=== PATIENT | male | born 1940 | race Caucasian/White ===

== ENCOUNTER 2016-11-10 08:09 | Day surgery (SDC) | payer MEDICARE ==
[2016-06-17 11:06] VITALS: BMI 25.8
[2016-11-10 09:20] LABS: INR 1.1; PROTHROMBIN TIME 12.4 SECONDS (9.7-12.2)
[2016-11-10] MEDS ORDERED: Midazolam 2 MG/2 ML VIAL ONE (11:57)
[2016-11-10] MEDS ORDERED: Propofol 10 mg/ml Inj (20 ML) ONE (11:58)
[2016-11-10] MEDS ORDERED: Absorbable Gelatin Sponge Size 12-7 ONE (12:22)
--- NOTE | 2016-11-10 12:33 | CP.SDSHP ---
Same Day Surgery H & P - History Proposed Procedure: US guided renal biopsy. Pre-Op Diagnosis: Proteinuria - Allergies Allergies: Allergies No Known Allergies Allergy (Verified 02/07/16 10:54) - Physical Exam Vital Signs: Vital Signs 11/10/16 08:17 Temperature 97.7 F Pulse Rate 69 Respiratory 18 Rate Blood Pressure 170/84 H O2 Sat by Pulse 98 Oximetry Mental Status: Alert & Oriented x3 Neuro: WNL Heart: WNL - Impression Impression: Pt with proteinuria referred for biopsy. Pt. Evaluated Today:Candidate for Anesthesia & Procedure: Yes (ASA 2 Malampati 3) - Date & Time Date: 11/10/16 Time: 12:00 Short Stay Discharge - Short Stay Discharge Admitting Diagnosis/Reason for Visit: PROTEINURIA, UNSPECIFIED Disposition: HOME/ ROUTINE
--- NOTE | 2016-11-10 12:36 | PCM.SURG1 ---
Surgeon's Initial Post Op Note - Surgeon's Notes Surgeon: Jose Marsh MD Sap Portal Developer: None Type of Anesthesia: IV Sedation Pre-Operative Diagnosis: Proteinuria Operative Findings: US showed an unremarkable left kidney. Post-Operative Diagnosis: Proteinuria Operation Performed: US guided left renal biopsy. Three 18 g core specimen obtained. Biopsy tract emboized with gelfoam. Specimen/Specimens Removed: 18 g core x 3 Estimated Blood Loss: EBL {In ML}: 2 Blood Products Given: N/A Drains Used: No Drains Post-Op Condition: Fair Date of Surgery/Procedure: 11/10/16 Time of Surgery/Procedure: 12:30
[2016-11-10 13:47] VITALS: RESP 20
[2016-11-10 14:34] VITALS: BP 169/89; PULSE 78; TEMP 98; O2SAT 100
--- NOTE | 2016-11-12 10:29 | US ---
PROCEDURE: Date of procedure: 11/10/2016 Procedure: Ultrasound-guided left renal biopsy, CPT 51400 Ultrasound guidance for biopsy, [id number] HISTORY: Proteinuria TECHNIQUE: Following informed consent and procedure time-out, the patient was placed prone on the interventional table and a limited ultrasound showed slightly echogenic left kidney consistent with medical renal disease. There is no hydronephrosis or mass. The patient left back was prepped and draped in the usual sterile fashion. After patient sedated by the anesthesiologist and the skin anesthetized with lidocaine, an 18 gauge core needle was advanced percutaneously towards the lower pole cortex. Upon confirmation of needle position, three-18 gauge core specimens were obtained and sent for routine pathology. The biopsy tract was then embolized with Gelfoam. A post biopsy ultrasound showed no hematoma. There were no immediate complications. IMPRESSION: Ultrasound-guided left renal biopsy.
== END 2016-11-10 15:40 | disposition home or self-care (01) ==
LOC: C.SPRAD 08:09
PROVIDERS: ATTEND Radiology Vascular & Interventional Radiology
DX: N28.89 Other specified disorders of kidney and ureter (principal); R80.9 Proteinuria, unspecified; N02.8 Recurrent and persistent hematuria with other morphologic changes
CPT/HCPCS: 36415; 50200; 76942; 85610; 85730; 88300; J2250; J2704; J3010

== ENCOUNTER 2016-11-14 22:34 | Observation (INO) | payer MEDICARE ==
[2016-11-14 22:34] VITALS: BMI 25.8
[2016-11-14] MEDS ORDERED: Aspirin 325 mg EC Tablets PO STA (22:55)
[2016-11-14 23:07] LABS: BASO % 0.1 % (0.0-2.0); HEMATOCRIT 41.6 % (35.0-51.0); LYMPH # 0.3 K/uL (1.0-4.3); LYMPH % 1.5 % (20.0-40.0); MEAN CORPUSCULAR HEMOGLOBIN 30.4 pg (27.0-31.0); MEAN CORPUSCULAR HGB CONC 33.8 g/dL (33.0-37.0); MEAN PLATELET VOLUME 8.4 fL (7.2-11.7); MONO # 1.2 K/uL (0.0-0.8); MONO % 6.8 % (0.0-10.0); PLATELET COUNT 192 K/uL (130-400); RED CELL DISTRIBUTION WIDTH 14.1 % (11.5-14.5); WHITE BLOOD COUNT 18.1 K/uL (4.8-10.8)
[2016-11-14 23:17] LABS: POTASSIUM 3.6 mmol/L (3.6-5.2)
[2016-11-14 23:19] LABS: BILIRUBIN,TOTAL 3.1 mg/dL (0.2-1.3); TOTAL PROTEIN 6.8 g/dL (6.3-8.3)
[2016-11-14 23:20] LABS: CALCIUM 8.4 mg/dl (8.6-10.4)
[2016-11-14 23:31] LABS: TROPONIN I 0.118 ng/mL (0.00-0.120)
[2016-11-14] MEDS ORDERED: Aspirin 325 mg EC Tablets PO ONE (23:42)
[2016-11-14 23:43] LABS: NEUTROPHIL 92 % (50-75); TOTAL CELLS COUNTED 100
[2016-11-15 00:25] LABS: INR 1.3
--- NOTE | 2016-11-15 00:31 | C.PDOC ---
History Of Present Illness 76 year old male who presents to the ER with a complaint of vague left chest discomfort for the past 3 days. Patient is SP renal biopsy 5 days ago; since then he has been off his medication, however, he is unsure why. Denies SOB, nausea, or vomiting. Time Seen by Provider: 11/14/16 22:51 Chief Complaint (Nursing): Chest Pain History Per: Patient History/Exam Limitations: no limitations Onset/Duration Of Symptoms: Days Current Symptoms Are (Timing): Still Present Associated Symptoms: denies: Nausea, Diaphoresis Modifying Factors: None Exacerbating Factors: None Alleviating Factors: None Recent travel outside of the [place]: No Past Medical History Reviewed: Historical Data, Nursing Documentation, Vital Signs Vital Signs: Last Vital Signs Temp 97.8 F 11/14/16 22:40 Pulse 96 H 11/15/16 00:34 Resp 16 11/15/16 00:34 BP 178/100 H 11/15/16 00:34 Pulse Ox 96 11/15/16 00:37 - Medical History PMH: Asthma, Cardia Arrhythmia (A-FIB), HTN, Kidney Stones, Chronic Kidney Disease Surgical History: Appendectomy, Endoscopy - [facility] Procedures MEASURE OF CARDIAC SAMPL & PRESSURE, L HEART, PERC APPROACH (06/07/15) PLAIN RADIOGRAPHY OF MULT COR ART USING OTH CONTRAST (06/07/15) Family History: States: Unknown Family Hx - Social History Hx Alcohol Use: No Hx Substance Use: No - Immunization History Hx Tetanus Toxoid Vaccination: No Hx Influenza Vaccination: No Hx Pneumococcal Vaccination: No Review Of Systems Constitutional: Negative for: Fever, Chills Cardiovascular: Positive for: Chest Pain Gastrointestinal: Negative for: Nausea, Vomiting Physical Exam - Physical Exam Appears: Non-toxic, No Acute Distress Skin: Normal Color, Warm, Dry Head: Atraumatic, Normacephalic Oral Mucosa: Moist Chest: Symmetrical, No Tenderness Cardiovascular: Rhythm Irregular, No Murmur Respiratory: Normal Breath Sounds, No Rales, No Rhonchi, No Wheezing Gastrointestinal/Abdominal: Soft, No Tenderness Neurological/Psych: Oriented x3, Normal Speech, Normal Cognition ED Course And Treatment - Laboratory Results Result Diagrams: 11/14/16 23:03 11/14/16 23:03 ECG: Interpreted By La ECG Rhythm: Atrial Fibrillation ECG Interpretation: Normal Rate From EC O2 Sat by Pulse Oximetry: 96 (Room air) Pulse Ox Interpretation: Normal - Radiology CXR: Interpreted by Me CXR Interpretation: Yes: No Acute Disease, Heart Size (+ megaly, +RVH, +LVH) Progress Note: EKG and CXR ordered. Ecotrin, cardizem, and lovenox administered. Reevaluation Time: 00:53 Reassessment Condition: Improved - Physician Consult Information Outcome Of Conversation: 0030: d/w Dr. Damaso Escobedo- prior adm doctor- ok to Tele Obs. Understands and agrees w Lovenox dose given and pending further eval for PE Medical Decision Making Medical Decision Making: poorly controlled AF off all meds, and ? if presently anticoagulated. ? underlying AF provoked PE Lovenox given, but no CTA due to elev creat 2.4 Disposition Doctor Will See Patient In The: Hospital Counseled Patient/Family Regarding: Studies Performed, Diagnosis - Disposition Disposition: HOSPITALIZED Disposition Time: 00:54 Condition: GOOD Forms: [facility] ([place]) - Clinical Impression Clinical Impression: Atrial fibrillation, Chest discomfort - Scribe Statement The provider has reviewed the documentation as recorded by the Scribgonsalo Friedman All medical record entries made by the Scribe were at my direction and personally dictated by me. I have reviewed the chart and agree that the record accurately reflects my personal performance of the history, physical exam, medical decision making, and the department course for this patient. I have also personally directed, reviewed, and agree with the discharge instructions and disposition.
[2016-11-15] MEDS ORDERED: Enoxaparin 40 mg Syringe SC STA (00:34)
[2016-11-15] MEDS ORDERED: Enoxaparin 60 mg Syringe ONE (01:00)
[2016-11-15] MEDS: Moxifloxacin IV 400mg/250ml NS 400 MG/250 ML BAG IVPB SCH (02:03)
[2016-11-15 07:47] LABS: BASO # 0.2 K/uL (0.0-0.2); BASO % 0.8 % (0.0-2.0); HEMATOCRIT 38.5 % (35.0-51.0); LYMPH # 0.3 K/uL (1.0-4.3); LYMPH % 1.7 % (20.0-40.0); MEAN CELL VOLUME 89.7 fL (80.0-94.0); MEAN CORPUSCULAR HEMOGLOBIN 30.7 pg (27.0-31.0); MEAN CORPUSCULAR HGB CONC 34.2 g/dL (33.0-37.0); MEAN PLATELET VOLUME 8.6 fL (7.2-11.7); MONO # 1.2 K/uL (0.0-0.8); MONO % 5.9 % (0.0-10.0); PLATELET COUNT 175 K/uL (130-400); RED CELL DISTRIBUTION WIDTH 14.1 % (11.5-14.5); WHITE BLOOD COUNT 20.7 K/uL (4.8-10.8)
[2016-11-15 08:19] LABS: BILIRUBIN,TOTAL 3.1 mg/dL (0.2-1.3); TOTAL PROTEIN 6.2 g/dL (6.3-8.3)
[2016-11-15 08:20] LABS: CALCIUM 8.3 mg/dl (8.6-10.4)
--- NOTE | 2016-11-15 08:56 | RAD ---
PROCEDURE: CHEST RADIOGRAPH, 1 VIEW HISTORY: Shortness of breath COMPARISON: 10/17/2016. FINDINGS: LUNGS: The right lung is clear. There is a persistent left lower lobe consolidation. PLEURA: The right costophrenic angle has been excluded from the film. There is a persistent moderate left pleural effusion. CARDIOVASCULAR: There is persistent moderate cardiomegaly. OSSEOUS STRUCTURES: No significant abnormalities. VISUALIZED UPPER ABDOMEN: Normal. OTHER FINDINGS: None. IMPRESSION: Persistent moderate cardiomegaly. Persistent left lower lobe atelectasis/pneumonia and moderate left pleural effusion.
[2016-11-15 09:06] LABS: BASOPHIL 1 % (0-2); NEUTROPHIL 89 % (50-75); TOTAL CELLS COUNTED 100
[2016-11-15] MEDS ORDERED: Home Med 1 UNIT (Valsartan [Diovan] 160 MG) PO SCH (10:00)
--- NOTE | 2016-11-15 11:27 | US ---
PROCEDURE: Ultrasound of the Kidneys HISTORY: acute renal failure COMPARISON: None available. TECHNIQUE: Sonogram of the kidneys. FINDINGS: RIGHT KIDNEY: Measures: 13.0 cm. Normal in size, contour with diffuse increased echogenicity. There is moderate hydronephrosis. No nephrolithiasis or solid mass. There is a 1.3 x 1.4 x 1.4 cm cyst in the upper pole. LEFT KIDNEY: Measures: 11.8 cm. Normal in size, contour with diffuse increased echogenicity. There is mild hydronephrosis. No nephrolithiasis or solid mass. OTHER FINDINGS: None. IMPRESSION: Medical renal disease. Moderate right and mild left hydronephrosis.
--- NOTE | 2016-11-15 11:37 | CP.PCM.CON ---
History of Present Illness - History of Present Illness History of Present Illness: 76 yo M w/ pmh of htn, diastolic CHF, afib on xarelto, gout, nephrolithiasis, COPD and proteinuria s/p renal biopsy 5 days ago, presented to ED yesterday with shortness of breath and chest pain; found to have acute renal failure, nephrology being consulted for the same; Patient underwent renal biopsy in the setting of ~3 g proteinuria with preserved renal function; anticoagulation was held for a few days before the procedure and had not yet been restarted; however, he reports having gross hematuria after the procedure which cleared up gradually; he denies any dysuria , however, urination has decreased significantly; Patient also reports some chest pain and palpitations on day of presentation; he reports some difficulty breathing that he attributes to stuffy nose; appetite has been decreased lately with some nausea and minimal vomiting; Review of Systems - Constitutional Constitutional: absent: Chills, Fever - EENT Eyes: Change in Vision Nose/Mouth/Throat: Nasal Congestion. absent: Dysphagia - Cardiovascular Cardiovascular: Chest Pain - Respiratory Respiratory: Dyspnea - Gastrointestinal Gastrointestinal: As Per HPI - Genitourinary Genitourinary: As Per HPI - Integumentary Integumentary: absent: Pruritus, Rash - Psychiatric Psychiatric: absent: Anxiety, Depression - Hematologic/Lymphatic Hematologic: absent: Easy Bleeding, Easy Bruising Past Patient History - Past Medical History & Family History Past Medical History?: Yes Pertinent Family History: Mother - heart disease, stroke () - Past Social History Smoking Status: Former Smoker - CARDIAC Hx Cardiac Disorders: Yes Hx Cardia Arrhythmia: Yes (A-FIB) Hx Hypertension: Yes - PULMONARY Hx Respiratory Disorders: Yes Hx Asthma: Yes - NEUROLOGICAL Hx Neurological Disorder: No - HEENT Hx HEENT Problems: Yes Hx Glaucoma: Yes Other/Comment: Wears eyeglasses for reading - RENAL Hx Chronic Kidney Disease: Yes Hx Dialysis: No Hx Kidney Stones: Yes - ENDOCRINE/METABOLIC Hx Endocrine Disorders: No - HEMATOLOGICAL/ONCOLOGICAL Hx Blood Disorders: No - INTEGUMENTARY Hx Dermatological Problems: Yes Other/Comment: facial discoloration. patient states " roselyn" - MUSCULOSKELETAL/RHEUMATOLOGICAL Hx Musculoskeletal Disorders: No Hx Falls: Yes - GASTROINTESTINAL Hx Gastrointestinal Disorders: No - GENITOURINARY/GYNECOLOGICAL Hx Genitourinary Disorders: Yes Hx Prostate Cancer: Yes (h/o.12 years ago seed implants) - PSYCHIATRIC Hx Substance Use: No - SURGICAL HISTORY Hx Appendectomy: Yes - ANESTHESIA Hx Anesthesia: Yes Hx Anesthesia Reactions: No Hx Malignant Hyperthermia: No Has any member of the family had a problem w/ anesthesia?: No Meds Allergies/Adverse Reactions: Allergies Allergy/AdvReac Type Severity Reaction Status Date / Time No Known Allergies Allergy Verified 02/07/16 10:54 - Medications Medications: Current Medications Aspirin (Aspirin Chewable) 81 mg PO DAILY [facility] Furosemide (Lasix) 40 mg PO DAILY [facility] Home Med (Valsartan [Diovan]) 160 mg PO DAILY [facility] Moxifloxacin HCl (Avelox Iv 400mg/250ml Ns) 400 mg in 250 mls @ 167 mls/hr IVPB Q24H [facility] Last Admin: 11/15/16 02:03 Dose: 167 mls/hr Metoprolol Succinate (Toprol Xl) 25 mg PO DAILY [facility] Pantoprazole Sodium (Protonix Ec Tab) 40 mg PO DAILY [facility] Rivaroxaban (Xarelto) 15 mg PO DAILY [facility] Physical Exam - Constitutional Appears: Well, No Acute Distress - Head Exam Head Exam: NORMAL INSPECTION - Eye Exam Eye Exam: Normal appearance - ENT Exam ENT Exam: Mucous Membranes Moist - Respiratory Exam Respiratory Exam: Clear to Auscultation Bilateral. absent: Rales, Rhonchi, Wheezes, Respiratory Distress - Cardiovascular Exam Cardiovascular Exam: REGULAR RHYTHM, +S1, +S2 - GI/Abdominal Exam GI & Abdominal Exam: Distended, Soft - Neurological Exam Neurological exam: Alert, Oriented x3 - Psychiatric Exam Psychiatric exam: Normal Affect, Normal Mood - Skin Skin Exam: Normal Color, Warm Additional comments: Except for L facial discoloration (chronic, since childhood); Results - Vital Signs Recent Vital Signs: Last Vital Signs Temp 98.1 F 11/15/16 04:05 Pulse 79 11/15/16 07:30 Resp 20 11/15/16 04:05 BP 142/54 L 11/15/16 04:05 Pulse Ox 97 11/15/16 04:05 - Labs Result Diagrams: 11/15/16 07:33 11/15/16 07:33 Labs: Laboratory Results - last 24 hr 11/15/16 11/15/16 07:33 07:33 WBC 20.7 H RBC 4.29 L Hgb 13.2 Hct 38.5 MCV 89.7 MCH 30.7 MCHC 34.2 RDW 14.1 Plt Count 175 MPV 8.6 Neut % (Auto) 91.6 H Lymph % (Auto) 1.7 L [place] % (Auto) 5.9 Eos % (Auto) 0.0 Baso % (Auto) 0.8 Neut # 19.0 H Lymph # 0.3 L [place] # 1.2 H Eos # 0.0 Baso # 0.2 Neutrophils % (Manual) 89 H Band Neutrophils % 3 H Lymphocytes % (Manual) 2 L Monocytes % (Manual) 5 Basophils % (Manual) 1 Platelet Estimate Normal Polychromasia Slight Hypochromasia (manual) Slight Poikilocytosis (manual Slight Anisocytosis (manual) Slight Ovalocytes Slight Sodium 130 L Potassium 4.0 Chloride 89 L Carbon Dioxide 26 Anion Gap 18 BUN 37 H Creatinine 2.9 H Est GFR ( Amer) 26 Est GFR (Non-Af Amer) 21 Random Glucose 95 Calcium 8.3 L Total Bilirubin 3.1 H AST 31 ALT 27 Alkaline Phosphatase 89 Total Creatine Kinase 56 CK-MB (Mass) 1.71 Troponin I, Quant 0.1170 Total Protein 6.2 L Albumin 3.1 L Globulin 3.1 Albumin/Globulin Ratio 1.0 - Imaging and Cardiology US - abdomen Status: Image reviewed by me Additional comment: Renal US with bilateral hydronephrosis, bladder distention; Assessment & Plan (1) Acute renal failure Assessment and Plan: Baseline preserved renal function, now with obstructive nephropathy and US showing bilateral hydronephrosis, bladder distention (and patient unable to empty bladder); patient already had history of urinary frequency with moderately enlarged prostate; recent renal biopsy with subsequent gross hematuria likely resulted in clots that resulted in urinary obstruction; -Insert vasquez; if still no UO, need to do bladder irrigation -Monitor I/O, watch for post-obstructive diuresis -Start flomax 0.4 mg daily -Holding valsartan and lasix for now Status: Acute (2) Proteinuria Assessment and Plan: 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; degree of proteinuria, ~3g, appears out of proportion for this diagnosis in the context preserved renal function (baseline serum creat 0.8), however, still awaiting electron microscopy results; -continue to hold valsartan, will restart once BROWN improves Status: Acute (3) Hypertension Assessment and Plan: BP controlled; on metoprolol XL 25 mg daily; holding valsartan and lasix in setting of acute renal failure; may need IVF if post-obstructive diuresis ensues ; Status: Chronic (4) Pneumonia Assessment and Plan: On avelox, no renal dose adjustment needed; Status: Acute (5) Atrial fibrillation Assessment and Plan: On xarelto, holding for now in the setting of hematuria; can restart once urine clear; Status: Chronic (6) Gout Assessment and Plan: On allopurinol 100 mg daily at home, continue; Status: Chronic
--- NOTE | 2016-11-15 12:21 | CP.PCM.HP ---
History of Present Illness - History of Present Illness History of Present Illness: 76 years old male patient with past medical history of CHF, hypertension, atrial fibrillation on Xarelto, COPD, proteinuria S/P biopsy 2 days back, gout, nephrolithiasis, presented to the emergency department with complaint of shortness of breath, chest pain and found to have acute renal failure. Recently patient underwent renal biopsy because of the proteinuria. Denies dysuria but also complains of decreased urination post renal biopsy Decreased appetite recently, complaints of nausea and vomiting Present on Admission - Present on Admission Any Indicators Present on Admission: No Past Patient History - Past Medical History & Family History Past Medical History?: Yes - Past Social History Smoking Status: Former Smoker - CARDIAC Hx Cardiac Disorders: Yes Hx Cardia Arrhythmia: Yes (A-FIB) Hx Hypertension: Yes - PULMONARY Hx Respiratory Disorders: Yes Hx Asthma: Yes - NEUROLOGICAL Hx Neurological Disorder: No - HEENT Hx HEENT Problems: Yes Hx Glaucoma: Yes Other/Comment: Wears eyeglasses for reading - RENAL Hx Chronic Kidney Disease: Yes Hx Dialysis: No Hx Kidney Stones: Yes - ENDOCRINE/METABOLIC Hx Endocrine Disorders: No - HEMATOLOGICAL/ONCOLOGICAL Hx Blood Disorders: No - INTEGUMENTARY Hx Dermatological Problems: Yes Other/Comment: facial discoloration. patient states " roselyn" - MUSCULOSKELETAL/RHEUMATOLOGICAL Hx Musculoskeletal Disorders: No Hx Falls: Yes - GASTROINTESTINAL Hx Gastrointestinal Disorders: No - GENITOURINARY/GYNECOLOGICAL Hx Genitourinary Disorders: Yes Hx Prostate Cancer: Yes (h/o.12 years ago seed implants) - PSYCHIATRIC Hx Substance Use: No - SURGICAL HISTORY Hx Appendectomy: Yes - ANESTHESIA Hx Anesthesia: Yes Hx Anesthesia Reactions: No Hx Malignant Hyperthermia: No Has any member of the family had a problem w/ anesthesia?: No Meds Home Medications: Home Medication List Medication Instructions Recorded Confirmed Type Allopurinol [Zyloprim] 100 mg PO DAILY #30 tab 11/17/16 Rx Aspirin [Aspirin Chewable] 81 mg PO DAILY #30 chew 11/17/16 Rx Furosemide [Lasix] 40 mg PO DAILY #30 tab 11/17/16 Rx Metoprolol Succinate [Toprol XL] 25 mg PO DAILY #30 tab 11/17/16 Rx Moxifloxacin [Avelox] 400 mg PO DAILY #4 tab 11/17/16 Rx Pantoprazole [Protonix EC Tab] 40 mg PO DAILY #30 ect 11/17/16 Rx Potassium Chloride [K-Dur 20 mEq 20 meq PO DAILY #30 tab 11/17/16 Rx ER Tab] Rivaroxaban [Xarelto] 15 mg PO DAILY #30 tab 11/17/16 Rx Tamsulosin [Flomax] 0.4 mg PO DAILY #30 cap 11/17/16 Rx Allergies/Adverse Reactions: Allergies Allergy/AdvReac Type Severity Reaction Status Date / Time No Known Allergies Allergy Verified 02/07/16 10:54 Physical Exam - Constitutional Appears: Well - Head Exam Head Exam: ATRAUMATIC, NORMAL INSPECTION, NORMOCEPHALIC - Eye Exam Eye Exam: EOMI, Normal appearance, PERRL Pupil Exam: NORMAL ACCOMODATION, PERRL - ENT Exam ENT Exam: Mucous Membranes Moist, Normal Exam - Neck Exam Neck exam: Positive for: Normal Inspection - Respiratory Exam Respiratory Exam: Decreased Breath Sounds - Cardiovascular Exam Cardiovascular Exam: REGULAR RHYTHM, +S1, +S2 - GI/Abdominal Exam GI & Abdominal Exam: Diminished Bowel Sounds, Soft - Rectal Exam Rectal Exam: Deferred Results - Vital Signs Recent Vital Signs: Last Vital Signs Temp 98.1 F 11/15/16 04:05 Pulse 79 11/15/16 07:30 Resp 20 11/15/16 04:05 BP 142/54 L 11/15/16 04:05 Pulse Ox 97 11/15/16 04:05 - Labs Result Diagrams: 11/17/16 06:17 11/17/16 06:17 Labs: Laboratory Results - last 24 hr 11/15/16 11/15/16 07:33 07:33 WBC 20.7 H RBC 4.29 L Hgb 13.2 Hct 38.5 MCV 89.7 MCH 30.7 MCHC 34.2 RDW 14.1 Plt Count 175 MPV 8.6 Neut % (Auto) 91.6 H Lymph % (Auto) 1.7 L [place] % (Auto) 5.9 Eos % (Auto) 0.0 Baso % (Auto) 0.8 Neut # 19.0 H Lymph # 0.3 L [place] # 1.2 H Eos # 0.0 Baso # 0.2 Neutrophils % (Manual) 89 H Band Neutrophils % 3 H Lymphocytes % (Manual) 2 L Monocytes % (Manual) 5 Basophils % (Manual) 1 Platelet Estimate Normal Polychromasia Slight Hypochromasia (manual) Slight Poikilocytosis (manual Slight Anisocytosis (manual) Slight Ovalocytes Slight Sodium 130 L Potassium 4.0 Chloride 89 L Carbon Dioxide 26 Anion Gap 18 BUN 37 H Creatinine 2.9 H Est GFR ( Amer) 26 Est GFR (Non-Af Amer) 21 Random Glucose 95 Calcium 8.3 L Total Bilirubin 3.1 H AST 31 ALT 27 Alkaline Phosphatase 89 Total Creatine Kinase 56 CK-MB (Mass) 1.71 Troponin I, Quant 0.1170 Total Protein 6.2 L Albumin 3.1 L Globulin 3.1 Albumin/Globulin Ratio 1.0 Assessment & Plan (1) Acute renal failure Status: Acute (2) Asthma exacerbation Status: Acute (3) CHF exacerbation Status: Acute (4) Chest discomfort Status: Acute (5) Chronic congestive heart failure Status: Acute (6) Dyspnea Status: Acute (7) Dyspnea Status: Acute (8) Elevated troponin Status: Acute (9) Hypertensive urgency Status: Acute (10) Hypokalemia Status: Acute (11) Pneumonia Status: Acute (12) Prophylactic measure Status: Acute (13) Proteinuria Status: Acute (14) Respiratory distress Status: Acute (15) Atrial fibrillation Status: Chronic (16) Gout Status: Chronic (17) Hypertension Status: Chronic - Assessment and Plan (Free Text) Plan: Labs and meds reviewed EKG noted Monitor vitals Telemetry Cardio consult Nephro consult Renal diet Aspirin Diltiazem DVT prophylaxis Antibiotics
[2016-11-15 12:23] LABS: RBC URINE 11 /hpf (0-3); URINE BILIRUBIN NEGATIVE (NEGATIVE); URINE BLOOD 3+ (NEGATIVE); URINE COLOR Yellow (YELLOW); URINE GLUCOSE (UA) NORMAL (Normal); URINE KETONE NEGATIVE (NEGATIVE); URINE LEUKOCYTE ESTERASE NEG Leu/uL (Negative); URINE PROTEIN 1+ mg/dL (NEGATIVE); URINE UROBILINOGEN NORMAL mg/dL (0.2-1.0); WBC URINE 6 /hpf (0-5)
[2016-11-15 12:28] LABS: CREATININE, RANDOM URINE 49.8 mg/dL
--- NOTE | 2016-11-15 12:46 | CP.PCM.CON ---
History of Present Illness - History of Present Illness History of Present Illness: 76 year old with hx of DM, had hx of cardiac w/u, last year a cardiac cath was with unremarkable coronaries and normal LV. now with CP, no EKG changes, neg Enz.. no [place]. Review of Systems - Constitutional Constitutional: Anorexia, Weakness - EENT Eyes: absent: Discharge Ears: absent: Ear Discharge Nose/Mouth/Throat: absent: Epistaxis - Cardiovascular Cardiovascular: Chest Pain, Palpitations. absent: Acrocyanosis, Diaphoresis, Syncope - Respiratory Respiratory: Cough. absent: Dyspnea, Hemoptysis - Gastrointestinal Gastrointestinal: absent: Abdominal Pain, Diarrhea, Hematochezia, Vomiting - Genitourinary Genitourinary: absent: Change in Urinary Stream Past Patient History - Past Medical History & Family History Past Medical History?: Yes - Past Social History Smoking Status: Former Smoker - CARDIAC Hx Cardiac Disorders: Yes Hx Cardia Arrhythmia: Yes (A-FIB) Hx Hypertension: Yes - PULMONARY Hx Respiratory Disorders: Yes Hx Asthma: Yes - NEUROLOGICAL Hx Neurological Disorder: No - HEENT Hx HEENT Problems: Yes Hx Glaucoma: Yes Other/Comment: Wears eyeglasses for reading - RENAL Hx Chronic Kidney Disease: Yes Hx Dialysis: No Hx Kidney Stones: Yes - ENDOCRINE/METABOLIC Hx Endocrine Disorders: No - HEMATOLOGICAL/ONCOLOGICAL Hx Blood Disorders: No - INTEGUMENTARY Hx Dermatological Problems: Yes Other/Comment: facial discoloration. patient states " roselyn" - MUSCULOSKELETAL/RHEUMATOLOGICAL Hx Musculoskeletal Disorders: No Hx Falls: Yes - GASTROINTESTINAL Hx Gastrointestinal Disorders: No - GENITOURINARY/GYNECOLOGICAL Hx Genitourinary Disorders: Yes Hx Prostate Cancer: Yes (h/o.12 years ago seed implants) - PSYCHIATRIC Hx Substance Use: No - SURGICAL HISTORY Hx Appendectomy: Yes - ANESTHESIA Hx Anesthesia: Yes Hx Anesthesia Reactions: No Hx Malignant Hyperthermia: No Has any member of the family had a problem w/ anesthesia?: No Meds Allergies/Adverse Reactions: Allergies Allergy/AdvReac Type Severity Reaction Status Date / Time No Known Allergies Allergy Verified 02/07/16 10:54 - Medications Medications: Current Medications Aspirin (Aspirin Chewable) 81 mg PO DAILY [facility] Furosemide (Lasix) 40 mg PO DAILY [facility] Home Med (Valsartan [Diovan]) 160 mg PO DAILY [facility] Moxifloxacin HCl (Avelox Iv 400mg/250ml Ns) 400 mg in 250 mls @ 167 mls/hr IVPB Q24H [facility] Last Admin: 11/15/16 02:03 Dose: 167 mls/hr Metoprolol Succinate (Toprol Xl) 25 mg PO DAILY [facility] Pantoprazole Sodium (Protonix Ec Tab) 40 mg PO DAILY [facility] Rivaroxaban (Xarelto) 15 mg PO DAILY [facility] Physical Exam - Constitutional Appears: Non-toxic - Head Exam Head Exam: ATRAUMATIC - Eye Exam Eye Exam: EOMI - ENT Exam ENT Exam: Mucous Membranes Moist - Neck Exam Neck exam: Negative for: Lymphadenopathy, Tenderness - Respiratory Exam Respiratory Exam: Clear to Auscultation Bilateral. absent: Rales - Cardiovascular Exam Cardiovascular Exam: REGULAR RHYTHM, Systolic Murmur - GI/Abdominal Exam GI & Abdominal Exam: Normal Bowel Sounds. absent: Organomegaly - Rectal Exam Rectal Exam: Deferred - Extremities Exam Extremities exam: Positive for: normal capillary refill. Negative for: calf tenderness - Neurological Exam Neurological exam: Alert, Oriented x3 - Psychiatric Exam Psychiatric exam: Anxious - Skin Skin Exam: Dry Results - Vital Signs Recent Vital Signs: Last Vital Signs Temp 98.1 F 11/15/16 04:05 Pulse 79 11/15/16 07:30 Resp 20 11/15/16 04:05 BP 142/54 L 11/15/16 04:05 Pulse Ox 97 11/15/16 04:05 - Labs Result Diagrams: 11/16/16 11:17 11/16/16 11:17 Labs: Laboratory Results - last 24 hr 11/15/16 11/15/16 11/15/16 07:33 07:33 12:09 WBC 20.7 H RBC 4.29 L Hgb 13.2 Hct 38.5 MCV 89.7 MCH 30.7 MCHC 34.2 RDW 14.1 Plt Count 175 MPV 8.6 Neut % (Auto) 91.6 H Lymph % (Auto) 1.7 L [place] % (Auto) 5.9 Eos % (Auto) 0.0 Baso % (Auto) 0.8 Neut # 19.0 H Lymph # 0.3 L [place] # 1.2 H Eos # 0.0 Baso # 0.2 Neutrophils % (Manual) 89 H Band Neutrophils % 3 H Lymphocytes % (Manual) 2 L Monocytes % (Manual) 5 Basophils % (Manual) 1 Platelet Estimate Normal Polychromasia Slight Hypochromasia (manual) Slight Poikilocytosis (manual Slight Anisocytosis (manual) Slight Ovalocytes Slight Sodium 130 L Potassium 4.0 Chloride 89 L Carbon Dioxide 26 Anion Gap 18 BUN 37 H Creatinine 2.9 H Est GFR ( Amer) 26 Est GFR (Non-Af Amer) 21 Random Glucose 95 Calcium 8.3 L Total Bilirubin 3.1 H AST 31 ALT 27 Alkaline Phosphatase 89 Total Creatine Kinase 56 CK-MB (Mass) 1.71 Troponin I, Quant 0.1170 Total Protein 6.2 L Albumin 3.1 L Globulin 3.1 Albumin/Globulin Ratio 1.0 Urine Color Yellow Urine Clarity Clear Urine pH 5.0 Ur Specific [place] 1.008 Urine Protein 1+ H Urine Glucose (UA) Normal Urine Ketones Negative Urine Blood 3+ H Urine Nitrate Negative Urine Bilirubin Negative Urine Urobilinogen Normal Ur Leukocyte Esterase Neg Urine WBC (Auto) 6 H Urine RBC (Auto) 11 H Ur Random Creatinine U Random Total Protein Ur Random Sodium Ur Random Urea Nitrogn 11/15/16 11/15/16 12:09 12:10 WBC RBC Hgb Hct MCV MCH MCHC RDW Plt Count MPV Neut % (Auto) Lymph % (Auto) [place] % (Auto) Eos % (Auto) Baso % (Auto) Neut # Lymph # [place] # Eos # Baso # Neutrophils % (Manual) Band Neutrophils % Lymphocytes % (Manual) Monocytes % (Manual) Basophils % (Manual) Platelet Estimate Polychromasia Hypochromasia (manual) Poikilocytosis (manual Anisocytosis (manual) Ovalocytes Sodium Potassium Chloride Carbon Dioxide Anion Gap BUN Creatinine Est GFR ( Amer) Est GFR (Non-Af Amer) Random Glucose Calcium Total Bilirubin AST ALT Alkaline Phosphatase Total Creatine Kinase CK-MB (Mass) Troponin I, Quant Total Protein Albumin Globulin Albumin/Globulin Ratio Urine Color Urine Clarity Urine pH Ur Specific [place] Urine Protein Urine Glucose (UA) Urine Ketones Urine Blood Urine Nitrate Urine Bilirubin Urine Urobilinogen Ur Leukocyte Esterase Urine WBC (Auto) Urine RBC (Auto) Ur Random Creatinine 49.8 U Random Total Protein 61.0 H Ur Random Sodium 10 Ur Random Urea Nitrogn 387 Assessment & Plan (1) Chest discomfort Status: Acute Comment: no [place], Nl Cor last year
--- NOTE | 2016-11-15 15:57 | NM ---
COMPARISON: Chest radiograph 11/15/2016. TECHNIQUE: 7.6 MCi technetium 99-m Xe-133 Gas. 4.1 mCI technetium 99-m MAA administered intravenously. FINDINGS: VENTILATION COMPONENT: Normal. PERFUSION COMPONENT: Normal. No perfusion defects are identified throughout the bilateral lung espinosa. IMPRESSION: Normal ventilation perfusion lung scan is identified.
[2016-11-16] MEDS: Moxifloxacin IV 400mg/250ml NS 400 MG/250 ML BAG IVPB SCH (01:19)
[2016-11-16] MEDS: Pantoprazole 40 mg EC Tab PO SCH (09:34)
[2016-11-16] MEDS: Metoprolol Succinate 25 mg XL Tab PO SCH (09:35)
[2016-11-16 11:21] LABS: BASO % 0.2 % (0.0-2.0); HEMATOCRIT 38.4 % (35.0-51.0); LYMPH # 0.3 K/uL (1.0-4.3); LYMPH % 2.3 % (20.0-40.0); MEAN CELL VOLUME 91.3 fL (80.0-94.0); MEAN PLATELET VOLUME 8.3 fL (7.2-11.7); MONO # 1.2 K/uL (0.0-0.8); MONO % 9.2 % (0.0-10.0); NRBC % 0.1 % (0.0-2.0); PLATELET COUNT 189 K/uL (130-400); RED CELL DISTRIBUTION WIDTH 14.1 % (11.5-14.5); WHITE BLOOD COUNT 13.4 K/uL (4.8-10.8)
[2016-11-16 11:31] LABS: CHLORIDE 95 mmol/L (98-107); POTASSIUM 3.5 mmol/L (3.6-5.2); SODIUM 135 mmol/L (132-148)
[2016-11-16 11:33] LABS: BILIRUBIN,TOTAL 2.7 mg/dL (0.2-1.3); GFR AFRICAN-AMERICAN > 60
[2016-11-16 11:34] LABS: ALB/GLOB RATIO 0.9 (1.0-2.1); ALKALINE PHOSPHATASE 75 U/L (38-126); ALT/SGPT 30 U/L (21-72); AST/SGOT 28 U/L (17-59); BLOOD UREA NITROGEN 33 mg/dL (9-20); CALCIUM 8.3 mg/dl (8.6-10.4); CARBON DIOXIDE 30 mmol/L (22-30); GLUCOSE,RANDOM 82 mg/dL (75-110); PHOSPHOROUS 3.2 mg/dL (2.5-4.5); TOTAL PROTEIN 5.8 g/dL (6.3-8.3)
[2016-11-16 11:35] LABS: MAGNESIUM 1.8 mg/dL (1.6-2.3)
[2016-11-16] MEDS ORDERED: Sodium Chloride 0.9% 1,000 ML IV SCH ×2 (11:45→14:14)
[2016-11-16 11:54] LABS: NEUTROPHIL 93 % (50-75); TOTAL CELLS COUNTED 100
--- NOTE | 2016-11-16 12:35 | CP.PCM.PN ---
Subjective - Date & Time of Evaluation Date of Evaluation: 11/16/16 Time of Evaluation: 13:40 - Subjective Subjective: clinically same Objective - Vital Signs/Intake and Output Vital Signs (last 24 hours): Temp Pulse Resp BP Pulse Ox 97.5 F L 90 20 116/74 97 11/16/16 07:35 11/16/16 07:35 11/16/16 07:35 11/16/16 07:35 11/16/16 07:35 Intake and Output: 11/16/16 11/16/16 06:59 18:59 Intake Total 300 Output Total 1950 Balance -1650 - Medications Medications: Current Medications Aspirin (Aspirin Chewable) 81 mg PO DAILY [facility] Last Admin: 11/16/16 09:33 Dose: 81 mg Furosemide (Lasix) 40 mg PO DAILY [facility] Heparin Sodium (Porcine) (Heparin) 5,000 units SC Q8 [facility] Last Admin: 11/16/16 09:33 Dose: 5,000 units Home Med (Valsartan [Diovan]) 160 mg PO DAILY [facility] Moxifloxacin HCl (Avelox Iv 400mg/250ml Ns) 400 mg in 250 mls @ 167 mls/hr IVPB Q24H [facility] Last Admin: 11/16/16 01:19 Dose: 167 mls/hr Sodium Chloride (Sodium Chloride 0.9%) 1,000 mls @ 50 mls/hr IV .Q20H [facility] Metoprolol Succinate (Toprol Xl) 25 mg PO DAILY [facility] Last Admin: 11/16/16 09:35 Dose: 25 mg Pantoprazole Sodium (Protonix Ec Tab) 40 mg PO DAILY [facility] Last Admin: 11/16/16 09:34 Dose: 40 mg Potassium Chloride (K-Dur 20 Meq Er Tab) 40 meq PO DAILY [facility] Rivaroxaban (Xarelto) 15 mg PO DAILY [facility] Tamsulosin HCl (Flomax) 0.4 mg PO DAILY [facility] Last Admin: 11/16/16 09:33 Dose: 0.4 mg - Labs Labs: 11/16/16 11:17 11/16/16 11:17 PT 14.5 SECONDS (9.7-12.2) H 11/14/16 23:03 INR 1.3 11/14/16 23:03 APTT 30 SECONDS (21-34) 11/14/16 23:03 - Constitutional Appears: Well - Head Exam Head Exam: ATRAUMATIC, NORMAL INSPECTION, NORMOCEPHALIC - Eye Exam Eye Exam: EOMI, Normal appearance, PERRL Pupil Exam: NORMAL ACCOMODATION, PERRL - ENT Exam ENT Exam: Mucous Membranes Moist, Normal Exam - Neck Exam Neck Exam: Full ROM, Normal Inspection. absent: Lymphadenopathy - Respiratory Exam Respiratory Exam: Decreased Breath Sounds - Cardiovascular Exam Cardiovascular Exam: REGULAR RHYTHM, +S1, +S2 - GI/Abdominal Exam GI & Abdominal Exam: Soft, Diminished Bowel Sounds - Rectal Exam Rectal Exam: Deferred Assessment and Plan (1) Acute renal failure Status: Acute (2) Asthma exacerbation Status: Acute (3) CHF exacerbation Status: Acute (4) Chest discomfort Status: Acute (5) Chronic congestive heart failure Status: Acute (6) Dyspnea Status: Acute (7) Dyspnea Status: Acute (8) Elevated troponin Status: Acute (9) Hypertensive urgency Status: Acute (10) Hypokalemia Status: Acute (11) Pneumonia Status: Acute (12) Prophylactic measure Status: Acute (13) Proteinuria Status: Acute (14) Respiratory distress Status: Acute (15) Atrial fibrillation Status: Chronic (16) Gout Status: Chronic (17) Hypertension Status: Chronic - Assessment and Plan (Free Text) Plan: Breathing better now Tolerating diet High WBC Continue Avelox Flomax Xarelto Potassium replacement Heparin Lasix Aspirin Cardio on board
[2016-11-16] MEDS: Potassium Chloride 20 mEq ER Tab PO SCH (12:44)
[2016-11-16] MEDS ORDERED: POLYETHYLENE GLYCOL 3350 17 GM/Dose PACKET PO ONE (13:17)
--- NOTE | 2016-11-16 14:11 | CP.PCM.PN ---
Subjective - Date & Time of Evaluation Date of Evaluation: 11/16/16 Time of Evaluation: 13:00 - Subjective Subjective: Patient reports breathing better but sob when lying flat; tolerating diet; no BM since 6 days; Objective - Vital Signs/Intake and Output Vital Signs (last 24 hours): Temp Pulse Resp BP Pulse Ox 97.5 F L 90 20 116/74 97 11/16/16 07:35 11/16/16 07:35 11/16/16 07:35 11/16/16 07:35 11/16/16 07:35 Intake and Output: 11/16/16 11/16/16 06:59 18:59 Intake Total 300 Output Total 1950 Balance -1650 - Medications Medications: Current Medications Aspirin (Aspirin Chewable) 81 mg PO DAILY [facility] Last Admin: 11/16/16 09:33 Dose: 81 mg Furosemide (Lasix) 40 mg PO DAILY [facility] Heparin Sodium (Porcine) (Heparin) 5,000 units SC Q8H [facility] Home Med (Valsartan [Diovan]) 160 mg PO DAILY [facility] Moxifloxacin HCl (Avelox Iv 400mg/250ml Ns) 400 mg in 250 mls @ 167 mls/hr IVPB Q24H [facility] Last Admin: 11/16/16 01:19 Dose: 167 mls/hr Sodium Chloride (Sodium Chloride 0.9%) 1,000 mls @ 50 mls/hr IV .Q20H [facility] Last Admin: 11/16/16 12:45 Dose: 50 mls/hr Metoprolol Succinate (Toprol Xl) 25 mg PO DAILY [facility] Last Admin: 11/16/16 09:35 Dose: 25 mg Pantoprazole Sodium (Protonix Ec Tab) 40 mg PO DAILY [facility] Last Admin: 11/16/16 09:34 Dose: 40 mg Potassium Chloride (K-Dur 20 Meq Er Tab) 40 meq PO DAILY [facility] Last Admin: 11/16/16 12:44 Dose: 40 meq Rivaroxaban (Xarelto) 15 mg PO DAILY [facility] Tamsulosin HCl (Flomax) 0.4 mg PO DAILY [facility] Last Admin: 11/16/16 09:33 Dose: 0.4 mg - Labs Labs: 11/16/16 11:17 11/16/16 11:17 PT 14.5 SECONDS (9.7-12.2) H 11/14/16 23:03 INR 1.3 11/14/16 23:03 APTT 30 SECONDS (21-34) 11/14/16 23:03 - Constitutional Appears: Well, No Acute Distress - Head Exam Head Exam: NORMAL INSPECTION - Eye Exam Eye Exam: Normal appearance - ENT Exam ENT Exam: Mucous Membranes Moist - Respiratory Exam Respiratory Exam: Clear to Ausculation Bilateral. absent: Rales, Rhonchi, Wheezes, Respiratory Distress Additional comments: tachypneic - Cardiovascular Exam Cardiovascular Exam: REGULAR RHYTHM, JVD, +S1, +S2 - GI/Abdominal Exam GI & Abdominal Exam: Distended, Soft, Tenderness - Extremities Exam Additional comments: mild lower leg edema; - Neurological Exam Neurological Exam: Alert, Awake - Psychiatric Exam Psychiatric exam: Normal Affect, Normal Mood - Skin Skin Exam: Normal Color, Warm. absent: Cyanosis Assessment and Plan (1) Acute renal failure Assessment & Plan: Obstructive nephropathy, resolving with vasquez insertion; likely secondary to enlarged prostate (now gives history of prostate CA) with superimposed blood clots from gross hematuria s/p renal biopsy; after relief of obstruction, doesn' t appear to be polyuric currently (UO ~600 cc over past 6 hours) -needs voiding trial -continue flomax 0.4 mg daily -NS at 30 cc/hr (to avoid volume depletion, low rate due to volume excess on exam, trying to balance with post-obstructive diuresis); -needs outpatient urology f/u for prostate CA/BPH (will relay to PCP) Status: Acute (2) Proteinuria Assessment & Plan: Albuminuria appears much improved, possibly the effect of being on ARB ( currently held due to BROWN); will f/u renal biopsy results this week; continue to hold valsartan until renal function stabilized; Status: Acute (3) Hypertension Assessment & Plan: Currently normotensive only on meotprolol; holding diuretic and ARB in setting of BROWN; monitor; Status: Chronic (4) Pneumonia Assessment & Plan: On avelox, no renal dose adjustment needed; Status: Acute (5) Atrial fibrillation Assessment & Plan: On xarelto, can restart now that hematuria resolved; Status: Chronic (6) Gout Status: Chronic (7) Hypokalemia Assessment & Plan: In the setting of BROWN recovery; mild but should keep K>4 in the setting of Afib ; correction will also help correct mild hyponatremia; Status: Acute
--- NOTE | 2016-11-16 22:45 | CP.PCM.PN ---
Subjective - Date & Time of Evaluation Date of Evaluation: 11/16/16 Time of Evaluation: 18:00 - Subjective Subjective: no further CP, had 5 beats run of a fib with abaration, no sx Objective - Vital Signs/Intake and Output Vital Signs (last 24 hours): Temp Pulse Resp BP Pulse Ox 98.7 F 75 20 120/77 99 11/16/16 17:21 11/16/16 17:21 11/16/16 17:21 11/16/16 17:21 11/16/16 17:21 Intake and Output: 11/16/16 11/17/16 18:59 06:59 Intake Total 340 Output Total 800 Balance -460 - Medications Medications: Current Medications Allopurinol (Zyloprim) 100 mg PO DAILY [facility] Aspirin (Aspirin Chewable) 81 mg PO DAILY [facility] Last Admin: 11/16/16 09:33 Dose: 81 mg Furosemide (Lasix) 40 mg PO DAILY [facility] Heparin Sodium (Porcine) (Heparin) 5,000 units SC Q8H [facility] Last Admin: 11/16/16 18:35 Dose: 5,000 units Moxifloxacin HCl (Avelox Iv 400mg/250ml Ns) 400 mg in 250 mls @ 167 mls/hr IVPB Q24H [facility] Last Admin: 11/16/16 01:19 Dose: 167 mls/hr Sodium Chloride (Sodium Chloride 0.9%) 1,000 mls @ 30 mls/hr IV .Q24H [facility] Last Admin: 11/16/16 14:20 Dose: 30 mls/hr Metoprolol Succinate (Toprol Xl) 25 mg PO DAILY [facility] Last Admin: 11/16/16 09:35 Dose: 25 mg Pantoprazole Sodium (Protonix Ec Tab) 40 mg PO DAILY [facility] Last Admin: 11/16/16 09:34 Dose: 40 mg Potassium Chloride (K-Dur 20 Meq Er Tab) 40 meq PO DAILY [facility] Last Admin: 11/16/16 12:44 Dose: 40 meq Rivaroxaban (Xarelto) 15 mg PO DAILY [facility] Tamsulosin HCl (Flomax) 0.4 mg PO DAILY [facility] Last Admin: 11/16/16 09:33 Dose: 0.4 mg - Labs Labs: 11/16/16 11:17 11/16/16 11:17 PT 14.5 SECONDS (9.7-12.2) H 11/14/16 23:03 INR 1.3 11/14/16 23:03 APTT 30 SECONDS (21-34) 11/14/16 23:03 - Constitutional Appears: Non-toxic - Head Exam Head Exam: ATRAUMATIC - Eye Exam Eye Exam: EOMI - ENT Exam ENT Exam: Mucous Membranes Moist - Neck Exam Neck Exam: absent: Lymphadenopathy, Tenderness - Respiratory Exam Respiratory Exam: Clear to Ausculation Bilateral. absent: Rales - Cardiovascular Exam Cardiovascular Exam: REGULAR RHYTHM, Murmur - GI/Abdominal Exam GI & Abdominal Exam: Normal Bowel Sounds. absent: Organomegaly - Rectal Exam Rectal Exam: Deferred - Extremities Exam Extremities Exam: Normal Capillary Refill. absent: Calf Tenderness - Neurological Exam Neurological Exam: Alert, Oriented x3 - Psychiatric Exam Psychiatric exam: Anxious - Skin Skin Exam: Dry Assessment and Plan (1) Chest discomfort Status: Acute
[2016-11-17] MEDS: Moxifloxacin IV 400mg/250ml NS 400 MG/250 ML BAG IVPB SCH (01:07)
[2016-11-17 06:30] LABS: BASO % 0.1 % (0.0-2.0); EOS % 0.1 % (0.0-4.0); HEMATOCRIT 33.4 % (35.0-51.0); LYMPH # 0.5 K/uL (1.0-4.3); LYMPH % 4.4 % (20.0-40.0); MEAN CELL VOLUME 90.4 fL (80.0-94.0); MEAN CORPUSCULAR HEMOGLOBIN 31.5 pg (27.0-31.0); MEAN CORPUSCULAR HGB CONC 34.8 g/dL (33.0-37.0); MEAN PLATELET VOLUME 8.3 fL (7.2-11.7); MONO % 9.1 % (0.0-10.0); PLATELET COUNT 186 K/uL (130-400); RED CELL DISTRIBUTION WIDTH 14.3 % (11.5-14.5); WHITE BLOOD COUNT 11.2 K/uL (4.8-10.8)
[2016-11-17 06:45] LABS: ALKALINE PHOSPHATASE 91 U/L (38-126); ALT/SGPT 35 U/L (21-72); AST/SGOT 44 U/L (17-59); BILIRUBIN,TOTAL 2.5 mg/dL (0.2-1.3); BLOOD UREA NITROGEN 35 mg/dL (9-20); CALCIUM 7.7 mg/dl (8.6-10.4); CARBON DIOXIDE 29 mmol/L (22-30); CHLORIDE 97 mmol/L (98-107); GFR AFRICAN-AMERICAN > 60; GLUCOSE,RANDOM 88 mg/dL (75-110); MAGNESIUM 1.8 mg/dL (1.6-2.3); PHOSPHOROUS 2.5 mg/dL (2.5-4.5); POTASSIUM 3.9 mmol/L (3.6-5.2); SODIUM 134 mmol/L (132-148); TOTAL PROTEIN 4.9 g/dL (6.3-8.3); URIC ACID 6.4 mg/dL (3.5-8.5)
[2016-11-17 08:30] LABS: NEUTROPHIL 94 % (50-75); TOTAL CELLS COUNTED 100
[2016-11-17] MEDS: Pantoprazole 40 mg EC Tab PO SCH (10:00)
[2016-11-17] MEDS: Potassium Chloride 20 mEq ER Tab PO SCH (10:00)
[2016-11-17] MEDS: Metoprolol Succinate 25 mg XL Tab PO SCH (10:01)
--- NOTE | 2016-11-17 12:24 | CP.PCM.PN ---
Subjective - Date & Time of Evaluation Date of Evaluation: 11/17/16 Time of Evaluation: 12:00 - Subjective Subjective: No further chest pain, no IA, unlikely PE, for EST as outpatient Objective - Vital Signs/Intake and Output Vital Signs (last 24 hours): Temp Pulse Resp BP Pulse Ox 98.2 F 82 18 152/94 H 99 11/17/16 07:15 11/17/16 07:15 11/17/16 07:15 11/17/16 07:15 11/17/16 07:15 Intake and Output: 11/17/16 11/17/16 06:59 18:59 Intake Total 840 Output Total 1000 Balance -160 - Medications Medications: Current Medications Allopurinol (Zyloprim) 100 mg PO DAILY [facility] Last Admin: 11/17/16 10:00 Dose: 100 mg Aspirin (Aspirin Chewable) 81 mg PO DAILY [facility] Last Admin: 11/17/16 10:00 Dose: 81 mg Furosemide (Lasix) 40 mg PO DAILY [facility] Heparin Sodium (Porcine) (Heparin) 5,000 units SC Q8H [facility] Last Admin: 11/17/16 10:01 Dose: 5,000 units Moxifloxacin HCl (Avelox Iv 400mg/250ml Ns) 400 mg in 250 mls @ 167 mls/hr IVPB Q24H [facility] Last Admin: 11/17/16 01:07 Dose: 167 mls/hr Sodium Chloride (Sodium Chloride 0.9%) 1,000 mls @ 30 mls/hr IV .Q24H [facility] Last Admin: 11/16/16 14:20 Dose: 30 mls/hr Metoprolol Succinate (Toprol Xl) 25 mg PO DAILY [facility] Last Admin: 11/17/16 10:01 Dose: 25 mg Pantoprazole Sodium (Protonix Ec Tab) 40 mg PO DAILY [facility] Last Admin: 11/17/16 10:00 Dose: 40 mg Potassium Chloride (K-Dur 20 Meq Er Tab) 40 meq PO DAILY [facility] Last Admin: 11/17/16 10:00 Dose: 40 meq Rivaroxaban (Xarelto) 15 mg PO DAILY [facility] Last Admin: 11/17/16 10:13 Dose: 15 mg Tamsulosin HCl (Flomax) 0.4 mg PO DAILY [facility] Last Admin: 11/17/16 10:01 Dose: 0.4 mg - Labs Labs: 11/17/16 06:17 07/31/17 06:17 PT 14.5 SECONDS (9.7-12.2) H 11/14/16 23:03 INR 1.3 11/14/16 23:03 APTT 30 SECONDS (21-34) 11/14/16 23:03 - Constitutional Appears: Non-toxic - Head Exam Head Exam: ATRAUMATIC - Eye Exam Eye Exam: EOMI - ENT Exam ENT Exam: Mucous Membranes Moist - Neck Exam Neck Exam: absent: Lymphadenopathy, Thyromegaly - Respiratory Exam Respiratory Exam: Clear to Ausculation Bilateral. absent: Rales - Cardiovascular Exam Cardiovascular Exam: REGULAR RHYTHM, Murmur - GI/Abdominal Exam GI & Abdominal Exam: Normal Bowel Sounds. absent: Organomegaly - Rectal Exam Rectal Exam: Deferred - Extremities Exam Extremities Exam: Normal Capillary Refill. absent: Calf Tenderness - Neurological Exam Neurological Exam: Alert, Oriented x3 - Psychiatric Exam Psychiatric exam: Normal Mood - Skin Skin Exam: Dry Assessment and Plan (1) Chest discomfort Status: Acute
[2016-11-17] MEDS ORDERED: Sodium Chloride 0.9% 1,000 ML IV SCH (13:13)
[2016-11-17 16:06] VITALS: BP 151/77; PULSE 86; RESP 20; TEMP 98.1; O2SAT 98
--- NOTE | 2016-11-17 17:07 | CP.PCM.PN ---
Subjective - Date & Time of Evaluation Date of Evaluation: 11/17/16 Time of Evaluation: 13:00 - Subjective Subjective: Patient reports some shortness of breath; not urinating much since removing vasquez this morning; Objective - Vital Signs/Intake and Output Vital Signs (last 24 hours): Temp Pulse Resp BP Pulse Ox 98.1 F 86 20 151/77 H 98 11/17/16 15:25 11/17/16 15:25 11/17/16 15:25 11/17/16 15:25 11/17/16 15:25 Intake and Output: 11/17/16 11/17/16 06:59 18:59 Intake Total 840 800 Output Total 1000 500 Balance -160 300 - Medications Medications: Current Medications Allopurinol (Zyloprim) 100 mg PO DAILY [facility] Last Admin: 11/17/16 10:00 Dose: 100 mg Amlodipine Besylate (Norvasc) 5 mg PO DAILY [facility] Aspirin (Aspirin Chewable) 81 mg PO DAILY [facility] Last Admin: 11/17/16 10:00 Dose: 81 mg Furosemide (Lasix) 40 mg PO DAILY [facility] Heparin Sodium (Porcine) (Heparin) 5,000 units SC Q8H [facility] Last Admin: 11/17/16 10:01 Dose: 5,000 units Moxifloxacin HCl (Avelox Iv 400mg/250ml Ns) 400 mg in 250 mls @ 167 mls/hr IVPB Q24H [facility] Last Admin: 11/17/16 01:07 Dose: 167 mls/hr Sodium Chloride (Sodium Chloride 0.9%) 1,000 mls @ 60 mls/hr IV .[id number] [facility] Last Admin: 11/17/16 14:47 Dose: 60 mls/hr Metoprolol Succinate (Toprol Xl) 25 mg PO DAILY [facility] Last Admin: 11/17/16 10:01 Dose: 25 mg Pantoprazole Sodium (Protonix Ec Tab) 40 mg PO DAILY [facility] Last Admin: 11/17/16 10:00 Dose: 40 mg Potassium Chloride (K-Dur 20 Meq Er Tab) 40 meq PO DAILY [facility] Last Admin: 11/17/16 10:00 Dose: 40 meq Rivaroxaban (Xarelto) 15 mg PO DAILY [facility] Last Admin: 11/17/16 10:13 Dose: 15 mg Tamsulosin HCl (Flomax) 0.4 mg PO DAILY [facility] Last Admin: 11/17/16 10:01 Dose: 0.4 mg - Labs Labs: 11/17/16 06:17 11/17/16 06:17 PT 14.5 SECONDS (9.7-12.2) H 11/14/16 23:03 INR 1.3 11/14/16 23:03 APTT 30 SECONDS (21-34) 11/14/16 23:03 - Constitutional Appears: Well, No Acute Distress - Head Exam Head Exam: NORMAL INSPECTION - Eye Exam Eye Exam: absent: Scleral icterus - ENT Exam ENT Exam: Mucous Membranes Moist - Respiratory Exam Respiratory Exam: Clear to Ausculation Bilateral. absent: Respiratory Distress Additional comments: mildly tachypneic - Cardiovascular Exam Cardiovascular Exam: REGULAR RHYTHM, +S1, +S2 - GI/Abdominal Exam GI & Abdominal Exam: Distended, Soft - Exam Exam: absent: Bladder Distension - Extremities Exam Extremities Exam: Normal Capillary Refill - Neurological Exam Neurological Exam: Alert, Awake - Psychiatric Exam Psychiatric exam: Normal Affect, Normal Mood - Skin Skin Exam: Normal Color, Warm. absent: Cyanosis Assessment and Plan (1) Acute renal failure Assessment & Plan: Obstructive nephropathy, resolved with vasquez insertion; kept on IVF to avoid pre -renal state; however, still with urinary retention after vasquez removed today; -replacing vasquez to go home with; will need outpatient urology referral ( especially with prostate CA history); -continue flomax for BPH -will f/u as outpatient Status: Acute (2) Proteinuria Assessment & Plan: IgA nephropathy per recent renal biopsy but still awaiting EM; ~3g proteinuria per prior labs; on diovan at home; unclear why serum albumin has been low consistently; -will hold diovan and obtain 24 hr urine as outpatient for accurate quantification; Status: Acute (3) Hypertension Assessment & Plan: BP elevated; only on metoprolol; will add amlodipine, avoiding diuretic for now; Status: Chronic (4) Pneumonia Assessment & Plan: On avelox, continue; Status: Acute (5) Atrial fibrillation Assessment & Plan: On xarelto, continue; Status: Chronic (6) Gout Assessment & Plan: On allopurinol; uric acid level controlled, continue same; Status: Chronic (7) Hypokalemia Assessment & Plan: Resolved; Status: Acute
--- NOTE | 2016-11-17 17:54 | CP.PCM.PN ---
Subjective - Date & Time of Evaluation Date of Evaluation: 11/17/16 Time of Evaluation: 17:54 - Subjective Subjective: PT SEEN BY NEPHRO AND ATTENDING TODAY AND CLEARED FOR D/C HOME. FC WAS REMOVED IN AM BUT PT HAS NOT VOIDED. PER DR. PATTERSON PT CAN BE D.C WITH FC TO LEG [facility]AG AND F/U WITH UROLOGY OUTPATIENT. DISCUSSED WITH PT AT LENGTH AND HE'S IN AGREEMENT WITH PLAN. UROLOGY MD LIST PROVIDED TO PT HE HAS NOT SEEN HIS UROLOGIST IN APPROX 20 YEARS. HE WILL ALSO F/U WITH HIS PMD WITHIN 1 WEEK. NO FURTHER ORDERS. Objective - Vital Signs/Intake and Output Vital Signs (last 24 hours): Temp Pulse Resp BP Pulse Ox 98.1 F 86 20 151/77 H 98 11/17/16 15:25 11/17/16 15:25 11/17/16 15:25 11/17/16 15:25 11/17/16 15:25 Intake and Output: 11/17/16 11/17/16 06:59 18:59 Intake Total 840 800 Output Total 1000 500 Balance -160 300 - Medications Medications: Current Medications Allopurinol (Zyloprim) 100 mg PO DAILY [facility] Last Admin: 11/17/16 10:00 Dose: 100 mg Amlodipine Besylate (Norvasc) 5 mg PO DAILY [facility] Aspirin (Aspirin Chewable) 81 mg PO DAILY [facility] Last Admin: 11/17/16 10:00 Dose: 81 mg Furosemide (Lasix) 40 mg PO DAILY [facility] Heparin Sodium (Porcine) (Heparin) 5,000 units SC Q8H [facility] Last Admin: 11/17/16 10:01 Dose: 5,000 units Moxifloxacin HCl (Avelox Iv 400mg/250ml Ns) 400 mg in 250 mls @ 167 mls/hr IVPB Q24H [facility] Last Admin: 11/17/16 01:07 Dose: 167 mls/hr Sodium Chloride (Sodium Chloride 0.9%) 1,000 mls @ 60 mls/hr IV .[id number] [facility] Last Admin: 11/17/16 14:47 Dose: 60 mls/hr Metoprolol Succinate (Toprol Xl) 25 mg PO DAILY [facility] Last Admin: 11/17/16 10:01 Dose: 25 mg Pantoprazole Sodium (Protonix Ec Tab) 40 mg PO DAILY [facility] Last Admin: 11/17/16 10:00 Dose: 40 mg Potassium Chloride (K-Dur 20 Meq Er Tab) 40 meq PO DAILY [facility] Last Admin: 11/17/16 10:00 Dose: 40 meq Rivaroxaban (Xarelto) 15 mg PO DAILY [facility] Last Admin: 11/17/16 10:13 Dose: 15 mg Tamsulosin HCl (Flomax) 0.4 mg PO DAILY [facility] Last Admin: 11/17/16 10:01 Dose: 0.4 mg - Labs Labs: 11/17/16 06:17 11/17/16 06:17 PT 14.5 SECONDS (9.7-12.2) H 11/14/16 23:03 INR 1.3 11/14/16 23:03 APTT 30 SECONDS (21-34) 11/14/16 23:03
--- NOTE | 2016-11-17 18:24 | CP.PCM.PN ---
Subjective - Date & Time of Evaluation Date of Evaluation: 11/17/16 Time of Evaluation: 11:40 - Subjective Subjective: clinically same Objective - Vital Signs/Intake and Output Vital Signs (last 24 hours): Temp Pulse Resp BP Pulse Ox 98.1 F 86 20 151/77 H 98 11/17/16 15:25 11/17/16 15:25 11/17/16 15:25 11/17/16 15:25 11/17/16 15:25 Intake and Output: 11/17/16 11/17/16 06:59 18:59 Intake Total 840 800 Output Total 1000 500 Balance -160 300 - Medications Medications: Current Medications Allopurinol (Zyloprim) 100 mg PO DAILY [facility] Last Admin: 11/17/16 10:00 Dose: 100 mg Amlodipine Besylate (Norvasc) 5 mg PO DAILY [facility] Aspirin (Aspirin Chewable) 81 mg PO DAILY [facility] Last Admin: 11/17/16 10:00 Dose: 81 mg Furosemide (Lasix) 40 mg PO DAILY [facility] Heparin Sodium (Porcine) (Heparin) 5,000 units SC Q8H [facility] Last Admin: 11/17/16 10:01 Dose: 5,000 units Moxifloxacin HCl (Avelox Iv 400mg/250ml Ns) 400 mg in 250 mls @ 167 mls/hr IVPB Q24H [facility] Last Admin: 11/17/16 01:07 Dose: 167 mls/hr Sodium Chloride (Sodium Chloride 0.9%) 1,000 mls @ 60 mls/hr IV .[id number] [facility] Last Admin: 11/17/16 14:47 Dose: 60 mls/hr Metoprolol Succinate (Toprol Xl) 25 mg PO DAILY [facility] Last Admin: 11/17/16 10:01 Dose: 25 mg Pantoprazole Sodium (Protonix Ec Tab) 40 mg PO DAILY [facility] Last Admin: 11/17/16 10:00 Dose: 40 mg Potassium Chloride (K-Dur 20 Meq Er Tab) 40 meq PO DAILY [facility] Last Admin: 11/17/16 10:00 Dose: 40 meq Rivaroxaban (Xarelto) 15 mg PO DAILY [facility] Last Admin: 11/17/16 10:13 Dose: 15 mg Tamsulosin HCl (Flomax) 0.4 mg PO DAILY [facility] Last Admin: 11/17/16 10:01 Dose: 0.4 mg - Labs Labs: 11/17/16 06:17 11/17/16 06:17 PT 14.5 SECONDS (9.7-12.2) H 11/14/16 23:03 INR 1.3 11/14/16 23:03 APTT 30 SECONDS (21-34) 11/14/16 23:03 - Constitutional Appears: Well - Head Exam Head Exam: ATRAUMATIC, NORMAL INSPECTION, NORMOCEPHALIC - Eye Exam Eye Exam: EOMI, Normal appearance, PERRL Pupil Exam: NORMAL ACCOMODATION, PERRL - ENT Exam ENT Exam: Mucous Membranes Moist, Normal Exam - Neck Exam Neck Exam: Full ROM, Normal Inspection. absent: Lymphadenopathy - Respiratory Exam Respiratory Exam: Decreased Breath Sounds - Cardiovascular Exam Cardiovascular Exam: REGULAR RHYTHM, +S1, +S2 - GI/Abdominal Exam GI & Abdominal Exam: Soft, Diminished Bowel Sounds - Rectal Exam Rectal Exam: Deferred Assessment and Plan (1) Acute renal failure Status: Acute (2) Asthma exacerbation Status: Acute (3) CHF exacerbation Status: Acute (4) Chest discomfort Status: Acute (5) Chronic congestive heart failure Status: Acute (6) Dyspnea Status: Acute (7) Dyspnea Status: Acute (8) Elevated troponin Status: Acute (9) Hypertensive urgency Status: Acute (10) Hypokalemia Status: Acute (11) Pneumonia Status: Acute (12) Prophylactic measure Status: Acute (13) Proteinuria Status: Acute (14) Respiratory distress Status: Acute (15) Atrial fibrillation Status: Chronic (16) Gout Status: Chronic (17) Hypertension Status: Chronic - Assessment and Plan (Free Text) Plan: No acute event overnight Some shortness of breath on the underlying position otherwise clinically stable More urine after removing Ching's Clear by nephro Cleared by cardio Discharge home today Continue meds as advised Follow-up as outpatient Return to ED if symptom recurs
--- NOTE | 2016-11-20 11:18 | CARD ---
APPROVED REPORT EKG Measurement Heart [id number] <Conclusion> Atrial fibrillation Abnormal ECG
--- NOTE | 2016-11-24 08:56 | CARD ---
APPROVED REPORT EKG Measurement Heart [id number] <Conclusion> Atrial fibrillation Nonspecific ST and T wave abnormality Abnormal ECG
== END 2016-11-17 19:00 | disposition home or self-care (01) ==
LOC: C.ER 22:34 → C.6T 11-15 00:41
PROVIDERS: ADMIT Internal Medicine Nephrology; ATTEND Internal Medicine Nephrology
DX: R07.9 Chest pain, unspecified (principal); I48.91 Unspecified atrial fibrillation; J44.0 Chronic obstructive pulmonary disease with (acute) lower respiratory infection; N13.30 Unspecified hydronephrosis; N17.9 Acute kidney failure, unspecified; Z87.891 Personal history of nicotine dependence
CPT/HCPCS: 36415; 71010; 76770; 78582; 80053; 81001; 82043; 82570; 83735; 83880; 84100; 84155; 84300; 84484; 84540; 84550; 85025; 85378; 85610; 85730; 96372; 99285; A9524; A9558; G0378; J1644; J1650; J2280; J7040

== ENCOUNTER 2017-03-23 14:30 | Inpatient (IN) | payer MEDICARE ==
[2017-03-23 14:31] VITALS: BMI 25.8
--- NOTE | 2017-03-23 15:16 | C.PDOC ---
Time Seen by Provider: 03/23/17 15:05 Chief Complaint (Nursing): Shortness Of Breath Past Medical History Vital Signs: Last Vital Signs Temp 97.7 F 03/23/17 14:33 Pulse 91 H 03/23/17 14:33 Resp 22 03/23/17 14:33 BP 144/100 H 03/23/17 14:33 Pulse Ox 98 03/23/17 14:33 - Medical History PMH: Asthma, Cardia Arrhythmia (A-FIB), HTN, Kidney Stones, Chronic Kidney Disease Surgical History: Appendectomy, Endoscopy - [facility] Procedures MEASURE OF CARDIAC SAMPL & PRESSURE, L HEART, PERC APPROACH (06/07/15) PLAIN RADIOGRAPHY OF MULT COR ART USING OTH CONTRAST (06/07/15) Family History: States: Unknown Family Hx - Social History Hx Alcohol Use: No (once in a while) Hx Substance Use: No - Immunization History Hx Tetanus Toxoid Vaccination: No Hx Influenza Vaccination: Yes Hx Pneumococcal Vaccination: No ED Course And Treatment O2 Sat by Pulse Oximetry: 98 Disposition - Disposition
[2017-03-23] MEDS ORDERED: Nitroglycerin 2% Ointment Foilpak UD TOP STA (15:19)
--- NOTE | 2017-03-23 15:19 | C.PDOC ---
History Of Present Illness 77 year old male with a PMHx of hHTN, diastolic CHF, A-Fib on xarelto, gout, nephrolithiasis, COPD and proteinuria s/p renal biopsy 5 days ago, presents to the ED with complaints of shortness of breath for 4 days. Patient was referred to ED by Dr. Ndiaye for evaluation of CHF exacerbation. Patient denies chest pain, fever, chills, or other complaints at this time. Time Seen by Provider: 03/23/17 15:05 Chief Complaint (Nursing): Shortness Of Breath History Per: Patient History/Exam Limitations: no limitations Onset/Duration Of Symptoms: Days (4) Current Symptoms Are (Timing): Still Present Associated Symptoms: denies: Fever, Chills, Chest Pain Reports Recently: Treated By A Physician Recent travel outside of the [place]: No Additional History Per: Prior Records (Dr. Ndiaye) Past Medical History Reviewed: Historical Data, Nursing Documentation, Vital Signs Vital Signs: Last Vital Signs Temp 97.7 F 03/23/17 14:33 Pulse 77 03/23/17 16:17 Resp 22 03/23/17 16:17 BP 159/93 H 03/23/17 16:20 Pulse Ox 98 03/23/17 17:07 - Medical History PMH: Asthma, Cardia Arrhythmia (A-FIB), HTN, Kidney Stones, Chronic Kidney Disease Surgical History: Appendectomy, Endoscopy - [facility] Procedures MEASURE OF CARDIAC SAMPL & PRESSURE, L HEART, PERC APPROACH (06/07/15) PLAIN RADIOGRAPHY OF MULT COR ART USING OTH CONTRAST (06/07/15) Family History: States: Unknown Family Hx - Social History Hx Alcohol Use: No (once in a while) Hx Substance Use: No - Immunization History Hx Tetanus Toxoid Vaccination: No Hx Influenza Vaccination: Yes Hx Pneumococcal Vaccination: No Review Of Systems Constitutional: Negative for: Fever, Chills Cardiovascular: Negative for: Chest Pain, Palpitations Respiratory: Positive for: Shortness of Breath Gastrointestinal: Negative for: Nausea, Vomiting, Abdominal Pain Neurological: Negative for: Weakness, Numbness Physical Exam - Physical Exam Appears: Non-toxic, In Acute Distress (mild distress) Skin: Warm, Dry, No Rash Head: Atraumatic, Normacephalic, No Tenderness Eye(s): bilateral: Normal Inspection, PERRL, EOMI Oral Mucosa: Moist Neck: Supple Chest: Symmetrical, No Deformity Cardiovascular: No Murmur Respiratory: Rales (bilateral bases ), No Rhonchi, No Wheezing Gastrointestinal/Abdominal: Soft, No Tenderness, No Distention, No Guarding, No Rebound Extremity: Normal ROM, No Tenderness Neurological/Psych: Oriented x3 ED Course And Treatment - Laboratory Results Result Diagrams: 03/23/17 15:52 03/23/17 15:52 ECG: Interpreted By Me, Viewed By Me ECG Rhythm: Atrial Fibrillation Rate From EC O2 Sat by Pulse Oximetry: 98 Pulse Ox Interpretation: Normal - Radiology CXR: Interpreted by Me CXR Interpretation: Yes: Other (CHF) Progress Note: EKG, CXR, blood work, and labs were ordered. Patient was given Lasix and Nitroglycerin 2%. Progress - Re-Evaluation Re-evaluation Note: 03/23/17 17:07 D/W DR VARELA C/F PMD WILL ADMIT - Data Reviewed Data Reviewed: Lab, Diagnostic imaging, EKG, Old records - Continuity of Care Discussed patient case with:: Covering for PMD Disposition Counseled Patient/Family Regarding: Studies Performed, Diagnosis - Disposition Disposition: HOSPITALIZED Disposition Time: 17:07 Condition: STABLE Forms: [employer] (Moroccan) - POA Present On Arrival: None - Clinical Impression Clinical Impression: Atrial fibrillation, CHF exacerbation - Scribe Statement The provider has reviewed the documentation as recorded by the Scribe Anjali Charles All medical record entries made by the Scribe were at my direction and personally dictated by me. I have reviewed the chart and agree that the record accurately reflects my personal performance of the history, physical exam, medical decision making, and the department course for this patient. I have also personally directed, reviewed, and agree with the discharge instructions and disposition. Decision To Admit - Pt Status Changed To: Hospital Disposition Of: Observation - . Bed Request Type: Telemetry Admitting Physician: Janet Varela Patient Diagnosis: Atrial fibrillation, CHF exacerbation
[2017-03-23 16:00] LABS: BASO % 0.3 % (0.0-2.0); EOS % 0.4 % (0.0-4.0); HEMATOCRIT 44.5 % (35.0-51.0); LYMPH # 0.5 K/uL (1.0-4.3); LYMPH % 7.3 % (20.0-40.0); MEAN CELL VOLUME 89.4 fL (80.0-94.0); MEAN CORPUSCULAR HEMOGLOBIN 30.8 pg (27.0-31.0); MEAN CORPUSCULAR HGB CONC 34.5 g/dL (33.0-37.0); MEAN PLATELET VOLUME 8.1 fL (7.2-11.7); MONO # 0.6 K/uL (0.0-0.8); MONO % 8.3 % (0.0-10.0); NRBC % 0.1 % (0.0-2.0); PLATELET COUNT 139 K/uL (130-400); RED CELL DISTRIBUTION WIDTH 15.3 % (11.5-14.5); WHITE BLOOD COUNT 6.8 K/uL (4.8-10.8)
[2017-03-23] MEDS ORDERED: Nitroglycerin 2% Ointment Foilpak UD TOP ONE (16:16)
--- NOTE | 2017-03-23 16:16 | RAD ---
PROCEDURE: CHEST RADIOGRAPH, 1 VIEW HISTORY: SOB COMPARISON: 11/15/2016 FINDINGS: LUNGS: Clear. PLEURA: Persistent small left pleural effusion. No evidence of right pleural effusion. No pneumothorax. CARDIOVASCULAR: Normal. OSSEOUS STRUCTURES: No significant abnormalities. VISUALIZED UPPER ABDOMEN: Normal. OTHER FINDINGS: None. IMPRESSION: Persistent small left pleural effusion.
[2017-03-23 16:24] LABS: ALKALINE PHOSPHATASE 81 U/L (38-126); ALT/SGPT 46 U/L (21-72); AST/SGOT 32 U/L (17-59); BILIRUBIN,TOTAL 1.2 mg/dL (0.2-1.3); BLOOD UREA NITROGEN 18 mg/dL (9-20); CARBON DIOXIDE 33 mmol/L (22-30); CHLORIDE 100 mmol/L (98-107); GFR AFRICAN-AMERICAN > 60; GLUCOSE,RANDOM 94 mg/dL (75-110); POTASSIUM 3.8 mmol/L (3.6-5.2); SODIUM 135 mmol/L (132-148); TOTAL PROTEIN 5.6 g/dL (6.3-8.3)
[2017-03-23 16:27] LABS: ALB/GLOB RATIO 1.1 (1.0-2.1)
--- NOTE | 2017-03-23 17:20 | CP.PCM.HP ---
<Geovanni Harris - Last Filed: 03/23/17 19:55> History of Present Illness - History of Present Illness History of Present Illness: CC: "My SOB is worsening" Patient is a 77 year old male, with PMHx of HTN, diastolic CHF, A-Fib, gout, prostate cancer with brachytherapy, nephrolithiasis, and proteinuria, who presents to [facility] ED at the recommendation of Dr. Alarcon for shortness of breath. He states over the past week he has noticed he has become more winded, more easily. Patient reports using one pillow to sleep at night, and states he is able to lie flat without difficulty. Before this illness, patient was able to walk 15 blocks before becoming SOB, now that number has decreased to 5 blocks. He admits cough that started one week ago but worsened yesterday, that is productive with yellow/clear phlegm. He denies recent weight gain. He denies recent strenuous activity. He states he is compliant with his medications. He denies palpitations, dizziness, abdominal pain, nausea, vomiting, diaphoresis, leg edema, fever, fatigue, or chills. He denies sick contacts or recent travels. 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 ; Lives in apartment in [place] FHx: Denies Allergies: NKA Meds: Valsartan 320mg PO Daily, Flomax 0.4mg PO BID, Metoprolol XL 25mg PO daily , ASA 81mg PO daily; pt admits taking Xarelto in past and is unaware why he stopped taking it PMD: Dorian Present on Admission - Present on Admission Any Indicators Present on Admission: No Review of Systems - Constitutional Constitutional: absent: Chills, Fever - EENT Eyes: absent: Blurred Vision, Change in Vision Ears: absent: Decreased Hearing Nose/Mouth/Throat: absent: Nasal Discharge - Cardiovascular Cardiovascular: Dyspnea, Dyspnea on Exertion, Irregular Heart Rhythm (hx of afib ). absent: Chest Pain, Edema, Leg Edema, Leg Ulcers - Respiratory Respiratory: Dyspnea, Dyspnea on Exertion, Chest Congestion, Change in Mucous Color (yellow). absent: Wheezing, Pain on Inspiration - Gastrointestinal Gastrointestinal: absent: Abdominal Pain, Nausea, Vomiting - Genitourinary Genitourinary: absent: Dysuria - Musculoskeletal Musculoskeletal: absent: Back Pain, Numbness, Tingling - Integumentary Integumentary: absent: Dry Skin, Jaundice - Neurological Neurological: absent: Numbness, Headaches, Tingling, Weakness - Psychiatric Psychiatric: absent: Anxiety, Depression - Endocrine Endocrine: absent: Palpitations, Polyuria Past Patient History - Past Medical History & Family History Past Medical History?: Yes - Past Social History Smoking Status: Former Smoker - CARDIAC Hx Cardia Arrhythmia: Yes (A-FIB) Hx Hypertension: Yes - PULMONARY Hx Asthma: Yes - NEUROLOGICAL Hx Neurological Disorder: No - HEENT Hx HEENT Problems: Yes Hx Glaucoma: Yes Other/Comment: Wears eyeglasses for reading - RENAL Hx Chronic Kidney Disease: Yes Hx Kidney Stones: Yes - ENDOCRINE/METABOLIC Hx Endocrine Disorders: No - HEMATOLOGICAL/ONCOLOGICAL Hx Blood Disorders: No - INTEGUMENTARY Hx Dermatological Problems: Yes Other/Comment: facial discoloration. patient states " roselyn" - MUSCULOSKELETAL/RHEUMATOLOGICAL Hx Musculoskeletal Disorders: Yes Hx Falls: Yes - GASTROINTESTINAL Hx Gastrointestinal Disorders: No - GENITOURINARY/GYNECOLOGICAL Hx Genitourinary Disorders: Yes Hx Prostate Cancer: Yes (h/o.12 years ago seed implants) - PSYCHIATRIC Hx Substance Use: No - SURGICAL HISTORY Hx Appendectomy: Yes - ANESTHESIA Hx Anesthesia: Yes Hx Anesthesia Reactions: No Hx Malignant Hyperthermia: No Meds Allergies/Adverse Reactions: Allergies Allergy/AdvReac Type Severity Reaction Status Date / Time No Known Allergies Allergy Verified 02/07/16 10:54 Physical Exam - Constitutional Appears: Non-toxic, No Acute Distress - Head Exam Head Exam: ATRAUMATIC, NORMOCEPHALIC Additional comments: Discoloration on face - patient states it is roselyn - Eye Exam Eye Exam: EOMI. absent: Scleral icterus - ENT Exam ENT Exam: Mucous Membranes Moist - Neck Exam Neck exam: Positive for: Full Rom, Normal Inspection Additional comments: No JVD - Respiratory Exam Respiratory Exam: Rales (bibasilar), NORMAL BREATHING PATTERN (pt not tachypneic ). absent: Clear to Auscultation Bilateral - Cardiovascular Exam Cardiovascular Exam: Irregular Rhythm. absent: Systolic Murmur - GI/Abdominal Exam GI & Abdominal Exam: Normal Bowel Sounds, Soft. absent: Tenderness - Extremities Exam Extremities exam: Positive for: normal inspection, pedal pulses present. Negative for: pedal edema, tenderness - Back Exam Back exam: absent: CVA tenderness (L), CVA tenderness (R) - Neurological Exam Neurological exam: Alert, Oriented x3 - Psychiatric Exam Psychiatric exam: Normal Affect, Normal Mood - Skin Skin Exam: Normal Color, Warm Results - Vital Signs Recent Vital Signs: Last Vital Signs Temp 97.7 F 03/23/17 14:33 Pulse 77 03/23/17 16:17 Resp 22 03/23/17 16:17 BP 159/93 H 03/23/17 16:20 Pulse Ox 98 03/23/17 17:08 - Labs Result Diagrams: 03/23/17 15:52 03/23/17 15:52 Labs: Laboratory Results - last 24 hr 03/23/17 03/23/17 15:52 15:52 WBC 6.8 RBC 4.98 Hgb 15.3 D Hct 44.5 MCV 89.4 MCH 30.8 MCHC 34.5 RDW 15.3 H Plt Count 139 MPV 8.1 Neut % (Auto) 83.7 H Lymph % (Auto) 7.3 L Haakon % (Auto) 8.3 Eos % (Auto) 0.4 Baso % (Auto) 0.3 Neut # 5.7 Lymph # 0.5 L Haakon # 0.6 Eos # 0.0 Baso # 0.0 Sodium 135 Potassium 3.8 Chloride 100 Carbon Dioxide 33 H Anion Gap 6 L BUN 18 Creatinine 1.0 Est GFR ( Amer) > 60 Est GFR (Non-Af Amer) > 60 Random Glucose 94 Calcium 8.0 L Total Bilirubin 1.2 AST 32 ALT 46 Alkaline Phosphatase 81 Troponin I 0.0730 NT-Pro-B Natriuret Pep 5210 H Total Protein 5.6 L Albumin 2.9 L Globulin 2.6 Albumin/Globulin Ratio 1.1 Assessment & Plan - Assessment and Plan (Free Text) Plan: CHF (diastolic) exacerbation Admit to [facility] Daily weights, I & Os - fluid restricted diet 1500ml BNP: 5210, prior admissions (06030, 7980, 7880) WBC WNL, slight left shift, 1 band GIDEON negative x 1; f/u 2 additional Q8H EKG: Afib, rate 89, no acute St/T wave changes CXR: (03/23/17) small left pleural effusion. ECHO (02/08/2016): EF 45-50%. LV borderline distended, severe LVH, normal LV wall motion, Grade III restrictive diastolic dysfunction, LA/RA moderately dilated, mitral calcification mild to moderate, trace pericardial effusion Lasix 40mg IV BID - Lasix 60 mg IV given in ED ASA 81mg PO Daily - ASA 325mg PO once Losartan 100mg PO Daily Toprol XL 25mg PO Daily mg PO BID Cardio Consult: Dr. Ndiaye, help appreciated - f/u reccs Afib EKG: Afib, rate 89, no acute St/T wave changes Pt previously on Xarelto but he does not know why he is no longer taking - he denies previous episodes of bleeding CHADS-vasc score: 4 pts (Age 2pts, CHF 1, HTN 1) HASBLED: 2 pts (HTN, Age) Cardio Consult: Dr. Ndiaye, help appreciated - will follow up with, and defer to judgment of, Cardio regarding restarting Xarelto - f/u reccs Pleural effusion Most likely from CHF CXR (03/23/17): small left pleural effusion - monitor with Lasix therapy HTN Elevated at admission Start Cozaar 100mg PO daily - Home med Valsartan 320 mg PO Daily Toprol XL 25mg PO Daily mg PO BID Impaired glucose tolerance A1C: 5.9% in 04/2016 - f/u repeat A1C, lipid panel BPH Tamsulosin 0.4mg PO BID Hx of prostate cancer - brachytherapy 12 years ago - pt does not remember recent follow with urology History of gout Patient denies any home meds States last attack was "years ago" Hx of IgA nephropathy Renal biopsy (11/15/16): IgA nephropathy Perisistent proteinuria Nephro consult: Dr. Avalos, help appreciated Proteinuria UA: 1+ protein - f/u repeat UA - hx of IgA nephropathy Hematuria UA 2+ blood - EMR shows pt with persistent hematuria - UA 10/2016 (3+ blood) - will consider urology consult, if persistent on follow-up UA - f/u urine culture Hx of prostate Cancer Brachytherapy 12 years ago Prophylaxis Pepcid 20mg PO bid SCDs Heparin Discussed with Dr. Esa Harris PGY-2 <Bahman See - Last Filed: 03/25/17 14:39> Results - Vital Signs Recent Vital Signs: Last Vital Signs Temp 97.5 F L 03/25/17 08:18 Pulse 65 03/25/17 12:48 Resp 20 03/25/17 08:18 BP 153/86 H 03/25/17 11:40 Pulse Ox 98 03/25/17 12:48 - Labs Result Diagrams: 03/25/17 08:28 03/25/17 08:28 Labs: Laboratory Results - last 24 hr 03/24/17 03/25/17 03/25/17 19:44 08:28 08:28 WBC 6.1 RBC 5.40 Hgb 16.4 Hct 48.6 MCV 90.0 MCH 30.4 MCHC 33.8 RDW 15.8 H Plt Count 169 MPV 8.0 Neut % (Auto) 82.7 H Lymph % (Auto) 10.1 L Haakon % (Auto) 5.8 Eos % (Auto) 0.5 Baso % (Auto) 0.9 Neut # 5.0 Lymph # 0.6 L Haakon # 0.4 Eos # 0.0 Baso # 0.1 Sodium 141 139 Potassium 3.8 3.8 Chloride 101 101 Carbon Dioxide 34 H 36 H Anion Gap 10 6 L BUN 24 H 22 H Creatinine 1.3 0.9 Est GFR ( Amer) > 60 > 60 Est GFR (Non-Af Amer) 53 > 60 Random Glucose 78 93 Calcium 8.2 L 8.4 L Phosphorus 3.1 Magnesium 1.8 Total Bilirubin 1.3 AST 34 ALT 47 Alkaline Phosphatase 90 Total Protein 7.4 Albumin 3.2 L Globulin 4.1 H Albumin/Globulin Ratio 0.8 L Attending/Attestation - Attestation I have personally seen and examined this patient.: Yes I have fully participated in the care of the patient.: Yes I have reviewed all pertinent clinical information: Yes Notes (Text): 1. Acute exacerbation of CHF(Diastolic heart failure)\\ 2.Bronchitis/Resp tract infection cough with yellow sputum and wheezing 3.afib not on atnicaogulation? 4.HTN 5.BPH 6.Proteinuria 7.Gout d/w the resident patient was seen and examined Agree with the resident's documentation
[2017-03-23 17:44] LABS: RBC URINE < 1 /hpf (0-3); URINE BILIRUBIN NEGATIVE (NEGATIVE); URINE BLOOD 2+ (NEGATIVE); URINE COLOR Straw (YELLOW); URINE GLUCOSE (UA) NORMAL (Normal); URINE KETONE NEGATIVE (NEGATIVE); URINE LEUKOCYTE ESTERASE NEG Leu/uL (Negative); URINE PROTEIN 1+ mg/dL (NEGATIVE); URINE UROBILINOGEN NORMAL mg/dL (0.2-1.0); WBC URINE 1 /hpf (0-5)
[2017-03-23 17:50] LABS: EOSINOPHIL 1 % (0-4); NEUTROPHIL 88 % (50-75); TOTAL CELLS COUNTED 100
[2017-03-23] MEDS ORDERED: Lidocaine/Epi 1% 1:100000 20 ML IJ ONE (20:36)
[2017-03-23 20:56] LABS: INR 1.1
[2017-03-23 22:30] LABS: TROPONIN I 0.076 ng/mL (0.00-0.120)
[2017-03-24 04:55] LABS: TROPONIN I 0.082 ng/mL (0.00-0.120)
[2017-03-24 06:45] LABS: VENOUS BLOOD GAS BASE EXCESS 7.4 mmol/L (0.0-2.0); VENOUS BLOOD GAS PCO2 44 mmHg (40-60); VENOUS BLOOD PH 7.47 (7.32-7.43)
[2017-03-24 06:47] LABS: RBC URINE 1 /hpf (0-3); URINE BILIRUBIN NEGATIVE (NEGATIVE); URINE BLOOD 1+ (NEGATIVE); URINE COLOR Yellow (YELLOW); URINE GLUCOSE (UA) NORMAL (Normal); URINE KETONE NEGATIVE (NEGATIVE); URINE LEUKOCYTE ESTERASE NEG Leu/uL (Negative); URINE PROTEIN 2+ mg/dL (NEGATIVE); URINE UROBILINOGEN NORMAL mg/dL (0.2-1.0); WBC URINE 2 /hpf (0-5)
--- NOTE | 2017-03-24 07:01 | CON ---
NEPHROLOGY CONSULTATION DATE: HISTORY OF PRESENT ILLNESS: A 77-year-old male with past medical history of hypertension, CHF, AFib, prostate CA, nephrolithiasis, and proteinuria, presented to ED with shortness of breath. Nephrology being consulted for proteinuria and IgA nephropathy. Patient reports feeling short of breath lately over the past one week finding it difficult to lie flat without difficulty, previously able to walk 15 blocks before becoming short of breath, now exercise tolerance limited to 5 blocks before becoming short of breath. Reports increased phlegm, but denies cough; patient otherwise reports urinating well, getting up about four to five times per night with good urinary stream. PAST MEDICAL HISTORY: As above. Hypertension, CHF with mild systolic and diastolic dysfunction, AFib, previously on anticoagulation, gout, nephrolithiasis, prostate CA status post brachytherapy, IgA nephropathy, proteinuria. SOCIAL HISTORY: Denies smoking. FAMILY HISTORY: *------*. MEDICATIONS AT HOME: Valsartan 320 mg daily, Flomax 0.4 mg b.i.d., metoprolol XL 25 mg daily, aspirin p.o. 81 mg daily. Per our *------* note from early last month, patient was also supposed to have been on chlorthalidone 25 mg daily, allopurinol 100 mg daily, Flomax 0.8 mg daily. Unclear if patient actually started these. REVIEW OF SYSTEMS: CONSTITUTIONAL: Reports appetite is good. HEENT: No visual changes. Reports some sore throat. RESPIRATORY: As per HPI. CARDIOVASCULAR: As per HPI, also reporting some chest pain that is nonradiating. GASTROINTESTINAL: Denies nausea, vomiting, diarrhea, or constipation. GASTROINTESTINAL: As per HPI. MUSCULOSKELETAL: *------*. SKIN: Denies pruritus. NEUROLOGIC: Denies headache, dizziness. PHYSICAL EXAMINATION: GENERAL: In no distress, lying comfortably in bed without supplemental oxygen, conversant coherently in full sentences. VITAL SIGNS: This evening, blood pressure 128/79, heart rate 60, respirations 20, temperature 98.0, O2 sat 97% on room air. HEENT: Moist mucous membranes. Nonicteric. No cervical lymphadenopathy. RESPIRATORY: Rhonchus sounds on left base, otherwise with expiratory wheezing also present. No respiratory distress. CARDIOVASCULAR: Muffled heart sounds. No obvious murmurs. GASTROINTESTINAL: Abdomen is soft, nontender, nondistended. GENITOURINARY: No overt bladder distention. EXTREMITIES: 2+ bilateral lower leg edema. SKIN: Warm. No cyanosis. NEUROLOGIC: 5/5 motor in bilateral upper and lower extremities. PSYCHIATRIC: Normal mood. Normal affect. LABORATORY DATA: On presentation, CBC: WBC 6.8, hemoglobin 15.3, hematocrit 44.5, platelets 139. Chemistry panel: Sodium 135, potassium 3.8, chloride 100, bicarb 33, BUN 18, creatinine 1.0, glucose 94, calcium 8.0, albumin 2.9, proBNP 5210, troponin I 0.07, CK 32. UA: Urine protein 1+, blood 2+. Chest x-ray: Lungs appear clear. ASSESSMENT AND PLAN: 1. Dyspnea, unclear whether this is truly congestive heart failure exacerbation or patient does have diastolic and systolic dysfunction. Chest x-ray appears clear; however, patient did respond apparently to IV Lasix; continue diuretics for now. Should be worked up for pulmonary causes of dyspnea. Consider obtaining noncontrast chest CT. 2. Proteinuria. The patient with approximately 3 g proteinuria, a urine protein to creatinine ratio and with renal biopsy that showed mild IgA nephropathy, but otherwise did not explain the degree of proteinuria. 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 We will follow up as outpatient. For now, we will repeat urine studies with urine protein and creatinine measurement. 3. Hypertension, blood pressure currently controlled on valsartan 320 mg daily, metoprolol XL 25 mg daily. Continue the same (losartan 100 being substituted for valsartan during hospitalization). 4. We will defer diuretics to primary team; however, would advise to avoid over-diuresis. 5. Benign prostatic hypertrophy. Patient had a recent hospitalization with acute kidney injury secondary to urinary retention, currently on Flomax 0.4 mg b.i.d. Continue the same. We will add finasteride 5 mg daily as this was our plan from before. 6. Hyperuricemia. Patient with history of gout, should restart allopurinol at 100 mg daily as long as patient has not had any recent gout symptoms. We will check uric acid level. Thank you for this consult. We will be following closely. Casey Avalos MD [facility] # [id number]
[2017-03-24 07:28] LABS: BASO % 0.5 % (0.0-2.0); HEMATOCRIT 44.5 % (35.0-51.0); LYMPH # 0.5 K/uL (1.0-4.3); MEAN CELL VOLUME 89.1 fL (80.0-94.0); MEAN CORPUSCULAR HEMOGLOBIN 30.7 pg (27.0-31.0); MEAN CORPUSCULAR HGB CONC 34.4 g/dL (33.0-37.0); MEAN PLATELET VOLUME 8.4 fL (7.2-11.7); MONO # 0.4 K/uL (0.0-0.8); MONO % 8.8 % (0.0-10.0); NRBC % 0.3 % (0.0-2.0); RED CELL DISTRIBUTION WIDTH 15.4 % (11.5-14.5); WHITE BLOOD COUNT 4.5 K/uL (4.8-10.8)
[2017-03-24 07:59] LABS: ALB/GLOB RATIO 1.1 (1.0-2.1); ALKALINE PHOSPHATASE 81 U/L (38-126); ALT/SGPT 42 U/L (21-72); AST/SGOT 31 U/L (17-59); BILIRUBIN,TOTAL 1.1 mg/dL (0.2-1.3); BLOOD UREA NITROGEN 17 mg/dL (9-20); CALCIUM 7.6 mg/dl (8.6-10.4); CARBON DIOXIDE 32 mmol/L (22-30); CHLORIDE 101 mmol/L (98-107); CHOLESTEROL 150 mg/dL (0-199); GFR AFRICAN-AMERICAN > 60; GLUCOSE,RANDOM 78 mg/dL (75-110); MAGNESIUM 1.5 mg/dL (1.6-2.3); SODIUM 138 mmol/L (132-148); TOTAL PROTEIN 5.4 g/dL (6.3-8.3); URIC ACID 6.4 mg/dL (3.5-8.5)
[2017-03-24 09:13] LABS: POTASSIUM 2.8 mmol/L (3.6-5.2)
[2017-03-24] MEDS: Metoprolol Succinate 25 mg XL Tab PO SCH (09:15)
[2017-03-24] MEDS ORDERED: Potassium Chloride 20 mEq ER Tab PO ONE ×3 (09:28→15:30)
--- NOTE | 2017-03-24 09:38 | CP.PCM.PN ---
<Eri Cummings - Last Filed: 03/24/17 18:28> Subjective - Date & Time of Evaluation Date of Evaluation: 03/24/17 Time of Evaluation: 09:35 - Subjective Subjective: Medicine Progress Note for Dr. See Patient was seen and examined at bedside in no acute distress. Patient reports feeling a little better today and a little less short of breath. Patient states he has a productive cough with yellow sputum. He reports having normal bowel movements, eating well, and denies dysuria. Patient denies having chest pain, abdominal pain, nausea, vomiting, fevers, and headaches. Objective - Vital Signs/Intake and Output Vital Signs (last 24 hours): Temp Pulse Resp BP Pulse Ox 97.9 F 86 20 177/82 H 96 03/24/17 09:06 03/24/17 09:14 03/24/17 09:06 03/24/17 09:15 03/24/17 09:06 Intake and Output: 03/24/17 03/24/17 06:59 18:59 Intake Total 240 Output Total 400 300 Balance -400 -60 - Medications Medications: Current Medications Aspirin (Aspirin Chewable) 81 mg PO DAILY [facility] Last Admin: 03/24/17 09:14 Dose: 81 mg Famotidine (Pepcid) 20 mg PO BID [facility] Last Admin: 03/24/17 09:14 Dose: 20 mg Finasteride (Proscar) 5 mg PO DAILY [facility] Last Admin: 03/24/17 09:14 Dose: 5 mg Furosemide (Lasix) 40 mg IVP BID [facility] Last Admin: 03/24/17 09:15 Dose: 40 mg Heparin Sodium (Porcine) (Heparin) 5,000 units SC Q8H [facility] Last Admin: 03/24/17 05:49 Dose: 5,000 units Losartan Potassium (Cozaar) 100 mg PO DAILY [facility] Last Admin: 03/24/17 09:14 Dose: 100 mg Metoprolol Succinate (Toprol Xl) 25 mg PO DAILY [facility] Last Admin: 03/24/17 09:15 Dose: 25 mg Potassium Chloride (K-Dur 20 Meq Er Tab) 40 meq PO ONCE ONE Stop: 03/24/17 10:31 Tamsulosin HCl (Flomax) 0.4 mg PO BID [facility] Last Admin: 03/24/17 09:14 Dose: 0.4 mg - Labs Labs: 03/24/17 07:19 03/24/17 07:19 PT 13.0 SECONDS (9.7-12.2) H 03/23/17 20:46 INR 1.1 03/23/17 20:46 - Constitutional Appears: No Acute Distress - Head Exam Head Exam: ATRAUMATIC, NORMAL INSPECTION - Eye Exam Eye Exam: EOMI, Normal appearance - ENT Exam ENT Exam: Mucous Membranes Moist - Respiratory Exam Respiratory Exam: Rales, NORMAL BREATHING PATTERN. absent: Rhonchi, Wheezes, Respiratory Distress - Cardiovascular Exam Cardiovascular Exam: REGULAR RHYTHM, +S1, +S2 - GI/Abdominal Exam GI & Abdominal Exam: Soft, Normal Bowel Sounds. absent: Distended, Firm, Tenderness - Extremities Exam Extremities Exam: Normal Inspection. absent: Pedal Edema, Tenderness - Neurological Exam Neurological Exam: Alert, Awake, Oriented x3 - Psychiatric Exam Psychiatric exam: Normal Affect, Normal Mood - Skin Skin Exam: Dry, Intact, Normal Color, Warm Additional comments: roselyn on right side of face Assessment and Plan (1) CHF exacerbation Status: Acute (2) Atrial fibrillation Status: Chronic (3) Pleural effusion Status: Acute (4) Hypertension Status: Chronic (5) Impaired glucose tolerance Status: Acute (6) BPH (benign prostatic hyperplasia) Status: Acute (7) History of prostate cancer Status: Acute (8) History of primary IgA nephropathy Status: Acute (9) Proteinuria Status: Acute (10) Hematuria Status: Acute (11) Cough Status: Acute (12) Hypokalemia Status: Acute (13) Prophylactic measure Status: Acute - Assessment and Plan (Free Text) Plan: (1) CHF exacerbation Assesment and Plan: * Admit to Telemetry * Daily weights, I & Os * fluid restricted diet 1500ml * BNP: 5210, prior admissions (20811, 7980, 7880) * WBC WNL, slight left shift, 1 band * GIDEON negative x 3 * EKG: Afib, rate 89, no acute St/T wave changes * CXR: (03/23/17) small left pleural effusion. * ECHO (02/08/2016): EF 45-50%. LV borderline distended, severe LVH, normal LV wall motion, Grade III restrictive diastolic dysfunction, LA/RA moderately dilated, mitral calcification mild to moderate, trace pericardial effusion * ECHO: f/u results Continue medications: * Lasix 40mg IV BID * Lasix 60 mg IV given in ED * ASA 81mg PO Daily * ASA 325mg PO given once * Losartan 100mg PO Daily * Toprol XL 25mg PO Daily mg PO BID Cardio Consult: Dr. Ndiaye, help appreciated * f/u reccs Status: Acute (2) Atrial fibrillation Assesment and Plan: * EKG: Afib, rate 89, no acute St/T wave changes * Patient was previously on Xarelto, but he does not know why he is no longer taking * he denies previous episodes of bleeding * possibly due to history of hematuria * CHADS-vasc score: 4 pts (Age 2pts, CHF 1, HTN 1) * HASBLED: 2 pts (HTN, Age) Cardio Consult: Dr. Ndiaye, help appreciated * will follow up with, and defer to judgment of, Cardio regarding restarting Xarelto * f/u reccs Status: Acute (3) Pleural effusion Assesment and Plan: * Most likely from CHF * CXR (03/23/17): small left pleural effusion * monitor with Lasix therapy Status: Acute (4) Hypertension Assesment and Plan: * Elevated at admission * Start Cozaar 100mg PO daily * Home med Valsartan 320 mg PO Daily * Toprol XL 25mg PO Daily mg PO BID Status: Acute (5) Impaired glucose tolerance Assesment and Plan: * A1C: 5.9% in 04/2016 * A1C (03/24): 6.0 * Lipid panel: TG 66, Cholesterol 150, LDL 107, HDL 31 Status: Acute (6) BPH (benign prostatic hyperplasia) Assesment and Plan: * Tamsulosin 0.4mg PO BID * Hx of prostate cancer - brachytherapy 12 years ago * pt does not remember recent follow with urology Status: Acute (7) History of prostate cancer Assesment and Plan: * Brachytherapy 12 years ago Status: Acute (8) History of primary IgA nephropathy Assesment and Plan: * Renal biopsy (11/15/16): IgA nephropathy * Perisistent proteinuria * Nephro consult: Dr. Avalos, help appreciated Status: Acute (9) Proteinuria Assesment and Plan: UA: 1+ protein * Repeat UA--> 2+ protein, 1+ blood * hx of IgA nephropathy Status: Acute (10) Hematuria Assesment and Plan: UA 2+ blood * EMR shows pt with persistent hematuria * UA 10/2016 (3+ blood) * Repeat UA(03/24)--> 2+ protein, 1+ blood * Consider urology consult, if persistent on follow-up UA * Urine culture: f/u Status: Acute (11) Cough Assesment and Plan: * Gave one dose of IV azithromycin 500mg for productive cough. * Start Azithromycin 500mg PO daily on 03/25 Status: Acute (12) Hypokalemia Assesment and Plan: * Likely secondary to lasix * Gave Kdur * Monitor on morning labs Status: Acute (13) Prophylactic measure Assesment and Plan: * Pepcid 20mg PO bid * SCDs * Heparin Status: Acute <Bahman See - Last Filed: 03/24/17 18:51> Objective - Vital Signs/Intake and Output Vital Signs (last 24 hours): Temp Pulse Resp BP Pulse Ox 98.2 F 65 18 146/84 97 03/24/17 15:51 03/24/17 15:51 03/24/17 15:51 03/24/17 15:51 03/24/17 15:51 Intake and Output: 03/24/17 03/24/17 06:59 18:59 Intake Total 740 Output Total 400 300 Balance -400 440 - Medications Medications: Current Medications Allopurinol (Zyloprim) 100 mg PO DAILY [facility] Aspirin (Aspirin Chewable) 81 mg PO DAILY [facility] Last Admin: 03/24/17 09:14 Dose: 81 mg Azithromycin (Zithromax) 500 mg PO DAILY [facility] Stop: 03/29/17 11:00 Famotidine (Pepcid) 20 mg PO BID [facility] Last Admin: 03/24/17 09:14 Dose: 20 mg Finasteride (Proscar) 5 mg PO DAILY [facility] Last Admin: 03/24/17 09:14 Dose: 5 mg Furosemide (Lasix) 40 mg IVP DAILY [facility] Heparin Sodium (Porcine) (Heparin) 5,000 units SC Q8H [facility] Last Admin: 03/24/17 13:19 Dose: 5,000 units Magnesium Sulfate/Dextrose (Magnesium Sulfate 1 Gm/100 Ml D5w) 1 gm in 100 mls @ 200 mls/hr IVPB ONCE ONE Stop: 03/24/17 18:57 Losartan Potassium (Cozaar) 100 mg PO DAILY [facility] Last Admin: 03/24/17 09:14 Dose: 100 mg Metoprolol Succinate (Toprol Xl) 25 mg PO DAILY [facility] Last Admin: 03/24/17 09:15 Dose: 25 mg Tamsulosin HCl (Flomax) 0.4 mg PO BID [facility] Last Admin: 03/24/17 09:14 Dose: 0.4 mg - Labs Labs: 03/24/17 07:19 03/24/17 07:19 PT 13.0 SECONDS (9.7-12.2) H 03/23/17 20:46 INR 1.1 03/23/17 20:46 Attending/Attestation - Attestation I have personally seen and examined this patient.: Yes I have fully participated in the care of the patient.: Yes I have reviewed all pertinent clinical information, including history, physical exam and plan: Yes Notes (Text): Patient was seen and examined,Feeling better d/w the resident Nephrology consult appreciated Ct chest without contrast ordered follow funeral home manager recommendation 03/24/17 18:49
--- NOTE | 2017-03-24 09:48 | CP.PCM.CON ---
History of Present Illness - History of Present Illness History of Present Illness: Patient seen/examined. full consult to follow. Patient presents with dyspnea, elevated pro BNP. will need echo to evaluate LV function. diuresis. Past Patient History - Past Medical History & Family History Past Medical History?: Yes - Past Social History Smoking Status: Former Smoker - CARDIAC Hx Cardia Arrhythmia: Yes (A-FIB) Hx Hypertension: Yes - PULMONARY Hx Asthma: Yes - NEUROLOGICAL Hx Neurological Disorder: No - HEENT Hx HEENT Problems: Yes Hx Glaucoma: Yes Other/Comment: Wears eyeglasses for reading - RENAL Hx Chronic Kidney Disease: Yes Hx Kidney Stones: Yes - ENDOCRINE/METABOLIC Hx Endocrine Disorders: No - HEMATOLOGICAL/ONCOLOGICAL Hx Blood Disorders: No - INTEGUMENTARY Hx Dermatological Problems: Yes Other/Comment: facial discoloration. patient states " roselyn" - MUSCULOSKELETAL/RHEUMATOLOGICAL Hx Musculoskeletal Disorders: Yes Hx Falls: Yes - GASTROINTESTINAL Hx Gastrointestinal Disorders: No - GENITOURINARY/GYNECOLOGICAL Hx Genitourinary Disorders: Yes Hx Prostate Cancer: Yes (h/o.12 years ago seed implants) - PSYCHIATRIC Hx Substance Use: No - SURGICAL HISTORY Hx Appendectomy: Yes - ANESTHESIA Hx Anesthesia: Yes Hx Anesthesia Reactions: No Hx Malignant Hyperthermia: No Meds Allergies/Adverse Reactions: Allergies Allergy/AdvReac Type Severity Reaction Status Date / Time No Known Allergies Allergy Verified 02/07/16 10:54 - Medications Medications: Current Medications Aspirin (Aspirin Chewable) 81 mg PO DAILY [facility] Last Admin: 03/24/17 09:14 Dose: 81 mg Famotidine (Pepcid) 20 mg PO BID [facility] Last Admin: 03/24/17 09:14 Dose: 20 mg Finasteride (Proscar) 5 mg PO DAILY [facility] Last Admin: 03/24/17 09:14 Dose: 5 mg Furosemide (Lasix) 40 mg IVP BID [facility] Last Admin: 03/24/17 09:15 Dose: 40 mg Heparin Sodium (Porcine) (Heparin) 5,000 units SC Q8H [facility] Last Admin: 03/24/17 05:49 Dose: 5,000 units Losartan Potassium (Cozaar) 100 mg PO DAILY [facility] Last Admin: 03/24/17 09:14 Dose: 100 mg Metoprolol Succinate (Toprol Xl) 25 mg PO DAILY [facility] Last Admin: 03/24/17 09:15 Dose: 25 mg Potassium Chloride (K-Dur 20 Meq Er Tab) 40 meq PO ONCE ONE Stop: 03/24/17 10:31 Tamsulosin HCl (Flomax) 0.4 mg PO BID [facility] Last Admin: 03/24/17 09:14 Dose: 0.4 mg Results - Vital Signs Recent Vital Signs: Last Vital Signs Temp 97.9 F 03/24/17 09:06 Pulse 86 03/24/17 09:14 Resp 20 03/24/17 09:06 BP 177/82 H 03/24/17 09:15 Pulse Ox 96 03/24/17 09:06 - Labs Result Diagrams: 03/24/17 07:19 03/24/17 07:19 Labs: Laboratory Results - last 24 hr 03/23/17 03/23/17 03/23/17 15:52 15:52 17:14 WBC 6.8 RBC 4.98 Hgb 15.3 D Hct 44.5 MCV 89.4 MCH 30.8 MCHC 34.5 RDW 15.3 H Plt Count 139 MPV 8.1 Neut % (Auto) 83.7 H Lymph % (Auto) 7.3 L [place] % (Auto) 8.3 Eos % (Auto) 0.4 Baso % (Auto) 0.3 Neut # 5.7 Lymph # 0.5 L [place] # 0.6 Eos # 0.0 Baso # 0.0 Neutrophils % (Manual) 88 H Band Neutrophils % 1 Lymphocytes % (Manual) 6 L Monocytes % (Manual) 4 Eosinophils % (Manual) 1 Platelet Estimate Normal Microcytosis (manual) Slight Tear Drop Cells Slight Ovalocytes Slight PT INR Puncture Site pO2 Nick Test VBG pH VBG pCO2 VBG HCO3 VBG O2 Sat (Calc) VBG Base Excess Sodium 135 Potassium 3.8 Chloride 100 Carbon Dioxide 33 H Anion Gap 6 L BUN 18 Creatinine 1.0 Est GFR ( Amer) > 60 Est GFR (Non-Af Amer) > 60 Random Glucose 94 Hemoglobin A1c Uric Acid Calcium 8.0 L Phosphorus Magnesium Total Bilirubin 1.2 AST 32 ALT 46 Alkaline Phosphatase 81 Total Creatine Kinase CK-MB (Mass) Troponin I 0.0730 NT-Pro-B Natriuret Pep 5210 H Total Protein 5.6 L Albumin 2.9 L Globulin 2.6 Albumin/Globulin Ratio 1.1 Triglycerides Cholesterol LDL Cholesterol Direct HDL Cholesterol Urine Color Straw Urine Clarity Clear Urine pH 6.0 Ur Specific [place] 1.005 Urine Protein 1+ H Urine Glucose (UA) Normal Urine Ketones Negative Urine Blood 2+ H Urine Nitrate Negative Urine Bilirubin Negative Urine Urobilinogen Normal Ur Leukocyte Esterase Neg Urine WBC (Auto) 1 Urine RBC (Auto) < 1 Ur Squamous Epith Cells Ur Random Creatinine U Random Total Protein 03/23/17 03/23/17 03/24/17 20:46 21:59 04:30 WBC RBC Hgb Hct MCV MCH MCHC RDW Plt Count MPV Neut % (Auto) Lymph % (Auto) [place] % (Auto) Eos % (Auto) Baso % (Auto) Neut # Lymph # [place] # Eos # Baso # Neutrophils % (Manual) Band Neutrophils % Lymphocytes % (Manual) Monocytes % (Manual) Eosinophils % (Manual) Platelet Estimate Microcytosis (manual) Tear Drop Cells Ovalocytes PT 13.0 H INR 1.1 Puncture Site pO2 Nick Test VBG pH VBG pCO2 VBG HCO3 VBG O2 Sat (Calc) VBG Base Excess Sodium Potassium Chloride Carbon Dioxide Anion Gap BUN Creatinine Est GFR ( Amer) Est GFR (Non-Af Amer) Random Glucose Hemoglobin A1c Uric Acid Calcium Phosphorus Magnesium Total Bilirubin AST ALT Alkaline Phosphatase Total Creatine Kinase 32 L 28 L CK-MB (Mass) 1.82 1.91 Troponin I 0.0760 0.0820 NT-Pro-B Natriuret Pep Total Protein Albumin Globulin Albumin/Globulin Ratio Triglycerides Cholesterol LDL Cholesterol Direct HDL Cholesterol Urine Color Urine Clarity Urine pH Ur Specific [place] Urine Protein Urine Glucose (UA) Urine Ketones Urine Blood Urine Nitrate Urine Bilirubin Urine Urobilinogen Ur Leukocyte Esterase Urine WBC (Auto) Urine RBC (Auto) Ur Squamous Epith Cells Ur Random Creatinine U Random Total Protein 03/24/17 03/24/17 03/24/17 06:40 06:42 07:05 WBC RBC Hgb Hct MCV MCH MCHC RDW Plt Count MPV Neut % (Auto) Lymph % (Auto) [place] % (Auto) Eos % (Auto) Baso % (Auto) Neut # Lymph # [place] # Eos # Baso # Neutrophils % (Manual) Band Neutrophils % Lymphocytes % (Manual) Monocytes % (Manual) Eosinophils % (Manual) Platelet Estimate Microcytosis (manual) Tear Drop Cells Ovalocytes PT INR Puncture Site Na pO2 71 H Nick Test Na VBG pH 7.47 H VBG pCO2 44 VBG HCO3 30.6 VBG O2 Sat (Calc) 97.6 H VBG Base Excess 7.4 H Sodium Potassium Chloride Carbon Dioxide Anion Gap BUN Creatinine Est GFR ( Amer) Est GFR (Non-Af Amer) Random Glucose Hemoglobin A1c Uric Acid Calcium Phosphorus Magnesium Total Bilirubin AST ALT Alkaline Phosphatase Total Creatine Kinase CK-MB (Mass) Troponin I NT-Pro-B Natriuret Pep Total Protein Albumin Globulin Albumin/Globulin Ratio Triglycerides Cholesterol LDL Cholesterol Direct HDL Cholesterol Urine Color Yellow Urine Clarity Clear Urine pH 5.0 Ur Specific [place] 1.010 Urine Protein 2+ H Urine Glucose (UA) Normal Urine Ketones Negative Urine Blood 1+ H Urine Nitrate Negative Urine Bilirubin Negative Urine Urobilinogen Normal Ur Leukocyte Esterase Neg Urine WBC (Auto) 2 Urine RBC (Auto) 1 Ur Squamous Epith Cells < 1 Ur Random Creatinine 54.9 U Random Total Protein 03/24/17 03/24/17 03/24/17 07:19 07:19 07:19 WBC 4.5 L RBC 4.99 Hgb 15.3 Hct 44.5 MCV 89.1 MCH 30.7 MCHC 34.4 RDW 15.4 H Plt Count 142 MPV 8.4 Neut % (Auto) 77.7 H Lymph % (Auto) 12.0 L [place] % (Auto) 8.8 Eos % (Auto) 1.0 Baso % (Auto) 0.5 Neut # 3.5 Lymph # 0.5 L [place] # 0.4 Eos # 0.0 Baso # 0.0 Neutrophils % (Manual) Band Neutrophils % Lymphocytes % (Manual) Monocytes % (Manual) Eosinophils % (Manual) Platelet Estimate Microcytosis (manual) Tear Drop Cells Ovalocytes PT INR Puncture Site pO2 Nick Test VBG pH VBG pCO2 VBG HCO3 VBG O2 Sat (Calc) VBG Base Excess Sodium 138 Potassium 2.8 L Chloride 101 Carbon Dioxide 32 H Anion Gap 8 L BUN 17 Creatinine 0.9 Est GFR ( Amer) > 60 Est GFR (Non-Af Amer) > 60 Random Glucose 78 Hemoglobin A1c 6.0 Uric Acid 6.4 Calcium 7.6 L Phosphorus 3.0 Magnesium 1.5 L Total Bilirubin 1.1 AST 31 ALT 42 Alkaline Phosphatase 81 Total Creatine Kinase CK-MB (Mass) Troponin I NT-Pro-B Natriuret Pep Total Protein 5.4 L Albumin 2.9 L Globulin 2.5 Albumin/Globulin Ratio 1.1 Triglycerides 66 Cholesterol 150 LDL Cholesterol Direct 107 HDL Cholesterol 31 Urine Color Urine Clarity Urine pH Ur Specific [place] Urine Protein Urine Glucose (UA) Urine Ketones Urine Blood Urine Nitrate Urine Bilirubin Urine Urobilinogen Ur Leukocyte Esterase Urine WBC (Auto) Urine RBC (Auto) Ur Squamous Epith Cells Ur Random Creatinine U Random Total Protein 03/24/17 09:08 WBC RBC Hgb Hct MCV MCH MCHC RDW Plt Count MPV Neut % (Auto) Lymph % (Auto) [place] % (Auto) Eos % (Auto) Baso % (Auto) Neut # Lymph # [place] # Eos # Baso # Neutrophils % (Manual) Band Neutrophils % Lymphocytes % (Manual) Monocytes % (Manual) Eosinophils % (Manual) Platelet Estimate Microcytosis (manual) Tear Drop Cells Ovalocytes PT INR Puncture Site pO2 Nick Test VBG pH VBG pCO2 VBG HCO3 VBG O2 Sat (Calc) VBG Base Excess Sodium Potassium Chloride Carbon Dioxide Anion Gap BUN Creatinine Est GFR ( Amer) Est GFR (Non-Af Amer) Random Glucose Hemoglobin A1c Uric Acid Calcium Phosphorus Magnesium Total Bilirubin AST ALT Alkaline Phosphatase Total Creatine Kinase CK-MB (Mass) Troponin I NT-Pro-B Natriuret Pep Total Protein Albumin Globulin Albumin/Globulin Ratio Triglycerides Cholesterol LDL Cholesterol Direct HDL Cholesterol Urine Color Urine Clarity Urine pH Ur Specific [place] Urine Protein Urine Glucose (UA) Urine Ketones Urine Blood Urine Nitrate Urine Bilirubin Urine Urobilinogen Ur Leukocyte Esterase Urine WBC (Auto) Urine RBC (Auto) Ur Squamous Epith Cells Ur Random Creatinine U Random Total Protein 101.0 H
--- NOTE | 2017-03-24 09:48 | CP.PCM.CON ---
Past Patient History - Past Medical History & Family History Past Medical History?: Yes - Past Social History Smoking Status: Former Smoker - CARDIAC Hx Cardia Arrhythmia: Yes (A-FIB) Hx Hypertension: Yes - PULMONARY Hx Asthma: Yes - NEUROLOGICAL Hx Neurological Disorder: No - HEENT Hx HEENT Problems: Yes Hx Glaucoma: Yes Other/Comment: Wears eyeglasses for reading - RENAL Hx Chronic Kidney Disease: Yes Hx Kidney Stones: Yes - ENDOCRINE/METABOLIC Hx Endocrine Disorders: No - HEMATOLOGICAL/ONCOLOGICAL Hx Blood Disorders: No - INTEGUMENTARY Hx Dermatological Problems: Yes Other/Comment: facial discoloration. patient states " roselyn" - MUSCULOSKELETAL/RHEUMATOLOGICAL Hx Musculoskeletal Disorders: Yes Hx Falls: Yes - GASTROINTESTINAL Hx Gastrointestinal Disorders: No - GENITOURINARY/GYNECOLOGICAL Hx Genitourinary Disorders: Yes Hx Prostate Cancer: Yes (h/o.12 years ago seed implants) - PSYCHIATRIC Hx Substance Use: No - SURGICAL HISTORY Hx Appendectomy: Yes - ANESTHESIA Hx Anesthesia: Yes Hx Anesthesia Reactions: No Hx Malignant Hyperthermia: No Meds Allergies/Adverse Reactions: Allergies Allergy/AdvReac Type Severity Reaction Status Date / Time No Known Allergies Allergy Verified 02/07/16 10:54 - Medications Medications: Current Medications Aspirin (Aspirin Chewable) 81 mg PO DAILY [facility] Last Admin: 03/24/17 09:14 Dose: 81 mg Famotidine (Pepcid) 20 mg PO BID [facility] Last Admin: 03/24/17 09:14 Dose: 20 mg Finasteride (Proscar) 5 mg PO DAILY [facility] Last Admin: 03/24/17 09:14 Dose: 5 mg Furosemide (Lasix) 40 mg IVP BID [facility] Last Admin: 03/24/17 09:15 Dose: 40 mg Heparin Sodium (Porcine) (Heparin) 5,000 units SC Q8H [facility] Last Admin: 03/24/17 05:49 Dose: 5,000 units Losartan Potassium (Cozaar) 100 mg PO DAILY [facility] Last Admin: 03/24/17 09:14 Dose: 100 mg Metoprolol Succinate (Toprol Xl) 25 mg PO DAILY [facility] Last Admin: 03/24/17 09:15 Dose: 25 mg Potassium Chloride (K-Dur 20 Meq Er Tab) 40 meq PO ONCE ONE Stop: 03/24/17 10:31 Tamsulosin HCl (Flomax) 0.4 mg PO BID [facility] Last Admin: 03/24/17 09:14 Dose: 0.4 mg Results - Vital Signs Recent Vital Signs: Last Vital Signs Temp 97.9 F 03/24/17 09:06 Pulse 86 03/24/17 09:14 Resp 20 03/24/17 09:06 BP 177/82 H 03/24/17 09:15 Pulse Ox 96 03/24/17 09:06 - Labs Result Diagrams: 03/24/17 07:19 03/24/17 07:19 Labs: Laboratory Results - last 24 hr 03/23/17 03/23/17 03/23/17 15:52 15:52 17:14 WBC 6.8 RBC 4.98 Hgb 15.3 D Hct 44.5 MCV 89.4 MCH 30.8 MCHC 34.5 RDW 15.3 H Plt Count 139 MPV 8.1 Neut % (Auto) 83.7 H Lymph % (Auto) 7.3 L [place] % (Auto) 8.3 Eos % (Auto) 0.4 Baso % (Auto) 0.3 Neut # 5.7 Lymph # 0.5 L [place] # 0.6 Eos # 0.0 Baso # 0.0 Neutrophils % (Manual) 88 H Band Neutrophils % 1 Lymphocytes % (Manual) 6 L Monocytes % (Manual) 4 Eosinophils % (Manual) 1 Platelet Estimate Normal Microcytosis (manual) Slight Tear Drop Cells Slight Ovalocytes Slight PT INR Puncture Site pO2 Nick Test VBG pH VBG pCO2 VBG HCO3 VBG O2 Sat (Calc) VBG Base Excess Sodium 135 Potassium 3.8 Chloride 100 Carbon Dioxide 33 H Anion Gap 6 L BUN 18 Creatinine 1.0 Est GFR ( Amer) > 60 Est GFR (Non-Af Amer) > 60 Random Glucose 94 Hemoglobin A1c Uric Acid Calcium 8.0 L Phosphorus Magnesium Total Bilirubin 1.2 AST 32 ALT 46 Alkaline Phosphatase 81 Total Creatine Kinase CK-MB (Mass) Troponin I 0.0730 NT-Pro-B Natriuret Pep 5210 H Total Protein 5.6 L Albumin 2.9 L Globulin 2.6 Albumin/Globulin Ratio 1.1 Triglycerides Cholesterol LDL Cholesterol Direct HDL Cholesterol Urine Color Straw Urine Clarity Clear Urine pH 6.0 Ur Specific [place] 1.005 Urine Protein 1+ H Urine Glucose (UA) Normal Urine Ketones Negative Urine Blood 2+ H Urine Nitrate Negative Urine Bilirubin Negative Urine Urobilinogen Normal Ur Leukocyte Esterase Neg Urine WBC (Auto) 1 Urine RBC (Auto) < 1 Ur Squamous Epith Cells Ur Random Creatinine U Random Total Protein 03/23/17 03/23/17 03/24/17 20:46 21:59 04:30 WBC RBC Hgb Hct MCV MCH MCHC RDW Plt Count MPV Neut % (Auto) Lymph % (Auto) [place] % (Auto) Eos % (Auto) Baso % (Auto) Neut # Lymph # [place] # Eos # Baso # Neutrophils % (Manual) Band Neutrophils % Lymphocytes % (Manual) Monocytes % (Manual) Eosinophils % (Manual) Platelet Estimate Microcytosis (manual) Tear Drop Cells Ovalocytes PT 13.0 H INR 1.1 Puncture Site pO2 Nick Test VBG pH VBG pCO2 VBG HCO3 VBG O2 Sat (Calc) VBG Base Excess Sodium Potassium Chloride Carbon Dioxide Anion Gap BUN Creatinine Est GFR ( Amer) Est GFR (Non-Af Amer) Random Glucose Hemoglobin A1c Uric Acid Calcium Phosphorus Magnesium Total Bilirubin AST ALT Alkaline Phosphatase Total Creatine Kinase 32 L 28 L CK-MB (Mass) 1.82 1.91 Troponin I 0.0760 0.0820 NT-Pro-B Natriuret Pep Total Protein Albumin Globulin Albumin/Globulin Ratio Triglycerides Cholesterol LDL Cholesterol Direct HDL Cholesterol Urine Color Urine Clarity Urine pH Ur Specific [place] Urine Protein Urine Glucose (UA) Urine Ketones Urine Blood Urine Nitrate Urine Bilirubin Urine Urobilinogen Ur Leukocyte Esterase Urine WBC (Auto) Urine RBC (Auto) Ur Squamous Epith Cells Ur Random Creatinine U Random Total Protein 03/24/17 03/24/17 03/24/17 06:40 06:42 07:05 WBC RBC Hgb Hct MCV MCH MCHC RDW Plt Count MPV Neut % (Auto) Lymph % (Auto) [place] % (Auto) Eos % (Auto) Baso % (Auto) Neut # Lymph # [place] # Eos # Baso # Neutrophils % (Manual) Band Neutrophils % Lymphocytes % (Manual) Monocytes % (Manual) Eosinophils % (Manual) Platelet Estimate Microcytosis (manual) Tear Drop Cells Ovalocytes PT INR Puncture Site Na pO2 71 H Nick Test Na VBG pH 7.47 H VBG pCO2 44 VBG HCO3 30.6 VBG O2 Sat (Calc) 97.6 H VBG Base Excess 7.4 H Sodium Potassium Chloride Carbon Dioxide Anion Gap BUN Creatinine Est GFR ( Amer) Est GFR (Non-Af Amer) Random Glucose Hemoglobin A1c Uric Acid Calcium Phosphorus Magnesium Total Bilirubin AST ALT Alkaline Phosphatase Total Creatine Kinase CK-MB (Mass) Troponin I NT-Pro-B Natriuret Pep Total Protein Albumin Globulin Albumin/Globulin Ratio Triglycerides Cholesterol LDL Cholesterol Direct HDL Cholesterol Urine Color Yellow Urine Clarity Clear Urine pH 5.0 Ur Specific [place] 1.010 Urine Protein 2+ H Urine Glucose (UA) Normal Urine Ketones Negative Urine Blood 1+ H Urine Nitrate Negative Urine Bilirubin Negative Urine Urobilinogen Normal Ur Leukocyte Esterase Neg Urine WBC (Auto) 2 Urine RBC (Auto) 1 Ur Squamous Epith Cells < 1 Ur Random Creatinine 54.9 U Random Total Protein 03/24/17 03/24/17 03/24/17 07:19 07:19 07:19 WBC 4.5 L RBC 4.99 Hgb 15.3 Hct 44.5 MCV 89.1 MCH 30.7 MCHC 34.4 RDW 15.4 H Plt Count 142 MPV 8.4 Neut % (Auto) 77.7 H Lymph % (Auto) 12.0 L [place] % (Auto) 8.8 Eos % (Auto) 1.0 Baso % (Auto) 0.5 Neut # 3.5 Lymph # 0.5 L [place] # 0.4 Eos # 0.0 Baso # 0.0 Neutrophils % (Manual) Band Neutrophils % Lymphocytes % (Manual) Monocytes % (Manual) Eosinophils % (Manual) Platelet Estimate Microcytosis (manual) Tear Drop Cells Ovalocytes PT INR Puncture Site pO2 Nick Test VBG pH VBG pCO2 VBG HCO3 VBG O2 Sat (Calc) VBG Base Excess Sodium 138 Potassium 2.8 L Chloride 101 Carbon Dioxide 32 H Anion Gap 8 L BUN 17 Creatinine 0.9 Est GFR ( Amer) > 60 Est GFR (Non-Af Amer) > 60 Random Glucose 78 Hemoglobin A1c 6.0 Uric Acid 6.4 Calcium 7.6 L Phosphorus 3.0 Magnesium 1.5 L Total Bilirubin 1.1 AST 31 ALT 42 Alkaline Phosphatase 81 Total Creatine Kinase CK-MB (Mass) Troponin I NT-Pro-B Natriuret Pep Total Protein 5.4 L Albumin 2.9 L Globulin 2.5 Albumin/Globulin Ratio 1.1 Triglycerides 66 Cholesterol 150 LDL Cholesterol Direct 107 HDL Cholesterol 31 Urine Color Urine Clarity Urine pH Ur Specific [place] Urine Protein Urine Glucose (UA) Urine Ketones Urine Blood Urine Nitrate Urine Bilirubin Urine Urobilinogen Ur Leukocyte Esterase Urine WBC (Auto) Urine RBC (Auto) Ur Squamous Epith Cells Ur Random Creatinine U Random Total Protein 03/24/17 09:08 WBC RBC Hgb Hct MCV MCH MCHC RDW Plt Count MPV Neut % (Auto) Lymph % (Auto) [place] % (Auto) Eos % (Auto) Baso % (Auto) Neut # Lymph # [place] # Eos # Baso # Neutrophils % (Manual) Band Neutrophils % Lymphocytes % (Manual) Monocytes % (Manual) Eosinophils % (Manual) Platelet Estimate Microcytosis (manual) Tear Drop Cells Ovalocytes PT INR Puncture Site pO2 Nick Test VBG pH VBG pCO2 VBG HCO3 VBG O2 Sat (Calc) VBG Base Excess Sodium Potassium Chloride Carbon Dioxide Anion Gap BUN Creatinine Est GFR ( Amer) Est GFR (Non-Af Amer) Random Glucose Hemoglobin A1c Uric Acid Calcium Phosphorus Magnesium Total Bilirubin AST ALT Alkaline Phosphatase Total Creatine Kinase CK-MB (Mass) Troponin I NT-Pro-B Natriuret Pep Total Protein Albumin Globulin Albumin/Globulin Ratio Triglycerides Cholesterol LDL Cholesterol Direct HDL Cholesterol Urine Color Urine Clarity Urine pH Ur Specific [place] Urine Protein Urine Glucose (UA) Urine Ketones Urine Blood Urine Nitrate Urine Bilirubin Urine Urobilinogen Ur Leukocyte Esterase Urine WBC (Auto) Urine RBC (Auto) Ur Squamous Epith Cells Ur Random Creatinine U Random Total Protein 101.0 H
[2017-03-24] MEDS ORDERED: Azithromycin 500 MG in Sodium Chloride 0.9% 250 ML IVPB ONE ×2 (11:30→12:30)
[2017-03-24] MEDS ORDERED: Magnesium Sulfate 1 gm in D5W 1 GM/100 ML BAG IVPB ONE (18:28)
--- NOTE | 2017-03-24 18:31 | CP.PCM.PN ---
Subjective - Date & Time of Evaluation Date of Evaluation: 03/24/17 Time of Evaluation: 19:00 - Subjective Subjective: Patient apparently went down for chest CT but became anxious and was sent back; otherwise denies shortness of breath today; Objective - Vital Signs/Intake and Output Vital Signs (last 24 hours): Temp Pulse Resp BP Pulse Ox 98.2 F 65 18 146/84 97 03/24/17 15:51 03/24/17 15:51 03/24/17 15:51 03/24/17 15:51 03/24/17 15:51 Intake and Output: 03/24/17 03/24/17 06:59 18:59 Intake Total 740 Output Total 400 300 Balance -400 440 - Medications Medications: Current Medications Allopurinol (Zyloprim) 100 mg PO DAILY [facility] Aspirin (Aspirin Chewable) 81 mg PO DAILY [facility] Last Admin: 03/24/17 09:14 Dose: 81 mg Azithromycin (Zithromax) 500 mg PO DAILY [facility] Stop: 03/29/17 11:00 Famotidine (Pepcid) 20 mg PO BID [facility] Last Admin: 03/24/17 09:14 Dose: 20 mg Finasteride (Proscar) 5 mg PO DAILY [facility] Last Admin: 03/24/17 09:14 Dose: 5 mg Furosemide (Lasix) 40 mg IVP DAILY [facility] Heparin Sodium (Porcine) (Heparin) 5,000 units SC Q8H [facility] Last Admin: 03/24/17 13:19 Dose: 5,000 units Magnesium Sulfate/Dextrose (Magnesium Sulfate 1 Gm/100 Ml D5w) 1 gm in 100 mls @ 200 mls/hr IVPB ONCE ONE Stop: 03/24/17 18:57 Losartan Potassium (Cozaar) 100 mg PO DAILY [facility] Last Admin: 03/24/17 09:14 Dose: 100 mg Metoprolol Succinate (Toprol Xl) 25 mg PO DAILY [facility] Last Admin: 03/24/17 09:15 Dose: 25 mg Tamsulosin HCl (Flomax) 0.4 mg PO BID [facility] Last Admin: 03/24/17 09:14 Dose: 0.4 mg - Labs Labs: 03/24/17 07:19 03/24/17 07:19 PT 13.0 SECONDS (9.7-12.2) H 03/23/17 20:46 INR 1.1 03/23/17 20:46 Assessment and Plan (1) Dyspnea Assessment & Plan: Etiology is still unclear as chest imaging didn't show significant volume overload; awaiting chest CT; agree with decreasing diuretic dosing; Status: Acute (2) Proteinuria Assessment & Plan: Patient needs outpatient hematology f/u for possible paraproteinemia; otherwise , renal function relatively preserved and at baseline; Status: Acute (3) BPH (benign prostatic hyperplasia) Assessment & Plan: continue flomax 0.4 mg bid and finasteride 5 mg daily; Status: Chronic (4) History of primary IgA nephropathy Assessment & Plan: Appears to be an incidental finding and doesn't explain his large degree proteinuria; will continue ERNST blockade with max dose ARB; Status: Acute (5) Chronic congestive heart failure Assessment & Plan: With mild systolic and diastolic dysfunction seen on previous echo; may have had mild volume excess that caused CHF exacerbation due to decreased LV compliance; unclear if patient was taking the diuretic that we had recently prescribed as outpatient (chlorthalidone 25 mg daily); diuretics per primary team; further recs by cardio; Status: Acute (6) Hypertension Assessment & Plan: BP overall elevated on current meds; consider changing metoprolol XL 25 mg daily to coreg 12.5 mg bid; Status: Chronic
[2017-03-24 20:19] LABS: BLOOD UREA NITROGEN 24 mg/dL (9-20); CALCIUM 8.2 mg/dl (8.6-10.4); CARBON DIOXIDE 34 mmol/L (22-30); CHLORIDE 101 mmol/L (98-107); GFR AFRICAN-AMERICAN > 60; GLUCOSE,RANDOM 78 mg/dL (75-110); POTASSIUM 3.8 mmol/L (3.6-5.2); SODIUM 141 mmol/L (132-148)
--- NOTE | 2017-03-24 21:19 | CARD ---
APPROVED REPORT EXAM: Two-dimensional and M-mode echocardiogram with Doppler and color Doppler. Other Information Quality : GoodRhythm : INDICATION Dyspnea Atrial Fibrillation Congestive Heart Failure ELEVATED TROPONIN RISK FACTORS Hypertension 2D DIMENSIONS IVSd1.4 (0.7-1.1cm)LVDd5.2 (3.9-5.9cm) PWd1.4 (0.7-1.1cm)LVDs4.1 (2.5-4.0cm) FS (%) 21.1 %LVEF (%)42.6 (>50%) M-Mode DIMENSIONS Left Atrium (MM)4.33 (2.5-4.0cm)Aortic Root3.31 (2.2-3.7cm) Aortic Cusp Exc.2.02 (1.5-2.0cm) Mitral Valve MV E Fgtcyyws92.1cm/sE/A ratio0.0 TDI E/Lateral E'0.0E/Medial E'0.0 Tricuspid Valve TR Peak [id number]/sTR Peak Gr.[id number] LEFT VENTRICLE The left ventricle is normal size. There is moderate concentric left ventricular hypertrophy. The systolic function is moderately to severely impaired. Severly hypokinetic septum No left ventricle thrombus noted on this study. RIGHT VENTRICLE The right ventricle is normal size. There is normal right ventricular wall thickness. The right ventricular systolic function is normal. ATRIA The left atrium is moderately dilated. The right atrium is moderately dilated. AORTIC VALVE The aortic valve is mildly thickened. MITRAL VALVE The mitral valve is moderately thickened. Mitral regurgitation is moderate. TRICUSPID VALVE There is mild pulmonary hypertension. GREAT VESSELS The IVC is normal in size and collapses >50% with inspiration. PERICARDIAL EFFUSION There is small left pleural effusion. <Conclusion> The left ventricle is normal size. There is moderate concentric left ventricular hypertrophy. The systolic function is moderately to severely impaired. Severly hypokinetic septum Mitral regurgitation is moderate. There is mild pulmonary hypertension.
--- NOTE | 2017-03-24 21:43 | CARD ---
APPROVED REPORT EKG Measurement Heart [id number] <Conclusion> Atrial fibrillation with premature ventricular or aberrantly conducted complexes Nonspecific ST abnormality Prolonged QT Abnormal ECG
--- NOTE | 2017-03-24 21:51 | CARD ---
APPROVED REPORT EKG Measurement Heart [id number] <Conclusion> Atrial fibrillation Nonspecific ST and T wave abnormality Abnormal ECG
--- NOTE | 2017-03-24 22:30 | CT ---
EXAM: CT Chest Without Intravenous Contrast CLINICAL HISTORY: 77 years old, male; Signs and symptoms; Dyspnea; Additional info: Dyspnea. Pt was sedated before exam but was uncooperative , kept moving. Best images TECHNIQUE: Axial computed tomography images of the chest without intravenous contrast. All CT scans at this facility use one or more dose reduction techniques, viz.: automated exposure control; ma/kV adjustment per patient size (including targeted exams where dose is matched to indication; i.e. head); or iterative reconstruction technique. Coronal and sagittal reformatted images were created and reviewed. COMPARISON: CT - CHEST W/O CONTRAST 2015-06-07 12:41 FINDINGS: Artifacts: Motion artifact somewhat limits evaluation during this exam. Lungs: Mild air space opacities in the left lower lobe and lingula may represent atelectasis or early infiltrates. Please correlate clinically. Pleural space: There is a small left pleural effusion. No visible pneumothorax. Heart: The heart is moderately enlarged. There is coronary artery calcification. There is calcification of the aortic root. No significant pericardial effusion. Mediastinum: Hilar regions are limited without IV contrast. Small hiatal hernia. Thyroid: The thyroid is normal in size and position. Bones/joints: There are marked degenerative changes present. No displaced fractures identified in the thorax. There is moderate diffuse osteopenia. No dislocation. Soft tissues: Unremarkable. Vasculature: Thoracic aorta is tortuous and atherosclerotic without aneurysm. Lymph nodes: There is no axillary adenopathy. No mediastinal adenopathy. Liver: Scans through the upper abdomen demonstrate cirrhotic liver configuration with upper abdominal varices, multiple gallstones. Right kidney is noted to be atrophic. Small right upper pole renal cyst. IMPRESSION: 1. The heart is moderately enlarged. 2. There is a small left pleural effusion. 3. Mild air space opacities in the left lower lobe and lingula may represent atelectasis or early infiltrates. Please correlate clinically. 4. Motion artifact somewhat limits evaluation during this exam. 5. Additional incidental and/or chronic findings as described.
--- NOTE | 2017-03-25 06:52 | CP.PCM.PN ---
<Eri Cummings - Last Filed: 03/25/17 11:34> Subjective - Date & Time of Evaluation Date of Evaluation: 03/25/17 Time of Evaluation: 06:52 - Subjective Subjective: Medicine Progress Note for Dr. See Patient was seen and examined at bedside in no acute distress. Patient reports he feels a little short of breath, feels about the same as yesterday. Patient says he no longer has a cough or phlegm. Patient denies having chest pain, abdominal pain, nausea, vomiting, fevers, and headaches. Objective - Vital Signs/Intake and Output Vital Signs (last 24 hours): Temp Pulse Resp BP Pulse Ox 97.2 F L 86 20 162/112 H 97 03/24/17 23:50 03/25/17 05:28 03/25/17 05:28 03/25/17 05:28 03/25/17 04:42 Intake and Output: 03/24/17 03/25/17 18:59 06:59 Intake Total 740 100 Output Total 300 Balance 440 100 - Medications Medications: Current Medications Allopurinol (Zyloprim) 100 mg PO DAILY [facility] Aspirin (Aspirin Chewable) 81 mg PO DAILY [facility] Last Admin: 03/24/17 09:14 Dose: 81 mg Azithromycin (Zithromax) 500 mg PO DAILY [facility] Stop: 03/29/17 11:00 Famotidine (Pepcid) 20 mg PO BID [facility] Last Admin: 03/24/17 19:43 Dose: 20 mg Finasteride (Proscar) 5 mg PO DAILY [facility] Last Admin: 03/24/17 09:14 Dose: 5 mg Furosemide (Lasix) 40 mg IVP DAILY [facility] Heparin Sodium (Porcine) (Heparin) 5,000 units SC Q8H [facility] Last Admin: 03/25/17 05:36 Dose: 5,000 units Losartan Potassium (Cozaar) 100 mg PO DAILY [facility] Last Admin: 03/25/17 05:35 Dose: 100 mg Metoprolol Succinate (Toprol Xl) 25 mg PO DAILY [facility] Last Admin: 03/24/17 09:15 Dose: 25 mg Tamsulosin HCl (Flomax) 0.4 mg PO BID [facility] Last Admin: 03/24/17 19:42 Dose: 0.4 mg - Labs Labs: 03/24/17 07:19 03/24/17 19:44 PT 13.0 SECONDS (9.7-12.2) H 03/23/17 20:46 INR 1.1 03/23/17 20:46 - Additional Findings Additional findings: - Constitutional Appears: No Acute Distress - Head Exam Head Exam: ATRAUMATIC, NORMAL INSPECTION - Eye Exam Eye Exam: EOMI, Normal appearance - ENT Exam ENT Exam: Mucous Membranes Moist - Respiratory Exam Respiratory Exam: Rales, Wheezes, NORMAL BREATHING PATTERN. absent: Rhonchi, Respiratory Distress - Cardiovascular Exam Cardiovascular Exam: REGULAR RHYTHM, +S1, +S2 - GI/Abdominal Exam GI & Abdominal Exam: Soft, Normal Bowel Sounds. absent: Distended, Firm, Tenderness - Extremities Exam Extremities Exam: Normal Inspection. absent: Pedal Edema, Tenderness - Neurological Exam Neurological Exam: Alert, Awake, Oriented x3 - Psychiatric Exam Psychiatric exam: Normal Affect, Normal Mood - Skin Skin Exam: Dry, Intact, Normal Color, Warm Additional comments: roselyn on right side of face Assessment and Plan (1) CHF exacerbation Status: Acute (2) Atrial fibrillation Status: Chronic (3) Pleural effusion Status: Acute (4) Hypertension Status: Chronic (5) Impaired glucose tolerance Status: Acute (6) BPH (benign prostatic hyperplasia) Status: Chronic (7) History of prostate cancer Status: Acute (8) History of primary IgA nephropathy Status: Acute (9) Proteinuria Status: Acute (10) Hematuria Status: Acute (11) Cough Status: Acute (12) Hypokalemia Status: Acute (13) Prophylactic measure Status: Acute - Assessment and Plan (Free Text) Plan: (1) CHF exacerbation Assesment and Plan: * Admit to Telemetry * Daily weights, I & Os * fluid restricted diet 1500ml * BNP: 5210, prior admissions (43877, 7980, 7880) * WBC WNL, slight left shift, 1 band * GIDEON negative x 3 * EKG: Afib, rate 89, no acute St/T wave changes * CXR: (03/23/17) small left pleural effusion. * ECHO (02/08/2016): EF 45-50%. LV borderline distended, severe LVH, normal LV wall motion, Grade III restrictive diastolic dysfunction, LA/RA moderately dilated, mitral calcification mild to moderate, trace pericardial effusion * ECHO (03/24): LVEF 42%; mild pulmonary htn; mod MR; mod-severe systolic impairment; moderate concentric LV hypertrophy; severley hypokinetic septum Continue medications: * Lasix 40mg IV BID * Lasix 60 mg IV given in ED * ASA 81mg PO Daily * ASA 325mg PO given once * Losartan 100mg PO Daily * Toprol XL 25mg PO Daily mg PO BID Cardio Consult: Dr. Ndiaye, help appreciated * f/u reccs Status: Acute (2) Atrial fibrillation Assesment and Plan: * EKG: Afib, rate 89, no acute St/T wave changes * Patient was previously on Xarelto, but he does not know why he is no longer taking * he denies previous episodes of bleeding * possibly due to history of hematuria * As per cardio, patient should restart Xarelto-- restarted on 03/25 * CHADS-vasc score: 4 pts (Age 2pts, CHF 1, HTN 1) * HASBLED: 2 pts (HTN, Age) Cardio Consult: Dr. Ndiaye, help appreciated * will follow up with, and defer to judgment of, Cardio regarding restarting Xarelto * f/u reccs * Restart Xarelto Status: Acute (3) Pleural effusion Assesment and Plan: * Most likely from CHF * CXR (03/23/17): small left pleural effusion * monitor with Lasix therapy * Repeat CXR (03/25): left pleural effusion again evident with underlying atelectasis or infiltrate. Status: Acute (4) Hypertension Assesment and Plan: * Elevated at admission * Continue Cozaar 100mg PO daily * Home med Valsartan 320 mg PO Daily * Toprol XL 25mg PO Daily mg PO BID * Started Hydralazine 25mg PO BID as needed with parameters on 03/25 Status: Acute (5) Impaired glucose tolerance Assesment and Plan: * A1C: 5.9% in 04/2016 * A1C (03/24): 6.0 * Lipid panel: TG 66, Cholesterol 150, LDL 107, HDL 31 Status: Acute (6) BPH (benign prostatic hyperplasia) Assesment and Plan: * Tamsulosin 0.4mg PO BID * Hx of prostate cancer - brachytherapy 12 years ago * pt does not remember recent follow with urology Status: Acute (7) History of prostate cancer Assesment and Plan: * Brachytherapy 12 years ago Status: Acute (8) History of primary IgA nephropathy Assesment and Plan: * Renal biopsy (11/15/16): IgA nephropathy * Persistent proteinuria * Nephro consult: Dr. Avalos, jalil appreciated Status: Acute (9) Proteinuria Assesment and Plan: UA: 1+ protein * Repeat UA--> 2+ protein, 1+ blood * hx of IgA nephropathy Status: Acute (10) Hematuria Assesment and Plan: UA 2+ blood * EMR shows pt with persistent hematuria * UA 10/2016 (3+ blood) * Repeat UA(03/24)--> 2+ protein, 1+ blood * Consider urology consult, if persistent on follow-up UA * Urine culture: f/u Status: Acute (11) Cough Assesment and Plan: * Gave one dose of IV azithromycin 500mg for productive cough. * Continue Azithromycin 500mg PO daily on 03/25 * Blood cx: no growth x24 hrs * Started Rocephin 1gm IV Q24h * Started solumedrol 40mg IV BID * Duoneb * Repeat CXR (03/25): left pleural effusion again evident with underlying atelectasis or infiltrate. Status: Acute (12) Hypokalemia Assesment and Plan: * Likely secondary to lasix * Gave Kdur * Monitor on morning labs Status: Acute (13) Prophylactic measure Assesment and Plan: * Pepcid 20mg PO bid * SCDs * Heparin Status: Acute <Bahman See - Last Filed: 03/25/17 14:30> Objective - Vital Signs/Intake and Output Vital Signs (last 24 hours): Temp Pulse Resp BP Pulse Ox 97.5 F L 65 20 153/86 H 98 03/25/17 08:18 03/25/17 12:48 03/25/17 08:18 03/25/17 11:40 03/25/17 12:48 Intake and Output: 03/25/17 03/25/17 06:59 18:59 Intake Total 100 Balance 100 - Medications Medications: Current Medications Allopurinol (Zyloprim) 100 mg PO DAILY [facility] Last Admin: 03/25/17 09:53 Dose: 100 mg Aspirin (Aspirin Chewable) 81 mg PO DAILY [facility] Last Admin: 03/25/17 09:54 Dose: 81 mg Azithromycin (Zithromax) 500 mg PO DAILY [facility] Stop: 03/29/17 11:00 Last Admin: 03/25/17 09:53 Dose: 500 mg Famotidine (Pepcid) 20 mg PO BID [facility] Last Admin: 03/25/17 09:54 Dose: 20 mg Finasteride (Proscar) 5 mg PO DAILY [facility] Last Admin: 03/25/17 09:54 Dose: 5 mg Furosemide (Lasix) 40 mg IVP DAILY [facility] Last Admin: 03/25/17 09:54 Dose: 40 mg Hydralazine HCl (Apresoline) 25 mg PO BID PRN PRN Reason: Diastolic blood pressure Last Admin: 03/25/17 09:54 Dose: 25 mg Ceftriaxone Sodium 1 gm/ (Sodium Chloride) 100 mls @ 100 mls/hr IVPB DAILY [facility] Last Admin: 03/25/17 10:03 Dose: 100 mls/hr Losartan Potassium (Cozaar) 100 mg PO DAILY [facility] Last Admin: 03/25/17 09:47 Dose: Not Given Methylprednisolone (Solu-Medrol) 40 mg IVP BID [facility] Metoprolol Succinate (Toprol Xl) 25 mg PO DAILY [facility] Last Admin: 03/25/17 09:54 Dose: 25 mg Rivaroxaban (Xarelto) 20 mg PO DAILY [facility] Last Admin: 03/25/17 10:52 Dose: 20 mg Tamsulosin HCl (Flomax) 0.4 mg PO BID [facility] Last Admin: 03/25/17 09:54 Dose: 0.4 mg - Labs Labs: 03/25/17 08:28 03/25/17 08:28 PT 13.0 SECONDS (9.7-12.2) H 03/23/17 20:46 INR 1.1 03/23/17 20:46 Attending/Attestation - Attestation I have personally seen and examined this patient.: Yes I have fully participated in the care of the patient.: Yes I have reviewed all pertinent clinical information, including history, physical exam and plan: Yes Notes (Text): Seen and examined,lying on bed with mild dyspnea On examination he has wheezing and rales No leg edema chest CT noted,repeat chest x ray noted We will add ceftriaxone,solumedrol and xarelta 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
[2017-03-25] MEDS ORDERED: Albuterol-Ipratrop 3 mg / 0.5 (3 ml) UD INH STA (07:47)
[2017-03-25] MEDS ORDERED: MethylPREDNISolone 40 mg Vial IVP STA (07:54)
--- NOTE | 2017-03-25 08:08 | CP.PCM.PN ---
Subjective - Date & Time of Evaluation Date of Evaluation: 03/25/17 Time of Evaluation: 07:50 - Subjective Subjective: patient has mild dyspnea at rest. Objective - Vital Signs/Intake and Output Vital Signs (last 24 hours): Temp Pulse Resp BP Pulse Ox 97.2 F L 86 20 162/112 H 97 03/24/17 23:50 03/25/17 05:28 03/25/17 05:28 03/25/17 05:28 03/25/17 04:42 Intake and Output: 03/25/17 03/25/17 06:59 18:59 Intake Total 100 Balance 100 - Medications Medications: Current Medications Allopurinol (Zyloprim) 100 mg PO DAILY [facility] Aspirin (Aspirin Chewable) 81 mg PO DAILY [facility] Last Admin: 03/24/17 09:14 Dose: 81 mg Azithromycin (Zithromax) 500 mg PO DAILY [facility] Stop: 03/29/17 11:00 Famotidine (Pepcid) 20 mg PO BID [facility] Last Admin: 03/24/17 19:43 Dose: 20 mg Finasteride (Proscar) 5 mg PO DAILY [facility] Last Admin: 03/24/17 09:14 Dose: 5 mg Furosemide (Lasix) 40 mg IVP DAILY [facility] Hydralazine HCl (Apresoline) 25 mg PO BID PRN PRN Reason: Diastolic blood pressure Ceftriaxone Sodium 1 gm/ (Sodium Chloride) 100 mls @ 100 mls/hr IVPB DAILY [facility] Losartan Potassium (Cozaar) 100 mg PO DAILY [facility] Last Admin: 03/25/17 05:35 Dose: 100 mg Metoprolol Succinate (Toprol Xl) 25 mg PO DAILY [facility] Last Admin: 03/24/17 09:15 Dose: 25 mg Rivaroxaban (Xarelto) 20 mg PO DAILY [facility] Tamsulosin HCl (Flomax) 0.4 mg PO BID [facility] Last Admin: 03/24/17 19:42 Dose: 0.4 mg - Labs Labs: 03/24/17 07:19 03/24/17 19:44 PT 13.0 SECONDS (9.7-12.2) H 03/23/17 20:46 INR 1.1 03/23/17 20:46 - Constitutional Appears: Non-toxic - Head Exam Head Exam: NORMAL INSPECTION - Eye Exam Eye Exam: Normal appearance - ENT Exam ENT Exam: Mucous Membranes Moist - Neck Exam Neck Exam: Full ROM - Respiratory Exam Respiratory Exam: Wheezes - Cardiovascular Exam Cardiovascular Exam: Irregular Rhythm - GI/Abdominal Exam GI & Abdominal Exam: Normal Bowel Sounds - Rectal Exam Rectal Exam: Deferred - Extremities Exam Extremities Exam: absent: Pedal Edema - Back Exam Back Exam: NORMAL INSPECTION - Neurological Exam Neurological Exam: Alert - Psychiatric Exam Psychiatric exam: Normal Affect - Skin Skin Exam: Normal Color Assessment and Plan (1) Atrial fibrillation Assessment & Plan: rate control. recommend anticoagulation Status: Chronic (2) Chronic congestive heart failure Assessment & Plan: diuresis Status: Acute (3) Dyspnea Assessment & Plan: check CT scan chest Status: Acute
--- NOTE | 2017-03-25 08:23 | RAD ---
HISTORY: sob, wheezing COMPARISON: Portable chest 03/23/2017. FINDINGS: LUNGS: No right pleural effusion or pneumothorax appreciated bilaterally. Left pleural effusion is unchanged is with underlying atelectasis or infiltrate not excluded the left base once again. CARDIOVASCULAR: Cardiac silhouette remains partially obscured with cardiac silhouette nevertheless appearing enlarged. No pulmonary vascular derangement. OSSEOUS STRUCTURES: No significant abnormalities. VISUALIZED UPPER ABDOMEN: Normal. OTHER FINDINGS: None. IMPRESSION: Left pleural effusion again evident with underlying atelectasis or infiltrate not excluded once again. Overall exam stable in the interval.
[2017-03-25 08:39] LABS: BASO # 0.1 K/uL (0.0-0.2); BASO % 0.9 % (0.0-2.0); EOS % 0.5 % (0.0-4.0); HEMATOCRIT 48.6 % (35.0-51.0); LYMPH # 0.6 K/uL (1.0-4.3); LYMPH % 10.1 % (20.0-40.0); MEAN CORPUSCULAR HEMOGLOBIN 30.4 pg (27.0-31.0); MEAN CORPUSCULAR HGB CONC 33.8 g/dL (33.0-37.0); MONO # 0.4 K/uL (0.0-0.8); MONO % 5.8 % (0.0-10.0); NRBC % 0.1 % (0.0-2.0); RED CELL DISTRIBUTION WIDTH 15.8 % (11.5-14.5); WHITE BLOOD COUNT 6.1 K/uL (4.8-10.8)
[2017-03-25 09:00] LABS: ALB/GLOB RATIO 0.8 (1.0-2.1); ALKALINE PHOSPHATASE 90 U/L (38-126); ALT/SGPT 47 U/L (21-72); AST/SGOT 34 U/L (17-59); BILIRUBIN,TOTAL 1.3 mg/dL (0.2-1.3); BLOOD UREA NITROGEN 22 mg/dL (9-20); CALCIUM 8.4 mg/dl (8.6-10.4); CARBON DIOXIDE 36 mmol/L (22-30); CHLORIDE 101 mmol/L (98-107); GFR AFRICAN-AMERICAN > 60; GLUCOSE,RANDOM 93 mg/dL (75-110); MAGNESIUM 1.8 mg/dL (1.6-2.3); PHOSPHOROUS 3.1 mg/dL (2.5-4.5); POTASSIUM 3.8 mmol/L (3.6-5.2); SODIUM 139 mmol/L (132-148); TOTAL PROTEIN 7.4 g/dL (6.3-8.3)
[2017-03-25] MEDS: Metoprolol Succinate 25 mg XL Tab PO SCH (09:54)
[2017-03-25] MEDS ORDERED: Potassium Chloride 20 mEq ER Tab PO ONE (12:00)
[2017-03-25] MEDS: MethylPREDNISolone 40 mg Vial IVP SCH (17:30)
--- NOTE | 2017-03-25 21:52 | CP.PCM.PN ---
Objective - Vital Signs/Intake and Output Vital Signs (last 24 hours): Temp Pulse Resp BP Pulse Ox 98 F 92 H 20 162/89 H 98 03/25/17 15:27 03/25/17 17:30 03/25/17 15:27 03/25/17 15:27 03/25/17 15:27 Intake and Output: 03/25/17 03/26/17 18:59 06:59 Intake Total 460 Balance 460 - Medications Medications: Current Medications Allopurinol (Zyloprim) 100 mg PO DAILY [facility] Last Admin: 03/25/17 09:53 Dose: 100 mg Aspirin (Aspirin Chewable) 81 mg PO DAILY [facility] Last Admin: 03/25/17 09:54 Dose: 81 mg Azithromycin (Zithromax) 500 mg PO DAILY [facility] Stop: 03/29/17 11:00 Last Admin: 03/25/17 09:53 Dose: 500 mg Famotidine (Pepcid) 20 mg PO BID [facility] Last Admin: 03/25/17 17:23 Dose: 20 mg Finasteride (Proscar) 5 mg PO DAILY [facility] Last Admin: 03/25/17 09:54 Dose: 5 mg Furosemide (Lasix) 40 mg IVP DAILY [facility] Last Admin: 03/25/17 09:54 Dose: 40 mg Hydralazine HCl (Apresoline) 25 mg PO BID PRN PRN Reason: Diastolic blood pressure Last Admin: 03/25/17 09:54 Dose: 25 mg Ceftriaxone Sodium 1 gm/ (Sodium Chloride) 100 mls @ 100 mls/hr IVPB DAILY [facility] Last Admin: 03/25/17 10:03 Dose: 100 mls/hr Losartan Potassium (Cozaar) 100 mg PO DAILY [facility] Last Admin: 03/25/17 09:47 Dose: Not Given Methylprednisolone (Solu-Medrol) 40 mg IVP BID [facility] Last Admin: 03/25/17 17:30 Dose: 40 mg Metoprolol Succinate (Toprol Xl) 25 mg PO DAILY [facility] Last Admin: 03/25/17 09:54 Dose: 25 mg Rivaroxaban (Xarelto) 20 mg PO DAILY [facility] Last Admin: 03/25/17 10:52 Dose: 20 mg Tamsulosin HCl (Flomax) 0.4 mg PO BID [facility] Last Admin: 03/25/17 17:23 Dose: 0.4 mg - Labs Labs: 03/25/17 08:28 03/25/17 08:28 PT 13.0 SECONDS (9.7-12.2) H 03/23/17 20:46 INR 1.1 03/23/17 20:46 Assessment and Plan (1) Dyspnea Status: Acute (2) Proteinuria Status: Acute (3) BPH (benign prostatic hyperplasia) Status: Chronic (4) History of primary IgA nephropathy Status: Acute (5) Chronic congestive heart failure Status: Acute (6) Hypertension Status: Chronic
--- NOTE | 2017-03-26 07:42 | CP.PCM.PN ---
<Eri Cummings - Last Filed: 03/26/17 16:51> Subjective - Date & Time of Evaluation Date of Evaluation: 03/26/17 Time of Evaluation: 07:39 - Subjective Subjective: Medicine Progress Note for Dr. See Patient was seen and examined at bedside in no acute distress. Patient reports he feels a little better, but has a cough productive of yellow sputum. Patient is disoriented to place and time. Patient denies having chest pain, abdominal pain, nausea, vomiting, fevers, headaches. Objective - Vital Signs/Intake and Output Vital Signs (last 24 hours): Temp Pulse Resp BP Pulse Ox 97.7 F 80 20 164/94 H 95 03/26/17 05:30 03/26/17 05:30 03/26/17 05:30 03/26/17 05:30 03/26/17 05:30 Intake and Output: 03/26/17 03/26/17 06:59 18:59 Output Total 200 Balance -200 - Medications Medications: Current Medications Allopurinol (Zyloprim) 100 mg PO DAILY [facility] Last Admin: 03/25/17 09:53 Dose: 100 mg Aspirin (Aspirin Chewable) 81 mg PO DAILY [facility] Last Admin: 03/25/17 09:54 Dose: 81 mg Azithromycin (Zithromax) 500 mg PO DAILY [facility] Stop: 03/29/17 11:00 Last Admin: 03/25/17 09:53 Dose: 500 mg Famotidine (Pepcid) 20 mg PO BID [facility] Last Admin: 03/25/17 17:23 Dose: 20 mg Finasteride (Proscar) 5 mg PO DAILY [facility] Last Admin: 03/25/17 09:54 Dose: 5 mg Furosemide (Lasix) 40 mg IVP DAILY [facility] Last Admin: 03/25/17 09:54 Dose: 40 mg Hydralazine HCl (Apresoline) 25 mg PO BID PRN PRN Reason: Diastolic blood pressure Last Admin: 03/25/17 09:54 Dose: 25 mg Ceftriaxone Sodium 1 gm/ (Sodium Chloride) 100 mls @ 100 mls/hr IVPB DAILY [facility] Last Admin: 03/25/17 10:03 Dose: 100 mls/hr Losartan Potassium (Cozaar) 100 mg PO DAILY [facility] Last Admin: 03/25/17 09:47 Dose: Not Given Methylprednisolone (Solu-Medrol) 40 mg IVP BID [facility] Last Admin: 03/25/17 17:30 Dose: 40 mg Metoprolol Succinate (Toprol Xl) 25 mg PO DAILY [facility] Last Admin: 03/25/17 09:54 Dose: 25 mg Rivaroxaban (Xarelto) 20 mg PO DAILY [facility] Last Admin: 03/25/17 10:52 Dose: 20 mg Tamsulosin HCl (Flomax) 0.4 mg PO BID [facility] Last Admin: 03/25/17 17:23 Dose: 0.4 mg - Labs Labs: 03/25/17 08:28 03/25/17 08:28 PT 13.0 SECONDS (9.7-12.2) H 03/23/17 20:46 INR 1.1 03/23/17 20:46 - Additional Findings Additional findings: - Constitutional Appears: No Acute Distress - Head Exam Head Exam: ATRAUMATIC, NORMAL INSPECTION - Eye Exam Eye Exam: EOMI, Normal appearance - ENT Exam ENT Exam: Mucous Membranes Moist - Respiratory Exam Respiratory Exam: Rales, Wheezes, NORMAL BREATHING PATTERN. absent: Rhonchi, Respiratory Distress - Cardiovascular Exam Cardiovascular Exam: REGULAR RHYTHM, +S1, +S2 - GI/Abdominal Exam GI & Abdominal Exam: Soft, Normal Bowel Sounds. absent: Distended, Firm, Tenderness - Extremities Exam Extremities Exam: Normal Inspection. absent: Pedal Edema, Tenderness - Neurological Exam Neurological Exam: Alert, Awake, Oriented x3 - Psychiatric Exam Psychiatric exam: Normal Affect, Normal Mood - Skin Skin Exam: Dry, Intact, Normal Color, Warm Additional comments: roselyn on right side of face Assessment and Plan (1) CHF exacerbation Status: Acute (2) Atrial fibrillation Status: Chronic (3) Pleural effusion Status: Acute (4) Hypertension Status: Chronic (5) Impaired glucose tolerance Status: Acute (6) BPH (benign prostatic hyperplasia) Status: Chronic (7) History of prostate cancer Status: Acute (8) History of primary IgA nephropathy Status: Acute (9) Proteinuria Status: Acute (10) Hematuria Status: Acute (11) Cough Status: Acute (12) Hypokalemia Status: Acute (13) Wheezing Status: Acute (14) Prophylactic measure Status: Acute - Assessment and Plan (Free Text) Plan: (1) CHF exacerbation Assesment and Plan: * Admit to Telemetry * Daily weights, I & Os * fluid restricted diet 1500ml * BNP: 5210, prior admissions (97010, 7980, 7880) * WBC WNL, slight left shift, 1 band * GIDEON negative x 3 * EKG: Afib, rate 89, no acute St/T wave changes * CXR: (03/23/17) small left pleural effusion. * ECHO (02/08/2016): EF 45-50%. LV borderline distended, severe LVH, normal LV wall motion, Grade III restrictive diastolic dysfunction, LA/RA moderately dilated, mitral calcification mild to moderate, trace pericardial effusion * ECHO (03/24): LVEF 42%; mild pulmonary htn; mod MR; mod-severe systolic impairment; moderate concentric LV hypertrophy; severley hypokinetic septum Continue medications: * Lasix 40mg IV BID * Lasix 60 mg IV given in ED * ASA 81mg PO Daily * ASA 325mg PO given once * Losartan 100mg PO Daily * Toprol XL 25mg PO Daily mg PO BID Cardio Consult: Dr. Ndiaye, help appreciated * f/u reccs Status: Acute (2) Atrial fibrillation Assesment and Plan: * EKG: Afib, rate 89, no acute St/T wave changes * Patient was previously on Xarelto, but he does not know why he is no longer taking * he denies previous episodes of bleeding * possibly due to history of hematuria * As per cardio, patient should restart Xarelto-- restarted on 03/25 * CHADS-vasc score: 4 pts (Age 2pts, CHF 1, HTN 1) * HASBLED: 2 pts (HTN, Age) Cardio Consult: Dr. Ndiaye, help appreciated * will follow up with, and defer to judgment of, Cardio regarding restarting Xarelto * f/u reccs * Restart Xarelto on 03/25 Status: Acute (3) Pleural effusion Assesment and Plan: * Most likely from CHF * CXR (03/23/17): small left pleural effusion * monitor with Lasix therapy * Repeat CXR (03/25): left pleural effusion again evident with underlying atelectasis or infiltrate. * Chest CT Status: Acute (4) Hypertension Assesment and Plan: * Elevated at admission * Continue Cozaar 100mg PO daily * Home med Valsartan 320 mg PO Daily * Toprol XL 25mg PO Daily mg PO BID * Started Hydralazine 25mg PO BID as needed with parameters on 03/25 Status: Acute (5) Impaired glucose tolerance Assesment and Plan: * A1C: 5.9% in 04/2016 * A1C (03/24): 6.0 * Lipid panel: TG 66, Cholesterol 150, LDL 107, HDL 31 Status: Acute (6) BPH (benign prostatic hyperplasia) Assesment and Plan: * Tamsulosin 0.4mg PO BID * Hx of prostate cancer - brachytherapy 12 years ago * pt does not remember recent follow with urology Status: Acute (7) History of prostate cancer Assesment and Plan: * Brachytherapy 12 years ago Status: Acute (8) History of primary IgA nephropathy Assesment and Plan: * Renal biopsy (11/15/16): IgA nephropathy * Persistent proteinuria * Nephro consult: Dr. Avlaos, help appreciated Status: Acute (9) Proteinuria Assesment and Plan: UA: 1+ protein * Repeat UA--> 2+ protein, 1+ blood * hx of IgA nephropathy Status: Acute (10) Hematuria Assesment and Plan: UA 2+ blood * EMR shows pt with persistent hematuria * UA 10/2016 (3+ blood) * Repeat UA(03/24)--> 2+ protein, 1+ blood * Consider urology consult, if persistent on follow-up UA * Urine culture: f/u Status: Acute (11) Cough Assesment and Plan: * Gave one dose of IV azithromycin 500mg for productive cough. * Continue Azithromycin 500mg PO daily on 03/25 * Blood cx: no growth x48 hrs * Started Rocephin 1gm IV Q24h * Started solumedrol 40mg IV BID * Duoneb * Repeat CXR (03/25): left pleural effusion again evident with underlying atelectasis or infiltrate. Status: Acute (12) Hypokalemia Assesment and Plan: * Likely secondary to lasix * Gave Kdur * Monitor on morning labs Status: Acute (13) Wheezing Assesment and Plan: * Continue Duonebs Q6 scheduled * CXR (03/23/17): small left pleural effusion * monitor with Lasix therapy * Repeat CXR (03/25): left pleural effusion again evident with underlying atelectasis or infiltrate. * Chest CT: heart moderately enlarged; small left pleural effusion. mild airspace opacities in left lower lobe and lingula, may be atelectasis or early infiltrates. (14) Prophylactic measure Assesment and Plan: * Pepcid 20mg PO bid * SCDs * Heparin Status: Acute * Patient's PMD, Dr. Waqas Mariano, was contacted to discuss patient's baseline mental status. PMD states he and the patient's , Aliya, have noticed mild confusion over the last several months; however, patient still performs ADLs and drives. As per nursing, patient is least confused in the morning and progressively becomes more confused as the day progresses. When examined at 7am this morning, patient was not oriented to place or time. When reexamined at noon, patient was oriented to person and place, but not time ( thought it was 2007). <Bahman See - Last Filed: 03/27/17 14:09> Objective - Vital Signs/Intake and Output Vital Signs (last 24 hours): Temp Pulse Resp BP Pulse Ox 97.5 F L 81 20 141/72 96 03/27/17 08:29 03/27/17 12:52 03/27/17 08:29 03/27/17 12:52 03/27/17 08:29 - Medications Medications: Current Medications Albuterol/Ipratropium (Duoneb 3 Mg/0.5 Mg (3 Ml) Ud) 3 ml INH RQ6 [facility] Last Admin: 03/27/17 07:52 Dose: 3 ml Allopurinol (Zyloprim) 100 mg PO DAILY [facility] Last Admin: 03/27/17 09:19 Dose: 100 mg Aspirin (Aspirin Chewable) 81 mg PO DAILY [facility] Last Admin: 03/27/17 09:19 Dose: 81 mg Azithromycin (Zithromax) 500 mg PO DAILY [facility] Stop: 03/29/17 11:00 Last Admin: 03/27/17 09:19 Dose: 500 mg Famotidine (Pepcid) 20 mg PO BID [facility] Last Admin: 03/27/17 09:19 Dose: 20 mg Finasteride (Proscar) 5 mg PO DAILY [facility] Last Admin: 03/27/17 09:19 Dose: 5 mg Furosemide (Lasix) 40 mg IVP DAILY [facility] Last Admin: 03/27/17 12:50 Dose: 40 mg Hydralazine HCl (Apresoline) 25 mg PO BID PRN PRN Reason: Diastolic blood pressure Last Admin: 03/25/17 09:54 Dose: 25 mg Ceftriaxone Sodium 1 gm/ (Sodium Chloride) 100 mls @ 100 mls/hr IVPB DAILY [facility] Last Admin: 03/27/17 09:48 Dose: 100 mls/hr Losartan Potassium (Cozaar) 100 mg PO DAILY [facility] Last Admin: 03/27/17 09:19 Dose: 100 mg Methylprednisolone (Solu-Medrol) 40 mg IVP BID [facility] Last Admin: 03/27/17 09:19 Dose: 40 mg Metoprolol Succinate (Toprol Xl) 25 mg PO DAILY [facility] Last Admin: 03/27/17 09:19 Dose: 25 mg Rivaroxaban (Xarelto) 20 mg PO DAILY [facility] Last Admin: 03/27/17 09:19 Dose: 20 mg Tamsulosin HCl (Flomax) 0.4 mg PO BID [facility] Last Admin: 03/27/17 09:19 Dose: 0.4 mg - Labs Labs: 03/27/17 07:51 03/27/17 07:51 PT 13.0 SECONDS (9.7-12.2) H 03/23/17 20:46 INR 1.1 03/23/17 20:46 Attending/Attestation - Attestation I have personally seen and examined this patient.: Yes I have fully participated in the care of the patient.: Yes I have reviewed all pertinent clinical information, including history, physical exam and plan: Yes Notes (Text): Patient is feeling better and he wants to go home.The resident spoke to his primary care physician I agree with the documentation of the assessment and the plan He has cough with wheezing. possible discharge tomorrow
[2017-03-26 07:45] LABS: BASO % 0.4 % (0.0-2.0); LYMPH # 0.4 K/uL (1.0-4.3); LYMPH % 4.6 % (20.0-40.0); MEAN CELL VOLUME 89.6 fL (80.0-94.0); MEAN CORPUSCULAR HGB CONC 34.6 g/dL (33.0-37.0); MEAN PLATELET VOLUME 8.6 fL (7.2-11.7); MONO # 0.3 K/uL (0.0-0.8); MONO % 3.2 % (0.0-10.0); NRBC % 0.2 % (0.0-2.0); PLATELET COUNT 170 K/uL (130-400); RED CELL DISTRIBUTION WIDTH 15.7 % (11.5-14.5)
[2017-03-26 07:50] LABS: WHITE BLOOD COUNT 9.4 K/uL (4.8-10.8)
[2017-03-26] MEDS ORDERED: Albuterol-Ipratrop 3 mg / 0.5 (3 ml) UD INH PRN (08:00)
[2017-03-26 08:16] LABS: ALB/GLOB RATIO 1.1 (1.0-2.1); ALKALINE PHOSPHATASE 81 U/L (38-126); ALT/SGPT 36 U/L (21-72); AST/SGOT 31 U/L (17-59); BILIRUBIN,TOTAL 0.9 mg/dL (0.2-1.3); BLOOD UREA NITROGEN 27 mg/dL (9-20); CALCIUM 8.5 mg/dl (8.6-10.4); CARBON DIOXIDE 33 mmol/L (22-30); CHLORIDE 101 mmol/L (98-107); GFR AFRICAN-AMERICAN > 60; GLUCOSE,RANDOM 130 mg/dL (75-110); MAGNESIUM 1.8 mg/dL (1.6-2.3); POTASSIUM 3.6 mmol/L (3.6-5.2); SODIUM 139 mmol/L (132-148); TOTAL PROTEIN 5.9 g/dL (6.3-8.3)
[2017-03-26] MEDS ORDERED: Albuterol 0.083% Inhal Sol (2.5 mg/3 mL) UD INH PRN (08:30)
[2017-03-26 08:56] LABS: NEUTROPHIL 94 % (50-75); TOTAL CELLS COUNTED 100
[2017-03-26] MEDS ORDERED: Pneumococcal 23-Valent Vaccine IM ONE (10:00)
[2017-03-26] MEDS: Metoprolol Succinate 25 mg XL Tab PO SCH (10:31)
[2017-03-26] MEDS: MethylPREDNISolone 40 mg Vial IVP SCH ×2 (10:31→17:44)
[2017-03-26] MEDS: Albuterol-Ipratrop 3 mg / 0.5 (3 ml) UD INH SCH ×2 (13:49→19:58)
--- NOTE | 2017-03-26 14:05 | CP.PCM.PN ---
Subjective - Date & Time of Evaluation Date of Evaluation: 03/26/17 Time of Evaluation: 13:51 - Subjective Subjective: Progress note for nephrology, Dr. Avalos Pt is seen and examined at bedside. Patient's family is at bedside and helps translate. No acute events overnight. Pt denies having any SOB, CP, abd pain, N /V/D/C. Patient is walking to bathroom without difficulty. Currently patient is concerned about items that he may have misplaced. Objective - Vital Signs/Intake and Output Vital Signs (last 24 hours): Temp Pulse Resp BP Pulse Ox 98.8 F 89 16 149/86 98 03/26/17 08:00 03/26/17 09:44 03/26/17 09:44 03/26/17 10:37 03/26/17 09:44 Intake and Output: 03/26/17 03/26/17 06:59 18:59 Output Total 200 Balance -200 - Medications Medications: Current Medications Albuterol/Ipratropium (Duoneb 3 Mg/0.5 Mg (3 Ml) Ud) 3 ml INH RQ6 [facility] Allopurinol (Zyloprim) 100 mg PO DAILY [facility] Last Admin: 03/26/17 10:30 Dose: 100 mg Aspirin (Aspirin Chewable) 81 mg PO DAILY [facility] Last Admin: 03/26/17 10:30 Dose: 81 mg Azithromycin (Zithromax) 500 mg PO DAILY [facility] Stop: 03/29/17 11:00 Last Admin: 03/26/17 10:31 Dose: 500 mg Famotidine (Pepcid) 20 mg PO BID [facility] Last Admin: 03/26/17 10:31 Dose: 20 mg Finasteride (Proscar) 5 mg PO DAILY [facility] Last Admin: 03/26/17 10:31 Dose: 5 mg Furosemide (Lasix) 40 mg IVP DAILY [facility] Last Admin: 03/26/17 10:37 Dose: 40 mg Hydralazine HCl (Apresoline) 25 mg PO BID PRN PRN Reason: Diastolic blood pressure Last Admin: 03/25/17 09:54 Dose: 25 mg Ceftriaxone Sodium 1 gm/ (Sodium Chloride) 100 mls @ 100 mls/hr IVPB DAILY [facility] Last Admin: 03/26/17 10:17 Dose: 100 mls/hr Losartan Potassium (Cozaar) 100 mg PO DAILY [facility] Last Admin: 03/26/17 10:30 Dose: 100 mg Methylprednisolone (Solu-Medrol) 40 mg IVP BID [facility] Last Admin: 03/26/17 10:31 Dose: 40 mg Metoprolol Succinate (Toprol Xl) 25 mg PO DAILY [facility] Last Admin: 03/26/17 10:31 Dose: 25 mg Rivaroxaban (Xarelto) 20 mg PO DAILY [facility] Last Admin: 03/26/17 10:30 Dose: 20 mg Tamsulosin HCl (Flomax) 0.4 mg PO BID [facility] Last Admin: 03/26/17 10:31 Dose: 0.4 mg - Labs Labs: 03/26/17 07:14 03/26/17 07:14 PT 13.0 SECONDS (9.7-12.2) H 03/23/17 20:46 INR 1.1 03/23/17 20:46 - Constitutional Appears: Non-toxic, No Acute Distress - Head Exam Head Exam: ATRAUMATIC - ENT Exam ENT Exam: Mucous Membranes Moist - Respiratory Exam Respiratory Exam: Rales. absent: Accessory Muscle Use, Clear to Ausculation Bilateral, Wheezes, Respiratory Distress - Cardiovascular Exam Cardiovascular Exam: REGULAR RHYTHM, +S1, +S2. absent: Gallop, Rubs, Murmur - GI/Abdominal Exam GI & Abdominal Exam: Soft, Normal Bowel Sounds. absent: Distended, Firm, Guarding, Rigid, Tenderness, Organomegaly - Extremities Exam Extremities Exam: absent: Pedal Edema, Tenderness - Neurological Exam Neurological Exam: Alert, Awake, Oriented x3 - Psychiatric Exam Psychiatric exam: Normal Affect, Normal Mood - Skin Skin Exam: Dry, Intact, Normal Color, Warm Assessment and Plan - Assessment and Plan (Free Text) Assessment: (1) Dyspnea Etiology secondary to CHF exacerbation vs. pulmonary effusion. Currently on Lasix 40 mg IVP (2) Proteinuria Patient needs outpatient hematology f/u for possible paraproteinemia; otherwise , renal function relatively preserved and at baseline; (3) BPH (benign prostatic hyperplasia) continue flomax 0.4 mg bid and finasteride 5 mg daily; (4) History of primary IgA nephropathy Appears to be an incidental finding and doesn't explain his large degree proteinuria; will continue ERNST blockade with max dose ARB; (5) Chronic congestive heart failure Echo on 03/24 showed EF on 42.6% with septum being hypokinetic and MR. Unclear if patient was taking the diuretic that we had recently prescribed as outpatient (chlorthalidone 25 mg daily); diuretics per primary team; further recs by cardio (6) Hypertension BP overall elevated on current meds; consider changing metoprolol XL 25 mg daily to coreg 12.5 mg bid; (7) Pleural effusion Continue Abx and steroid therapy per primary care team recs (8) A fib Rate controlled with toprol XL Continue Xeralto Nephrology will sign off. Please feel free to reconsult if necessary. All recs and orders per Dr. Avalos
--- NOTE | 2017-03-26 14:27 | CP.PCM.PN ---
Subjective - Date & Time of Evaluation Date of Evaluation: 03/26/17 Time of Evaluation: 14:15 - Subjective Subjective: patient has less dyspnea. Objective - Vital Signs/Intake and Output Vital Signs (last 24 hours): Temp Pulse Resp BP Pulse Ox 98.8 F 66 16 149/86 98 03/26/17 08:00 03/26/17 12:00 03/26/17 09:44 03/26/17 10:37 03/26/17 09:44 Intake and Output: 03/26/17 03/26/17 06:59 18:59 Output Total 200 Balance -200 - Medications Medications: Current Medications Albuterol/Ipratropium (Duoneb 3 Mg/0.5 Mg (3 Ml) Ud) 3 ml INH RQ6 [facility] Last Admin: 03/26/17 13:49 Dose: 3 ml Allopurinol (Zyloprim) 100 mg PO DAILY [facility] Last Admin: 03/26/17 10:30 Dose: 100 mg Aspirin (Aspirin Chewable) 81 mg PO DAILY [facility] Last Admin: 03/26/17 10:30 Dose: 81 mg Azithromycin (Zithromax) 500 mg PO DAILY [facility] Stop: 03/29/17 11:00 Last Admin: 03/26/17 10:31 Dose: 500 mg Famotidine (Pepcid) 20 mg PO BID [facility] Last Admin: 03/26/17 10:31 Dose: 20 mg Finasteride (Proscar) 5 mg PO DAILY [facility] Last Admin: 03/26/17 10:31 Dose: 5 mg Furosemide (Lasix) 40 mg IVP DAILY [facility] Last Admin: 03/26/17 10:37 Dose: 40 mg Hydralazine HCl (Apresoline) 25 mg PO BID PRN PRN Reason: Diastolic blood pressure Last Admin: 03/25/17 09:54 Dose: 25 mg Ceftriaxone Sodium 1 gm/ (Sodium Chloride) 100 mls @ 100 mls/hr IVPB DAILY [facility] Last Admin: 03/26/17 10:17 Dose: 100 mls/hr Losartan Potassium (Cozaar) 100 mg PO DAILY [facility] Last Admin: 03/26/17 10:30 Dose: 100 mg Methylprednisolone (Solu-Medrol) 40 mg IVP BID [facility] Last Admin: 03/26/17 10:31 Dose: 40 mg Metoprolol Succinate (Toprol Xl) 25 mg PO DAILY [facility] Last Admin: 03/26/17 10:31 Dose: 25 mg Rivaroxaban (Xarelto) 20 mg PO DAILY [facility] Last Admin: 03/26/17 10:30 Dose: 20 mg Tamsulosin HCl (Flomax) 0.4 mg PO BID [facility] Last Admin: 03/26/17 10:31 Dose: 0.4 mg - Labs Labs: 03/26/17 07:14 03/26/17 07:14 PT 13.0 SECONDS (9.7-12.2) H 03/23/17 20:46 INR 1.1 03/23/17 20:46 - Constitutional Appears: Non-toxic - Head Exam Head Exam: NORMAL INSPECTION - Eye Exam Eye Exam: Normal appearance - ENT Exam ENT Exam: Mucous Membranes Moist - Neck Exam Neck Exam: Normal Inspection - Respiratory Exam Respiratory Exam: Decreased Breath Sounds, Wheezes - Cardiovascular Exam Cardiovascular Exam: Irregular Rhythm - GI/Abdominal Exam GI & Abdominal Exam: Normal Bowel Sounds - Rectal Exam Rectal Exam: Deferred - Extremities Exam Extremities Exam: absent: Pedal Edema - Back Exam Back Exam: NORMAL INSPECTION - Neurological Exam Neurological Exam: Alert - Psychiatric Exam Psychiatric exam: Normal Affect - Skin Skin Exam: Normal Color Assessment and Plan (1) Atrial fibrillation Assessment & Plan: rate control. On Xarelto Status: Chronic (2) Chronic congestive heart failure Assessment & Plan: medical therapy. continue diuresis Status: Acute (3) Dyspnea Assessment & Plan: conitnue solumedrol Status: Acute
[2017-03-26 15:23] VITALS: RESP 20
[2017-03-27] MEDS: Albuterol-Ipratrop 3 mg / 0.5 (3 ml) UD INH SCH ×3 (01:25→14:52)
--- NOTE | 2017-03-27 07:24 | CP.PCM.PN ---
Subjective - Date & Time of Evaluation Date of Evaluation: 03/27/17 Time of Evaluation: 07:15 - Subjective Subjective: patient denies chest pain or dyspnea. Objective - Vital Signs/Intake and Output Vital Signs (last 24 hours): Temp Pulse Resp BP Pulse Ox 97.8 F 67 20 160/99 H 97 03/27/17 04:00 03/27/17 04:01 03/27/17 04:00 03/27/17 04:00 03/27/17 04:00 - Medications Medications: Current Medications Albuterol/Ipratropium (Duoneb 3 Mg/0.5 Mg (3 Ml) Ud) 3 ml INH RQ6 [facility] Last Admin: 03/27/17 01:25 Dose: 3 ml Allopurinol (Zyloprim) 100 mg PO DAILY [facility] Last Admin: 03/26/17 10:30 Dose: 100 mg Aspirin (Aspirin Chewable) 81 mg PO DAILY [facility] Last Admin: 03/26/17 10:30 Dose: 81 mg Azithromycin (Zithromax) 500 mg PO DAILY [facility] Stop: 03/29/17 11:00 Last Admin: 03/26/17 10:31 Dose: 500 mg Famotidine (Pepcid) 20 mg PO BID [facility] Last Admin: 03/26/17 17:43 Dose: 20 mg Finasteride (Proscar) 5 mg PO DAILY [facility] Last Admin: 03/26/17 10:31 Dose: 5 mg Furosemide (Lasix) 40 mg IVP DAILY [facility] Last Admin: 03/26/17 10:37 Dose: 40 mg Hydralazine HCl (Apresoline) 25 mg PO BID PRN PRN Reason: Diastolic blood pressure Last Admin: 03/25/17 09:54 Dose: 25 mg Ceftriaxone Sodium 1 gm/ (Sodium Chloride) 100 mls @ 100 mls/hr IVPB DAILY [facility] Last Admin: 03/26/17 10:17 Dose: 100 mls/hr Losartan Potassium (Cozaar) 100 mg PO DAILY [facility] Last Admin: 03/26/17 10:30 Dose: 100 mg Methylprednisolone (Solu-Medrol) 40 mg IVP BID [facility] Last Admin: 03/26/17 17:44 Dose: 40 mg Metoprolol Succinate (Toprol Xl) 25 mg PO DAILY [facility] Last Admin: 03/26/17 10:31 Dose: 25 mg Rivaroxaban (Xarelto) 20 mg PO DAILY [facility] Last Admin: 03/26/17 10:30 Dose: 20 mg Tamsulosin HCl (Flomax) 0.4 mg PO BID [facility] Last Admin: 03/26/17 17:44 Dose: 0.4 mg - Labs Labs: 03/26/17 07:14 03/26/17 07:14 PT 13.0 SECONDS (9.7-12.2) H 03/23/17 20:46 INR 1.1 03/23/17 20:46 - Constitutional Appears: Non-toxic - Head Exam Head Exam: NORMAL INSPECTION - Eye Exam Eye Exam: Normal appearance - ENT Exam ENT Exam: Mucous Membranes Moist - Neck Exam Neck Exam: Full ROM - Respiratory Exam Respiratory Exam: Decreased Breath Sounds - Cardiovascular Exam Cardiovascular Exam: Irregular Rhythm - GI/Abdominal Exam GI & Abdominal Exam: Normal Bowel Sounds - Rectal Exam Rectal Exam: Deferred - Extremities Exam Extremities Exam: Pedal Edema - Back Exam Back Exam: NORMAL INSPECTION - Neurological Exam Neurological Exam: Alert - Psychiatric Exam Psychiatric exam: Normal Affect - Skin Skin Exam: Normal Color Assessment and Plan (1) Atrial fibrillation Assessment & Plan: rate controlled. continue anticoagulation. Status: Chronic (2) Chronic congestive heart failure Assessment & Plan: improved. diuresis. stable for discharge Status: Acute (3) Dyspnea Assessment & Plan: as above. Status: Acute
[2017-03-27 08:06] LABS: BASO % 0.1 % (0.0-2.0); LYMPH # 0.4 K/uL (1.0-4.3); LYMPH % 3.8 % (20.0-40.0); MEAN CELL VOLUME 89.9 fL (80.0-94.0); MEAN CORPUSCULAR HEMOGLOBIN 30.7 pg (27.0-31.0); MEAN CORPUSCULAR HGB CONC 34.2 g/dL (33.0-37.0); MEAN PLATELET VOLUME 8.6 fL (7.2-11.7); MONO # 0.3 K/uL (0.0-0.8); MONO % 2.8 % (0.0-10.0); NRBC % 0.2 % (0.0-2.0); PLATELET COUNT 199 K/uL (130-400); RED CELL DISTRIBUTION WIDTH 15.5 % (11.5-14.5); WHITE BLOOD COUNT 11.3 K/uL (4.8-10.8)
[2017-03-27 08:30] VITALS: TEMP 97.5; O2SAT 96
[2017-03-27 09:04] LABS: ALB/GLOB RATIO 0.8 (1.0-2.1); ALKALINE PHOSPHATASE 89 U/L (38-126); ALT/SGPT 55 U/L (21-72); AST/SGOT 44 U/L (17-59); BILIRUBIN,TOTAL 0.8 mg/dL (0.2-1.3); BLOOD UREA NITROGEN 29 mg/dL (9-20); CALCIUM 8.8 mg/dl (8.6-10.4); CARBON DIOXIDE 34 mmol/L (22-30); CHLORIDE 100 mmol/L (98-107); GFR AFRICAN-AMERICAN > 60; GLUCOSE,RANDOM 106 mg/dL (75-110); MAGNESIUM 1.9 mg/dL (1.6-2.3); PHOSPHOROUS 4.1 mg/dL (2.5-4.5); POTASSIUM 3.5 mmol/L (3.6-5.2); SODIUM 139 mmol/L (132-148); TOTAL PROTEIN 7.3 g/dL (6.3-8.3)
[2017-03-27] MEDS: Metoprolol Succinate 25 mg XL Tab PO SCH (09:19)
[2017-03-27] MEDS: MethylPREDNISolone 40 mg Vial IVP SCH (09:19)
[2017-03-27 10:38] LABS: NEUTROPHIL 90 % (50-75); TOTAL CELLS COUNTED 100
[2017-03-27] MEDS ORDERED: Potassium Chloride 20 mEq ER Tab PO ONE ×2 (11:00→12:15)
--- NOTE | 2017-03-27 11:49 | RAD ---
HISTORY: cough COMPARISON: No prior. FINDINGS: LUNGS: No active pulmonary disease. PLEURA: Small moderate left pleural effusion. No right pleural effusion. No pneumothorax. CARDIOVASCULAR: Cardiomegaly. No evidence of mediastinal or hilar lymphadenopathy. OSSEOUS STRUCTURES: No significant abnormalities. VISUALIZED UPPER ABDOMEN: Normal. OTHER FINDINGS: None. IMPRESSION: Cardiomegaly. Small to moderate left pleural effusion. No infiltrate.
--- NOTE | 2017-03-27 12:28 | CARD ---
APPROVED REPORT EKG Measurement Heart [id number] <Conclusion> Atrial fibrillation with occasional aberrantly conducted complexes Nonspecific ST and T wave abnormality Abnormal ECG
--- NOTE | 2017-03-27 12:38 | CP.PCM.DIS ---
Provider - Provider Date of Admission: 03/26/17 13:00 Attending physician: Bahman See MD Time Spent in preparation of Discharge (in minutes): 55 Hospital Course - Lab Results Lab Results: Micro Results 03/23/17 15:45 Blood Blood Culture - Preliminary NO GROWTH AFTER 3 DAYS 03/23/17 16:15 Blood Blood Culture - Preliminary NO GROWTH AFTER 3 DAYS Most Recent Lab Values WBC 11.3 K/uL (4.8-10.8) H 03/27/17 07:51 RBC 5.46 Mil/uL (4.40-5.90) 03/27/17 07:51 Hgb 16.8 g/dL (12.0-18.0) 03/27/17 07:51 Hct 49.0 % (35.0-51.0) 03/27/17 07:51 MCV 89.9 fL (80.0-94.0) 03/27/17 07:51 MCH 30.7 pg (27.0-31.0) 03/27/17 07:51 MCHC 34.2 g/dL (33.0-37.0) 03/27/17 07:51 RDW 15.5 % (11.5-14.5) H 03/27/17 07:51 Plt Count 199 K/uL (130-400) 03/27/17 07:51 MPV 8.6 fL (7.2-11.7) 03/27/17 07:51 Neut % (Auto) 93.3 % (50.0-75.0) H 03/27/17 07:51 Lymph % (Auto) 3.8 % (20.0-40.0) L 03/27/17 07:51 [place] % (Auto) 2.8 % (0.0-10.0) 03/27/17 07:51 Eos % (Auto) 0.0 % (0.0-4.0) 03/27/17 07:51 Baso % (Auto) 0.1 % (0.0-2.0) 03/27/17 07:51 Neut # 10.6 K/uL (1.8-7.0) H 03/27/17 07:51 Lymph # 0.4 K/uL (1.0-4.3) L 03/27/17 07:51 [place] # 0.3 K/uL (0.0-0.8) 03/27/17 07:51 Eos # 0.0 K/uL (0.0-0.7) 03/27/17 07:51 Baso # 0.0 K/uL (0.0-0.2) 03/27/17 07:51 Neutrophils % (Manual) 90 % (50-75) H 03/27/17 07:51 Band Neutrophils % 1 % (0-2) 03/23/17 15:52 Lymphocytes % (Manual) 8 % (20-40) L 03/27/17 07:51 Monocytes % (Manual) 2 % (0-10) 03/27/17 07:51 Eosinophils % (Manual) 1 % (0-4) 03/23/17 15:52 Platelet Estimate Normal (NORMAL) 03/27/17 07:51 Anisocytosis (manual) Slight 03/27/17 07:51 Microcytosis (manual) Slight 03/23/17 15:52 Tear Drop Cells Slight 03/27/17 07:51 Ovalocytes Slight 03/27/17 07:51 PT 13.0 SECONDS (9.7-12.2) H 03/23/17 20:46 INR 1.1 03/23/17 20:46 Puncture Site Na 03/24/17 06:40 pO2 71 mm/Hg (30-55) H 03/24/17 06:40 Nick Test Na 03/24/17 06:40 VBG pH 7.47 (7.32-7.43) H 03/24/17 06:40 VBG pCO2 44 mmHg (40-60) 03/24/17 06:40 VBG HCO3 30.6 mmol/L 03/24/17 06:40 VBG O2 Sat (Calc) 97.6 % (40-65) H 03/24/17 06:40 VBG Base Excess 7.4 mmol/L (0.0-2.0) H 03/24/17 06:40 Sodium 139 mmol/L (132-148) 03/27/17 07:51 Potassium 3.5 mmol/L (3.6-5.2) L 03/27/17 07:51 Chloride 100 mmol/L (98-107) 03/27/17 07:51 Carbon Dioxide 34 mmol/L (22-30) H 03/27/17 07:51 Anion Gap 9 (10-20) L 03/27/17 07:51 BUN 29 mg/dL (9-20) H 03/27/17 07:51 Creatinine 1.0 mg/dL (0.8-1.5) 03/27/17 07:51 Est GFR ( Amer) > 60 12 07:51 Est GFR (Non-Af Amer) > 60 03/27/17 07:51 POC Glucose (mg/dL) 145 mg/dL (65-110) H 03/27/17 00:03 Random Glucose 106 mg/dL (75-110) 03/27/17 07:51 Hemoglobin A1c 6.0 % (4.2-6.5) 03/24/17 07:19 Uric Acid 6.4 mg/dL (3.5-8.5) 03/24/17 07:19 Calcium 8.8 mg/dl (8.6-10.4) 03/27/17 07:51 Phosphorus 4.1 mg/dL (2.5-4.5) 03/27/17 07:51 Magnesium 1.9 mg/dL (1.6-2.3) 03/27/17 07:51 Total Bilirubin 0.8 mg/dL (0.2-1.3) 03/27/17 07:51 AST 44 U/L (17-59) 03/27/17 07:51 ALT 55 U/L (21-72) 03/27/17 07:51 Alkaline Phosphatase 89 U/L (38-126) 03/27/17 07:51 Total Creatine Kinase 28 U/L (55-170) L 03/24/17 04:30 CK-MB (Mass) 1.91 ng/mL (0.0-3.38) 03/24/17 04:30 Troponin I 0.0820 ng/mL (0.00-0.120) 03/24/17 04:30 NT-Pro-B Natriuret Pep 5210 pg/mL (0-900) H 03/23/17 15:52 Total Protein 7.3 g/dL (6.3-8.3) 03/27/17 07:51 Albumin 3.3 g/dL (3.5-5.0) L 03/27/17 07:51 Globulin 4.0 gm/dL (2.2-3.9) H 03/27/17 07:51 Albumin/Globulin Ratio 0.8 (1.0-2.1) L 03/27/17 07:51 Triglycerides 66 mg/dL (0-149) 03/24/17 07:19 Cholesterol 150 mg/dL (0-199) 03/24/17 07:19 LDL Cholesterol Direct 107 mg/dL (0-129) 03/24/17 07:19 HDL Cholesterol 31 mg/dL (30-70) 03/24/17 07:19 Urine Color Yellow (YELLOW) 03/24/17 06:42 Urine Clarity Clear (Clear) 03/24/17 06:42 Urine pH 5.0 (5.0-8.0) 03/24/17 06:42 Ur Specific [place] 1.010 (1.003-1.030) 03/24/17 06:42 Urine Protein 2+ mg/dL (NEGATIVE) H 03/24/17 06:42 Urine Glucose (UA) Normal mg/dL (Normal) 03/24/17 06:42 Urine Ketones Negative mg/dL (NEGATIVE) 03/24/17 06:42 Urine Blood 1+ (NEGATIVE) H 03/24/17 06:42 Urine Nitrate Negative (NEGATIVE) 03/24/17 06:42 Urine Bilirubin Negative (NEGATIVE) 03/24/17 06:42 Urine Urobilinogen Normal mg/dL (0.2-1.0) 03/24/17 06:42 Ur Leukocyte Esterase Neg Edvin/uL (Negative) 03/24/17 06:42 Urine WBC (Auto) 2 /hpf (0-5) 03/24/17 06:42 Urine RBC (Auto) 1 /hpf (0-3) 03/24/17 06:42 Ur Squamous Epith Cells < 1 /hpf (0-5) 03/24/17 06:42 Ur Random Creatinine 54.9 mg/dL 03/24/17 07:05 U Random Total Protein 101.0 mg/dL (0.0-12.0) H 03/24/17 09:08 - Hospital Course Hospital Course: Upon Admission: CC: "My SOB is worsening" Patient is a 77 year old male, with PMHx of HTN, diastolic CHF, A-Fib, gout, prostate cancer with brachytherapy, nephrolithiasis, and proteinuria, who presents to [facility] ED at the recommendation of Dr. Alarcon for shortness of breath. He states over the past week he has noticed he has become more winded, more easily. Patient reports using one pillow to sleep at night, and states he is able to lie flat without difficulty. Before this illness, patient was able to walk 15 blocks before becoming SOB, now that number has decreased to 5 blocks. He admits cough that started one week ago but worsened yesterday, that is productive with yellow/clear phlegm. He denies recent weight gain. He denies recent strenuous activity. He states he is compliant with his medications. He denies palpitations, dizziness, abdominal pain, nausea, vomiting, diaphoresis, leg edema, fever, fatigue, or chills. He denies sick contacts or recent travels. 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 * ECHO (02/08/2016): EF 45-50%. LV borderline distended, severe LVH, normal LV wall motion, Grade III restrictive diastolic dysfunction, LA/RA moderately dilated, mitral calcification mild to moderate, trace pericardial effusion * ECHO (03/24): LVEF 42%; mild pulmonary htn; mod MR; mod-severe systolic impairment; moderate concentric LV hypertrophy; severley hypokinetic septum Continue medications: * Lasix 40mg IV BID * Lasix 60 mg IV given in ED * ASA 81mg PO Daily * ASA 325mg PO given once * Losartan 100mg PO Daily * Toprol XL 25mg PO Daily mg PO BID Cardio Consult: Dr. Ndiaye, help appreciated Status: Acute (2) Atrial fibrillation Assesment and Plan: * EKG: Afib, rate 89, no acute St/T wave changes * Patient was previously on Xarelto, but he does not know why he is no longer taking * he denies previous episodes of bleeding * possibly due to history of hematuria * As per cardio, patient should restart Xarelto-- restarted on 03/25 * CHADS-vasc score: 4 pts (Age 2pts, CHF 1, HTN 1) * HASBLED: 2 pts (HTN, Age) Cardio Consult: Dr. Ndiaye, help appreciated * will follow up with, and defer to judgment of, Cardio regarding restarting Xarelto * Restart Xarelto on 03/25 Status: Acute (3) Pleural effusion Assesment and Plan: * Most likely from CHF * CXR (03/23/17): small left pleural effusion * monitor with Lasix therapy * Repeat CXR (03/25): left pleural effusion again evident with underlying atelectasis or infiltrate. * Chest CT Status: Acute (4) Hypertension Assesment and Plan: * Elevated at admission * Continue Cozaar 100mg PO daily * Home med Valsartan 320 mg PO Daily * Toprol XL 25mg PO Daily mg PO BID * Started Hydralazine 25mg PO BID as needed with parameters on 03/25 Status: Acute (5) Impaired glucose tolerance Assesment and Plan: * A1C: 5.9% in 04/2016 * A1C (03/24): 6.0 * Lipid panel: TG 66, Cholesterol 150, LDL 107, HDL 31 Status: Acute (6) BPH (benign prostatic hyperplasia) Assesment and Plan: * Tamsulosin 0.4mg PO BID * Hx of prostate cancer - brachytherapy 12 years ago * pt does not remember recent follow with urology Status: Acute (7) History of prostate cancer Assesment and Plan: * Brachytherapy 12 years ago Status: Acute (8) History of primary IgA nephropathy Assesment and Plan: * Renal biopsy (11/15/16): IgA nephropathy * Persistent proteinuria * Nephro consult: Dr. Avalos, jalil appreciated Status: Acute (9) Proteinuria Assesment and Plan: UA: 1+ protein * Repeat UA--> 2+ protein, 1+ blood * hx of IgA nephropathy Status: Acute (10) Hematuria Assesment and Plan: UA 2+ blood * EMR shows pt with persistent hematuria * UA 10/2016 (3+ blood) * Repeat UA(03/24)--> 2+ protein, 1+ blood * Consider urology consult, if persistent on follow-up UA * Urine culture: f/u Status: Acute (11) Cough Assesment and Plan: * Gave one dose of IV azithromycin 500mg for productive cough. * Continue Azithromycin 500mg PO daily on 03/25 * Blood cx: no growth x48 hrs * Started Rocephin 1gm IV Q24h * Started solumedrol 40mg IV BID * Duoneb * Repeat CXR (03/25): left pleural effusion again evident with underlying atelectasis or infiltrate. Status: Acute (12) Wheezing Assesment and Plan: * Continue Duonebs Q6 scheduled * CXR (03/23/17): small left pleural effusion * monitor with Lasix therapy * Repeat CXR (03/25): left pleural effusion again evident with underlying atelectasis or infiltrate. * Chest CT: heart moderately enlarged; small left pleural effusion. mild airspace opacities in left lower lobe and lingula, may be atelectasis or early infiltrates. This is a brief summary of the patient's hospital course. Please review EMR for full record. Discharge Exam - Head Exam Head Exam: NORMAL INSPECTION - Additional Findings Additional findings: - Constitutional Appears: No Acute Distress - Head Exam Head Exam: ATRAUMATIC, NORMAL INSPECTION - Eye Exam Eye Exam: EOMI, Normal appearance - ENT Exam ENT Exam: Mucous Membranes Moist - Respiratory Exam Respiratory Exam: Rales, Wheezes, NORMAL BREATHING PATTERN. absent: Rhonchi, Respiratory Distress - Cardiovascular Exam Cardiovascular Exam: REGULAR RHYTHM, +S1, +S2 - GI/Abdominal Exam GI & Abdominal Exam: Soft, Normal Bowel Sounds. absent: Distended, Firm, Tenderness - Extremities Exam Extremities Exam: Normal Inspection. absent: Pedal Edema, Tenderness - Neurological Exam Neurological Exam: Alert, Awake, Oriented x3 - Psychiatric Exam Psychiatric exam: Normal Affect, Normal Mood - Skin Skin Exam: Dry, Intact, Normal Color, Warm Additional comments: roselyn on right side of face Discharge Plan - Discharge Medications Prescriptions: Allopurinol [Zyloprim] 100 mg PO DAILY #30 tab Aspirin [Aspirin Chewable] 81 mg PO DAILY #30 chew Azithromycin [Z-Solomon] 250 mg PO DAILY #6 tab Finasteride [Proscar] 5 mg PO DAILY #30 tab Furosemide [Lasix] 20 mg PO DAILY #10 tablet Losartan [Cozaar] 100 mg PO DAILY #30 tab Methylprednisolone [Medrol Dose Pack (21 tabs)] See Taper PO DAILY #21 mg Metoprolol Succinate [Toprol XL] 50 mg PO DAILY #30 tab Rivaroxaban [Xarelto] 20 mg PO DAILY #30 tab Tamsulosin [Flomax] 2 cap PO DAILY #60 cap - Follow Up Plan Condition: STABLE Disposition: HOME/ ROUTINE Instructions: Heart Failure (DC), Heart Failure (GEN), Pacemaker (DC), Pacemaker (GEN), Pulmonary Edema (DC), Pulmonary Edema (GEN), Ascites (DC), Ascites (GEN) Additional Instructions: Please continue medications as listed as per discharge papers. We have increased your metoprolol 50mg PO daily, you will be taking a Z - Pack antibiotic, take as instructed, and a steroid pack please take as instructed. Please continue with Xarelo this is the blood thinner for your irregular heart beat. Please be cautious if you notice any blood in your stool or urine. You will be taking lasix 20mg by mouth daily - this is to remove fluid - please monitor the amount of fluid you take a day < 1200 mL and reduce SALT intake. 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 --- Contine con los medicamentos que figuran en la lista segn los documentos de moises. Hemos aumentado wilkes metoprolol 50mg PO diariamente, usted joellen un antibi jaleesa Z-Pack, joellen segn las instrucciones y un paquete de esteroides por favor tome segn las instrucciones. Contine con Xarelo, kristian es el anticoagulante para wilkes ritmo cardaco irregular. Tenga cuidado si nota patricio en las heces u orina. Joellen lasix 20 mg por va oral todos los macdonald - esto es para eliminar el l quido - controle la cantidad de lquido que juan manuel por da <1200 ml y reduzca la ingesta de SALT. Por favor maureen un seguimiento con wilkes mdico de atencin primaria en 1 semana y wilkes cardilogo dentro de 1 semana. Referrals: Brenda Ndiaye MD [Staff Provider] -
[2017-03-27 12:52] VITALS: BP 141/72; PULSE 81
--- NOTE | 2017-03-27 13:05 | CP.PCM.CON ---
History of Present Illness - History of Present Illness History of Present Illness: Mr. Frank is a 77-year-old man with a past medical history of HTN, diastolic CHF, A-Fib, gout, prostate cancer with brachytherapy, nephrolithiasis, and proteinuria, who presented to [facility] ED on 03/23 with dyspnea. Past Patient History - Past Medical History & Family History Past Medical History?: Yes - Past Social History Smoking Status: Former Smoker - CARDIAC Hx Hypertension: Yes - PULMONARY Hx Chronic Obstructive Pulmonary Disease (COPD): Yes - NEUROLOGICAL Hx Neurological Disorder: No - HEENT Hx HEENT Problems: Yes Hx Glaucoma: Yes Other/Comment: Wears eyeglasses for reading - RENAL Hx Chronic Kidney Disease: Yes Hx Kidney Stones: Yes - ENDOCRINE/METABOLIC Hx Endocrine Disorders: No - HEMATOLOGICAL/ONCOLOGICAL Hx Blood Disorders: No - INTEGUMENTARY Hx Dermatological Problems: Yes Other/Comment: facial discoloration. patient states " roselyn" - MUSCULOSKELETAL/RHEUMATOLOGICAL Hx Musculoskeletal Disorders: Yes Hx Falls: Yes - GASTROINTESTINAL Hx Gastrointestinal Disorders: No - GENITOURINARY/GYNECOLOGICAL Hx Genitourinary Disorders: Yes Hx Prostate Cancer: Yes (h/o.12 years ago seed implants) - PSYCHIATRIC Hx Substance Use: No - SURGICAL HISTORY Hx Appendectomy: Yes - ANESTHESIA Hx Anesthesia: Yes Hx Anesthesia Reactions: No Hx Malignant Hyperthermia: No Meds Home Medications: Home Medication List Medication Instructions Recorded Confirmed Type Allopurinol [Zyloprim] 100 mg PO DAILY #30 tab 03/27/17 Rx Aspirin [Aspirin Chewable] 81 mg PO DAILY #30 chew 03/27/17 Rx Azithromycin [Z-Solomon] 250 mg PO DAILY #6 tab 03/27/17 Rx Finasteride [Proscar] 5 mg PO DAILY #30 tab 03/27/17 Rx Losartan [Cozaar] 100 mg PO DAILY #30 tab 03/27/17 Rx Methylprednisolone [Medrol Dose See Taper PO DAILY #21 mg 03/27/17 Rx Pack (21 tabs)] Metoprolol Succinate [Toprol XL] 50 mg PO DAILY #30 tab 03/27/17 Rx Rivaroxaban [Xarelto] 20 mg PO DAILY #30 tab 03/27/17 Rx Tamsulosin [Flomax] 2 cap PO DAILY #60 cap 03/27/17 Rx Allergies/Adverse Reactions: Allergies Allergy/AdvReac Type Severity Reaction Status Date / Time No Known Allergies Allergy Verified 02/07/16 10:54 - Medications Medications: Current Medications Albuterol/Ipratropium (Duoneb 3 Mg/0.5 Mg (3 Ml) Ud) 3 ml INH RQ6 [facility] Last Admin: 03/26/17 13:49 Dose: 3 ml Allopurinol (Zyloprim) 100 mg PO DAILY [facility] Last Admin: 03/26/17 10:30 Dose: 100 mg Aspirin (Aspirin Chewable) 81 mg PO DAILY [facility] Last Admin: 03/26/17 10:30 Dose: 81 mg Azithromycin (Zithromax) 500 mg PO DAILY [facility] Stop: 03/29/17 11:00 Last Admin: 03/26/17 10:31 Dose: 500 mg Famotidine (Pepcid) 20 mg PO BID [facility] Last Admin: 03/26/17 17:43 Dose: 20 mg Finasteride (Proscar) 5 mg PO DAILY [facility] Last Admin: 03/26/17 10:31 Dose: 5 mg Furosemide (Lasix) 40 mg IVP DAILY [facility] Last Admin: 03/26/17 10:37 Dose: 40 mg Hydralazine HCl (Apresoline) 25 mg PO BID PRN PRN Reason: Diastolic blood pressure Last Admin: 03/25/17 09:54 Dose: 25 mg Ceftriaxone Sodium 1 gm/ (Sodium Chloride) 100 mls @ 100 mls/hr IVPB DAILY [facility] Last Admin: 03/26/17 10:17 Dose: 100 mls/hr Losartan Potassium (Cozaar) 100 mg PO DAILY [facility] Last Admin: 03/26/17 10:30 Dose: 100 mg Methylprednisolone (Solu-Medrol) 40 mg IVP BID [facility] Last Admin: 03/26/17 17:44 Dose: 40 mg Metoprolol Succinate (Toprol Xl) 25 mg PO DAILY [facility] Last Admin: 03/26/17 10:31 Dose: 25 mg Rivaroxaban (Xarelto) 20 mg PO DAILY [facility] Last Admin: 03/26/17 10:30 Dose: 20 mg Tamsulosin HCl (Flomax) 0.4 mg PO BID [facility] Last Admin: 03/26/17 17:44 Dose: 0.4 mg Physical Exam - Constitutional Appears: Well - Head Exam Head Exam: ATRAUMATIC, NORMAL INSPECTION, NORMOCEPHALIC - Eye Exam Eye Exam: EOMI, Normal appearance, PERRL - ENT Exam ENT Exam: Mucous Membranes Moist, Normal Exam - Neck Exam Neck exam: Positive for: Normal Inspection - Cardiovascular Exam Cardiovascular Exam: +S1, +S2 - GI/Abdominal Exam GI & Abdominal Exam: Normal Bowel Sounds, Soft - Rectal Exam Rectal Exam: Deferred - Neurological Exam Additional comments: Fund of knowledge, attention and memory appear to be impaired. CN 2-12 are intact, strength is symmetrical, sensation is intact, reflexes are normal, plantar responses are downgoing, gait is wide based. Results - Vital Signs Recent Vital Signs: Last Vital Signs Temp 98 F 03/26/17 15:22 Pulse 64 03/26/17 16:00 Resp 20 03/26/17 15:22 BP 132/67 03/26/17 15:22 Pulse Ox 95 03/26/17 15:22 - Labs Result Diagrams: 03/27/17 07:51 03/27/17 07:51 Labs: Laboratory Results - last 24 hr 03/26/17 03/26/17 07:14 07:14 WBC 9.4 D RBC 5.24 Hgb 16.2 Hct 47.0 MCV 89.6 MCH 31.0 MCHC 34.6 RDW 15.7 H Plt Count 170 MPV 8.6 Neut % (Auto) 91.8 H Lymph % (Auto) 4.6 L [place] % (Auto) 3.2 Eos % (Auto) 0.0 Baso % (Auto) 0.4 Neut # 8.7 H Lymph # 0.4 L [place] # 0.3 Eos # 0.0 Baso # 0.0 Neutrophils % (Manual) 94 H Lymphocytes % (Manual) 3 L Monocytes % (Manual) 3 Platelet Estimate Normal Anisocytosis (manual) Slight Sodium 139 Potassium 3.6 Chloride 101 Carbon Dioxide 33 H Anion Gap 9 L BUN 27 H Creatinine 1.0 Est GFR ( Amer) > 60 Est GFR (Non-Af Amer) > 60 Random Glucose 130 H Calcium 8.5 L Phosphorus 4.0 Magnesium 1.8 Total Bilirubin 0.9 AST 31 ALT 36 Alkaline Phosphatase 81 Total Protein 5.9 L Albumin 3.1 L Globulin 2.9 Albumin/Globulin Ratio 1.1 Assessment & Plan - Assessment and Plan (Free Text) Assessment: Dementia 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 Plan: I recommend continuing antiplatelet agents and medium dose statin for cerebrovascular protection. The patient can have the full dementia work-up as an outpatient in the neurology clinic.
--- NOTE | 2017-03-27 13:12 | CP.PCM.PN ---
Subjective - Date & Time of Evaluation Date of Evaluation: 03/27/17 Time of Evaluation: 13:12 - Subjective Subjective: Mr. Frank was seen and examined at the bedside. He is alert, with episode of confusion. He is able to verbalize the place and person, but not the time. He can follow simple commands. He denies any headache, dizziness, nausea, or vomiting. He is able to tolerate PO intake. He remains on 1:1 sitter for patient safety. There was no untoward events overnight. Objective - Vital Signs/Intake and Output Vital Signs (last 24 hours): Temp Pulse Resp BP Pulse Ox 97.5 F L 81 20 141/72 96 03/27/17 08:29 03/27/17 12:52 03/27/17 08:29 03/27/17 12:52 03/27/17 08:29 - Medications Medications: Current Medications Albuterol/Ipratropium (Duoneb 3 Mg/0.5 Mg (3 Ml) Ud) 3 ml INH RQ6 [facility] Last Admin: 03/27/17 07:52 Dose: 3 ml Allopurinol (Zyloprim) 100 mg PO DAILY [facility] Last Admin: 03/27/17 09:19 Dose: 100 mg Aspirin (Aspirin Chewable) 81 mg PO DAILY [facility] Last Admin: 03/27/17 09:19 Dose: 81 mg Azithromycin (Zithromax) 500 mg PO DAILY [facility] Stop: 03/29/17 11:00 Last Admin: 03/27/17 09:19 Dose: 500 mg Famotidine (Pepcid) 20 mg PO BID [facility] Last Admin: 03/27/17 09:19 Dose: 20 mg Finasteride (Proscar) 5 mg PO DAILY [facility] Last Admin: 03/27/17 09:19 Dose: 5 mg Furosemide (Lasix) 40 mg IVP DAILY [facility] Last Admin: 03/27/17 12:50 Dose: 40 mg Hydralazine HCl (Apresoline) 25 mg PO BID PRN PRN Reason: Diastolic blood pressure Last Admin: 03/25/17 09:54 Dose: 25 mg Ceftriaxone Sodium 1 gm/ (Sodium Chloride) 100 mls @ 100 mls/hr IVPB DAILY [facility] Last Admin: 03/27/17 09:48 Dose: 100 mls/hr Losartan Potassium (Cozaar) 100 mg PO DAILY [facility] Last Admin: 03/27/17 09:19 Dose: 100 mg Methylprednisolone (Solu-Medrol) 40 mg IVP BID [facility] Last Admin: 03/27/17 09:19 Dose: 40 mg Metoprolol Succinate (Toprol Xl) 25 mg PO DAILY [facility] Last Admin: 03/27/17 09:19 Dose: 25 mg Rivaroxaban (Xarelto) 20 mg PO DAILY [facility] Last Admin: 03/27/17 09:19 Dose: 20 mg Tamsulosin HCl (Flomax) 0.4 mg PO BID [facility] Last Admin: 03/27/17 09:19 Dose: 0.4 mg - Labs Labs: 03/27/17 07:51 03/27/17 07:51 PT 13.0 SECONDS (9.7-12.2) H 03/23/17 20:46 INR 1.1 03/23/17 20:46 - Constitutional Appears: No Acute Distress - Head Exam Head Exam: ATRAUMATIC - Neurological Exam Neurological Exam: Alert, Awake Additional comments: Knowledge, attention and memory appear to be impaired. CN 2-12 are intact, strength is symmetrical, sensation is intact, reflexes are normal, plantar responses are down going, gait is wide based. Assessment and Plan (1) Dementia Assessment & Plan: Case discussed with Dr. Grover, continue current medical regimen. Dementia work up can be done as an outpatient. Status: Acute
--- NOTE | 2017-03-27 13:23 | PCM.HF ---
Heart Failure Core Measure - Heart Failure Ejection Fraction: 40 % or Greater Left Ventricular Function to be assessed after discharge: No MELINA Inhibitor Prescribed: No Contraindication/Reason for not providing: ARB Beta-Lou Prescribed: Metoprolol Succinate Angiotensin II Receptor Lou Prescribed: Yes Aldosterone Antagonist Prescribed: Yes Implantable Cardioverter Defibrillator Therapy: No Contraindication/Reason for not providing: C Cardiac Resynchronization Therapy Prescribed: No Contraindication/Reason for not providing: V - Follow up Will be discharged to: Home Follow Up Date (must be within 7 days from discharge): 04/03/17 Follow Up Time: 09:00
[2017-03-28] MEDS ORDERED: Potassium Chloride 20 mEq ER Tab PO ONE (11:00)
== END 2017-03-27 15:59 | disposition home or self-care (01) | DRG 291 ==
LOC: C.ER 14:30 → C.9E 17:08 → C.6T 20:53 → OBSVTOIN 03-26 13:00
PROVIDERS: ADMIT Hospitalist; ATTEND Internal Medicine
DX: I13.0 Hypertensive heart and chronic kidney disease with heart failure and stage 1 through stage 4 chronic kidney disease, or unspecified chronic kidney disease (principal); I50.33 Acute on chronic diastolic (congestive) heart failure; N17.9 Acute kidney failure, unspecified; N02.8 Recurrent and persistent hematuria with other morphologic changes; I48.91 Unspecified atrial fibrillation; J44.0 Chronic obstructive pulmonary disease with (acute) lower respiratory infection; J20.9 Acute bronchitis, unspecified; F01.50 Vascular dementia, unspecified severity, without behavioral disturbance, psychotic disturbance, mood disturbance, and anxiety; Z79.01 Long term (current) use of anticoagulants; N18.9 Chronic kidney disease, unspecified; M10.9 Gout, unspecified; Z87.891 Personal history of nicotine dependence; Z85.46 Personal history of malignant neoplasm of prostate; R73.02 Impaired glucose tolerance (oral); N40.1 Benign prostatic hyperplasia with lower urinary tract symptoms; R80.9 Proteinuria, unspecified

== ENCOUNTER 2018-03-02 15:42 | Emergency (ER) | payer MEDICARE ==
[2018-03-02 15:43] VITALS: BMI 25.9
--- NOTE | 2018-03-02 17:10 | C.PDOC ---
History Of Present Illness 77-year-old male, PMHx includes Prostate CA, presents to the emergency department with complaints of inability to urinate. Patient has a hx of prostate CA, and notes he had surgery in past. Patient states over the past several hours, he is unable to urinate. Patient had a hx of retention a year ago and needed to use a catheter. Patient has been well over the past year. Patient otherwise denies abdominal pain, fever, dysuria. Time Seen by Provider: 03/02/18 16:28 Chief Complaint (Nursing): Male Genitourinary History Per: Patient History/Exam Limitations: no limitations Past Medical History Reviewed: Historical Data, Nursing Documentation, Vital Signs Vital Signs: Last Vital Signs Temp 98.1 F 03/02/18 16:12 Pulse 86 03/02/18 16:12 Resp 20 03/02/18 16:12 BP 144/87 03/02/18 16:12 Pulse Ox 100 03/02/18 16:12 - Medical History PMH: Anemia, Asthma, Cardia Arrhythmia (A-FIB), CHF, COPD, HTN, Kidney Stones, Chronic Kidney Disease Surgical History: Appendectomy, Endoscopy - [facility] Procedures MEASURE OF CARDIAC SAMPL & PRESSURE, L HEART, PERC APPROACH (06/07/15) PLAIN RADIOGRAPHY OF MULT COR ART USING OTH CONTRAST (06/07/15) Family History: States: No Known Family Hx - Social History Hx Alcohol Use: No Hx Substance Use: No - Immunization History Hx Tetanus Toxoid Vaccination: No Hx Influenza Vaccination: Yes Hx Pneumococcal Vaccination: Yes Review Of Systems Constitutional: Negative for: Fever Gastrointestinal: Negative for: Nausea, Vomiting, Diarrhea Genitourinary: Positive for: Other (inability to urinate) Physical Exam - Physical Exam Appears: Non-toxic, No Acute Distress Skin: Warm, Dry, No Rash Head: Atraumatic Eye(s): bilateral: Normal Inspection, PERRL, EOMI Nose: Normal Oral Mucosa: Moist Lips: Normal Appearing Neck: Normal ROM Chest: Symmetrical Cardiovascular: Rhythm Regular, No Murmur Respiratory: Normal Breath Sounds, No Accessory Muscle Use Gastrointestinal/Abdominal: Soft, Tenderness (suprapubic), No Guarding, No Rebound Back: Normal Inspection Extremity: Normal ROM, No Deformity Neurological/Psych: Oriented x3, Normal Speech ED Course And Treatment O2 Sat by Pulse Oximetry: 100 (on RA) Pulse Ox Interpretation: Normal (RA) Medical Decision Making Medical Decision Making: The patient was instructed that if he takes the catheter out there is a risk the retention will return and may not be able to urinate. On re-exam, the patient reports improvement of symptoms. Lungs are CTA, heart is RRR, abdomen is soft, non-tender and the patient is tolerating PO well. Ambulatory in the ED with steady gait. Follow up with the medical doctor within 1-2 days without fail. Return if worsened. Disposition - Disposition Referrals: Charlie Ching MD [Staff Provider] - Disposition: HOME/ ROUTINE Disposition Time: 17:51 Condition: STABLE Additional Instructions: Follow up with the medical doctor within 1-2 days without fail. Return if worsened. Instructions: Urinary Retention (DC) Forms: [employer] (Polish) - Clinical Impression Clinical Impression: Urinary retention - Scribe Statement The provider has reviewed the documentation as recorded by the Scribe (Manpreet Hartman) All medical record entries made by the Scribe were at my direction and personally dictated by me. I have reviewed the chart and agree that the record accurately reflects my personal performance of the history, physical exam, medical decision making, and the department course for this patient. I have also personally directed, reviewed, and agree with the discharge instructions and disposition.
[2018-03-02 18:17] VITALS: BP 151/89; PULSE 66; RESP 18; TEMP 99; O2SAT 99
== END 2018-03-02 18:33 | disposition home or self-care (01) ==
LOC: C.ER 15:42
DX: R33.9 Retention of urine, unspecified (principal); I48.91 Unspecified atrial fibrillation; I50.9 Heart failure, unspecified; J44.9 Chronic obstructive pulmonary disease, unspecified; I12.9 Hypertensive chronic kidney disease with stage 1 through stage 4 chronic kidney disease, or unspecified chronic kidney disease; N18.9 Chronic kidney disease, unspecified

== ENCOUNTER 2018-03-16 10:17 | Emergency (ER) | payer MEDICARE ==
[2018-03-16 10:18] VITALS: BMI 25.9
--- NOTE | 2018-03-16 11:24 | C.PDOC ---
History Of Present Illness Patient is a 77 y/o male with a PMHx of HTN, diastolic CHF, A-Fib, gout, prostate cancer with brachytherapy, nephrolithiasis, and proteinuria, who presents today complaining of hematuria onset today. He was previously seen on 03/02 for urinary retention and had a Ching catheter placed. Patient states it has been draining fine, but today he noticed some blood with tiny occasional clots. Denies any difficulty urinating, fever, pain, or other complaints. Tried to see his urologist, Dr. Roberto Cihng, today in the office but was unable to find parking so he came to the ED. Time Seen by Provider: 03/16/18 11:20 Chief Complaint (Nursing): Male Genitourinary History Per: Patient History/Exam Limitations: no limitations Onset/Duration Of Symptoms: Hrs Current Symptoms Are (Timing): Still Present Associated Symptoms: Urinary Symptoms Past Medical History Reviewed: Historical Data, Nursing Documentation, Vital Signs Vital Signs: Last Vital Signs Temp 97.4 F L 03/16/18 10:27 Pulse 81 03/16/18 10:27 Resp 18 03/16/18 10:27 BP 119/79 03/16/18 10:27 Pulse Ox 100 03/16/18 10:27 - Medical History PMH: Anemia, Asthma, Cardia Arrhythmia (A-FIB), CHF, COPD, HTN, Kidney Stones, Chronic Kidney Disease Surgical History: Appendectomy, Endoscopy - [facility] Procedures MEASURE OF CARDIAC SAMPL & PRESSURE, L HEART, PERC APPROACH (06/07/15) PLAIN RADIOGRAPHY OF MULT COR ART USING OTH CONTRAST (06/07/15) Family History: States: Unknown Family Hx - Social History Hx Alcohol Use: No Hx Substance Use: No - Immunization History Hx Tetanus Toxoid Vaccination: No Hx Influenza Vaccination: Yes Hx Pneumococcal Vaccination: Yes Review Of Systems Except As Marked, All Systems Reviewed And Found Negative. Constitutional: Negative for: Fever, Chills Cardiovascular: Negative for: Chest Pain Respiratory: Negative for: Shortness of Breath Gastrointestinal: Negative for: Nausea, Vomiting, Diarrhea Genitourinary: Positive for: Hematuria. Negative for: Rash, Other (urinary retention) Neurological: Negative for: Weakness, Numbness Physical Exam - Physical Exam Appears: Non-toxic, No Acute Distress Skin: Warm, Dry Head: Atraumatic, Normacephalic Eye(s): bilateral: Normal Inspection, PERRL, EOMI Oral Mucosa: Moist Neck: Normal ROM Chest: Symmetrical Cardiovascular: Rhythm Regular, No Murmur Respiratory: Normal Breath Sounds, No Accessory Muscle Use, Other (NARD) Gastrointestinal/Abdominal: Soft, No Tenderness, No Distention, Other (Ching in place) Extremity: Bilateral: Atraumatic, Normal Color And Temperature, Normal ROM Pulses: Left Dorsalis Pedis: Normal, Right Dorsalis Pedis: Normal Neurological/Psych: Oriented x3, Normal Speech ED Course And Treatment O2 Sat by Pulse Oximetry: 100 (RA) Pulse Ox Interpretation: Normal Progress - Re-Evaluation Re-evaluation Note: 03/16/18 11:[address] Roberto CHING 03/16/18 12:21 D/W DR Roberto CHING WILL EVAL IN ER - Data Reviewed Data Reviewed: Lab, Old records Medical Decision Making Medical Decision Making: Initial Plan: --Urinalysis --Urine culture Disposition Counseled Patient/Family Regarding: Studies Performed, Diagnosis - Disposition Referrals: Charlie Ching MD [Staff Provider] - Disposition: HOME/ ROUTINE Disposition Time: 13:30 Condition: GOOD Instructions: Blood in the Urine (Hematuria), Adult (DC) Forms: [employer] (Zambian) - Clinical Impression Clinical Impression: Hematuria - Scribe Statement The provider has reviewed the documentation as recorded by the Scribe (Nicolette Simons) Provider Attestation: All medical record entries made by the Scribe were at my direction and personally dictated by me. I have reviewed the chart and agree that the record accurately reflects my personal performance of the history, physical exam, medical decision making, and the department course for this patient. I have also personally directed, reviewed, and agree with the discharge instructions and disposition.
[2018-03-16 12:01] LABS: URINE BILIRUBIN NEGATIVE (NEGATIVE); URINE BLOOD 2+ (NEGATIVE); URINE CLARITY Hazy (Clear); URINE COLOR Red (YELLOW); URINE GLUCOSE (UA) 1+ mg/dL (Normal); URINE LEUKOCYTE ESTERASE NEG Leu/uL (Negative); URINE PROTEIN 2+ mg/dL (NEGATIVE); URINE UROBILINOGEN NORMAL mg/dL (0.2-1.0)
[2018-03-16 14:47] VITALS: RESP 19
[2018-03-16 16:27] VITALS: BP 131/82; PULSE 80; TEMP 97.9; O2SAT 99
== END 2018-03-16 16:28 | disposition home or self-care (01) ==
LOC: C.ER 10:17
DX: R31.9 Hematuria, unspecified (principal)

== ENCOUNTER 2018-05-17 13:52 | Inpatient (IN) | payer MEDICAID, MEDICARE ==
[2018-05-17 13:52] VITALS: BMI 25.9
[2018-05-17 15:28] LABS: BASO # 0.1 K/uL (0.0-0.2); BASO % 1.1 % (0.0-2.0); EOS # 0.1 K/uL (0.0-0.7); EOS % 1.5 % (0.0-4.0); LYMPH # 0.8 K/uL (1.0-4.3); LYMPH % 12.2 % (20.0-40.0); MEAN CORPUSCULAR HEMOGLOBIN 30.6 pg (27.0-31.0); MEAN CORPUSCULAR HGB CONC 33.2 g/dL (33.0-37.0); MEAN PLATELET VOLUME 7.8 fL (7.2-11.7); MONO # 0.5 K/uL (0.0-0.8); MONO % 7.1 % (0.0-10.0); NEUT # 5.3 K/uL (1.8-7.0); NEUT % 78.1 % (50.0-75.0); RBC 4.12 Mil/uL (4.40-5.90); RED CELL DISTRIBUTION WIDTH 14.6 % (11.5-14.5); WHITE BLOOD COUNT 6.8 K/uL (4.8-10.8)
[2018-05-17] MEDS ORDERED: Sodium Chloride 0.9% 500 ML IV ONE ×2 (15:29→15:39)
[2018-05-17 15:32] LABS: HEMOGLOBIN 12.6 g/dL (12.0-18.0)
[2018-05-17 15:36] LABS: URINE BILIRUBIN NEGATIVE (NEGATIVE); URINE CLARITY Hazy (Clear); URINE COLOR Red (YELLOW); URINE GLUCOSE (UA) 1+ mg/dL (Normal); URINE LEUKOCYTE ESTERASE NEG Leu/uL (Negative); URINE PROTEIN 2+ mg/dL (NEGATIVE); URINE UROBILINOGEN NORMAL mg/dL (0.2-1.0)
[2018-05-17 15:37] LABS: INR 1.2; PROTHROMBIN TIME 13.3 SECONDS (9.7-12.2)
[2018-05-17 15:41] LABS: URINE BLOOD 3+ (NEGATIVE)
[2018-05-17 15:51] LABS: ALB/GLOB RATIO 0.9 (1.0-2.1); ALBUMIN 3.2 g/dL (3.5-5.0); ALT/SGPT 18 U/L (21-72); AST/SGOT 30 U/L (17-59); BLOOD UREA NITROGEN 17 mg/dL (9-20); CALCIUM 8.4 mg/dl (8.6-10.4); GFR NON-AFRICAN AMERICAN > 60
--- NOTE | 2018-05-17 16:58 | C.PDOC ---
History Of Present Illness 78 y/o male presents to ER with family for evaluation of intermittent hematuria which has been present for the past 3 days. Patient states that he has an indwelling vasquez catheter for the past 2 months. He reports that he was evalua bella by his urologist Dr. Roberto Ching 3 days ago, everything was ok at the time. He denies having fever, chills, nausea, vomiting, diarrhea, abdominal pain. Time Seen by Provider: 05/17/18 15:18 Chief Complaint (Nursing): Male Genitourinary History Per: Patient History/Exam Limitations: no limitations Onset/Duration Of Symptoms: Days Current Symptoms Are (Timing): Still Present Severity: Moderate Past Medical History Reviewed: Historical Data, Nursing Documentation, Vital Signs Vital Signs: Last Vital Signs Temp 97.4 F L 05/17/18 14:23 Pulse 77 05/17/18 14:23 Resp 20 05/17/18 14:23 BP 94/65 L 05/17/18 14:23 Pulse Ox 100 05/17/18 14:23 - Medical History PMH: Alzheimer's Disease, Anemia, Asthma, Atrial Fibrillation, Cardia Arrhythmia (A-FIB), CHF, COPD, Dementia, HTN, Kidney Stones, Chronic Kidney Disease Surgical History: Appendectomy, Endoscopy - [facility] Procedures MEASURE OF CARDIAC SAMPL & PRESSURE, L HEART, PERC APPROACH (06/07/15) PLAIN RADIOGRAPHY OF MULT COR ART USING OTH CONTRAST (06/07/15) Family History: States: No Known Family Hx - Social History Hx Alcohol Use: No Hx Substance Use: No - Immunization History Hx Tetanus Toxoid Vaccination: No Hx Influenza Vaccination: Yes Hx Pneumococcal Vaccination: Yes Review Of Systems Constitutional: Negative for: Fever, Chills Cardiovascular: Negative for: Chest Pain Respiratory: Negative for: Cough, Shortness of Breath Gastrointestinal: Negative for: Nausea, Vomiting, Abdominal Pain, Diarrhea Genitourinary: Positive for: Hematuria. Negative for: Dysuria Physical Exam - Physical Exam Appears: Well, Non-toxic, No Acute Distress Skin: Normal Color, Warm, Dry, No Rash Head: Normacephalic Eye(s): bilateral: Normal Inspection Oral Mucosa: Moist Neck: Supple Cardiovascular: Rhythm Regular Respiratory: Normal Breath Sounds, No Rales, No Rhonchi, No Wheezing Gastrointestinal/Abdominal: Normal Exam, Bowel Sounds, Soft, No Tenderness Male Genital: Other (indwelling vasquez catheter, gross dark blood inside bag) Extremity: Normal ROM Neurological/Psych: Oriented x3 ED Course And Treatment - Laboratory Results Result Diagrams: 05/29/18 07:03 05/29/18 07:03 Lab Results: PT 13.3 SECONDS (9.7-12.2) H 05/17/18 15:20 INR 1.2 05/17/18 15:20 APTT 33 SECONDS (21-34) 05/17/18 15:20 Total Bilirubin 0.8 mg/dL (0.2-1.3) 05/17/18 15:20 AST 30 U/L (17-59) 05/17/18 15:20 ALT 18 U/L (21-72) L D 05/17/18 15:20 Alkaline Phosphatase 113 U/L (38-126) 05/17/18 15:20 Total Protein 6.7 g/dL (6.3-8.3) 05/17/18 15:20 Albumin 3.2 g/dL (3.5-5.0) L 05/17/18 15:20 Globulin 3.5 gm/dL (2.2-3.9) 05/17/18 15:20 Albumin/Globulin Ratio 0.9 (1.0-2.1) L 05/17/18 15:20 Urine Color Red (YELLOW) 05/17/18 15:20 Urine Clarity Hazy (Clear) 05/17/18 15:20 Urine pH 6.0 (5.0-8.0) 05/17/18 15:20 Ur Specific [place] 1.018 (1.003-1.030) 05/17/18 15:20 Urine Protein 2+ mg/dL (NEGATIVE) H 05/17/18 15:20 Urine Glucose (UA) 1+ mg/dL (Normal) H 05/17/18 15:20 Urine Ketones Negative mg/dL (NEGATIVE) 05/17/18 15:20 Urine Blood 3+ (NEGATIVE) H 05/17/18 15:20 Urine Nitrate Negative (NEGATIVE) 05/17/18 15:20 Urine Bilirubin Negative (NEGATIVE) 05/17/18 15:20 Urine Urobilinogen Normal mg/dL (0.2-1.0) 05/17/18 15:20 Ur Leukocyte Esterase Neg [place]vin/uL (Negative) 05/17/18 15:20 Urine WBC (Auto) 16 /hpf (0-5) H 05/17/18 15:20 Urine RBC (Auto) 68723 /hpf (0-3) H 05/17/18 15:20 ECG: Interpreted By Me, Viewed By Me (atrial fibrillation 81 bpm, normal axis, PVCs, RBBB, T wave inversions II, IIII, aVL, aVF, V4-V6) ECG Interpretation: Abnormal O2 Sat by Pulse Oximetry: 100 (RA) Pulse Ox Interpretation: Normal Progress Note: Blood work, UA, Ucx ordered and reviewed. Patient given IV NS bolus. - Physician Consult Information Physician Contacted: Charlie Ching Outcome Of Conversation: Discussed patient with his urologist, recommends no intervention with vasquez at this time. Patient to have suprapubic vasquez catheter inserted tomorrow, requests admission to medicine. Disposition - Disposition Disposition: HOSPITALIZED Disposition Time: 16:59 Condition: STABLE - Clinical Impression Clinical Impression: Gross hematuria - Scribe Statement The provider has reviewed the documentation as recorded by the Scribe Jessi Muñiz Provider Attestation: All medical record entries made by the Scribe were at my direction and personally dictated by me. I have reviewed the chart and agree that the record accurately reflects my personal performance of the history, physical exam, medical decision making, and the department course for this patient. I have also personally directed, reviewed, and agree with the discharge instructions and disposition. Decision To Admit - Pt Status Changed To: Hospital Disposition Of: Observation - . Bed Request Type: Regular Admitting Physician: Bahman See Patient Diagnosis: Gross hematuria
--- NOTE | 2018-05-17 18:00 | CP.PCM.HP ---
<Ladarius Choi - Last Filed: 05/17/18 23:32> History of Present Illness - History of Present Illness History of Present Illness: cc:"Blood in my urine, hurts a lot, help me" HPI:78M w/ PMHx of Prostate CA, IgA nephropathy COPD AFib and Alzheimers presents to [facility] with hematuria and dysuria for 3 days. Pt has had an indwelling vasquez cath in since 2 months ago and has followed up with Dr Ching in office. Of note Pt was recently admitted to [facility] for staph UTI and was d/c home on 05/02 with a 5 day course of Dicloxacillin. Pt saw Dr Ching in office 3 days ago and began to have baldev hematuria and pain in the urethra. Pt has limited memory and is unable to recall distant events. ROS: pos+ hematuria, dysuria, recent UTI neg- fevers, chills, nausea, vomiting, falls, back pain, cva tenderness, sick contacts, change in medications PMD [facility] Urology: Roberto Ching PMH: Anemia; Alzheimer Dementia; COPD; HTN; A Fib; CDH with diastolic dysfunction; Nephrolithiasis; Gout; Prostate Cancer with brachytherapy; IgA nephropathy PSH: Appendectomy; Endoscopy SH: No illegal drug use; No smoking of cigarettes; Alcohol socially; Live with family FH: state: No known family hx Allergies: NKDA Home Rx: Flomax .4 qd Aldactone 25 qd Toprol XL 25 qd Cozaar 100 qd Lasix 20 qd Finasteride 5 qd Aricept 10 qd ASA 81 qd Allopurinol 100 qd Present on Admission - Present on Admission Any Indicators Present on Admission: Yes Urinary Catheter: Yes (2 months) Review of Systems - Review of Systems Systems not reviewed;Unavailable: Dementia - Constitutional Constitutional: As Per HPI - EENT Eyes: absent: Change in Vision, Dry Eye - Cardiovascular Cardiovascular: absent: Chest Pain, Dyspnea - Respiratory Respiratory: absent: Cough, Hemoptysis, Wheezing - Gastrointestinal Gastrointestinal: absent: Nausea, Vomiting - Genitourinary Genitourinary: Dysuria, Hematuria, Pyuria. absent: Flank Pain - Musculoskeletal Musculoskeletal: absent: Arthralgias, Back Pain, Myalgias - Neurological Neurological: Dizziness. absent: Frequent Falls, Headaches - Psychiatric Psychiatric: Confusion, Memory Loss Past Patient History - Infectious Disease Hx of Infectious Diseases: None - Past Medical History & Family History Past Medical History?: Yes - Past Social History Smoking Status: Never Smoked - CARDIAC Hx Atrial Fibrillation: Yes Hx Cardia Arrhythmia: Yes (A-FIB) Hx Congestive Heart Failure: Yes Hx Hypertension: Yes - PULMONARY Hx Asthma: Yes Hx Chronic Obstructive Pulmonary Disease (COPD): Yes - NEUROLOGICAL Hx Alzheimer's Disease: Yes Hx Dementia: Yes - HEENT Hx HEENT Problems: Yes Other/Comment: Wears eyeglasses - RENAL Hx Chronic Kidney Disease: Yes Hx Kidney Stones: Yes - ENDOCRINE/METABOLIC Hx Endocrine Disorders: No - HEMATOLOGICAL/ONCOLOGICAL Hx Anemia: Yes - INTEGUMENTARY Hx Dermatological Problems: No - MUSCULOSKELETAL/RHEUMATOLOGICAL Hx Musculoskeletal Disorders: No Hx Falls: No - GASTROINTESTINAL Hx Gastrointestinal Disorders: No - GENITOURINARY/GYNECOLOGICAL Hx Genitourinary Disorders: Yes Hx Prostate Cancer: Yes Hx Prostate Problems: Yes - PSYCHIATRIC Hx Substance Use: No - SURGICAL HISTORY Hx Appendectomy: Yes - ANESTHESIA Hx Anesthesia: Yes Hx Anesthesia Reactions: No Hx Malignant Hyperthermia: No Meds Allergies/Adverse Reactions: Allergies Allergy/AdvReac Type Severity Reaction Status Date / Time No Known Allergies Allergy Verified 05/17/18 14:25 Physical Exam - Constitutional Appears: Confused - Head Exam Head Exam: ATRAUMATIC Additional comments: L sided erythematous rash possibly port wine stain - Eye Exam Eye Exam: EOMI, Normal appearance - ENT Exam ENT Exam: Mucous Membranes Moist - Respiratory Exam Respiratory Exam: Clear to Auscultation Bilateral - Cardiovascular Exam Cardiovascular Exam: Irregular Rhythm, +S1, +S2 - GI/Abdominal Exam GI & Abdominal Exam: Soft. absent: Tenderness - Exam Exam: absent: Uretheral Discharge, Bladder Distension Additional comments: vasquez bag about 50 cc baldev blood, no blood at urethral meatus - Extremities Exam Extremities exam: Positive for: pedal pulses present. Negative for: pedal edema - Back Exam Back exam: absent: CVA tenderness (L), CVA tenderness (R) - Neurological Exam Neurological exam: CN II-XII Intact - Psychiatric Exam Additional comments: memory deficits - Skin Skin Exam: Dry, Intact Results - Vital Signs Recent Vital Signs: Last Vital Signs Temp 97.4 F L 05/17/18 14:23 Pulse 60 05/17/18 17:31 Resp 20 05/17/18 17:31 BP 125/72 05/17/18 17:31 Pulse Ox 100 01/28/19 17:31 - Labs Result Diagrams: 05/17/18 15:20 05/17/18 15:20 Labs: Laboratory Results - last 24 hr 05/17/18 05/17/18 05/17/18 15:20 15:20 15:20 WBC 6.8 RBC 4.12 L Hgb 12.6 D Hct 37.9 MCV 92.0 D MCH 30.6 MCHC 33.2 RDW 14.6 H Plt Count 309 D MPV 7.8 Neut % (Auto) 78.1 H Lymph % (Auto) 12.2 L [place] % (Auto) 7.1 Eos % (Auto) 1.5 Baso % (Auto) 1.1 Neut # (Auto) 5.3 Lymph # (Auto) 0.8 L [place] # (Auto) 0.5 Eos # (Auto) 0.1 Baso # (Auto) 0.1 PT 13.3 H INR 1.2 APTT 33 Sodium 132 Potassium 3.8 Chloride 96 L Carbon Dioxide 27 Anion Gap 12 BUN 17 Creatinine 0.9 Est GFR ( Amer) > 60 Est GFR (Non-Af Amer) > 60 Random Glucose 113 H Calcium 8.4 L Total Bilirubin 0.8 AST 30 ALT 18 L D Alkaline Phosphatase 113 Total Protein 6.7 Albumin 3.2 L Globulin 3.5 Albumin/Globulin Ratio 0.9 L Urine Color Urine Clarity Urine pH Ur Specific [place] Urine Protein Urine Glucose (UA) Urine Ketones Urine Blood Urine Nitrate Urine Bilirubin Urine Urobilinogen Ur Leukocyte Esterase Urine WBC (Auto) Urine RBC (Auto) Blood Type Antibody Screen 05/17/18 05/17/18 15:20 15:20 WBC RBC Hgb Hct MCV MCH MCHC RDW Plt Count MPV Neut % (Auto) Lymph % (Auto) [place] % (Auto) Eos % (Auto) Baso % (Auto) Neut # (Auto) Lymph # (Auto) [place] # (Auto) Eos # (Auto) Baso # (Auto) PT INR APTT Sodium Potassium Chloride Carbon Dioxide Anion Gap BUN Creatinine Est GFR ( Amer) Est GFR (Non-Af Amer) Random Glucose Calcium Total Bilirubin AST ALT Alkaline Phosphatase Total Protein Albumin Globulin Albumin/Globulin Ratio Urine Color Red Urine Clarity Hazy Urine pH 6.0 Ur Specific [place] 1.018 Urine Protein 2+ H Urine Glucose (UA) 1+ H Urine Ketones Negative Urine Blood 3+ H Urine Nitrate Negative Urine Bilirubin Negative Urine Urobilinogen Normal Ur Leukocyte Esterase Neg Urine WBC (Auto) 16 H Urine RBC (Auto) 02491 H Blood Type O POSITIVE Antibody Screen Negative Assessment & Plan - Assessment and Plan (Free Text) Assessment: 78M admitted for baldev hematuria, recent UTI, pos UA, to get suprapubic cath with Dr Roberto Ching PLAN Hematuria -UA pos for >30k RBCs -Dr Roberto Ching consulted rec not to modify vasquez currently suprapubic cath likely tmrw -Previous Bladder U/S on 05/06 showed prostate enlargement -Home Flomax .4 QD -NS @ 100/hr -Tylenol 650mg PO q6 for pain PRN Hx of Afib -EKG in ED shows Afib: unchanged from last EKG on previous admission -Home Toprol XL 25mg qd -Cozaar 100mg QD Alzheimer's -fall precautions -hold home Aricept until after procedure Hx of Nephrolithiasis -Home Allopurinol 100mg QD PPX -SCDs -Pepcid 20mg qd -NPO <Bahman See - Last Filed: 05/18/18 07:52> Results - Vital Signs Recent Vital Signs: Last Vital Signs Temp 97.4 F L 05/17/18 14:23 Pulse 86 05/18/18 06:37 Resp 12 05/18/18 06:37 BP 155/87 H 05/18/18 06:37 Pulse Ox 100 05/18/18 06:37 - Labs Result Diagrams: 05/18/18 04:35 05/18/18 04:35 Labs: Laboratory Results - last 24 hr 05/17/18 05/17/18 05/17/18 15:20 15:20 15:20 WBC 6.8 RBC 4.12 L Hgb 12.6 D Hct 37.9 MCV 92.0 D MCH 30.6 MCHC 33.2 RDW 14.6 H Plt Count 309 D MPV 7.8 Neut % (Auto) 78.1 H Lymph % (Auto) 12.2 L [place] % (Auto) 7.1 Eos % (Auto) 1.5 Baso % (Auto) 1.1 Neut # (Auto) 5.3 Lymph # (Auto) 0.8 L [place] # (Auto) 0.5 Eos # (Auto) 0.1 Baso # (Auto) 0.1 Neutrophils % (Manual) Lymphocytes % (Manual) Monocytes % (Manual) Platelet Estimate PT 13.3 H INR 1.2 APTT 33 Sodium 132 Potassium 3.8 Chloride 96 L Carbon Dioxide 27 Anion Gap 12 BUN 17 Creatinine 0.9 Est GFR ( Amer) > 60 Est GFR (Non-Af Amer) > 60 Random Glucose 113 H Calcium 8.4 L Phosphorus Magnesium Total Bilirubin 0.8 AST 30 ALT 18 L D Alkaline Phosphatase 113 Total Protein 6.7 Albumin 3.2 L Globulin 3.5 Albumin/Globulin Ratio 0.9 L Urine Color Urine Clarity Urine pH Ur Specific [place] Urine Protein Urine Glucose (UA) Urine Ketones Urine Blood Urine Nitrate Urine Bilirubin Urine Urobilinogen Ur Leukocyte Esterase Urine WBC (Auto) Urine RBC (Auto) Blood Type Antibody Screen 05/17/18 05/17/18 05/18/18 15:20 15:20 04:35 WBC 7.3 RBC 3.99 L Hgb 12.2 Hct 36.9 MCV 92.3 MCH 30.6 MCHC 33.1 RDW 14.8 H Plt Count 243 MPV 8.1 Neut % (Auto) 87.9 H Lymph % (Auto) 7.7 L [place] % (Auto) 3.4 Eos % (Auto) 0.5 Baso % (Auto) 0.5 Neut # (Auto) 6.4 Lymph # (Auto) 0.6 L [place] # (Auto) 0.2 Eos # (Auto) 0.0 Baso # (Auto) 0.0 Neutrophils % (Manual) 86 H Lymphocytes % (Manual) 8 L Monocytes % (Manual) 6 Platelet Estimate Normal PT INR APTT Sodium Potassium Chloride Carbon Dioxide Anion Gap BUN Creatinine Est GFR ( Amer) Est GFR (Non-Af Amer) Random Glucose Calcium Phosphorus Magnesium Total Bilirubin AST ALT Alkaline Phosphatase Total Protein Albumin Globulin Albumin/Globulin Ratio Urine Color Red Urine Clarity Hazy Urine pH 6.0 Ur Specific [place] 1.018 Urine Protein 2+ H Urine Glucose (UA) 1+ H Urine Ketones Negative Urine Blood 3+ H Urine Nitrate Negative Urine Bilirubin Negative Urine Urobilinogen Normal Ur Leukocyte Esterase Neg Urine WBC (Auto) 16 H Urine RBC (Auto) 08322 H Blood Type O POSITIVE Antibody Screen Negative 05/18/18 04:35 WBC RBC Hgb Hct MCV MCH MCHC RDW Plt Count MPV Neut % (Auto) Lymph % (Auto) [place] % (Auto) Eos % (Auto) Baso % (Auto) Neut # (Auto) Lymph # (Auto) [place] # (Auto) Eos # (Auto) Baso # (Auto) Neutrophils % (Manual) Lymphocytes % (Manual) Monocytes % (Manual) Platelet Estimate PT INR APTT Sodium 135 Potassium 3.2 L Chloride 105 Carbon Dioxide 26 Anion Gap 7 L BUN 15 Creatinine 0.7 L Est GFR ( Amer) > 60 Est GFR (Non-Af Amer) > 60 Random Glucose 132 H Calcium 7.8 L Phosphorus 2.3 L Magnesium 1.9 Total Bilirubin 0.8 AST 26 ALT 20 L Alkaline Phosphatase 96 Total Protein 5.6 L Albumin 2.6 L Globulin 2.9 Albumin/Globulin Ratio 0.9 L Urine Color Urine Clarity Urine pH Ur Specific [place] Urine Protein Urine Glucose (UA) Urine Ketones Urine Blood Urine Nitrate Urine Bilirubin Urine Urobilinogen Ur Leukocyte Esterase Urine WBC (Auto) Urine RBC (Auto) Blood Type Antibody Screen Attending/Attestation - Attestation I have personally seen and examined this patient.: Yes I have fully participated in the care of the patient.: Yes I have reviewed all pertinent clinical information: Yes Notes (Text): Seen and examined with the resident in the ER.Patient is here for gross hematuria. Dr Roberto Ching requesting to admit for suprapubic cath placement and remove faley cath. 1.Gross hematuria 2.BPH,h/o prostate ca treated,has faley cath for retention for 2 months 3.Afib -Has Chads score 4.He was recommended to continue xarelta last admission. He has gross hemturia,resume after once hematuria improves or after Suprapubic cath 4.CHF,Has chronic systolic and diastolic heart failure-stable 5.HTN 6.IgA nephropathy 7.Dementia Continue his home meds except We will follow with Dr Roberto Ching
[2018-05-17] MEDS: Sodium Chloride 0.9% 1,000 ML IV SCH (20:00)
[2018-05-17] MEDS ORDERED: Sodium Chloride 0.9% 1,000 ML ONE (20:01)
[2018-05-18 04:42] LABS: BASO % 0.5 % (0.0-2.0); EOS % 0.5 % (0.0-4.0); HEMOGLOBIN 12.2 g/dL (12.0-18.0); LYMPH # 0.6 K/uL (1.0-4.3); LYMPH % 7.7 % (20.0-40.0); MEAN CELL VOLUME 92.3 fL (80.0-94.0); MEAN CORPUSCULAR HEMOGLOBIN 30.6 pg (27.0-31.0); MEAN CORPUSCULAR HGB CONC 33.1 g/dL (33.0-37.0); MEAN PLATELET VOLUME 8.1 fL (7.2-11.7); MONO # 0.2 K/uL (0.0-0.8); MONO % 3.4 % (0.0-10.0); NEUT # 6.4 K/uL (1.8-7.0); NEUT % 87.9 % (50.0-75.0); PLATELET COUNT 243 K/uL (130-400); RBC 3.99 Mil/uL (4.40-5.90); RED CELL DISTRIBUTION WIDTH 14.8 % (11.5-14.5); WHITE BLOOD COUNT 7.3 K/uL (4.8-10.8)
[2018-05-18 04:56] LABS: ALB/GLOB RATIO 0.9 (1.0-2.1); ALBUMIN 2.6 g/dL (3.5-5.0); ALT/SGPT 20 U/L (21-72); AST/SGOT 26 U/L (17-59); BLOOD UREA NITROGEN 15 mg/dL (9-20); CALCIUM 7.8 mg/dl (8.6-10.4); GFR NON-AFRICAN AMERICAN > 60
[2018-05-18 05:38] LABS: LYMPHOCYTE 8 % (20-40); MONOCYTE 6 % (0-10); NEUTROPHIL 86 % (50-75); PLATELET ESTIMATE NORMAL (NORMAL); TOTAL CELLS COUNTED 100
[2018-05-18] MEDS: Sodium Chloride 0.9% 1,000 ML IV SCH (07:08)
[2018-05-18] MEDS ORDERED: Potassium Chloride 20 mEq/15 ml LIQ UD PO STA (07:42)
[2018-05-18] MEDS ORDERED: Sodium Chloride 0.9% 1,000 ML ONE (07:48)
[2018-05-18] MEDS ORDERED: Potassium Chloride 20 mEq/15 ml LIQ UD ONE (07:48)
[2018-05-18] MEDS ORDERED: Sodium Chloride 0.9% 1,000 ML IV SCH (07:50)
--- NOTE | 2018-05-18 08:54 | CP.PCM.PN ---
Subjective - Date & Time of Evaluation Date of Evaluation: 05/18/18 Time of Evaluation: 08:51 - Subjective Subjective: HOSPITALIST SERVICE Pt seen and examined at bedside. Pt reports persistent pain with vasquez. Pt also reports dakening of his urine. Pt denies any blood coming from meatus, denies abdominal pain, dizziness, fevers, chills, nausea vomiting or backpain. Pt understands need for procedure and agrees with plan. Objective - Vital Signs/Intake and Output Vital Signs (last 24 hours): Temp Pulse Resp BP Pulse Ox 97.6 F 60 17 128/73 100 05/18/18 08:03 05/18/18 08:03 05/18/18 08:03 05/18/18 08:03 05/18/18 08:03 Intake and Output: 05/18/18 05/18/18 06:59 18:59 Output Total 975 Balance -975 - Medications Medications: Current Medications Acetaminophen (Tylenol 325mg Tab) 650 mg PO Q6 PRN PRN Reason: Pain, moderate (4-7) Allopurinol (Zyloprim) 100 mg PO DAILY [facility] Donepezil HCl (Aricept) 10 mg PO HS [facility] Last Admin: 05/17/18 21:50 Dose: 10 mg Famotidine (Pepcid) 20 mg PO DAILY [facility] Potassium Chloride (Potassium Chloride 20 Meq/100 Ml) 20 meq in 100 mls @ 50 mls/hr IVPB ONCE ONE Stop: 05/18/18 09:45 Last Admin: 05/18/18 07:50 Dose: 50 mls/hr Sodium Chloride (Sodium Chloride 0.9%) 1,000 mls @ 50 mls/hr IV .Q20H [facility] Losartan Potassium (Cozaar) 100 mg PO DAILY [facility] Metoprolol Succinate (Toprol Xl) 25 mg PO DAILY [facility] Tamsulosin HCl (Flomax) 0.4 mg PO HS [facility] Last Admin: 05/17/18 21:50 Dose: 0.4 mg - Labs Labs: 05/18/18 04:35 05/18/18 04:35 PT 13.3 SECONDS (9.7-12.2) H 05/17/18 15:20 INR 1.2 05/17/18 15:20 APTT 33 SECONDS (21-34) 05/17/18 15:20 Assessment and Plan - Assessment and Plan (Free Text) Assessment: 78M admitted for baldev hematuria, recent UTI, pos UA, s/p 05/[address] Roberto Ching PLAN Hematuria -UA pos for >30k RBCs -Dr Roberto Ching consulted s/p suprapubic cath vasquez still in place Leave both in for now -Previous Bladder U/S on 05/06 showed prostate enlargement -Home Flomax .4 QD -NS @ 50/hr -Tylenol 650mg PO q6 for pain PRN -Monitor I&Os Hx of IgA Nephropathy -Monitor I&Os -NS @ 50/hr -No steroids at this time due to recent UTI -Cozaar 100mg qd -consider Nephro consult Hx of Afib -EKG in ED shows Afib: unchanged from last EKG on previous admission -Home Toprol XL 25mg qd -Cozaar 100mg QD -Holding anticoagulation for procedure today -restart heparin tmrw am 5000u Hx of Diastolic and Systolic HF, Chronic -Toprol XL 25mg QD -Cozaar 100mg QD -Aldactone home dose HOLD -Monitor I&Os Alzheimer's -fall precautions -Aricept -monitor for acute mental status change Hx of Nephrolithiasis -Home Allopurinol 100mg QD Hx of Gout -Allopurinol 100mg qd PPX -SCDs -Pepcid 20mg qd -NPO
[2018-05-18] MEDS: Metoprolol Succinate 25 mg XL Tab PO SCH (10:48)
[2018-05-18] MEDS ORDERED: cefTRIAXone 1 gm 1 GM/100 ML BAG IVPB ONE (12:55)
[2018-05-18] MEDS ORDERED: Lidocaine/Epinephrine 1% 1:100000 10 ML IJ ONE (13:20)
[2018-05-18] MEDS ORDERED: Propofol 10 mg/ml Inj (20 ML) ONE (14:46)
[2018-05-18] MEDS ORDERED: Iohexol 240 (50 ml) ONE (15:43)
--- NOTE | 2018-05-18 15:51 | PCM.URO ---
Urology Progress Note - Objective Lab Studies: Reviewed (new spt inserted // and vasquez via urethera leave both for now thanks) Lab Results Last 24 Hours: Laboratory Results - last 24 hr 05/17/18 05/17/18 05/18/18 15:20 15:20 04:35 WBC 7.3 RBC 3.99 L Hgb 12.2 Hct 36.9 MCV 92.3 MCH 30.6 MCHC 33.1 RDW 14.8 H Plt Count 243 MPV 8.1 Neut % (Auto) 87.9 H Lymph % (Auto) 7.7 L Dundy % (Auto) 3.4 Eos % (Auto) 0.5 Baso % (Auto) 0.5 Neut # (Auto) 6.4 Lymph # (Auto) 0.6 L Dundy # (Auto) 0.2 Eos # (Auto) 0.0 Baso # (Auto) 0.0 Neutrophils % (Manual) 86 H Lymphocytes % (Manual) 8 L Monocytes % (Manual) 6 Platelet Estimate Normal Sodium 132 Potassium 3.8 Chloride 96 L Carbon Dioxide 27 Anion Gap 12 BUN 17 Creatinine 0.9 Est GFR ( Amer) > 60 Est GFR (Non-Af Amer) > 60 Random Glucose 113 H Calcium 8.4 L Phosphorus Magnesium Total Bilirubin 0.8 AST 30 ALT 18 L D Alkaline Phosphatase 113 Total Protein 6.7 Albumin 3.2 L Globulin 3.5 Albumin/Globulin Ratio 0.9 L Blood Type O POSITIVE Antibody Screen Negative 05/18/18 04:35 WBC RBC Hgb Hct MCV MCH MCHC RDW Plt Count MPV Neut % (Auto) Lymph % (Auto) Dundy % (Auto) Eos % (Auto) Baso % (Auto) Neut # (Auto) Lymph # (Auto) Dundy # (Auto) Eos # (Auto) Baso # (Auto) Neutrophils % (Manual) Lymphocytes % (Manual) Monocytes % (Manual) Platelet Estimate Sodium 135 Potassium 3.2 L Chloride 105 Carbon Dioxide 26 Anion Gap 7 L BUN 15 Creatinine 0.7 L Est GFR ( Amer) > 60 Est GFR (Non-Af Amer) > 60 Random Glucose 132 H Calcium 7.8 L Phosphorus 2.3 L Magnesium 1.9 Total Bilirubin 0.8 AST 26 ALT 20 L Alkaline Phosphatase 96 Total Protein 5.6 L Albumin 2.6 L Globulin 2.9 Albumin/Globulin Ratio 0.9 L Blood Type Antibody Screen Intake & Output: Intake & Output 05/17/18 05/18/18 05/18/18 18:59 06:59 18:59 Intake Total 100 Output Total 975 Balance -975 100 Weight 140 lb Intake: IV 100 Output: Urine 975 Other: Voiding Method Indwelling Catheter Vital Signs: Vital Signs - 24 hr 05/17/18 05/17/18 05/17/18 17:31 18:50 19:33 Temperature Pulse Rate 60 65 Respiratory 20 20 Rate Blood Pressure 125/72 106/63 O2 Sat by Pulse 100 100 100 Oximetry 05/17/18 05/17/18 05/18/18 21:38 23:50 01:23 Temperature Pulse Rate 58 L 75 59 L Respiratory 12 16 21 Rate Blood Pressure 117/65 120/67 130/73 O2 Sat by Pulse 100 98 99 Oximetry 05/18/18 05/18/18 05/18/18 02:55 05:03 06:37 Temperature Pulse Rate 65 70 86 Respiratory 19 20 12 Rate Blood Pressure 146/79 116/56 L 155/87 H O2 Sat by Pulse 95 100 100 Oximetry 05/18/18 08:03 Temperature 97.6 F Pulse Rate 60 Respiratory 17 Rate Blood Pressure 128/73 O2 Sat by Pulse 100 Oximetry
[2018-05-18] MEDS ORDERED: HYDROmorphone 0.5 mg/0.5 ml ISec IVP PRN (16:11)
--- NOTE | 2018-05-18 20:32 | CARD ---
APPROVED REPORT Date of service: 05/17/2018 EKG Measurement Heart [id number] <Conclusion> Atrial fibrillation with premature ventricular or aberrantly conducted complexes Incomplete right bundle branch block Left posterior fascicular block Possible Inferior infarct, age undetermined ST & T wave abnormality, consider lateral ischemia Abnormal ECG
--- NOTE | 2018-05-19 07:46 | CP.PCM.PN ---
<Ladarius Choi - Last Filed: 05/19/18 16:05> Subjective - Date & Time of Evaluation Date of Evaluation: 05/19/18 Time of Evaluation: 07:45 - Subjective Subjective: HOSPITALIST SERVICE Pt s/e at bedside, reports persitent pain in area of both vasquez and suprapubic cath, mental status unchanged. denies cp sob fc nv. Objective - Vital Signs/Intake and Output Vital Signs (last 24 hours): Temp Pulse Resp BP Pulse Ox 97.4 F L 72 20 150/87 99 05/18/18 17:16 05/18/18 17:16 05/18/18 17:16 05/18/18 17:16 05/18/18 17:16 Intake and Output: 05/19/18 05/19/18 06:59 18:59 Intake Total 1140 Output Total 630 Balance 510 - Medications Medications: Current Medications Acetaminophen (Tylenol 325mg Tab) 650 mg PO Q6 PRN PRN Reason: Pain, moderate (4-7) Allopurinol (Zyloprim) 100 mg PO DAILY [facility] Last Admin: 05/18/18 10:48 Dose: Not Given Donepezil HCl (Aricept) 10 mg PO HS [facility] Last Admin: 05/18/18 22:00 Dose: 10 mg Famotidine (Pepcid) 20 mg PO DAILY [facility] Last Admin: 05/18/18 10:47 Dose: Not Given Sodium Chloride (Sodium Chloride 0.9%) 1,000 mls @ 50 mls/hr IV .Q20H [facility] Last Admin: 05/19/18 03:00 Dose: 50 mls/hr Losartan Potassium (Cozaar) 100 mg PO DAILY [facility] Last Admin: 05/18/18 10:47 Dose: Not Given Metoprolol Succinate (Toprol Xl) 25 mg PO DAILY [facility] Last Admin: 05/18/18 10:48 Dose: Not Given Tamsulosin HCl (Flomax) 0.4 mg PO HS [facility] Last Admin: 05/18/18 22:00 Dose: 0.4 mg - Labs Labs: 05/18/18 04:35 05/18/18 04:35 PT 13.3 SECONDS (9.7-12.2) H 05/17/18 15:20 INR 1.2 05/17/18 15:20 APTT 33 SECONDS (21-34) 05/17/18 15:20 - Constitutional Appears: No Acute Distress - Eye Exam Eye Exam: EOMI, Normal appearance - ENT Exam ENT Exam: Mucous Membranes Moist - Respiratory Exam Respiratory Exam: Clear to Ausculation Bilateral. absent: Wheezes - Cardiovascular Exam Cardiovascular Exam: Irregular Rhythm, +S1, +S2 - GI/Abdominal Exam GI & Abdominal Exam: absent: Rigid, Tenderness, Organomegaly - Exam Additional comments: SPC; 200cc gross hematuria Vasquez; 100cc gross hematuria - Neurological Exam Neurological Exam: Alert, Awake, CN II-XII Intact - Psychiatric Exam Additional comments: cognitive and memory impairments noted - Skin Skin Exam: Normal Color, Warm Assessment and Plan - Assessment and Plan (Free Text) Assessment: 78M admitted for baldev hematuria, recent UTI, pos UA, s/p 05/[address] Roberto Ching PLAN Hematuria -UA pos for >30k RBCs -Dr Roberto Ching consulted s/p suprapubic cath vasquez still in place Leave both in for now -Previous Bladder U/S on 05/06 showed prostate enlargement -Home Flomax .4 QD -NS @ 50/hr -Tylenol 650mg PO q6 for pain PRN -Monitor I&Os -SPC: 200cc, Vasquez: 100cc baldev hematuria Hx of IgA Nephropathy -Monitor I&Os -NS @ 50/hr -No steroids at this time due to recent UTI -Cozaar 100mg qd -consider Nephro consult Hx of Afib -EKG in ED shows Afib: unchanged from last EKG on previous admission -Home Toprol XL 25mg qd -Cozaar 100mg QD -Holding anticoagulation for procedure yesterday, pending Dr Ching recs will start Eliquis Hx of Diastolic and Systolic HF, Chronic -Toprol XL 25mg QD -Cozaar 100mg QD -Aldactone 25mg PO qd -Monitor I&Os Alzheimer's -fall precautions -Aricept -monitor for acute mental status change Hx of Nephrolithiasis -Home Allopurinol 100mg QD Hx of Gout -Allopurinol 100mg qd PPX -SCDs -Pepcid 20mg qd -NPO <Bahman See - Last Filed: 05/19/18 16:36> Objective - Vital Signs/Intake and Output Vital Signs (last 24 hours): Temp Pulse Resp BP Pulse Ox 98.7 F 101 H 20 115/64 96 05/19/18 07:55 05/19/18 07:55 05/19/18 07:55 05/19/18 07:55 05/19/18 07:55 Intake and Output: 05/19/18 05/19/18 06:59 18:59 Intake Total 1140 750 Output Total 630 1000 Balance 510 -250 - Medications Medications: Current Medications Acetaminophen (Tylenol 325mg Tab) 650 mg PO Q6 PRN PRN Reason: Pain, moderate (4-7) Allopurinol (Zyloprim) 100 mg PO DAILY [facility] Last Admin: 05/19/18 09:27 Dose: 100 mg Donepezil HCl (Aricept) 10 mg PO HS [facility] Last Admin: 05/18/18 22:00 Dose: 10 mg Famotidine (Pepcid) 20 mg PO DAILY [facility] Last Admin: 05/19/18 09:27 Dose: 20 mg Losartan Potassium (Cozaar) 100 mg PO DAILY [facility] Last Admin: 05/19/18 09:27 Dose: 100 mg Metoprolol Succinate (Toprol Xl) 25 mg PO DAILY [facility] Last Admin: 05/19/18 09:28 Dose: Not Given Morphine Sulfate (Morphine) 2 mg IVP Q8 [facility] Last Admin: 05/19/18 16:06 Dose: 2 mg Spironolactone (Aldactone) 25 mg PO BID [facility] Tamsulosin HCl (Flomax) 0.4 mg PO HS [facility] Last Admin: 05/18/18 22:00 Dose: 0.4 mg - Labs Labs: 05/19/18 08:23 05/19/18 08:23 PT 13.3 SECONDS (9.7-12.2) H 05/17/18 15:20 INR 1.2 05/17/18 15:20 APTT 33 SECONDS (21-34) 05/17/18 15:20 Attending/Attestation - Attestation I have personally seen and examined this patient.: Yes I have fully participated in the care of the patient.: Yes I have reviewed all pertinent clinical information, including history, physical exam and plan: Yes Notes (Text): Seen and examined by me. Patient is confused. Has suprapubic cath and Vasquez cath with bloody urine. we will continue vasquez flush as recommended by Dr Roberto Ching urine is draining well
[2018-05-19 08:37] LABS: BASO % 0.4 % (0.0-2.0); EOS % 0.2 % (0.0-4.0); LYMPH # 0.6 K/uL (1.0-4.3); LYMPH % 5.6 % (20.0-40.0); MEAN CELL VOLUME 92.4 fL (80.0-94.0); MEAN CORPUSCULAR HEMOGLOBIN 30.7 pg (27.0-31.0); MEAN CORPUSCULAR HGB CONC 33.3 g/dL (33.0-37.0); MEAN PLATELET VOLUME 8.3 fL (7.2-11.7); MONO # 0.4 K/uL (0.0-0.8); MONO % 4.3 % (0.0-10.0); NEUT # 9.1 K/uL (1.8-7.0); NEUT % 89.5 % (50.0-75.0); PLATELET COUNT 254 K/uL (130-400); RBC 3.92 Mil/uL (4.40-5.90); RED CELL DISTRIBUTION WIDTH 14.8 % (11.5-14.5); WHITE BLOOD COUNT 10.2 K/uL (4.8-10.8)
[2018-05-19 09:04] LABS: ALBUMIN 2.7 g/dL (3.5-5.0); BLOOD UREA NITROGEN 16 mg/dL (9-20); CALCIUM 8.5 mg/dl (8.6-10.4); GFR NON-AFRICAN AMERICAN > 60
[2018-05-19 09:05] LABS: ALB/GLOB RATIO 0.9 (1.0-2.1); ALT/SGPT 25 U/L (21-72); AST/SGOT 29 U/L (17-59)
[2018-05-19 09:19] LABS: LYMPHOCYTE 5 % (20-40); MONOCYTE 2 % (0-10); NEUTROPHIL 93 % (50-75); PLATELET ESTIMATE NORMAL (NORMAL); TOTAL CELLS COUNTED 100
[2018-05-19] MEDS: Metoprolol Succinate 25 mg XL Tab PO SCH (09:28)
--- NOTE | 2018-05-19 11:59 | RAD ---
Date of service: 05/18/2018 PROCEDURE: Intraoperative Fluoroscopy. HISTORY: URINARY RETENTION,HEMATURIA FINDINGS: Fluoroscopic assistance was provided for cystography. Please refer to the operative report from CHRISTIAN Hebert , MD [facility]. Total fluoroscopic time (continuous mode) utilized during the procedure 4.5 seconds. Dose report: DLP [id number] (mGy/m2)
[2018-05-19] MEDS: Morphine 4 MG/ML VIAL IVP SCH ×2 (16:06→21:29)
--- NOTE | 2018-05-19 22:57 | PCM.URO ---
Urology Progress Note - General General: No Complaints, Tolerating Diet - Subjective Abdominal Pain: No Flank Pain: No Nausea: No Vomiting: No Voiding Well: No Hematuria: Yes Dsypnea: No Chest Pain: No Fever & Chills: No - Objective Lab Studies: Reviewed (hct=36 creat=0.8) Lab Results Last 24 Hours: Laboratory Results - last 24 hr 05/19/18 05/19/18 08:23 08:23 WBC 10.2 RBC 3.92 L Hgb 12.0 Hct 36.2 MCV 92.4 MCH 30.7 MCHC 33.3 RDW 14.8 H Plt Count 254 MPV 8.3 Neut % (Auto) 89.5 H Lymph % (Auto) 5.6 L Wake % (Auto) 4.3 Eos % (Auto) 0.2 Baso % (Auto) 0.4 Neut # (Auto) 9.1 H Lymph # (Auto) 0.6 L Wake # (Auto) 0.4 Eos # (Auto) 0.0 Baso # (Auto) 0.0 Neutrophils % (Manual) 93 H Lymphocytes % (Manual) 5 L Monocytes % (Manual) 2 Platelet Estimate Normal RBC Morphology Normal Sodium 135 Potassium 4.3 Chloride 105 Carbon Dioxide 24 Anion Gap 10 BUN 16 Creatinine 0.8 Est GFR ( Amer) > 60 Est GFR (Non-Af Amer) > 60 Random Glucose 97 D Calcium 8.5 L Phosphorus 2.8 Magnesium 1.7 Total Bilirubin 1.1 AST 29 ALT 25 Alkaline Phosphatase 91 Total Protein 5.7 L Albumin 2.7 L Globulin 3.1 Albumin/Globulin Ratio 0.9 L Intake & Output: Intake & Output 05/19/18 05/19/18 05/20/18 06:59 18:59 06:59 Intake Total 5773 240 7185 Output Total 630 1000 550 Balance 510 -250 450 Intake: Intake, IV Amount 800 250 Right Hand 800 250 Oral [phone] Output: Urine 630 1000 550 Suprapubic 10 500 250 Urethral (Vasquez) 620 500 300 Other: # Bowel Movements 0 Vital Signs: Vital Signs - 24 hr 05/19/18 05/19/18 07:55 17:20 Temperature 98.7 F 97.9 F Pulse Rate 101 H 94 H Respiratory 20 18 Rate Blood Pressure 115/64 103/53 L O2 Sat by Pulse 96 100 Oximetry - Physical Exam Abdominal Exam: Soft, Non-Tender, Non-Distended Wound: Clean Dressing: Intact Back: No CVA Tenderness Genitalia: Without Inflammation Urinary Catheter Draining Well: Yes Urine Color: Tapia (Hematuria via vasquez and cystostomy tube) - Male Phallus: Normal Scrotum: Normal Testes: Normal: Bilateral - Plan Additional Information: IMP: stable p cystostomy tube insertion. Hematuria. Rec/P: both SP tube and uretrhal catheters in place. Irrigation. monitor output - Date & Time of Note Date: 05/19/18 Time: 20:50
[2018-05-20] MEDS: Morphine 4 MG/ML VIAL IVP SCH ×2 (05:14→13:59)
--- NOTE | 2018-05-20 06:48 | CP.PCM.PN ---
Subjective - Date & Time of Evaluation Date of Evaluation: 05/20/18 Time of Evaluation: 06:47 - Subjective Subjective: HOSPITALIST SERVICE Pt seen and examined at bedside. Pt reports improvement since yesterday, reports decreased pain in vasquez. Pt complains of decreased appetite and thirst. Pt is unaware of current status or location however answers questions appropriately, concentration deficits noted, 12 point ROs reviewed and otherwise negative. Objective - Vital Signs/Intake and Output Vital Signs (last 24 hours): Temp Pulse Resp BP Pulse Ox 97.8 F 91 H 20 145/81 99 05/19/18 23:45 05/19/18 23:45 05/19/18 23:45 05/19/18 23:45 05/19/18 23:45 Intake and Output: 05/19/18 05/20/18 18:59 06:59 Intake Total 750 1000 Output Total 1000 1650 Balance -250 -650 - Medications Medications: Current Medications Acetaminophen (Tylenol 325mg Tab) 650 mg PO Q6 PRN PRN Reason: Pain, moderate (4-7) Allopurinol (Zyloprim) 100 mg PO DAILY [facility] Last Admin: 05/19/18 09:27 Dose: 100 mg Donepezil HCl (Aricept) 10 mg PO HS [facility] Last Admin: 05/19/18 21:29 Dose: 10 mg Famotidine (Pepcid) 20 mg PO DAILY [facility] Last Admin: 05/19/18 09:27 Dose: 20 mg Losartan Potassium (Cozaar) 100 mg PO DAILY [facility] Last Admin: 05/19/18 09:27 Dose: 100 mg Metoprolol Succinate (Toprol Xl) 25 mg PO DAILY [facility] Last Admin: 05/19/18 09:28 Dose: Not Given Morphine Sulfate (Morphine) 2 mg IVP Q8 [facility] Last Admin: 05/20/18 05:14 Dose: 2 mg Spironolactone (Aldactone) 25 mg PO BID [facility] Last Admin: 05/19/18 17:27 Dose: 25 mg Tamsulosin HCl (Flomax) 0.4 mg PO HS [facility] Last Admin: 05/19/18 22:06 Dose: 0.4 mg - Labs Labs: 05/19/18 08:23 05/19/18 08:23 PT 13.3 SECONDS (9.7-12.2) H 05/17/18 15:20 INR 1.2 05/17/18 15:20 APTT 33 SECONDS (21-34) 05/17/18 15:20 - Additional Findings Additional findings: - Constitutional Appears: No Acute Distress - Eye Exam Eye Exam: EOMI, Normal appearance - ENT Exam ENT Exam: Mucous Membranes Moist - Respiratory Exam Respiratory Exam: Clear to Ausculation Bilateral. absent: Wheezes - Cardiovascular Exam Cardiovascular Exam: Irregular Rhythm, +S1, +S2 - GI/Abdominal Exam GI & Abdominal Exam: absent: Rigid, Tenderness, Organomegaly - Exam Additional comments: 24hr SPC; 1000cc gross hematuria Vasquez; 450cc gross hematuria - Neurological Exam Neurological Exam: Alert, Awake, CN II-XII Intact - Psychiatric Exam Additional comments: cognitive and memory impairments noted - Skin Skin Exam: Normal Color, Warm Assessment and Plan - Assessment and Plan (Free Text) Assessment: 78M admitted for baldev hematuria, recent UTI, pos UA, s/p 05/[address] Roberto Ching PLAN Hematuria -UA pos for >30k RBCs -Dr Roberto Ching consulted s/p suprapubic cath vasquez still in place Leave both in for now Flush irrigation daily until clear drainage -Previous Bladder U/S on 05/06 showed prostate enlargement -Home Flomax .4 QD -Tylenol 650mg PO q6 for pain PRN -Monitor I&Os -SPC: 200cc, Vasquez: 100cc clearer mixed urine w/ hematuria-improving Hx of IgA Nephropathy -Monitor I&Os -No steroids at this time due to recent UTI -Cozaar 100mg qd -consider Nephro consult Hx of Afib -EKG in ED shows Afib: unchanged from last EKG on previous admission -Home Toprol XL 25mg qd -Cozaar 100mg QD -May start anticoagulation as per Dr Ching -Eliquis 2.5mg PO qd Hx of Diastolic and Systolic HF, Chronic -Toprol XL 25mg QD -Cozaar 100mg QD -Aldactone 25mg PO qd -Monitor I&Os Alzheimer's -fall precautions -Aricept -monitor for acute mental status change Hx of Nephrolithiasis -Home Allopurinol 100mg QD Hx of Gout -Allopurinol 100mg qd PPX -SCDs -Pepcid 20mg qd -HHD -PT eval and treat DISPO: improving- clearer hematuria, per Jeane- continue irrigation and m onitor.
[2018-05-20 07:55] LABS: BASO # 0.1 K/uL (0.0-0.2); BASO % 0.6 % (0.0-2.0); EOS # 0.1 K/uL (0.0-0.7); EOS % 1.2 % (0.0-4.0); HEMOGLOBIN 11.3 g/dL (12.0-18.0); LYMPH # 0.6 K/uL (1.0-4.3); LYMPH % 6.3 % (20.0-40.0); MEAN CELL VOLUME 91.6 fL (80.0-94.0); MEAN CORPUSCULAR HEMOGLOBIN 31.3 pg (27.0-31.0); MEAN CORPUSCULAR HGB CONC 34.2 g/dL (33.0-37.0); MEAN PLATELET VOLUME 7.8 fL (7.2-11.7); MONO # 0.5 K/uL (0.0-0.8); MONO % 5.1 % (0.0-10.0); NEUT # 8.9 K/uL (1.8-7.0); NEUT % 86.8 % (50.0-75.0); NRBC % 0.1 % (0.0-2.0); PLATELET COUNT 227 K/uL (130-400); RBC 3.62 Mil/uL (4.40-5.90); RED CELL DISTRIBUTION WIDTH 14.6 % (11.5-14.5); WHITE BLOOD COUNT 10.3 K/uL (4.8-10.8)
[2018-05-20 09:00] LABS: ALB/GLOB RATIO 0.8 (1.0-2.1); ALBUMIN 2.4 g/dL (3.5-5.0); ALT/SGPT 25 U/L (21-72); AST/SGOT 27 U/L (17-59); BLOOD UREA NITROGEN 12 mg/dL (9-20); CALCIUM 8.2 mg/dl (8.6-10.4); GFR NON-AFRICAN AMERICAN > 60
[2018-05-20 09:09] LABS: LYMPHOCYTE 1 % (20-40); MONOCYTE 4 % (0-10); NEUTROPHIL 95 % (50-75); PLATELET ESTIMATE NORMAL (NORMAL); TOTAL CELLS COUNTED 100
[2018-05-20 09:10] LABS: HYPOCHROMIC SLIGHT; OVALOCYTES SLIGHT; POLYCHROMIC SLIGHT
[2018-05-20] MEDS: Metoprolol Succinate 25 mg XL Tab PO SCH (09:15)
--- NOTE | 2018-05-21 07:14 | CP.PCM.PN ---
<Kirt Mayen - Last Filed: 05/21/18 14:39> Subjective - Date & Time of Evaluation Date of Evaluation: 05/21/18 Time of Evaluation: 07:14 - Subjective Subjective: PGY1 Medicine Progress Note for Dr. See Patient was seen and evaluated at bedside this morning. Overnight, Per Nurse, Hematuria noted with moderate amount of clots presented upon irrigation. Vasquez patent and draining, smith red urine. Suprapubic catheter also noted with hematuria, patent and draining. Patient tolerating diet without issue. Patient has no complaints today. A&Ox1. Patient otherwise denies chest pain, abdominal pain, back pain, shortness of breath, numbness/tingling in lower extremities, headache, dizziness, nausea, vomiting, fever, and/or chills. Objective - Vital Signs/Intake and Output Vital Signs (last 24 hours): Temp Pulse Resp BP Pulse Ox 98.4 F 64 20 114/67 97 05/20/18 23:54 05/20/18 23:54 05/20/18 23:54 05/20/18 23:54 05/20/18 23:54 Intake and Output: 05/21/18 05/21/18 06:59 18:59 Intake Total 1480 Output Total 1750 Balance -270 - Medications Medications: Current Medications Acetaminophen (Tylenol 325mg Tab) 650 mg PO Q6 PRN PRN Reason: Pain, moderate (4-7) Last Admin: 05/21/18 04:25 Dose: 650 mg Allopurinol (Zyloprim) 100 mg PO DAILY [facility] Last Admin: 05/20/18 09:15 Dose: 100 mg Apixaban (Eliquis) 2.5 mg PO DAILY [facility] Donepezil HCl (Aricept) 10 mg PO HS [facility] Last Admin: 05/20/18 21:55 Dose: 10 mg Famotidine (Pepcid) 20 mg PO DAILY [facility] Last Admin: 05/20/18 09:15 Dose: 20 mg Losartan Potassium (Cozaar) 100 mg PO DAILY [facility] Last Admin: 05/20/18 09:15 Dose: 100 mg Metoprolol Succinate (Toprol Xl) 25 mg PO DAILY [facility] Last Admin: 05/20/18 09:15 Dose: 25 mg Spironolactone (Aldactone) 25 mg PO BID [facility] Last Admin: 05/20/18 18:46 Dose: 25 mg Tamsulosin HCl (Flomax) 0.4 mg PO HS [facility] Last Admin: 05/20/18 21:56 Dose: 0.4 mg - Labs Labs: 05/20/18 07:30 05/20/18 07:30 PT 13.3 SECONDS (9.7-12.2) H 05/17/18 15:20 INR 1.2 05/17/18 15:20 APTT 33 SECONDS (21-34) 05/17/18 15:20 - Additional Findings Additional findings: - Constitutional Appears: No Acute Distress - Eye Exam Eye Exam: EOMI, Normal appearance - ENT Exam ENT Exam: Mucous Membranes Moist - Respiratory Exam Respiratory Exam: Clear to Ausculation Bilateral. absent: Wheezes - Cardiovascular Exam Cardiovascular Exam: Irregular Rhythm, +S1, +S2 - GI/Abdominal Exam GI & Abdominal Exam: absent: Rigid, Tenderness, Organomegaly - Exam Additional comments: as of this morning SPC; gross hematuria 850mL Vasquez; gross hematuria 1500mL - Neurological Exam Neurological Exam: Alert, Awake, CN II-XII Intact - Psychiatric Exam Additional comments: cognitive and memory impairments noted - Skin Skin Exam: Normal Color, Warm Assessment and Plan - Assessment and Plan (Free Text) Assessment: 78M admitted for baldev hematuria, recent UTI, positive UA, s/p 05/[address] Roberto Ching Per Discussion with Dr. Roberto Ching, continue with flushing and irrigation of vasquez as recommended. Patient may need cystocscopy in the near future if hematuria does not resolve. Patient with baldev blood from vasquez and suprapubic catheter. Thus, xeralto is currently held. Once Patient is discharged, he will be discharged with a vasquez and suprapubic catheter in place, per Dr. Roberto Ching. PLAN Hematuria - UA pos for > 30k RBCs - Dr Roberto Ching consulted s/p suprapubic cath vasquez still in place Leave both in for now Flush irrigation daily until clear drainage - Previous Bladder U/S on 05/06 showed prostate enlargement - Home Flomax 0.4 HS - Tylenol 650mg PO q6 for pain PRN - Monitor I&Os - SPC: Suprapubic catheter with worsening hematuria Vasquez: with worsening hematuria Hyponatremia - Na+=129 - Patient was seen by Dr. Avalos in the past; thus was consulted - rec. appreciated - Pending Nephrology recommendations, will start on IVF - Aldactone HELD Hx of IgA Nephropathy - Monitor I&Os - No steroids at this time due to recent UTI - Cozaar 100mg qd - Nephrology (Dr. Avalos) recommendations appreciated Hx of Afib - EKG in ED shows Afib: unchanged from last EKG on previous admission - Home Toprol XL 25mg qd - Cozaar 100mg QD - Patient was on Xeralto at home; HOLD Xeralto for now due to bleeding Hx of Diastolic and Systolic HF, Chronic - Toprol XL 25mg QD - Cozaar 100mg QD - Aldactone 25mg PO qd - HELD at this time - Monitor I&Os Alzheimer's - Fall precautions - Aricept - Monitor for acute mental status change Hx of Nephrolithiasis - Home Allopurinol 100mg QD Hx of Gout - Allopurinol 100mg qd PPX - SCDs - Pepcid 20mg qd - HHD - PT eval and treat Patient seen and case discussed in detail with Dr. Esa Mayen PGY1 <Bahman See - Last Filed: 05/21/18 17:57> Objective - Vital Signs/Intake and Output Vital Signs (last 24 hours): Temp Pulse Resp BP Pulse Ox 97.5 F L 80 20 100/60 95 05/21/18 17:00 05/21/18 17:00 05/21/18 17:00 05/21/18 17:00 05/21/18 17:00 Intake and Output: 05/21/18 05/21/18 06:59 18:59 Intake Total 1480 800 Output Total 1750 Balance -270 800 - Medications Medications: Current Medications Acetaminophen (Tylenol 325mg Tab) 650 mg PO Q6 PRN PRN Reason: Pain, moderate (4-7) Last Admin: 05/21/18 04:25 Dose: 650 mg Allopurinol (Zyloprim) 100 mg PO DAILY [facility] Last Admin: 05/21/18 09:12 Dose: 100 mg Donepezil HCl (Aricept) 10 mg PO HS [facility] Last Admin: 05/20/18 21:55 Dose: 10 mg Enoxaparin Sodium (Lovenox) 60 mg SC Q12 [facility] Famotidine (Pepcid) 20 mg PO DAILY [facility] Last Admin: 05/21/18 09:12 Dose: 20 mg Losartan Potassium (Cozaar) 100 mg PO DAILY [facility] Last Admin: 05/21/18 09:13 Dose: 100 mg Metoprolol Succinate (Toprol Xl) 25 mg PO DAILY [facility] Last Admin: 05/21/18 09:12 Dose: 25 mg Spironolactone (Aldactone) 25 mg PO BID [facility] Last Admin: 05/21/18 09:12 Dose: 25 mg Tamsulosin HCl (Flomax) 0.4 mg PO HS [facility] Last Admin: 05/20/18 21:56 Dose: 0.4 mg - Labs Labs: 05/21/18 08:28 05/21/18 08:28 PT 13.3 SECONDS (9.7-12.2) H 05/17/18 15:20 INR 1.2 05/17/18 15:20 APTT 33 SECONDS (21-34) 05/17/18 15:20 Attending/Attestation - Attestation I have personally seen and examined this patient.: Yes I have fully participated in the care of the patient.: Yes I have reviewed all pertinent clinical information, including history, physical exam and plan: Yes Notes (Text): seen and examined .His faley cath and suprapubic cath urine draining dark/hematuria urine with clots. no fresh bleeding noted comfortable 1. Hematuria spoke to Dr Roberto Ching ,continue flush irrigation as instructed by Dr Ching keep suprapubic cath and faley cath may need cystoscopy as per DR Roebrto ching monitor cbc 2.Hyponatremia Na+=129 ,urine osmolarity,serum osmolarity,urine sodium ordered Aldactone HELD ,we will follow with Dr Avalos 3.Hx of IgA Nephropathy 4.Hx of Afib and Diastolic and Systolic HF, Chronic continue his Toprol XL 25mg qd and Cozaar 100mg QD HOLD Xeralto for now due to bleeding start on lovenox and monitor for bleeding we will continue his allopurinol for gout dementia with confusion-fall precaution
[2018-05-21 08:34] LABS: BASO % 0.3 % (0.0-2.0); EOS # 0.1 K/uL (0.0-0.7); EOS % 0.7 % (0.0-4.0); LYMPH # 0.5 K/uL (1.0-4.3); LYMPH % 5.5 % (20.0-40.0); MEAN CELL VOLUME 91.2 fL (80.0-94.0); MEAN CORPUSCULAR HEMOGLOBIN 31.6 pg (27.0-31.0); MEAN CORPUSCULAR HGB CONC 34.7 g/dL (33.0-37.0); MEAN PLATELET VOLUME 8.4 fL (7.2-11.7); MONO # 0.5 K/uL (0.0-0.8); MONO % 5.3 % (0.0-10.0); NEUT # 8.4 K/uL (1.8-7.0); NEUT % 88.2 % (50.0-75.0); PLATELET COUNT 222 K/uL (130-400); RBC 3.49 Mil/uL (4.40-5.90); RED CELL DISTRIBUTION WIDTH 14.7 % (11.5-14.5); WHITE BLOOD COUNT 9.5 K/uL (4.8-10.8)
[2018-05-21 08:58] LABS: ALB/GLOB RATIO 0.8 (1.0-2.1); ALBUMIN 2.3 g/dL (3.5-5.0); ALT/SGPT 21 U/L (21-72); AST/SGOT 23 U/L (17-59); BLOOD UREA NITROGEN 12 mg/dL (9-20); CALCIUM 8.1 mg/dl (8.6-10.4); GFR NON-AFRICAN AMERICAN > 60
[2018-05-21 09:02] LABS: LYMPHOCYTE 4 % (20-40); MONOCYTE 5 % (0-10); NEUTROPHIL 91 % (50-75); TOTAL CELLS COUNTED 100
[2018-05-21 09:03] LABS: PLATELET ESTIMATE NORMAL (NORMAL)
[2018-05-21] MEDS: Metoprolol Succinate 25 mg XL Tab PO SCH (09:12)
--- NOTE | 2018-05-21 16:07 | PCM.URO ---
Urology Progress Note - General General: No Complaints - Subjective Voiding Well: No Hematuria: Yes Fever & Chills: No Other: tubes in place. Pt in bed - Objective Lab Results Last 24 Hours: Laboratory Results - last 24 hr 05/21/18 05/21/18 08:28 08:28 WBC 9.5 RBC 3.49 L Hgb 11.0 L Hct 31.8 L MCV 91.2 MCH 31.6 H MCHC 34.7 RDW 14.7 H Plt Count 222 MPV 8.4 Neut % (Auto) 88.2 H Lymph % (Auto) 5.5 L [place] % (Auto) 5.3 Eos % (Auto) 0.7 Baso % (Auto) 0.3 Neut # (Auto) 8.4 H Lymph # (Auto) 0.5 L [place] # (Auto) 0.5 Eos # (Auto) 0.1 Baso # (Auto) 0.0 Neutrophils % (Manual) 91 H Lymphocytes % (Manual) 4 L Monocytes % (Manual) 5 Platelet Estimate Normal RBC Morphology Normal Sodium 129 L Potassium 3.9 Chloride 100 Carbon Dioxide 25 Anion Gap 8 L BUN 12 Creatinine 0.7 L Est GFR ( Amer) > 60 Est GFR (Non-Af Amer) > 60 Random Glucose 107 Calcium 8.1 L Phosphorus 3.6 Magnesium 1.8 Total Bilirubin 0.9 AST 23 ALT 21 Alkaline Phosphatase 90 Total Protein 5.1 L Albumin 2.3 L Globulin 2.8 Albumin/Globulin Ratio 0.8 L Intake & Output: Intake & Output 05/20/18 05/21/18 05/21/18 18:59 06:59 18:59 Intake Total 800 1480 800 Output Total 600 1750 Balance 200 -270 800 Intake: Oral 800 1480 800 Output: Urine 600 1750 Suprapubic 300 550 Urethral (Vasquez) 300 1200 Vital Signs: Vital Signs - 24 hr 05/20/18 05/21/18 23:54 08:06 Temperature 98.4 F 97.6 F Pulse Rate 64 65 Respiratory 20 20 Rate Blood Pressure 114/67 114/74 O2 Sat by Pulse 97 97 Oximetry - Physical Exam Abdominal Exam: Soft, Non-Tender, Non-Distended Wound: Clean Back: No CVA Tenderness Genitalia: Without Inflammation Urinary Catheter Draining Well: Yes (vasquez and cystostomy) Urine Color: Dark Red (catheters irrigated. Clots removed via urethral vasquez catheter) - Male Phallus: Normal Scrotum: Normal Testes: Normal: Bilateral - Plan Wound Care: Yes Catheter Care: Yes (Maintain both SP tube and urethral catheter.) Intake & Output: Yes - Date & Time of Note Date: 05/21/18 Time: 11:45
[2018-05-21 19:46] LABS: BASO % 0.3 % (0.0-2.0); EOS # 0.2 K/uL (0.0-0.7); EOS % 2.7 % (0.0-4.0); HEMOGLOBIN 11.2 g/dL (12.0-18.0); LYMPH # 0.7 K/uL (1.0-4.3); LYMPH % 8.4 % (20.0-40.0); MEAN CELL VOLUME 91.9 fL (80.0-94.0); MEAN CORPUSCULAR HEMOGLOBIN 30.7 pg (27.0-31.0); MEAN CORPUSCULAR HGB CONC 33.4 g/dL (33.0-37.0); MEAN PLATELET VOLUME 7.9 fL (7.2-11.7); MONO # 0.8 K/uL (0.0-0.8); MONO % 8.7 % (0.0-10.0); NEUT % 79.9 % (50.0-75.0); NRBC % 0.1 % (0.0-2.0); PLATELET COUNT 248 K/uL (130-400); RBC 3.65 Mil/uL (4.40-5.90); RED CELL DISTRIBUTION WIDTH 14.7 % (11.5-14.5); WHITE BLOOD COUNT 8.8 K/uL (4.8-10.8)
[2018-05-21 19:51] LABS: INR 1.3; PROTHROMBIN TIME 14.1 SECONDS (9.7-12.2)
[2018-05-21 19:59] LABS: OSMOLALITY,URINE 178 mosm/kg (300-1000)
[2018-05-21 20:10] LABS: BANDS 4 % (0-2); EOSINOPHIL 1 % (0-4); LYMPHOCYTE 4 % (20-40); MICROCYTOSIS SLIGHT; MONOCYTE 9 % (0-10); NEUTROPHIL 82 % (50-75); PLATELET ESTIMATE NORMAL (NORMAL); TOTAL CELLS COUNTED 100
[2018-05-21 20:11] LABS: SCHISTOCYTES SLIGHT
[2018-05-21] MEDS: Enoxaparin 60 mg Syringe SC SCH (22:33)
[2018-05-21] MEDS ORDERED: Albumin Human 5% (12.5 gm/250 ml) IV ONE (23:53)
--- NOTE | 2018-05-22 05:43 | CON ---
DATE: 05/21/2018 NEPHROLOGY CONSULTATION HISTORY OF PRESENT ILLNESS: The patient is an 78-year-old male with past medical history of hypertension; atrial fibrillation, on Xarelto, CHF with systolic dysfunction, COPD, IgA nephropathy (mild) with proteinuria, nephrolithiasis, gout, prostate cancer, multiple myeloma (not being treated) and prostate enlargement, presented to ED with hematuria and dysuria. Nephrology now being consulted for hyponatremia. The patient has been having urinary retention since several months and has subsequently been having indwelling Ching catheter. The patient was also recently admitted for Staph UTI and discharged on antibiotics. He began to have baldev hematuria and urethral pain a few days before presentation. The patient subsequently had suprapubic catheter inserted on this admission, continues to have gross hematuria, and passed clots in both suprapubic and Ching catheter drainage. The patient, otherwise, is eating about 50% of his meal, reports some dyspnea but was able to walk with physical therapy today. Denies any vomiting or diarrhea. Does admit to drinking significant amount of water for Staph. Drank about a little over half a liter just this evening. The patient otherwise denies being in any pain. PAST MEDICAL HISTORY: As above. Multiple myeloma diagnosed last year on a bone marrow biopsy, being followed by Dr. Francois. The patient/family opting out of treatment with chemo for now. Also history of progressive dementia with the patient wandering out of his home and getting lost. SOCIAL HISTORY: No smoking history. FAMILY HISTORY: . REVIEW OF SYSTEMS: CONSTITUTIONAL: No fevers on this admission. HEENT: Denies any dysphagia. RESPIRATORY: Reports some dyspnea. CARDIOVASCULAR: Denies any chest pain or palpitations. Has history of atrial fibrillation. GASTROINTESTINAL: As per HPI. GENITOURINARY: As per HPI. MUSCULOSKELETAL: Denies any arthralgias or back pain. PSYCHIATRIC: With progressive dementia. Confused at times per nursing staff. PHYSICAL EXAMINATION: VITAL SIGNS: This evening blood pressure 100/60, heart rate 80, respirations 20, temperature 97.5, O2 sat 95% on room air. GENERAL: No distress. Conversing coherently in full sentences. HEENT: Moist mucous membranes. Nonicteric. No cervical lymphadenopathy. RESPIRATORY: Left basal rales appreciated. No wheezes. No rhonchi. CARDIOVASCULAR: Heart sounds S1, S2 normal. No rubs. No gallops. GASTROINTESTINAL: Abdomen moderately distended with some tenderness. GENITOURINARY: Suprapubic and Ching catheters in place. EXTREMITIES: Mild leg edema. SKIN: Warm. No cyanosis. PSYCHIATRIC: Not agitated. Normal mood. LABORATORY DATA: CBC: WBC 8.8, hemoglobin 11.2, hematocrit 33.5, platelets 248. Chemistry panel: Sodium 129, potassium 3.9, chloride 100, bicarb 25, BUN 12, creatinine 0.7, glucose 107, calcium 8.1, phosphorus 3.6, magnesium 1.8, AST 23, ALT 21, albumin 2.3. Urine studies: Urine osmolality 178, urine sodium 20. ASSESSMENT AND PLAN: 1. Hyponatremia, progressive over the past two days after intravenous fluids stopped. Blood pressure currently at lower end of normal. Unclear if the patient is having adequate p.o. intake. Serum albumin also dropping indicative of protein calorie malnutrition. Urine osmolality is relatively low (although not maximally low) and may be indicative of inadequate solid intake. Excessive oral fluid intake may be exacerbating hyponatremia. Cannot rule out some component of volume depletion especially with hypoalbuminemia and blood pressure at lower end of normal. Nevertheless, need to be careful in giving intravenous fluids especially with the patient's congestive heart failure history. We will give one dose of 5% albumin over a period of four hours. Should hold Aldactone for now as it can worsen hyponatremia. Oral fluid restriction to 1500 mL per day. Avoid nonsteroidal anti-inflammatory drugs for pain as it can potentiate the effect of antidiuretic hormone. 2. Congestive heart failure with systolic dysfunction. The patient currently does not appear to be in heart failure. Nevertheless, we will obtain chest x-ray, and he does have some rales on exam. He will benefit from being kept on oral Lasix 20 mg daily. Holding Aldactone for now. 3. 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 Otherwise, relatively mild with no significant renal insufficiency. We will keep on losartan for proteinuric control. 4. Chronic kidney disease with proteinuria as well as history of unilateral atrophic kidney. Renal function currently preserved. We will monitor. 5. Multiple myeloma. Unclear when was the last time the patient followed with sustainability manager. Does have some bony lesions on imaging done last year consistent with this diagnosis. The patient/family had opted out to not pursue chemotherapy. Should have close followup with sustainability manager. 6. Gross hematuria, continues to persist. Nursing staff instructed to flush both Ching and suprapubic catheters twice per shift to prevent clots from forming. 7. Hypertension. Blood pressure currently at lower end of normal. We will hold all diuretics for now. Thank you for this referral. We will be following up closely. Casey Avalos MD
[2018-05-22 07:28] LABS: BASO % 0.3 % (0.0-2.0); EOS # 0.2 K/uL (0.0-0.7); EOS % 2.2 % (0.0-4.0); LYMPH # 0.6 K/uL (1.0-4.3); LYMPH % 6.9 % (20.0-40.0); MEAN CELL VOLUME 91.2 fL (80.0-94.0); MEAN CORPUSCULAR HEMOGLOBIN 31.6 pg (27.0-31.0); MEAN CORPUSCULAR HGB CONC 34.7 g/dL (33.0-37.0); MEAN PLATELET VOLUME 7.5 fL (7.2-11.7); MONO # 0.5 K/uL (0.0-0.8); NEUT # 6.9 K/uL (1.8-7.0); NEUT % 84.6 % (50.0-75.0); PLATELET COUNT 232 K/uL (130-400); RBC 3.47 Mil/uL (4.40-5.90); RED CELL DISTRIBUTION WIDTH 14.9 % (11.5-14.5); WHITE BLOOD COUNT 8.2 K/uL (4.8-10.8)
[2018-05-22 07:43] LABS: ALB/GLOB RATIO 0.9 (1.0-2.1); ALBUMIN 2.6 g/dL (3.5-5.0); ALT/SGPT 17 U/L (21-72); AST/SGOT 25 U/L (17-59); BLOOD UREA NITROGEN 13 mg/dL (9-20); CALCIUM 8.4 mg/dl (8.6-10.4); GFR NON-AFRICAN AMERICAN > 60; HDL CHOLESTEROL 23 mg/dL (30-70)
[2018-05-22 07:54] LABS: LDL CHOLESTEROL 75 mg/dL (0-129)
--- NOTE | 2018-05-22 08:22 | CP.PCM.PN ---
<Kirt Mayen - Last Filed: 05/22/18 13:27> Subjective - Date & Time of Evaluation Date of Evaluation: 05/22/18 Time of Evaluation: 08:19 - Subjective Subjective: PGY1 Medicine Progress Note for Dr. Escobedo Patient was seen and evaluated at bedside this morning. Overnight, Per Nurse, Hematuria noted with no clots presented upon irrigation. Vasquez patent and draining, smith red urine. Suprapubic catheter also noted with hematuria, patent and draining. Patient tolerating diet without issue. Patient has no complaints today. A&Ox1. Patient otherwise denies chest pain, abdominal pain, back pain, shortness of breath, numbness/tingling in lower extremities, headache, dizziness, nausea, vomiting, fever, and/or chills. Objective - Vital Signs/Intake and Output Vital Signs (last 24 hours): Temp Pulse Resp BP Pulse Ox 98.4 F 68 20 109/75 100 05/21/18 23:10 05/21/18 23:10 05/21/18 23:10 05/21/18 23:10 05/21/18 23:10 Intake and Output: 05/22/18 05/22/18 06:59 18:59 Intake Total 1390 Output Total 1650 Balance -260 - Medications Medications: Current Medications Acetaminophen (Tylenol 325mg Tab) 650 mg PO Q6 PRN PRN Reason: Pain, moderate (4-7) Last Admin: 05/21/18 04:25 Dose: 650 mg Allopurinol (Zyloprim) 100 mg PO DAILY [facility] Last Admin: 05/21/18 09:12 Dose: 100 mg Donepezil HCl (Aricept) 10 mg PO HS [facility] Last Admin: 05/21/18 22:36 Dose: 10 mg Enoxaparin Sodium (Lovenox) 60 mg SC Q12 [facility] Last Admin: 05/21/18 22:33 Dose: 60 mg Famotidine (Pepcid) 20 mg PO DAILY [facility] Last Admin: 05/21/18 09:12 Dose: 20 mg Losartan Potassium (Cozaar) 100 mg PO DAILY [facility] Last Admin: 05/21/18 09:13 Dose: 100 mg Metoprolol Succinate (Toprol Xl) 25 mg PO DAILY [facility] Last Admin: 05/21/18 09:12 Dose: 25 mg Spironolactone (Aldactone) 25 mg PO BID [facility] Last Admin: 05/21/18 09:12 Dose: 25 mg Tamsulosin HCl (Flomax) 0.4 mg PO HS [facility] Last Admin: 05/21/18 22:37 Dose: 0.4 mg - Labs Labs: 05/22/18 07:09 05/22/18 07:09 PT 14.1 SECONDS (9.7-12.2) H 05/21/18 19:43 INR 1.3 05/21/18 19:43 APTT 33 SECONDS (21-34) 05/17/18 15:20 - Additional Findings Additional findings: - Constitutional Appears: No Acute Distress - Eye Exam Eye Exam: EOMI, Normal appearance - ENT Exam ENT Exam: Mucous Membranes Moist - Respiratory Exam Respiratory Exam: Clear to Ausculation Bilateral. absent: Wheezes - Cardiovascular Exam Cardiovascular Exam: Irregular Rhythm, +S1, +S2 - GI/Abdominal Exam GI & Abdominal Exam: absent: Rigid, Tenderness, Organomegaly - Exam Additional comments: as of this morning SPC; hematuria 1000mL Vasquez; hematuria 650mL - Neurological Exam Neurological Exam: Alert, Awake, CN II-XII Intact - Psychiatric Exam Additional comments: cognitive and memory impairments noted - Skin Skin Exam: Normal Color, Warm Assessment and Plan - Assessment and Plan (Free Text) Assessment: 78M admitted for baldev hematuria, recent UTI, positive UA, s/p 05/[address] Roberto Ching Per Discussion with Dr. Roberto Ching, continue with flushing and irrigation of vasquez as recommended. Patient may need cystocscopy in the near future if hematuria does not resolve. Patient with baldev blood from vasquez and suprapubic catheter 05/21. Thus, xeralto is currently held. Once Patient is discharged, he will be discharged with a vasquez and suprapubic catheter in place, per Dr. Roberto Ching. PLAN Hematuria - UA pos for > 30k RBCs - Dr Roberto Ching consulted s/p suprapubic cath vasquez still in place Leave both in for now Flush irrigation daily until clear drainage - Previous Bladder U/S on 05/06 showed prostate enlargement - Home Flomax 0.4 HS - Tylenol 650mg PO q6 for pain PRN - Monitor I&Os - SPC: 1000mL hematuria; Avsquez: 650mL hematuria - Continue to hold anticoagulation Hyponatremia, resolved - Na+= 132 - Dr. Avalos consulted - rec. appreciated - Pending Nephrology recommendations, will start on IVF - Aldactone HELD Hx of IgA Nephropathy - Monitor I&Os - No steroids at this time due to recent UTI - Cozaar 100mg qd - Nephrology (Dr. Avalos) recommendations appreciated Hx of Afib - EKG in ED shows Afib: unchanged from last EKG on previous admission - Home Toprol XL 25mg qd - Cozaar 100mg QD - Patient was on Xeralto at home; HOLD Xeralto for now due to bleeding Hx of Diastolic and Systolic HF, Chronic - Toprol XL 25mg QD - Cozaar 100mg QD - Aldactone 25mg PO qd - HELD at this time - Monitor I&Os Alzheimer's - Fall precautions - Aricept - Monitor for acute mental status change Hx of Nephrolithiasis - Home Allopurinol 100mg QD Hx of Gout - Allopurinol 100mg qd PPX - SCDs - Pepcid 20mg qd - HHD - PT eval and treat Patient seen and case discussed in detail with Dr. Gregg Mayen PGY1 <Willy Escobedo - Last Filed: 05/22/18 19:28> Objective - Vital Signs/Intake and Output Vital Signs (last 24 hours): Temp Pulse Resp BP Pulse Ox 98 F 106 H 20 120/57 L 99 05/22/18 13:00 05/22/18 13:00 05/22/18 13:00 05/22/18 13:00 05/22/18 13:00 Intake and Output: 05/22/18 05/23/18 18:59 06:59 Intake Total 480 Output Total 700 Balance -220 - Medications Medications: Current Medications Acetaminophen (Tylenol 325mg Tab) 650 mg PO Q6 PRN PRN Reason: Pain, moderate (4-7) Last Admin: 05/21/18 04:25 Dose: 650 mg Allopurinol (Zyloprim) 100 mg PO DAILY [facility] Last Admin: 05/22/18 11:04 Dose: 100 mg Donepezil HCl (Aricept) 10 mg PO HS [facility] Last Admin: 05/21/18 22:36 Dose: 10 mg Famotidine (Pepcid) 20 mg PO DAILY [facility] Last Admin: 05/22/18 11:04 Dose: 20 mg Losartan Potassium (Cozaar) 100 mg PO DAILY [facility] Last Admin: 05/22/18 11:04 Dose: 100 mg Metoprolol Succinate (Toprol Xl) 25 mg PO DAILY [facility] Last Admin: 05/22/18 11:05 Dose: 25 mg Polyethylene Glycol (Miralax) 17 gm PO ONCE ONE Stop: 05/22/18 19:16 Spironolactone (Aldactone) 25 mg PO BID [facility] Last Admin: 05/21/18 09:12 Dose: 25 mg Tamsulosin HCl (Flomax) 0.4 mg PO HS [facility] Last Admin: 05/21/18 22:37 Dose: 0.4 mg - Labs Labs: 05/22/18 16:28 05/22/18 07:09 PT 14.1 SECONDS (9.7-12.2) H 05/21/18 19:43 INR 1.3 05/21/18 19:43 APTT 33 SECONDS (21-34) 05/17/18 15:20 Attending/Attestation - Attestation I have personally seen and examined this patient.: Yes I have fully participated in the care of the patient.: Yes I have reviewed all pertinent clinical information, including history, physical exam and plan: Yes Notes (Text): 05/22/18 19:15 Hospitalist Care of this patient was gone over in detail with resident Dr. Mayen. Patient was seen and examined at 10:30 AM 05/22/18 FULL ROS was not possible as patient would not answer ROS questions Spoke with BASEBALL INSPECTOR in the room and patient had NO issues with eating his breakfast in the morning and there was NO bowel movement at time of my exam Also on Exam Follows instructions Left side of face and forehead there is a pink/purple discoloration (chronic?) Assessments: 1). Hematuria/Hx Chronic Vasquez Catheter/Hx Prostate CA and S/P Suprapubic Catheter Placement (this admission) 2). Hyponatremia 3). Hx IgA Nephropathy 4). Hx Atrial Fibrillation 5). Hx HFpEF 6). Hx Alzheimer's Dementia 7). Hx Nephrolithiasis 8). Hx Gout Spoke with Nurse Torres and patient had 400 ml bloody urine output and 100 ml blood urine output from 7 AM to 10:30 AM this morning. Spoke with Nurse Torres and Irrigation with 40 ml of NS via Vasquez and 10 ml via Suprapubic Catheter is being performed Q shift as per Urologist Dr. Danni Ching instructions. Considering patient's bloody urine, Xeralto (which was being used for anticoagulation for Hx Atrial Fibrillation) was placed on hold. Trial of therapeutic Lovenox at 60 mg SC was given on evening of 05/21/18 as patient's urine was pinking in color. However when I saw patient for the first time on morning 05/22/18 bloody urine noted in vasquez catheter bag and suprapubic catheter bag. HgB/Hct stable but in light of the bloody urine the Lovenox was not continued. For now, both Vasquez and Suprapubic Catheter are to remain in place and Medicine Team should follow up with Urology as to when Vasquez will be removed. Medicine Team please follow up with Urologist Dr. Danni Ching as to further plan concerning the hematuria: cystoscopy? Willy Escobedo D.O.
--- NOTE | 2018-05-22 08:41 | RAD ---
Date of service: 05/22/2018 HISTORY: dyspnea COMPARISON: Portable chest 03/27/2017. TECHNIQUE: Chest PA and lateral FINDINGS: LUNGS: Left basilar atelectasis or infiltrate persists. None is seen at the right. PLEURA: No right pleural effusion. No pneumothorax bilaterally. Left pleural effusion not excluded though mild. CARDIOVASCULAR: Calcific atherosclerotic changes are seen related to the thoracic aorta. Cardiomegaly noted once again. No pulmonary vascular congestion. OSSEOUS STRUCTURES: No significant abnormalities. VISUALIZED UPPER ABDOMEN: Normal. OTHER FINDINGS: None. IMPRESSION: Left basilar opacity is unchanged reflecting atelectasis or infiltrate with small pleural effusion not excluded. No pulmonary vascular congestion. Cardiomegaly stable.
[2018-05-22 10:42] LABS: BANDS 1 % (0-2); EOSINOPHIL 3 % (0-4); NEUTROPHIL 84 % (50-75); PLATELET ESTIMATE NORMAL (NORMAL); TOTAL CELLS COUNTED 100
[2018-05-22 10:43] LABS: ANISOCYTOSIS SLIGHT; LYMPHOCYTE 7 % (20-40); MONOCYTE 5 % (0-10); OVALOCYTES SLIGHT; POIKILOCYTOSIS SLIGHT; TEARDROP CELLS SLIGHT
[2018-05-22] MEDS: Metoprolol Succinate 25 mg XL Tab PO SCH (11:05)
[2018-05-22] MEDS: Enoxaparin 60 mg Syringe SC SCH (11:05)
[2018-05-22 16:32] LABS: HEMOGLOBIN 10.2 g/dL (12.0-18.0); MEAN CELL VOLUME 91.7 fL (80.0-94.0); MEAN CORPUSCULAR HEMOGLOBIN 30.7 pg (27.0-31.0); MEAN CORPUSCULAR HGB CONC 33.5 g/dL (33.0-37.0); MEAN PLATELET VOLUME 7.3 fL (7.2-11.7); RBC 3.32 Mil/uL (4.40-5.90); RED CELL DISTRIBUTION WIDTH 14.9 % (11.5-14.5); WHITE BLOOD COUNT 10.5 K/uL (4.8-10.8)
[2018-05-22] MEDS ORDERED: POLYETHYLENE GLYCOL 3350 17 GM/Dose PACKET PO ONE (19:15)
--- NOTE | 2018-05-22 19:28 | CP.PCM.PCO ---
Physician Communication Note - Physician Communication Note Physician Communication Note: Please see above
--- NOTE | 2018-05-23 08:15 | CP.PCM.PN ---
Subjective - Date & Time of Evaluation Date of Evaluation: 05/22/18 Time of Evaluation: 19:00 - Subjective Subjective: Patient tolerating diet; complaining of constipation; still dark blood in vasquez/suprapubic drainage, clots being passed per nursing staff; no sob; Objective - Vital Signs/Intake and Output Vital Signs (last 24 hours): Temp Pulse Resp BP Pulse Ox 97.6 F 79 20 132/83 100 05/23/18 08:11 05/23/18 08:11 05/23/18 08:11 05/23/18 08:11 05/23/18 08:11 - Medications Medications: Current Medications Acetaminophen (Tylenol 325mg Tab) 650 mg PO Q6 PRN PRN Reason: Pain, moderate (4-7) Last Admin: 05/21/18 04:25 Dose: 650 mg Allopurinol (Zyloprim) 100 mg PO DAILY [facility] Last Admin: 05/22/18 11:04 Dose: 100 mg Donepezil HCl (Aricept) 10 mg PO [facility] Last Admin: 05/22/18 23:19 Dose: 10 mg Famotidine (Pepcid) 20 mg PO DAILY [facility] Last Admin: 05/22/18 11:04 Dose: 20 mg Losartan Potassium (Cozaar) 100 mg PO DAILY [facility] Last Admin: 05/22/18 11:04 Dose: 100 mg Metoprolol Succinate (Toprol Xl) 25 mg PO DAILY [facility] Last Admin: 05/22/18 11:05 Dose: 25 mg Spironolactone (Aldactone) 25 mg PO BID [facility] Last Admin: 05/21/18 09:12 Dose: 25 mg Tamsulosin HCl (Flomax) 0.4 mg PO [facility] Last Admin: 05/22/18 23:36 Dose: 0.4 mg - Labs Labs: 05/22/18 16:28 05/22/18 07:09 PT 14.1 SECONDS (9.7-12.2) H 05/21/18 19:43 INR 1.3 05/21/18 19:43 APTT 33 SECONDS (21-34) 05/17/18 15:20 - Constitutional Appears: Non-toxic, No Acute Distress - Eye Exam Eye Exam: Normal appearance - Respiratory Exam Respiratory Exam: Clear to Ausculation Bilateral. absent: Respiratory Distress - Cardiovascular Exam Cardiovascular Exam: Irregular Rhythm. absent: Gallop, Rubs - GI/Abdominal Exam GI & Abdominal Exam: Distended, Soft, Tenderness - Extremities Exam Additional comments: no lower leg edema; - Neurological Exam Neurological Exam: Alert, Awake - Psychiatric Exam Psychiatric exam: absent: Agitated Additional comments: confused - Skin Skin Exam: Warm. absent: Cyanosis Assessment and Plan (1) Hyponatremia Assessment & Plan: Improved after giving volume repletion with 5% albumin overnight; likely with inadequate PO intake; not giving further IVF due to underlying CHF; -continue to hold aldactone; -starting PO dietary supplements; -continue PO fluid restriction < 1.5L daily; Status: Acute (2) CHF (congestive heart failure) Assessment & Plan: With systolic dysfunction; currently appears euvolemic; holding diuretics for now; Status: Chronic (3) Hematuria Assessment & Plan: Still gross hematuria despite being off AC; slight drop in hgb noted; gross hematuria needs to resolve before d/c, otherwise concern for impending obstruction due to clots; -nursing staff instructed to continue flushing both suprapubic and vasquez catheters twice per shift; -f/u with urology for possible cysto if no improvement; Status: Acute (4) Gout Assessment & Plan: continue allopurinol; Status: Chronic (5) Hypertension Assessment & Plan: BP stable; continue losartan and toprol XL; Status: Chronic (6) Proteinuria Assessment & Plan: In the setting of multiple myeloma and mild IgA nephropathy; renal function o therwise preserved; patient's family advised to f/u with hematology as outpatient regarding MM; Status: Chronic
[2018-05-23 08:20] LABS: BASO % 0.8 % (0.0-2.0); EOS # 0.1 K/uL (0.0-0.7); EOS % 2.3 % (0.0-4.0); HEMOGLOBIN 9.2 g/dL (12.0-18.0); LYMPH # 0.7 K/uL (1.0-4.3); LYMPH % 11.6 % (20.0-40.0); MEAN CELL VOLUME 91.3 fL (80.0-94.0); MEAN CORPUSCULAR HEMOGLOBIN 31.5 pg (27.0-31.0); MEAN CORPUSCULAR HGB CONC 34.5 g/dL (33.0-37.0); MEAN PLATELET VOLUME 7.6 fL (7.2-11.7); MONO # 0.5 K/uL (0.0-0.8); MONO % 7.8 % (0.0-10.0); NEUT # 4.7 K/uL (1.8-7.0); NEUT % 77.5 % (50.0-75.0); RBC 2.91 Mil/uL (4.40-5.90); RED CELL DISTRIBUTION WIDTH 14.8 % (11.5-14.5); WHITE BLOOD COUNT 6.1 K/uL (4.8-10.8)
[2018-05-23 08:41] LABS: ALB/GLOB RATIO 0.9 (1.0-2.1); ALBUMIN 2.4 g/dL (3.5-5.0); ALT/SGPT 21 U/L (21-72); AST/SGOT 27 U/L (17-59); BLOOD UREA NITROGEN 12 mg/dL (9-20); CALCIUM 8.4 mg/dl (8.6-10.4); GFR NON-AFRICAN AMERICAN > 60
--- NOTE | 2018-05-23 08:57 | CP.PCM.PN ---
<Kirt Mayen - Last Filed: 05/23/18 08:54> Subjective - Date & Time of Evaluation Date of Evaluation: 05/23/18 Time of Evaluation: 08:54 - Subjective Subjective: PGY1 Medicine Progress Note for Patient was seen and evaluated at bedside this morning. No acute events overnight. No current complaints. Patient tolerating diet. Patient confused. Patient denies chest pain, abdominal pain, shortness of breath, nausea, vo miting, and/or fever. Objective - Vital Signs/Intake and Output Vital Signs (last 24 hours): Temp Pulse Resp BP Pulse Ox 97.6 F 79 20 132/83 100 05/23/18 08:11 05/23/18 08:11 05/23/18 08:11 05/23/18 08:11 05/23/18 08:11 - Medications Medications: Current Medications Acetaminophen (Tylenol 325mg Tab) 650 mg PO Q6 PRN PRN Reason: Pain, moderate (4-7) Last Admin: 05/21/18 04:25 Dose: 650 mg Allopurinol (Zyloprim) 100 mg PO DAILY [facility] Last Admin: 05/22/18 11:04 Dose: 100 mg Donepezil HCl (Aricept) 10 mg PO HS [facility] Last Admin: 05/22/18 23:19 Dose: 10 mg Famotidine (Pepcid) 20 mg PO DAILY [facility] Last Admin: 05/22/18 11:04 Dose: 20 mg Losartan Potassium (Cozaar) 100 mg PO DAILY [facility] Last Admin: 05/22/18 11:04 Dose: 100 mg Metoprolol Succinate (Toprol Xl) 25 mg PO DAILY [facility] Last Admin: 05/22/18 11:05 Dose: 25 mg Spironolactone (Aldactone) 25 mg PO BID [facility] Last Admin: 05/21/18 09:12 Dose: 25 mg Tamsulosin HCl (Flomax) 0.4 mg PO HS [facility] Last Admin: 05/22/18 23:36 Dose: 0.4 mg - Labs Labs: 05/23/18 08:02 05/23/18 08:02 PT 14.1 SECONDS (9.7-12.2) H 05/21/18 19:43 INR 1.3 05/21/18 19:43 APTT 33 SECONDS (21-34) 05/17/18 15:20 - Additional Findings Additional findings: - Constitutional Appears: No Acute Distress - Eye Exam Eye Exam: EOMI, Normal appearance - ENT Exam ENT Exam: Mucous Membranes Moist - Respiratory Exam Respiratory Exam: Clear to Ausculation Bilateral. absent: Wheezes - Cardiovascular Exam Cardiovascular Exam: Irregular Rhythm, +S1, +S2 - GI/Abdominal Exam GI & Abdominal Exam: absent: Rigid, Tenderness, Organomegaly - Exam Additional comments: as of this morning SPC; hematuria 250mL Vasquez; hematuria 450mL - Neurological Exam Neurological Exam: Alert, Awake, CN II-XII Intact - Psychiatric Exam Additional comments: cognitive and memory impairments noted - Skin Skin Exam: Normal Color, Warm Assessment and Plan - Assessment and Plan (Free Text) Assessment: 78M admitted for baldev hematuria, recent UTI, positive UA, s/p 05/[address] Roberto Ching Per Discussion with Dr. Roberto Ching, continue with flushing and irrigation of vasquez as recommended. Patient may need cystocscopy in the near future if hematuria does not resolve. Patient with baldev blood from vasquez and suprapubic catheter 05/21. Thus, xeralto is currently held. Once Patient is discharged, he will be discharged with a vasquez and suprapubic catheter in place, per Dr. Roberto Ching. PLAN Hematuria - UA pos for > 30k RBCs - Dr Roberto Ching consulted s/p suprapubic cath vasquez still in place Leave both in for now Flush irrigation daily until clear drainage - Previous Bladder U/S on 05/06 showed prostate enlargement - Home Flomax 0.4 HS - Tylenol 650mg PO q6 for pain PRN - Monitor I&Os - SPC: 250mL hematuria; Vasquez: 450mL hematuria - Continue to hold anticoagulation Hyponatremia, resolved - Na+= 132 - Dr. Avalos consulted - rec. appreciated - Pending Nephrology recommendations, will start on IVF - Aldactone HELD Hx of IgA Nephropathy - Monitor I&Os - No steroids at this time due to recent UTI - Cozaar 100mg qd - Nephrology (Dr. Avalos) recommendations appreciated Hx of Afib - EKG in ED shows Afib: unchanged from last EKG on previous admission - Home Toprol XL 25mg qd - Cozaar 100mg QD - Patient was on Xeralto at home; HOLD Xeralto for now due to bleeding Hx of Diastolic and Systolic HF, Chronic - Toprol XL 25mg QD - Cozaar 100mg QD - Aldactone 25mg PO qd - HELD at this time - Monitor I&Os Alzheimer's - Fall precautions - Aricept - Monitor for acute mental status change Hx of Nephrolithiasis - Allopurinol 100mg QD Hx of Gout - Allopurinol 100mg qd PPX - SCDs - Pepcid 20mg qd - HHD - PT eval and treat Patient seen and case discussed in detail with Dr. Janeth Mayen PGY1 <Uziel Fowler - Last Filed: 05/23/18 14:08> Objective - Vital Signs/Intake and Output Vital Signs (last 24 hours): Temp Pulse Resp BP Pulse Ox 97.6 F 79 20 132/83 100 05/23/18 08:11 05/23/18 08:11 05/23/18 08:11 05/23/18 08:11 05/23/18 08:11 - Medications Medications: Current Medications Acetaminophen (Tylenol 325mg Tab) 650 mg PO Q6 PRN PRN Reason: Pain, moderate (4-7) Last Admin: 05/21/18 04:25 Dose: 650 mg Allopurinol (Zyloprim) 100 mg PO DAILY [facility] Last Admin: 05/23/18 09:53 Dose: 100 mg Donepezil HCl (Aricept) 10 mg PO HS [facility] Last Admin: 05/22/18 23:19 Dose: 10 mg Famotidine (Pepcid) 20 mg PO DAILY [facility] Last Admin: 05/23/18 09:53 Dose: 20 mg Ceftriaxone Sodium 1 gm/ (Sodium Chloride) 100 mls @ 100 mls/hr IVPB DAILY [facility]; Protocol Last Admin: 05/23/18 13:00 Dose: 100 mls/hr Losartan Potassium (Cozaar) 100 mg PO DAILY [facility] Last Admin: 05/23/18 09:53 Dose: 100 mg Metoprolol Succinate (Toprol Xl) 25 mg PO DAILY [facility] Last Admin: 05/23/18 09:54 Dose: 25 mg Spironolactone (Aldactone) 25 mg PO BID [facility] Last Admin: 05/21/18 09:12 Dose: 25 mg Tamsulosin HCl (Flomax) 0.4 mg PO HS [facility] Last Admin: 05/22/18 23:36 Dose: 0.4 mg - Labs Labs: 05/23/18 08:02 05/23/18 08:02 PT 14.1 SECONDS (9.7-12.2) H 05/21/18 19:43 INR 1.3 05/21/18 19:43 APTT 33 SECONDS (21-34) 05/17/18 15:20 Attending/Attestation - Attestation I have personally seen and examined this patient.: Yes I have fully participated in the care of the patient.: Yes I have reviewed all pertinent clinical information, including history, physical exam and plan: Yes Notes (Text): 05/23/18 14:06 Medical attending: Patient was seen and examined by me. Agree with the above note by the resident The patient was not in any acute distress when we came and saw. It appears he does have some dementia at baseline. He was cooperative with us and participated with out exam and discussion. The patient vasquez urine color was a dark clear pinkish hue, The patient is currently off of anticoagulation at this time He recently had UTI, will check urine and blood cultures. Also CT of the abdomen and pelvis ordered as well with no contrast Uziel Fowler
[2018-05-23] MEDS: Metoprolol Succinate 25 mg XL Tab PO SCH (09:54)
--- NOTE | 2018-05-23 13:27 | CT ---
Date of service: 05/23/2018 PROCEDURE: CT Abdomen and Pelvis without intravenous contrast HISTORY: consistent hematuria COMPARISON: None. TECHNIQUE: Helical CT of the abdomen and pelvis was performed without oral or intravenous contrast as per referring physician request. Coronal and sagittal reformats were generated.. Contrast dose: None Radiation dose: Total exam DLP = 649.3 mGy-cm. This CT exam was performed using one or more of the following dose reduction techniques: Automated exposure control, adjustment of the mA and/or kV according to patient size, and/or use of iterative reconstruction technique. FINDINGS: LOWER THORAX: Cardiomegaly. Mild left pleural effusion with associated compression atelectasis at the left lower lobe. LIVER: Nodular surface cirrhotic liver appreciated homogeneous in overall density. GALLBLADDER AND BILE DUCTS: Cholelithiasis identified within a mildly distended gallbladder. No pericholecystic fluid collection or reaction associated. PANCREAS: Unremarkable. No gross lesion or ductal dilatation. SPLEEN: Unremarkable. ADRENALS: Unremarkable. No mass. KIDNEYS AND URETERS: There is gross right hydronephrosis with parenchymal thinning. Gross right hydroureter is also identified without associated radiodense urolithiasis. Bilateral streaky perinephric changes are symmetric suggesting a chronic time frame for this hydronephrosis with no left hydronephrosis appreciable. No gross renal mass appreciated in this unenhanced exam however sonography and contrast CT are more sensitive. The urinary bladder is grossly thickened with partial decompression by suprapubic and Ching catheters. Local pericystic reactive changes are appreciated in a pattern compatible with relatively prominent cystitis. Underlying neoplasm not excluded. Further, a small peritoneal or extraperitoneal abscess is appreciated through which the superior catheter passes before entering the urinary bladder measuring 5.3 x 2.1 cm. VASCULATURE: Nonaneurysmal abdominal aortic calcific atherosclerotic changes are identified. BOWEL: Scattered colonic diverticula without diverticulitis. No obstruction. No gross mural thickening. APPENDIX: Not identified. PERITONEUM: No ascites identified. Please see abscess description above in kidneys and ureter section. LYMPH NODES: Unremarkable. No enlarged lymph nodes. BLADDER: See kidneys and ureter section above. REPRODUCTIVE: Enlarged prostate gland with numerous radiation seed implants in situ. BONES: No acute fracture. OTHER FINDINGS: None. IMPRESSION: 1. Gross right hydronephrosis hydroureter caused by neoplasm or infectious/inflammatory thickening of the urinary bladder. No definite radiodense urolithiasis in the bladder or either kidney. Further clinical correlation recommended. 2. Urinary bladder is decompressed by suprapubic and Ching catheters with the catheter passing through a peritoneal or extraperitoneal abscess abutting the anterior abdominal/pelvic wall measuring 5.3 cm greatest dimension. Extensive cystitis is appreciated affecting the urinary bladder. 3. Additional lesser findings as discussed above.
--- NOTE | 2018-05-24 08:12 | CP.PCM.PN ---
<Kirt Mayen - Last Filed: 05/24/18 14:49> Subjective - Date & Time of Evaluation Date of Evaluation: 05/24/18 Time of Evaluation: 08:08 - Subjective Subjective: PGY1 Medicine Progress Note for Dr. Fowler Patient was seen and evaluated at bedside this morning. No acute events overnight. No current complaints. Patient tolerating diet. Patient confused. Patient denies chest pain, abdominal pain, shortness of breath, nausea, v omiting, and/or fever. Per Nurse, Attempted to flush the suprapubic catheter, however she says she was unsuccessful due to blockage. Objective - Vital Signs/Intake and Output Vital Signs (last 24 hours): Temp Pulse Resp BP Pulse Ox 97.8 F 77 20 118/71 98 05/23/18 23:40 05/23/18 23:40 05/23/18 23:40 05/23/18 23:40 05/23/18 23:40 Intake and Output: 05/24/18 05/24/18 06:59 18:59 Output Total 800 Balance -800 - Medications Medications: Current Medications Acetaminophen (Tylenol 325mg Tab) 650 mg PO Q6 PRN PRN Reason: Pain, moderate (4-7) Last Admin: 05/21/18 04:25 Dose: 650 mg Allopurinol (Zyloprim) 100 mg PO DAILY [facility] Last Admin: 05/23/18 09:53 Dose: 100 mg Donepezil HCl (Aricept) 10 mg PO [facility] Last Admin: 05/23/18 22:40 Dose: 10 mg Famotidine (Pepcid) 20 mg PO DAILY [facility] Last Admin: 05/23/18 09:53 Dose: 20 mg Ceftriaxone Sodium 1 gm/ (Sodium Chloride) 100 mls @ 100 mls/hr IVPB DAILY [facility]; Protocol Last Admin: 05/23/18 13:00 Dose: 100 mls/hr Losartan Potassium (Cozaar) 100 mg PO DAILY [facility] Last Admin: 05/23/18 09:53 Dose: 100 mg Metoprolol Succinate (Toprol Xl) 25 mg PO DAILY [facility] Last Admin: 05/23/18 09:54 Dose: 25 mg Spironolactone (Aldactone) 25 mg PO BID [facility] Last Admin: 05/21/18 09:12 Dose: 25 mg Tamsulosin HCl (Flomax) 0.4 mg PO [facility] Last Admin: 05/23/18 22:40 Dose: 0.4 mg - Labs Labs: 05/23/18 08:02 05/23/18 08:02 PT 14.1 SECONDS (9.7-12.2) H 05/21/18 19:43 INR 1.3 05/21/18 19:43 APTT 33 SECONDS (21-34) 05/17/18 15:20 - Additional Findings Additional findings: - Constitutional Appears: No Acute Distress - Eye Exam Eye Exam: EOMI, Normal appearance - ENT Exam ENT Exam: Mucous Membranes Moist - Respiratory Exam Respiratory Exam: Clear to Ausculation Bilateral. absent: Wheezes - Cardiovascular Exam Cardiovascular Exam: Irregular Rhythm, +S1, +S2 - GI/Abdominal Exam GI & Abdominal Exam: absent: Rigid, Tenderness, Organomegaly - Exam Additional comments: SPC; 100 mL hematuria Vasquez; 1600mL hematuria - Neurological Exam Neurological Exam: Alert, Awake, CN II-XII Intact - Psychiatric Exam Additional comments: cognitive and memory impairments noted - Skin Skin Exam: Normal Color, Warm Assessment and Plan - Assessment and Plan (Free Text) Assessment: 78M admitted for baldev hematuria, recent UTI, positive UA, s/p 05/[address] Roberto Ching Per Discussion with Dr. Roberto Ching, continue with flushing and irrigation of vasquez as recommended. Patient may need cystocscopy in the near future if hematur ia does not resolve. Patient with baldev blood from vasquez and suprapubic catheter 05/21. Thus, xeralto is currently held. Once Patient is discharged, he will be discharged with a vasquez and suprapubic catheter in place, per Dr. Roberto Ching. PLAN Hematuria - UA pos for > 30k RBCs - Dr Roberto Ching consulted s/p suprapubic cath vasquez still in place Leave both in for now Flush irrigation daily until clear drainage SPC cannot be flushed (per Nurse) Likely due to blockage. Urology consulted; F/U Rec - CT abd without contrast: - F/U Blood culture - F/U Urine culture - Will follow up on results - Previous Bladder U/S on 05/06 showed prostate enlargement - Home Flomax 0.4 HS - Tylenol 650mg PO q6 for pain PRN - Monitor I&Os - SPC: 1000mL hematuria; Vasquez: 1600mL hematuria - Continue to hold anticoagulation Abdominal Pain - s/p suprapubic cath - vasquez still in place - Dr. Ching consulted - Flush irrigation daily until clear drainage - Per Nurse: SPC cannot be flushed (per Nurse) Likely due to blockage. Ur ology consulted; F/U Rec - CT abd without contrast: 1. Gross R hydronephrosis hydroureter caused by neoplasm or infectious/inflammatory thickening of the urinary bladder 2. Urinary bladder is decompressed by suprapubic and vasquez catheters with the catheter passing through a peritoneal /extraperitoneal abscess abutting the anterior abdominal/pelvic wall measuring 5.3cm. Extensive cystitis is a ppreciated affecting the urinary bladder 3. see complete report for more detail - F/U Blood culture - F/U Urine culture - Will follow up on results and on Urology Recommendations Hyponatremia, resolved - Na+= 136 - Dr. Avalos consulted - rec. appreciated - IVF - Aldactone HELD Hx of IgA Nephropathy - Monitor I&Os - No steroids at this time due to recent UTI - Cozaar 100mg qd - Nephrology (Dr. Avalos) recommendations appreciated Hx of Afib - EKG in ED shows Afib: unchanged from last EKG on previous admission - Home Toprol XL 25mg qd - Cozaar 100mg QD - Patient was on Xeralto at home; HOLD Xeralto for now due to bleeding Hx of Diastolic and Systolic HF, Chronic - Toprol XL 25mg QD - Cozaar 100mg QD - Aldactone 25mg PO qd - HELD at this time - Monitor I&Os Alzheimer's - Fall precautions - Aricept - Monitor for acute mental status change Hx of Nephrolithiasis - Allopurinol 100mg QD Hx of Gout - Allopurinol 100mg qd PPX - SCDs - Pepcid 20mg qd - HHD - PT eval and treat Patient seen and case discussed in detail with Dr. Janeth Mayen PGY1 <Uziel Fowler - Last Filed: 05/24/18 16:32> Objective - Vital Signs/Intake and Output Vital Signs (last 24 hours): Temp Pulse Resp BP Pulse Ox 97.8 F 70 20 109/73 97 05/24/18 15:10 05/24/18 15:10 05/24/18 15:10 05/24/18 15:10 05/24/18 15:10 Intake and Output: 05/24/18 05/24/18 06:59 18:59 Intake Total 700 Output Total 800 950 Balance -800 -250 - Medications Medications: Current Medications Acetaminophen (Tylenol 325mg Tab) 650 mg PO Q6 PRN PRN Reason: Pain, moderate (4-7) Last Admin: 05/21/18 04:25 Dose: 650 mg Allopurinol (Zyloprim) 100 mg PO DAILY [facility] Last Admin: 05/24/18 09:47 Dose: 100 mg Donepezil HCl (Aricept) 10 mg PO HS [facility] Last Admin: 05/23/18 22:40 Dose: 10 mg Famotidine (Pepcid) 20 mg PO DAILY [facility] Last Admin: 05/24/18 09:47 Dose: 20 mg Finasteride (Proscar) 5 mg PO DAILY [facility] Last Admin: 05/24/18 09:47 Dose: 5 mg Furosemide (Lasix) 20 mg PO DAILY [facility] Last Admin: 05/24/18 13:48 Dose: 20 mg Ceftriaxone Sodium 1 gm/ (Sodium Chloride) 100 mls @ 100 mls/hr IVPB DAILY [facility]; Protocol Last Admin: 05/24/18 09:47 Dose: 100 mls/hr Sodium Chloride (Sodium Chloride 0.9%) 1,000 mls @ 50 mls/hr IV .Q20H [facility] Last Admin: 05/24/18 13:50 Dose: 50 mls/hr Losartan Potassium (Cozaar) 100 mg PO DAILY [facility] Last Admin: 05/24/18 09:47 Dose: 100 mg Metoprolol Succinate (Toprol Xl) 25 mg PO DAILY [facility] Last Admin: 05/24/18 09:47 Dose: 25 mg Spironolactone (Aldactone) 25 mg PO BID [facility] Last Admin: 05/21/18 09:12 Dose: 25 mg Tamsulosin HCl (Flomax) 0.4 mg PO HS [facility] Last Admin: 05/23/18 22:40 Dose: 0.4 mg - Labs Labs: 05/24/18 08:04 05/24/18 08:04 PT 14.1 SECONDS (9.7-12.2) H 05/21/18 19:43 INR 1.3 05/21/18 19:43 APTT 33 SECONDS (21-34) 05/17/18 15:20 Attending/Attestation - Attestation I have personally seen and examined this patient.: Yes I have fully participated in the care of the patient.: Yes I have reviewed all pertinent clinical information, including history, physical exam and plan: Yes Notes (Text): 05/24/18 16:26 Medical attending: Patient was seen and examined by me with the medical residents The patient was not in any acute distress at this time and did not report pain. He has at baseline dementia however he is pleasant and cooperative with our exam. Later I spoke with urology Dr Roberto Ching and urology does not feel that the CT finding is not an abscess and that at this time it looks like the cathters and vasquez is in place correctly on the imaging. He felt that from a urology standpoint the patient could be now discharged and have outpatient follow up with them. The questions was if the patient would need to continue with the ASA + Xarelto or not due to the hematuria. Hgb was 9.9 which is a slight decrease from before. If Hgb does not drop preciptously tommorow then probably could be discharged to home Uziel Fowler
[2018-05-24 08:17] LABS: BASO % 0.6 % (0.0-2.0); EOS # 0.2 K/uL (0.0-0.7); HEMOGLOBIN 9.9 g/dL (12.0-18.0); LYMPH # 0.7 K/uL (1.0-4.3); LYMPH % 13.1 % (20.0-40.0); MEAN CELL VOLUME 91.4 fL (80.0-94.0); MEAN CORPUSCULAR HEMOGLOBIN 31.4 pg (27.0-31.0); MEAN CORPUSCULAR HGB CONC 34.3 g/dL (33.0-37.0); MEAN PLATELET VOLUME 7.2 fL (7.2-11.7); MONO # 0.5 K/uL (0.0-0.8); MONO % 8.7 % (0.0-10.0); NEUT # 4.2 K/uL (1.8-7.0); NEUT % 74.6 % (50.0-75.0); RBC 3.16 Mil/uL (4.40-5.90); RED CELL DISTRIBUTION WIDTH 15.1 % (11.5-14.5); WHITE BLOOD COUNT 5.6 K/uL (4.8-10.8)
[2018-05-24 08:28] LABS: ALB/GLOB RATIO 0.9 (1.0-2.1); ALBUMIN 2.5 g/dL (3.5-5.0); ALT/SGPT 19 U/L (21-72); AST/SGOT 24 U/L (17-59); BLOOD UREA NITROGEN 14 mg/dL (9-20); CALCIUM 8.4 mg/dl (8.6-10.4); GFR NON-AFRICAN AMERICAN > 60
--- NOTE | 2018-05-24 09:39 | CP.PCM.PN ---
<Timo Rodriguez - Last Filed: 05/24/18 17:41> Subjective - Date & Time of Evaluation Date of Evaluation: 05/24/18 Time of Evaluation: 08:38 - Subjective Subjective: Timo Rodriguez PGY2 Nephrology Progress Note for Dr. Avalos Patient was seen and examined at bedside. He continues to have both suprapubic a nd vasquez catheters in place, but draining urine that is less bloody than before with no clots or baldev blood. Patient states that the pain has improved. Objective - Vital Signs/Intake and Output Vital Signs (last 24 hours): Temp Pulse Resp BP Pulse Ox 97.8 F 77 20 118/71 98 05/23/18 23:40 05/23/18 23:40 05/23/18 23:40 05/23/18 23:40 05/23/18 23:40 Intake and Output: 05/24/18 05/24/18 06:59 18:59 Output Total 800 Balance -800 - Medications Medications: Current Medications Acetaminophen (Tylenol 325mg Tab) 650 mg PO Q6 PRN PRN Reason: Pain, moderate (4-7) Last Admin: 05/21/18 04:25 Dose: 650 mg Allopurinol (Zyloprim) 100 mg PO DAILY [facility] Last Admin: 05/23/18 09:53 Dose: 100 mg Donepezil HCl (Aricept) 10 mg PO [facility] Last Admin: 05/23/18 22:40 Dose: 10 mg Famotidine (Pepcid) 20 mg PO DAILY [facility] Last Admin: 05/23/18 09:53 Dose: 20 mg Finasteride (Proscar) 5 mg PO DAILY [facility] Ceftriaxone Sodium 1 gm/ (Sodium Chloride) 100 mls @ 100 mls/hr IVPB DAILY [facility]; Protocol Last Admin: 05/23/18 13:00 Dose: 100 mls/hr Losartan Potassium (Cozaar) 100 mg PO DAILY [facility] Last Admin: 05/23/18 09:53 Dose: 100 mg Metoprolol Succinate (Toprol Xl) 25 mg PO DAILY [facility] Last Admin: 05/23/18 09:54 Dose: 25 mg Spironolactone (Aldactone) 25 mg PO BID [facility] Last Admin: 05/21/18 09:12 Dose: 25 mg Tamsulosin HCl (Flomax) 0.4 mg PO HS [facility] Last Admin: 05/23/18 22:40 Dose: 0.4 mg - Labs Labs: 05/24/18 08:04 05/24/18 08:04 PT 14.1 SECONDS (9.7-12.2) H 05/21/18 19:43 INR 1.3 05/21/18 19:43 APTT 33 SECONDS (21-34) 05/17/18 15:20 - Constitutional Appears: Well, Chronically Ill - Head Exam Head Exam: ATRAUMATIC, NORMOCEPHALIC Additional comments: discoloration on right side of face - Eye Exam Eye Exam: EOMI, Normal appearance, PERRL Pupil Exam: NORMAL ACCOMODATION, PERRL - ENT Exam ENT Exam: Mucous Membranes Moist, Normal Exam - Neck Exam Neck Exam: Full ROM, Normal Inspection. absent: Lymphadenopathy - Respiratory Exam Respiratory Exam: Clear to Ausculation Bilateral, NORMAL BREATHING PATTERN - Cardiovascular Exam Cardiovascular Exam: Irregular Rhythm, +S1, +S2. absent: Murmur - GI/Abdominal Exam GI & Abdominal Exam: Soft, Normal Bowel Sounds. absent: Distended, Tenderness - Rectal Exam Rectal Exam: NORMAL INSPECTION - Exam Additional comments: suprapubic catheter and vasquez catheter in place - Extremities Exam Extremities Exam: Full ROM, Normal Capillary Refill, Normal Inspection. absent: Joint Swelling, Pedal Edema - Back Exam Back Exam: NORMAL INSPECTION - Neurological Exam Neurological Exam: Alert, Awake - Psychiatric Exam Psychiatric exam: Normal Affect, Normal Mood - Skin Skin Exam: Dry, Intact, Normal Color, Warm Assessment and Plan - Assessment and Plan (Free Text) Assessment: 78 year old male with a PMH of AFib (on Xarelto), CHF, HTN, IgA nephropathy w/ proteinuria, and multiple myeloma (not on tx) who is admitted for gross hematuria. Nephrology is consulted for hyponatremia. Hyponatremia - improved w/ volume repletion w/ albumin - cont PO fluid restriction < 1.5L daily - IVF NS @ 50 started w/ Lasix 20 to avoid fluid overload - still holding Aldactone CHFrEF - appears euvolemic at this time - hold Aldactone - will give NS @ 50 w/ Lasix 20 Hematuria - improved, off AC - RN to cont flushing both suprapubic and vasquez catheters twice during shift - f/u urology for recs HTN - cont meds Proteinuria - may be a result of multiple myeloma - should f/u hematology as outpatient Case was reviewed and discussed with Dr. Avalos <Casey Avalos - Last Filed: 05/25/18 09:27> Objective - Vital Signs/Intake and Output Vital Signs (last 24 hours): Temp Pulse Resp BP Pulse Ox 98.0 F 93 H 20 108/67 100 05/25/18 09:00 05/25/18 09:00 05/25/18 09:00 05/25/18 09:00 05/25/18 09:00 Intake and Output: 05/25/18 05/25/18 06:59 18:59 Output Total 500 Balance -500 - Medications Medications: Current Medications Acetaminophen (Tylenol 325mg Tab) 650 mg PO Q6 PRN PRN Reason: Pain, moderate (4-7) Last Admin: 05/21/18 04:25 Dose: 650 mg Allopurinol (Zyloprim) 100 mg PO DAILY [facility] Last Admin: 05/24/18 09:47 Dose: 100 mg Donepezil HCl (Aricept) 10 mg PO HS [facility] Last Admin: 05/24/18 21:40 Dose: 10 mg Famotidine (Pepcid) 20 mg PO DAILY [facility] Last Admin: 05/24/18 09:47 Dose: 20 mg Finasteride (Proscar) 5 mg PO DAILY [facility] Last Admin: 05/24/18 09:47 Dose: 5 mg Furosemide (Lasix) 20 mg PO DAILY [facility] Last Admin: 05/24/18 13:48 Dose: 20 mg Ceftriaxone Sodium 1 gm/ (Sodium Chloride) 100 mls @ 100 mls/hr IVPB DAILY [facility]; Protocol Last Admin: 05/24/18 09:47 Dose: 100 mls/hr Sodium Chloride (Sodium Chloride 0.9%) 1,000 mls @ 50 mls/hr IV .Q20H [facility] Last Admin: 05/24/18 13:50 Dose: 50 mls/hr Losartan Potassium (Cozaar) 100 mg PO DAILY [facility] Last Admin: 05/24/18 09:47 Dose: 100 mg Metoprolol Succinate (Toprol Xl) 25 mg PO DAILY [facility] Last Admin: 05/24/18 09:47 Dose: 25 mg Spironolactone (Aldactone) 25 mg PO BID [facility] Last Admin: 05/21/18 09:12 Dose: 25 mg Tamsulosin HCl (Flomax) 0.4 mg PO HS [facility] Last Admin: 05/24/18 21:40 Dose: 0.4 mg - Labs Labs: 05/25/18 08:03 05/25/18 08:03 PT 14.1 SECONDS (9.7-12.2) H 05/21/18 19:43 INR 1.3 05/21/18 19:43 APTT 33 SECONDS (21-34) 05/17/18 15:20 Assessment and Plan (1) Hyponatremia Status: Acute (2) CHF (congestive heart failure) Status: Chronic (3) Hematuria Status: Acute (4) Gout Status: Chronic (5) Hypertension Status: Chronic (6) Proteinuria Status: Chronic Attending/Attestation - Attestation I have personally seen and examined this patient.: Yes I have fully participated in the care of the patient.: Yes I have reviewed all pertinent clinical information, including history, physical exam and plan: Yes Notes (Text): Patient seen and examined; I agree with the resident's note as above with the following additions/edits: Patient now s/p suprapubic and vasquez catheter placement; gross hematuria has lightened considerably with patient off AC; nursing staff instructed that they should continue to flush both catethers twice per shift; starting on gentle IVF to keep urine flowing, giving gentle diuretic to avoid volume overload in the setting of systolic CHF; Hyponatremia improved; should continue free water restriction (IVF should be sufficient); Holding aldactone for now due to hyponatremia; continue losartan 100 mg daily and toprol XL for anti-htn control;
[2018-05-24] MEDS: Metoprolol Succinate 25 mg XL Tab PO SCH (09:47)
[2018-05-24] MEDS: Sodium Chloride 0.9% 1,000 ML IV SCH (13:50)
--- NOTE | 2018-05-24 22:18 | PCM.URO ---
Urology Progress Note - General General: No Complaints, Tolerating Diet - Subjective Abdominal Pain: No Flank Pain: No Nausea: No Vomiting: No Hematuria: Yes (much less) Dsypnea: No Chest Pain: No Fever & Chills: No - Objective Lab Studies: Reviewed Lab Results Last 24 Hours: Laboratory Results - last 24 hr 05/24/18 05/24/18 05/24/18 06:17 08:04 08:04 WBC 5.6 RBC 3.16 L Hgb 9.9 L Hct 28.9 L MCV 91.4 MCH 31.4 H MCHC 34.3 RDW 15.1 H Plt Count 221 MPV 7.2 Neut % (Auto) 74.6 Lymph % (Auto) 13.1 L [place] % (Auto) 8.7 Eos % (Auto) 3.0 Baso % (Auto) 0.6 Neut # (Auto) 4.2 Lymph # (Auto) 0.7 L [place] # (Auto) 0.5 Eos # (Auto) 0.2 Baso # (Auto) 0.0 Sodium 136 Potassium 4.3 Chloride 106 Carbon Dioxide 26 Anion Gap 8 L BUN 14 Creatinine 0.7 L Est GFR ( Amer) > 60 Est GFR (Non-Af Amer) > 60 POC Glucose (mg/dL) 97 Random Glucose 86 Calcium 8.4 L Phosphorus 3.3 Magnesium 2.0 Total Bilirubin 0.7 AST 24 ALT 19 L Alkaline Phosphatase 84 Total Protein 5.4 L Albumin 2.5 L Globulin 2.9 Albumin/Globulin Ratio 0.9 L Intake & Output: Intake & Output 05/24/18 05/24/18 05/25/18 06:59 18:59 06:59 Intake Total 700 Output Total 800 950 Balance -800 -250 Intake: Intake, IV Amount 100 Right Hand 100 Oral 600 Output: Urine 800 950 Suprapubic 250 Urethral (Ching) 800 700 Vital Signs: Vital Signs - 24 hr 05/23/18 05/23/18 05/24/18 23:00 23:40 08:00 Temperature 97.8 F 98 F Pulse Rate 85 77 84 Respiratory 20 20 Rate Blood Pressure 118/71 132/85 O2 Sat by Pulse 98 98 Oximetry 05/24/18 05/24/18 05/24/18 08:30 12:25 13:48 Temperature Pulse Rate 80 88 Respiratory Rate Blood Pressure 136/80 O2 Sat by Pulse Oximetry 05/24/18 05/24/18 15:10 16:48 Temperature 97.8 F Pulse Rate 70 67 Respiratory 20 Rate Blood Pressure 109/73 O2 Sat by Pulse 97 Oximetry Imaging Studies: Reviewed - Physical Exam Abdominal Exam: Soft, Non-Tender, Non-Distended Bowel Sounds: Normal Wound: Clean, Healing Well Back: No CVA Tenderness Genitalia: Without Inflammation Urinary Catheter Draining Well: Yes Urine Color: [place] (pink via SP tube and urethral catheter) - Male Phallus: Normal Scrotum: Normal - Plan Wound Care: Yes Catheter Care: Yes Intake & Output: Yes Additional Information: IMP: improved re hematuria. clinically stable. Monitor output. Catheters in place. Will need f/u CT scan - Date & Time of Note Date: 05/24/18 Time: 11:15
--- NOTE | 2018-05-25 07:11 | CP.PCM.PN ---
Subjective - Date & Time of Evaluation Date of Evaluation: 05/25/18 Time of Evaluation: 07:10 - Subjective Subjective: PGY1 Medicine Progress Note for Dr. Hernández Patient was seen and evaluated at bedside this morning. No acute events overnight. No current complaints. Patient tolerating diet. Patient confused. Patient denies chest pain, abdominal pain, shortness of breath, nausea, vomiting, and/or fever. Per Nurse, successfully flushed the suprapubic catheter. Objective - Vital Signs/Intake and Output Vital Signs (last 24 hours): Temp Pulse Resp BP Pulse Ox 97.8 F 67 20 109/73 97 05/24/18 15:10 05/24/18 16:48 05/24/18 15:10 05/24/18 15:10 05/24/18 15:10 Intake and Output: 05/25/18 05/25/18 06:59 18:59 Output Total 500 Balance -500 - Medications Medications: Current Medications Acetaminophen (Tylenol 325mg Tab) 650 mg PO Q6 PRN PRN Reason: Pain, moderate (4-7) Last Admin: 05/21/18 04:25 Dose: 650 mg Allopurinol (Zyloprim) 100 mg PO DAILY [facility] Last Admin: 05/24/18 09:47 Dose: 100 mg Donepezil HCl (Aricept) 10 mg PO HS [facility] Last Admin: 05/24/18 21:40 Dose: 10 mg Famotidine (Pepcid) 20 mg PO DAILY [facility] Last Admin: 05/24/18 09:47 Dose: 20 mg Finasteride (Proscar) 5 mg PO DAILY [facility] Last Admin: 05/24/18 09:47 Dose: 5 mg Furosemide (Lasix) 20 mg PO DAILY [facility] Last Admin: 05/24/18 13:48 Dose: 20 mg Ceftriaxone Sodium 1 gm/ (Sodium Chloride) 100 mls @ 100 mls/hr IVPB DAILY [facility]; Protocol Last Admin: 05/24/18 09:47 Dose: 100 mls/hr Sodium Chloride (Sodium Chloride 0.9%) 1,000 mls @ 50 mls/hr IV .Q20H [facility] Last Admin: 05/24/18 13:50 Dose: 50 mls/hr Losartan Potassium (Cozaar) 100 mg PO DAILY [facility] Last Admin: 05/24/18 09:47 Dose: 100 mg Metoprolol Succinate (Toprol Xl) 25 mg PO DAILY [facility] Last Admin: 05/24/18 09:47 Dose: 25 mg Spironolactone (Aldactone) 25 mg PO BID [facility] Last Admin: 05/21/18 09:12 Dose: 25 mg Tamsulosin HCl (Flomax) 0.4 mg PO HS [facility] Last Admin: 05/24/18 21:40 Dose: 0.4 mg - Labs Labs: 05/24/18 08:04 05/24/18 08:04 PT 14.1 SECONDS (9.7-12.2) H 05/21/18 19:43 INR 1.3 05/21/18 19:43 APTT 33 SECONDS (21-34) 05/17/18 15:20 - Additional Findings Additional findings: - Constitutional Appears: No Acute Distress - Eye Exam Eye Exam: EOMI, Normal appearance - ENT Exam ENT Exam: Mucous Membranes Moist - Respiratory Exam Respiratory Exam: Clear to Ausculation Bilateral. absent: Wheezes - Cardiovascular Exam Cardiovascular Exam: Irregular Rhythm, +S1, +S2 - GI/Abdominal Exam GI & Abdominal Exam: absent: Rigid, Tenderness, Organomegaly - Exam Additional comments: SPC; 550 mL hematuria (improved) Vasquez; 900 hematuria (improved) - Neurological Exam Neurological Exam: Alert, Awake, CN II-XII Intact - Psychiatric Exam Additional comments: cognitive and memory impairments noted - Skin Skin Exam: Normal Color, Warm Assessment and Plan - Assessment and Plan (Free Text) Assessment: 78M admitted for baldev hematuria, recent UTI, positive UA, s/p 05/[address] Roberto Ching Per Discussion with Dr. Roberto Ching, continue with flushing and irrigation of vasquez as recommended. Patient may need cystocscopy in the near future if hematuria does not resolve. Patient with baldev blood from vasquez and suprapubic catheter 05/21. Thus, xeralto is currently held. Once Patient is discharged, he will be discharged with a vasquez and suprapubic catheter in place, per Dr. Roberto Ching. PLAN Hematuria - UA pos for > 30k RBCs - Dr Roberto Ching consulted s/p suprapubic cath vasquez still in place Leave both in for now Flush irrigation daily until clear drainage - Blood culture: negative x24hr - Urine culture: yeast species - Will follow up on results - Previous Bladder U/S on 05/06 showed prostate enlargement - Home Flomax 0.4 HS - Tylenol 650mg PO q6 for pain PRN - Monitor I&Os - SPC: 550mL hematuria; Vasquez: 900mL hematuria - Continue to hold anticoagulation Abdominal Pain - S/P suprapubic cath 05/18 - Vasquez still in place - Dr. Ching consulted - Continue Flush irrigation daily until clear drainage - CT abd without contrast: 1. Gross R hydronephrosis hydroureter caused by neoplasm or infectious/inflammatory thickening of the urinary bladder 2. Urinary bladder is decompressed by suprapubic and vasquez catheters with the catheter passing through a peritoneal /extraperitoneal abscess abutting the anterior abdominal/pelvic wall measuring 5.3cm. Extensive cystitis is appr eciated affecting the urinary bladder 3. see complete report for more detail - Blood culture: negative x24hr - Urine culture: yeast species - Will follow up on results and on Urology Recommendations Hyponatremia, resolved - Na+= 136 - Dr. Avalos consulted - rec. appreciated - IVF - Aldactone HELD Hx of IgA Nephropathy - Monitor I&Os - No steroids at this time due to recent UTI - Cozaar 100mg qd - Nephrology (Dr. Avalos) recommendations appreciated Hx of Afib - EKG in ED shows Afib: unchanged from last EKG on previous admission - Home Toprol XL 25mg qd - Cozaar 100mg QD - Patient was on Xeralto at home; HOLD Xeralto for now due to bleeding Hx of Diastolic and Systolic HF, Chronic - Toprol XL 25mg QD - Cozaar 100mg QD - Aldactone 25mg PO qd - HELD at this time - Monitor I&Os Alzheimer's - Fall precautions - Aricept - Monitor for acute mental status change Hx of Nephrolithiasis - Allopurinol 100mg QD Hx of Gout - Allopurinol 100mg qd PPX - SCDs - Pepcid 20mg QD - HHD - PT eval and treat Patient seen and case discussed in detail with Dr. Betty Mayen PGY1
[2018-05-25 08:16] LABS: BASO % 0.5 % (0.0-2.0); EOS # 0.1 K/uL (0.0-0.7); EOS % 1.7 % (0.0-4.0); HEMOGLOBIN 9.6 g/dL (12.0-18.0); LYMPH # 0.7 K/uL (1.0-4.3); LYMPH % 11.2 % (20.0-40.0); MEAN CELL VOLUME 92.6 fL (80.0-94.0); MEAN CORPUSCULAR HEMOGLOBIN 31.5 pg (27.0-31.0); MEAN CORPUSCULAR HGB CONC 34.1 g/dL (33.0-37.0); MEAN PLATELET VOLUME 7.3 fL (7.2-11.7); MONO # 0.5 K/uL (0.0-0.8); MONO % 7.5 % (0.0-10.0); NEUT # 4.9 K/uL (1.8-7.0); NEUT % 79.1 % (50.0-75.0); NRBC % 0.1 % (0.0-2.0); RBC 3.04 Mil/uL (4.40-5.90); RED CELL DISTRIBUTION WIDTH 15.2 % (11.5-14.5); WHITE BLOOD COUNT 6.2 K/uL (4.8-10.8)
[2018-05-25 08:42] LABS: ALB/GLOB RATIO 0.9 (1.0-2.1); ALBUMIN 2.5 g/dL (3.5-5.0); ALT/SGPT 23 U/L (21-72); AST/SGOT 27 U/L (17-59); BLOOD UREA NITROGEN 17 mg/dL (9-20); CALCIUM 8.5 mg/dl (8.6-10.4); GFR NON-AFRICAN AMERICAN > 60
[2018-05-25] MEDS: Metoprolol Succinate 25 mg XL Tab PO SCH (09:50)
[2018-05-25] MEDS: Sodium Chloride 0.9% 1,000 ML IV SCH ×2 (10:13→14:25)
--- NOTE | 2018-05-25 13:41 | CP.PCM.PN ---
<Timo Rodriguez - Last Filed: 05/26/18 06:33> Subjective - Date & Time of Evaluation Date of Evaluation: 05/25/18 Time of Evaluation: 12:37 - Subjective Subjective: Timo Rodriguez PGY2 Nephrology Progress Note for Dr. Avalos Patient was seen and examined at bedside. Patient denies any complaints of abdom inal pain, n/v/d, fevers/chills. He is tolerating his diet, and is walking with PT. His hematuria is improving as seen in vasquez cath bag and suprapubic bag. VS/labs and nursing notes were reviewed. Objective - Vital Signs/Intake and Output Vital Signs (last 24 hours): Temp Pulse Resp BP Pulse Ox 98.0 F 93 H 20 118/79 100 05/25/18 09:00 05/25/18 09:00 05/25/18 09:00 05/25/18 09:51 05/25/18 09:00 Intake and Output: 05/25/18 05/25/18 06:59 18:59 Output Total 500 Balance -500 - Medications Medications: Current Medications Acetaminophen (Tylenol 325mg Tab) 650 mg PO Q6 PRN PRN Reason: Pain, moderate (4-7) Last Admin: 05/21/18 04:25 Dose: 650 mg Allopurinol (Zyloprim) 100 mg PO DAILY [facility] Last Admin: 05/25/18 09:50 Dose: 100 mg Donepezil HCl (Aricept) 10 mg PO HS [facility] Last Admin: 05/24/18 21:40 Dose: 10 mg Famotidine (Pepcid) 20 mg PO DAILY [facility] Last Admin: 05/25/18 09:50 Dose: 20 mg Finasteride (Proscar) 5 mg PO DAILY [facility] Last Admin: 05/25/18 09:50 Dose: 5 mg Furosemide (Lasix) 20 mg PO DAILY [facility] Last Admin: 05/25/18 09:51 Dose: 20 mg Ceftriaxone Sodium 1 gm/ (Sodium Chloride) 100 mls @ 100 mls/hr IVPB DAILY [facility]; Protocol Last Admin: 05/25/18 09:50 Dose: 100 mls/hr Sodium Chloride (Sodium Chloride 0.9%) 1,000 mls @ 50 mls/hr IV .Q20H [facility] Last Admin: 05/25/18 10:13 Dose: Not Given Losartan Potassium (Cozaar) 100 mg PO DAILY [facility] Last Admin: 05/25/18 09:50 Dose: 100 mg Metoprolol Succinate (Toprol Xl) 25 mg PO DAILY [facility] Last Admin: 05/25/18 09:50 Dose: 25 mg Spironolactone (Aldactone) 25 mg PO DAILY [facility] Tamsulosin HCl (Flomax) 0.4 mg PO HS [facility] Last Admin: 05/24/18 21:40 Dose: 0.4 mg - Labs Labs: 05/25/18 08:03 05/25/18 08:03 PT 14.1 SECONDS (9.7-12.2) H 05/21/18 19:43 INR 1.3 05/21/18 19:43 APTT 33 SECONDS (21-34) 05/17/18 15:20 - Constitutional Appears: Well, Chronically Ill - Head Exam Head Exam: ATRAUMATIC, NORMOCEPHALIC Additional comments: discoloration on right side of face - Eye Exam Eye Exam: EOMI, Normal appearance, PERRL Pupil Exam: NORMAL ACCOMODATION, PERRL - ENT Exam ENT Exam: Mucous Membranes Moist, Normal Exam - Neck Exam Neck Exam: Full ROM, Normal Inspection. absent: Lymphadenopathy - Respiratory Exam Respiratory Exam: Clear to Ausculation Bilateral, NORMAL BREATHING PATTERN - Cardiovascular Exam Cardiovascular Exam: Irregular Rhythm, +S1, +S2. absent: Murmur - GI/Abdominal Exam GI & Abdominal Exam: Soft, Normal Bowel Sounds. absent: Distended, Tenderness - Rectal Exam Rectal Exam: NORMAL INSPECTION - Exam Additional comments: suprapubic catheter and vasquez catheter in place - Extremities Exam Extremities Exam: Full ROM, Normal Capillary Refill, Normal Inspection. absent: Joint Swelling, Pedal Edema - Back Exam Back Exam: NORMAL INSPECTION - Neurological Exam Neurological Exam: Alert, Awake - Psychiatric Exam Psychiatric exam: Normal Affect, Normal Mood - Skin Skin Exam: Dry, Intact, Normal Color, Warm Assessment and Plan - Assessment and Plan (Free Text) Assessment: 78 year old male with a PMH of AFib (on Xarelto), CHF, HTN, IgA nephropathy w/ proteinuria, and multiple myeloma (not on tx) who is admitted for gross hematuria. Nephrology is consulted for hyponatremia. Hyponatremia - improved w/ volume repletion w/ albumin - cont PO fluid restriction < 1.5L daily - IVF NS @ 50 started w/ Lasix 20 to avoid fluid overload CHFrEF - appears euvolemic at this time - can restart aldactone at decreased dose of daily - will give NS @ 50 w/ Lasix 20 Hematuria - improved, off AC - RN to cont flushing both suprapubic and vasquez catheters twice during shift - f/u urology for recs HTN - cont meds Proteinuria - may be a result of multiple myeloma - should f/u hematology as outpatient Case was reviewed and discussed with Dr. Avalos <Casey Avalos - Last Filed: 05/26/18 08:37> Objective - Vital Signs/Intake and Output Vital Signs (last 24 hours): Temp Pulse Resp BP Pulse Ox 97.9 F 68 18 127/74 100 05/26/18 07:25 05/26/18 08:15 05/26/18 07:25 05/26/18 07:25 05/26/18 07:25 Intake and Output: 05/26/18 05/26/18 06:59 18:59 Intake Total 760 Output Total 1500 Balance -740 - Medications Medications: Current Medications Acetaminophen (Tylenol 325mg Tab) 650 mg PO Q6 PRN PRN Reason: Pain, moderate (4-7) Last Admin: 05/21/18 04:25 Dose: 650 mg Allopurinol (Zyloprim) 100 mg PO DAILY [facility] Last Admin: 05/25/18 09:50 Dose: 100 mg Donepezil HCl (Aricept) 10 mg PO HS [facility] Last Admin: 05/25/18 21:51 Dose: 10 mg Famotidine (Pepcid) 20 mg PO DAILY [facility] Last Admin: 05/25/18 09:50 Dose: 20 mg Finasteride (Proscar) 5 mg PO DAILY [facility] Last Admin: 05/25/18 09:50 Dose: 5 mg Furosemide (Lasix) 20 mg PO DAILY [facility] Last Admin: 05/25/18 09:51 Dose: 20 mg Ceftriaxone Sodium 1 gm/ (Sodium Chloride) 100 mls @ 100 mls/hr IVPB DAILY [facility]; Protocol Last Admin: 05/25/18 09:50 Dose: 100 mls/hr Sodium Chloride (Sodium Chloride 0.9%) 1,000 mls @ 50 mls/hr IV .Q20H [facility] Last Admin: 05/26/18 05:36 Dose: Not Given Losartan Potassium (Cozaar) 100 mg PO DAILY [facility] Last Admin: 05/25/18 09:50 Dose: 100 mg Metoprolol Succinate (Toprol Xl) 25 mg PO DAILY [facility] Last Admin: 05/25/18 09:50 Dose: 25 mg Spironolactone (Aldactone) 25 mg PO DAILY [facility] Tamsulosin HCl (Flomax) 0.4 mg PO HS [facility] Last Admin: 05/25/18 21:51 Dose: 0.4 mg - Labs Labs: 05/25/18 08:03 05/25/18 08:03 PT 14.1 SECONDS (9.7-12.2) H 05/21/18 19:43 INR 1.3 05/21/18 19:43 APTT 33 SECONDS (21-34) 05/17/18 15:20 Assessment and Plan (1) Hyponatremia Status: Acute (2) CHF (congestive heart failure) Status: Chronic (3) Hematuria Status: Acute (4) Gout Status: Chronic (5) Hypertension Status: Chronic (6) Proteinuria Status: Chronic Attending/Attestation - Attestation I have personally seen and examined this patient.: Yes I have fully participated in the care of the patient.: Yes I have reviewed all pertinent clinical information, including history, physical exam and plan: Yes Notes (Text): Patient seen and examined; I agree with the resident's note as above with the following additions/edits: Hyponatremia improved; should continue PO fluid restriction to <1.5L per day; Gross hematuria resolving, urine in actual catheter appears clear; giving gentle IVF and lasix to maintain flow of urine; should continue to flush both catheters twice per shift; CHF w/ systolic dysfunction, appears stable; patient euvolemic on exam, with decreased PO intake overall; will continue to hold aldactone for now; Will continue with current anti-htn meds, BP controlled;
[2018-05-26] MEDS: Sodium Chloride 0.9% 1,000 ML IV SCH (05:36)
[2018-05-26 08:53] LABS: BASO % 0.5 % (0.0-2.0); EOS # 0.1 K/uL (0.0-0.7); EOS % 1.8 % (0.0-4.0); LYMPH # 0.8 K/uL (1.0-4.3); LYMPH % 10.5 % (20.0-40.0); MEAN CELL VOLUME 92.5 fL (80.0-94.0); MEAN CORPUSCULAR HEMOGLOBIN 31.3 pg (27.0-31.0); MEAN CORPUSCULAR HGB CONC 33.8 g/dL (33.0-37.0); MEAN PLATELET VOLUME 7.6 fL (7.2-11.7); MONO # 0.5 K/uL (0.0-0.8); NEUT # 5.7 K/uL (1.8-7.0); NEUT % 80.2 % (50.0-75.0); RBC 3.21 Mil/uL (4.40-5.90); RED CELL DISTRIBUTION WIDTH 15.2 % (11.5-14.5); WHITE BLOOD COUNT 7.2 K/uL (4.8-10.8)
[2018-05-26 08:58] LABS: ALB/GLOB RATIO 0.9 (1.0-2.1); ALBUMIN 2.6 g/dL (3.5-5.0); ALT/SGPT 19 U/L (21-72); AST/SGOT 29 U/L (17-59); BLOOD UREA NITROGEN 20 mg/dL (9-20); CALCIUM 8.4 mg/dl (8.6-10.4); GFR NON-AFRICAN AMERICAN > 60
--- NOTE | 2018-05-26 09:12 | CP.PCM.PN ---
<Keyanna Ryan - Last Filed: 05/26/18 13:28> Subjective - Date & Time of Evaluation Date of Evaluation: 05/26/18 Time of Evaluation: 08:45 - Subjective Subjective: Nephrology progress note for Dr Avalos's service Patient with no acute events overnight. Baseline dementia. The suprapubic catheter draining mild dark colored urine, clear urine from the urethra. Objective - Vital Signs/Intake and Output Vital Signs (last 24 hours): Temp Pulse Resp BP Pulse Ox 97.9 F 68 18 127/74 100 05/26/18 07:25 05/26/18 08:15 05/26/18 07:25 05/26/18 07:25 05/26/18 07:25 Intake and Output: 05/26/18 05/26/18 06:59 18:59 Intake Total 760 Output Total 1500 Balance -740 - Medications Medications: Current Medications Acetaminophen (Tylenol 325mg Tab) 650 mg PO Q6 PRN PRN Reason: Pain, moderate (4-7) Last Admin: 05/21/18 04:25 Dose: 650 mg Allopurinol (Zyloprim) 100 mg PO DAILY [facility] Last Admin: 05/25/18 09:50 Dose: 100 mg Donepezil HCl (Aricept) 10 mg PO HS [facility] Last Admin: 05/25/18 21:51 Dose: 10 mg Famotidine (Pepcid) 20 mg PO DAILY [facility] Last Admin: 05/25/18 09:50 Dose: 20 mg Finasteride (Proscar) 5 mg PO DAILY [facility] Last Admin: 05/25/18 09:50 Dose: 5 mg Furosemide (Lasix) 20 mg PO DAILY [facility] Last Admin: 05/25/18 09:51 Dose: 20 mg Ceftriaxone Sodium 1 gm/ (Sodium Chloride) 100 mls @ 100 mls/hr IVPB DAILY [facility]; Protocol Last Admin: 05/25/18 09:50 Dose: 100 mls/hr Sodium Chloride (Sodium Chloride 0.9%) 1,000 mls @ 50 mls/hr IV .Q20H [facility] Last Admin: 05/26/18 05:36 Dose: Not Given Losartan Potassium (Cozaar) 100 mg PO DAILY [facility] Last Admin: 05/25/18 09:50 Dose: 100 mg Metoprolol Succinate (Toprol Xl) 25 mg PO DAILY [facility] Last Admin: 05/25/18 09:50 Dose: 25 mg Spironolactone (Aldactone) 25 mg PO DAILY [facility] Tamsulosin HCl (Flomax) 0.4 mg PO HS [facility] Last Admin: 05/25/18 21:51 Dose: 0.4 mg - Labs Labs: 05/26/18 08:36 05/26/18 08:36 PT 14.1 SECONDS (9.7-12.2) H 05/21/18 19:43 INR 1.3 05/21/18 19:43 APTT 33 SECONDS (21-34) 05/17/18 15:20 - Constitutional Appears: No Acute Distress, Cachectic, Chronically Ill - Head Exam Head Exam: ATRAUMATIC, NORMAL INSPECTION, NORMOCEPHALIC - Eye Exam Eye Exam: Normal appearance - ENT Exam ENT Exam: Mucous Membranes Moist - Neck Exam Neck Exam: Normal Inspection - Respiratory Exam Respiratory Exam: Clear to Ausculation Bilateral, NORMAL BREATHING PATTERN. absent: Rales, Rhonchi, Wheezes, Respiratory Distress, Stridor - Cardiovascular Exam Cardiovascular Exam: REGULAR RHYTHM, +S1, +S2. absent: Murmur - GI/Abdominal Exam GI & Abdominal Exam: Soft, Normal Bowel Sounds. absent: Distended, Firm, Guarding, Rigid, Tenderness, Rebound - Exam Additional comments: + urethral and suprapubic catheter - Extremities Exam Extremities Exam: Normal Inspection. absent: Pedal Edema - Back Exam Back Exam: NORMAL INSPECTION - Neurological Exam Neurological Exam: Alert, Awake, Oriented x3 - Psychiatric Exam Psychiatric exam: Normal Affect, Normal Mood - Skin Skin Exam: Erythema (on left side of the face ) Assessment and Plan (1) Hyponatremia Assessment & Plan: Hyponatremia resolved continue 1500 ml po fluid restrictions On NS@50CC/HR and Lasix 20 mg po to maintain balance and keep urine output Status: Resolved (2) Multiple myeloma Assessment & Plan: Follow up with oncologist as outpatient Status: Chronic (3) CHF (congestive heart failure) Assessment & Plan: Patient is euvolemic Continue with po Lasix, toprol xl, and aldactone 25 mg daily. Status: Chronic (4) Hematuria Assessment & Plan: Was improving this morning, however this afternoon the urine is more hematuric again Continue water flushes Management as per urologist recommendations On proscar and flomax for BPH Status: Acute (5) Atrial fibrillation Assessment & Plan: NOAC on hold due to hematuria Follow up with spinning and winding supervisor for recommendations Status: Chronic (6) Proteinuria Status: Chronic (7) Gout Assessment & Plan: Continue with allopurinol for prophylaxis measure Status: Acute <Casey Avalos - Last Filed: 05/27/18 08:24> Objective - Vital Signs/Intake and Output Vital Signs (last 24 hours): Temp Pulse Resp BP Pulse Ox 98.7 F 85 20 121/73 99 05/27/18 00:00 05/27/18 00:52 05/27/18 00:00 05/27/18 00:00 05/27/18 00:00 Intake and Output: 05/27/18 05/27/18 06:59 18:59 Intake Total 400 Output Total 900 Balance -500 - Medications Medications: Current Medications Acetaminophen (Tylenol 325mg Tab) 650 mg PO Q6 PRN PRN Reason: Pain, moderate (4-7) Last Admin: 05/21/18 04:25 Dose: 650 mg Allopurinol (Zyloprim) 100 mg PO DAILY [facility] Last Admin: 05/26/18 09:53 Dose: 100 mg Donepezil HCl (Aricept) 10 mg PO HS [facility] Last Admin: 05/26/18 22:20 Dose: 10 mg Famotidine (Pepcid) 20 mg PO DAILY [facility] Last Admin: 05/26/18 09:54 Dose: 20 mg Finasteride (Proscar) 5 mg PO DAILY [facility] Last Admin: 05/26/18 09:53 Dose: 5 mg Furosemide (Lasix) 20 mg PO DAILY [facility] Last Admin: 05/26/18 09:53 Dose: 20 mg Ceftriaxone Sodium 1 gm/ (Sodium Chloride) 100 mls @ 100 mls/hr IVPB DAILY [facility]; Protocol Last Admin: 05/26/18 09:54 Dose: 100 mls/hr Sodium Chloride (Sodium Chloride 0.9%) 1,000 mls @ 50 mls/hr IV .Q20H [facility] Last Admin: 05/26/18 05:36 Dose: Not Given Losartan Potassium (Cozaar) 100 mg PO DAILY [facility] Last Admin: 05/26/18 09:54 Dose: 100 mg Metoprolol Succinate (Toprol Xl) 25 mg PO DAILY [facility] Last Admin: 05/26/18 09:53 Dose: 25 mg Spironolactone (Aldactone) 25 mg PO DAILY [facility] Last Admin: 05/26/18 09:54 Dose: 25 mg Tamsulosin HCl (Flomax) 0.4 mg PO HS [facility] Last Admin: 05/26/18 22:19 Dose: 0.4 mg - Labs Labs: 05/26/18 08:36 05/26/18 08:36 PT 14.1 SECONDS (9.7-12.2) H 05/21/18 19:43 INR 1.3 05/21/18 19:43 APTT 33 SECONDS (21-34) 05/17/18 15:20 Assessment and Plan (1) Hyponatremia Status: Resolved (2) CHF (congestive heart failure) Status: Chronic (3) Hematuria Status: Acute (4) Gout Status: Chronic (5) Hypertension Status: Chronic (6) Proteinuria Status: Chronic Attending/Attestation - Attestation I have personally seen and examined this patient.: Yes I have fully participated in the care of the patient.: Yes I have reviewed all pertinent clinical information, including history, physical exam and plan: Yes Notes (Text): Patient seen and examined; I agree with the resident's note as above with the following additions/edits: Patient again with blood tinged urine in suprapubic/vasquez bags after urine had been clear yesterday; not nearly the gross hematuria he had previously but still concerning and precludes restarting anti-coagulation; Discussed with primary attending; at this point, patient can be discharged with instructions to family on regular flushing of urinary catheters to prevent clots from forming; Otherwise, CHF status stable; keeping on low dose lasix and aldactone, especially since we are giving IVF; patient's PO intake has been questionable but did eat well today per staff; Should continue PO fluid restriction to < 1.5-2L per day to prevent recurrence of hyponatremia;
--- NOTE | 2018-05-26 09:24 | CP.PCM.PN ---
<Kirt Mayen - Last Filed: 05/26/18 13:49> Subjective - Date & Time of Evaluation Date of Evaluation: 05/26/18 Time of Evaluation: 09:24 - Subjective Subjective: PGY1 Medicine Progress Note for Dr. Fowler Patient was seen and evaluated at bedside this morning. No acute events overnight. No current complaints. Patient tolerating diet. Patient confused. Patient denies chest pain, abdominal pain, shortness of breath, nausea, v omiting, and/or fever. Per Nurse, successfully flushed the suprapubic catheter. Objective - Vital Signs/Intake and Output Vital Signs (last 24 hours): Temp Pulse Resp BP Pulse Ox 97.9 F 68 18 127/74 100 05/26/18 07:25 05/26/18 08:15 05/26/18 07:25 05/26/18 07:25 05/26/18 07:25 Intake and Output: 05/26/18 05/26/18 06:59 18:59 Intake Total 760 Output Total 1500 Balance -740 - Medications Medications: Current Medications Acetaminophen (Tylenol 325mg Tab) 650 mg PO Q6 PRN PRN Reason: Pain, moderate (4-7) Last Admin: 05/21/18 04:25 Dose: 650 mg Allopurinol (Zyloprim) 100 mg PO DAILY [facility] Last Admin: 05/25/18 09:50 Dose: 100 mg Donepezil HCl (Aricept) 10 mg PO HS [facility] Last Admin: 05/25/18 21:51 Dose: 10 mg Famotidine (Pepcid) 20 mg PO DAILY [facility] Last Admin: 05/25/18 09:50 Dose: 20 mg Finasteride (Proscar) 5 mg PO DAILY [facility] Last Admin: 05/25/18 09:50 Dose: 5 mg Furosemide (Lasix) 20 mg PO DAILY [facility] Last Admin: 05/25/18 09:51 Dose: 20 mg Ceftriaxone Sodium 1 gm/ (Sodium Chloride) 100 mls @ 100 mls/hr IVPB DAILY [facility]; Protocol Last Admin: 05/25/18 09:50 Dose: 100 mls/hr Sodium Chloride (Sodium Chloride 0.9%) 1,000 mls @ 50 mls/hr IV .Q20H [facility] Last Admin: 05/26/18 05:36 Dose: Not Given Losartan Potassium (Cozaar) 100 mg PO DAILY [facility] Last Admin: 05/25/18 09:50 Dose: 100 mg Metoprolol Succinate (Toprol Xl) 25 mg PO DAILY [facility] Last Admin: 05/25/18 09:50 Dose: 25 mg Spironolactone (Aldactone) 25 mg PO DAILY [facility] Tamsulosin HCl (Flomax) 0.4 mg PO HS [facility] Last Admin: 05/25/18 21:51 Dose: 0.4 mg - Labs Labs: 05/26/18 08:36 05/26/18 08:36 PT 14.1 SECONDS (9.7-12.2) H 05/21/18 19:43 INR 1.3 05/21/18 19:43 APTT 33 SECONDS (21-34) 05/17/18 15:20 - Additional Findings Additional findings: - Constitutional Appears: No Acute Distress - Eye Exam Eye Exam: EOMI, Normal appearance - ENT Exam ENT Exam: Mucous Membranes Moist - Respiratory Exam Respiratory Exam: Clear to Ausculation Bilateral. absent: Wheezes - Cardiovascular Exam Cardiovascular Exam: Irregular Rhythm, +S1, +S2 - GI/Abdominal Exam GI & Abdominal Exam: absent: Rigid, Tenderness, Organomegaly - Exam Additional comments: SPC; 800 mL sandy colored urine Vasquez; 1100 sandy colored urine - Neurological Exam Neurological Exam: Alert, Awake, CN II-XII Intact - Psychiatric Exam Additional comments: cognitive and memory impairments noted - Skin Skin Exam: Normal Color, Warm Assessment and Plan - Assessment and Plan (Free Text) Assessment: 78M admitted for baldev hematuria, recent UTI, positive UA, s/p 05/[address] Roberto Ching Per Discussion with Dr. Roberto Ching, continue with flushing and irrigation of vasquez as recommended. Patient may need cystocscopy in the near future if hematuria does not resolve. Patient with baldev blood from vasquez and suprapubic catheter 05/21. Thus, xeralto is currently held. Once Patient is discharged, he will be discharged with a vasquez and suprapubic catheter in place, per Dr. Roberto Ching. Patient is to be discharged with both SPC and vasquez in place. Per Dr. Ching, repeat CT abdomen/pelvis in 2 weeks. Sat Act Instructor consulted regarding [facility] placement. PLAN Hematuria - UA pos for > 30k RBCs - Dr Roberto Ching consulted; recommends [facility] and continued flushes. Patient is to be discharged with both SPC and vasquez in place. s/p suprapubic cath in place Vasquez still in place Leave both in for now Continue flushes - Blood culture: negative x24hr - Urine culture: yeast species - Previous Bladder U/S on 05/06 showed prostate enlargement - Home Flomax 0.4 HS - Tylenol 650mg PO q6 for pain PRN - Monitor I&Os - SPC: 550mL hematuria; Vasquez: 900mL hematuria - Continue to hold anticoagulation - communications manager is consulted regarding [facility] placement Abdominal Pain, improved - S/P suprapubic cath 05/18 - Vasquez still in place - Dr. Ching consulted - Continue Flush irrigation daily until clear drainage - Patient is to be discharged with both SPC and vasquez in place. - Repeat CT abdomen/pelvis in 2 weeks, Per Dr. Ching - CT abd without contrast: 1. Gross R hydronephrosis hydroureter caused by neoplasm or infectious/inflammatory thickening of the urinary bladder 2. Urinary bladder is decompressed by suprapubic and vasquez catheters with the catheter passing through a peritoneal /extraperitoneal abscess abutting the anterior abdominal/pelvic wall measuring 5.3cm. Extensive cystitis is appreciated affecting the urinary bladder 3. see complete report for more detail - Blood culture: negative x24hr - Urine culture: yeast species Hyponatremia, resolved - Na+= 136 - Dr. Avalos consulted - rec. appreciated - IVF - Aldactone HELD Hx of IgA Nephropathy - Monitor I&Os - No steroids at this time due to recent UTI - Cozaar 100mg qd - Nephrology (Dr. Avalos) recommendations appreciated Hx of Afib - EKG in ED shows Afib: unchanged from last EKG on previous admission - Home Toprol XL 25mg qd - Cozaar 100mg QD - Patient was on Xeralto at home; HOLD Xeralto for now due to bleeding Hx of Diastolic and Systolic HF, Chronic - Toprol XL 25mg QD - Cozaar 100mg QD - Aldactone 25mg PO qd - HELD at this time - Monitor I&Os Alzheimer's - Fall precautions - Aricept - Monitor for acute mental status change Hx of Nephrolithiasis - Allopurinol 100mg QD Hx of Gout - Allopurinol 100mg qd PPX - SCDs - Pepcid 20mg QD - HHD - PT eval and treat Patient seen and case discussed in detail with Dr. Janeth Mayen PGY1 <Uziel Fowler H - Last Filed: 05/26/18 17:07> Objective - Vital Signs/Intake and Output Vital Signs (last 24 hours): Temp Pulse Resp BP Pulse Ox 97.7 F 92 H 20 136/76 97 05/26/18 16:23 05/26/18 16:23 05/26/18 16:23 05/26/18 16:23 05/26/18 16:23 Intake and Output: 05/26/18 05/26/18 06:59 18:59 Intake Total 760 1000 Output Total 1500 950 Balance -740 50 - Medications Medications: Current Medications Acetaminophen (Tylenol 325mg Tab) 650 mg PO Q6 PRN PRN Reason: Pain, moderate (4-7) Last Admin: 05/21/18 04:25 Dose: 650 mg Allopurinol (Zyloprim) 100 mg PO DAILY [facility] Last Admin: 05/26/18 09:53 Dose: 100 mg Donepezil HCl (Aricept) 10 mg PO HS [facility] Last Admin: 05/25/18 21:51 Dose: 10 mg Famotidine (Pepcid) 20 mg PO DAILY [facility] Last Admin: 05/26/18 09:54 Dose: 20 mg Finasteride (Proscar) 5 mg PO DAILY [facility] Last Admin: 05/26/18 09:53 Dose: 5 mg Furosemide (Lasix) 20 mg PO DAILY [facility] Last Admin: 05/26/18 09:53 Dose: 20 mg Ceftriaxone Sodium 1 gm/ (Sodium Chloride) 100 mls @ 100 mls/hr IVPB DAILY [facility]; Protocol Last Admin: 05/26/18 09:54 Dose: 100 mls/hr Sodium Chloride (Sodium Chloride 0.9%) 1,000 mls @ 50 mls/hr IV .Q20H [facility] Last Admin: 05/26/18 05:36 Dose: Not Given Losartan Potassium (Cozaar) 100 mg PO DAILY [facility] Last Admin: 05/26/18 09:54 Dose: 100 mg Metoprolol Succinate (Toprol Xl) 25 mg PO DAILY [facility] Last Admin: 05/26/18 09:53 Dose: 25 mg Spironolactone (Aldactone) 25 mg PO DAILY [facility] Last Admin: 05/26/18 09:54 Dose: 25 mg Tamsulosin HCl (Flomax) 0.4 mg PO HS [facility] Last Admin: 05/25/18 21:51 Dose: 0.4 mg - Labs Labs: 05/26/18 08:36 05/26/18 08:36 PT 14.1 SECONDS (9.7-12.2) H 05/21/18 19:43 INR 1.3 05/21/18 19:43 APTT 33 SECONDS (21-34) 05/17/18 15:20 Attending/Attestation - Attestation I have personally seen and examined this patient.: Yes I have fully participated in the care of the patient.: Yes I have reviewed all pertinent clinical information, including history, physical exam and plan: Yes Notes (Text): 05/26/18 17:02 Medical attending: Patient was seen and examined by me with the medical grade shoemaker The patient was sleeping - woke up when we came in to talk to us. At baseline he has quite a signifignant amount of dementia - however pleasant and cooperative. The patient's vasquez bag was a clear dark yellow color and the bag from the supra pubic area was also clear as well Per advice of urology no interventions for the time being and he will need to have out patient follow up with them Also Hgb was 10 today, small increase When he first came to the hospital he had dark baldev blood in the bags - now better Probabably could be DC soon to [facility], rehab for the time being Uziel Fowler
[2018-05-26] MEDS: Metoprolol Succinate 25 mg XL Tab PO SCH (09:53)
--- NOTE | 2018-05-26 10:06 | PCM.URO ---
Urology Progress Note - General General: No Complaints, Tolerating Diet - Subjective Abdominal Pain: No Flank Pain: No Nausea: No Vomiting: No Hematuria: No Dsypnea: No Chest Pain: No Fever & Chills: No - Objective Lab Studies: Reviewed Lab Results Last 24 Hours: Laboratory Results - last 24 hr 05/25/18 05/25/18 05/26/18 17:01 21:05 06:28 WBC RBC Hgb Hct MCV MCH MCHC RDW Plt Count MPV Neut % (Auto) Lymph % (Auto) [place] % (Auto) Eos % (Auto) Baso % (Auto) Neut # (Auto) Lymph # (Auto) [place] # (Auto) Eos # (Auto) Baso # (Auto) Sodium Potassium Chloride Carbon Dioxide Anion Gap BUN Creatinine Est GFR ( Amer) Est GFR (Non-Af Amer) POC Glucose (mg/dL) 144 H 136 H 97 Random Glucose Calcium Phosphorus Magnesium Total Bilirubin AST ALT Alkaline Phosphatase Total Protein Albumin Globulin Albumin/Globulin Ratio 05/26/18 05/26/18 08:36 08:36 WBC 7.2 RBC 3.21 L Hgb 10.0 L Hct 29.7 L MCV 92.5 MCH 31.3 H MCHC 33.8 RDW 15.2 H Plt Count 220 MPV 7.6 Neut % (Auto) 80.2 H Lymph % (Auto) 10.5 L [place] % (Auto) 7.0 Eos % (Auto) 1.8 Baso % (Auto) 0.5 Neut # (Auto) 5.7 Lymph # (Auto) 0.8 L [place] # (Auto) 0.5 Eos # (Auto) 0.1 Baso # (Auto) 0.0 Sodium 137 Potassium 4.5 Chloride 105 Carbon Dioxide 27 Anion Gap 10 BUN 20 Creatinine 0.8 Est GFR ( Amer) > 60 Est GFR (Non-Af Amer) > 60 POC Glucose (mg/dL) Random Glucose 85 Calcium 8.4 L Phosphorus 3.5 Magnesium 2.1 Total Bilirubin 0.4 AST 29 ALT 19 L Alkaline Phosphatase 94 Total Protein 5.6 L Albumin 2.6 L Globulin 3.0 Albumin/Globulin Ratio 0.9 L Intake & Output: Intake & Output 05/25/18 05/26/18 05/26/18 18:59 06:59 18:59 Intake Total 1050 760 Output Total 400 1500 Balance 650 -740 Intake: Intake, IV Amount 250 760 Right Hand 250 760 Oral 800 0 Output: Urine 400 1500 Suprapubic 200 600 Urethral (Ching) 200 900 Other: # Bowel Movements 1 Vital Signs: Vital Signs - 24 hr 05/25/18 05/25/18 05/25/18 16:00 16:55 23:19 Temperature 98.3 F 98.1 F Pulse Rate 84 80 80 Respiratory 20 22 Rate Blood Pressure 117/70 131/72 O2 Sat by Pulse 99 99 Oximetry 05/25/18 05/26/18 05/26/18 23:30 05:04 07:25 Temperature 97.9 F Pulse Rate 74 78 77 Respiratory 18 Rate Blood Pressure 127/74 O2 Sat by Pulse 100 Oximetry 05/26/18 05/26/18 08:15 09:53 Temperature Pulse Rate 68 Respiratory Rate Blood Pressure 122/70 O2 Sat by Pulse Oximetry - Physical Exam Abdominal Exam: Soft, Non-Tender, Non-Distended Wound: Clean, Healing Well Dressing: Dry, Intact Back: No CVA Tenderness Genitalia: Without Inflammation Urinary Catheter Draining Well: Yes Urine Color: Clear, Yellow - Male Phallus: Normal Scrotum: Normal - Plan Wound Care: Yes Catheter Care: Yes Ambulation - Out of Bed: Yes Intake & Output: Yes Additional Information: IMP: stable urologically. Improved re hematuria. Rec/p: urethral and SP catheters in place - Date & Time of Note Date: 05/26/18 Time: 10:06
--- NOTE | 2018-05-27 06:58 | CP.PCM.PN ---
<Meme Torres - Last Filed: 05/27/18 19:24> Subjective - Date & Time of Evaluation Date of Evaluation: 05/27/18 Time of Evaluation: 10:40 - Subjective Subjective: Patient examined bedside. No acute overnight events. Nursing reports patient's urine output looks more sanguineous today. Patient denies complaints of fatigue, dizziness, palpitations, SOB. Pt reports he wants to be discharged, reports he's had the vasquez in for 30 months and is tired of it. Objective - Vital Signs/Intake and Output Vital Signs (last 24 hours): Temp Pulse Resp BP Pulse Ox 98.7 F 85 20 121/73 99 05/27/18 00:00 05/27/18 00:52 05/27/18 00:00 05/27/18 00:00 05/27/18 00:00 Intake and Output: 05/26/18 05/27/18 18:59 06:59 Intake Total 1000 400 Output Total 950 900 Balance 50 -500 - Medications Medications: Current Medications Acetaminophen (Tylenol 325mg Tab) 650 mg PO Q6 PRN PRN Reason: Pain, moderate (4-7) Last Admin: 05/21/18 04:25 Dose: 650 mg Allopurinol (Zyloprim) 100 mg PO DAILY [facility] Last Admin: 05/26/18 09:53 Dose: 100 mg Donepezil HCl (Aricept) 10 mg PO HS [facility] Last Admin: 05/26/18 22:20 Dose: 10 mg Famotidine (Pepcid) 20 mg PO DAILY [facility] Last Admin: 05/26/18 09:54 Dose: 20 mg Finasteride (Proscar) 5 mg PO DAILY [facility] Last Admin: 05/26/18 09:53 Dose: 5 mg Furosemide (Lasix) 20 mg PO DAILY [facility] Last Admin: 05/26/18 09:53 Dose: 20 mg Ceftriaxone Sodium 1 gm/ (Sodium Chloride) 100 mls @ 100 mls/hr IVPB DAILY [facility]; Protocol Last Admin: 05/26/18 09:54 Dose: 100 mls/hr Sodium Chloride (Sodium Chloride 0.9%) 1,000 mls @ 50 mls/hr IV .Q20H [facility] Last Admin: 05/26/18 05:36 Dose: Not Given Losartan Potassium (Cozaar) 100 mg PO DAILY [facility] Last Admin: 05/26/18 09:54 Dose: 100 mg Metoprolol Succinate (Toprol Xl) 25 mg PO DAILY [facility] Last Admin: 05/26/18 09:53 Dose: 25 mg Spironolactone (Aldactone) 25 mg PO DAILY [facility] Last Admin: 05/26/18 09:54 Dose: 25 mg Tamsulosin HCl (Flomax) 0.4 mg PO HS [facility] Last Admin: 05/26/18 22:19 Dose: 0.4 mg - Labs Labs: 05/26/18 08:36 05/26/18 08:36 PT 14.1 SECONDS (9.7-12.2) H 05/21/18 19:43 INR 1.3 05/21/18 19:43 APTT 33 SECONDS (21-34) 05/17/18 15:20 - Constitutional Appears: Non-toxic, No Acute Distress - Head Exam Head Exam: ATRAUMATIC, NORMAL INSPECTION, NORMOCEPHALIC Additional comments: left hemifacial port wine stain - Eye Exam Eye Exam: EOMI, Normal appearance Pupil Exam: NORMAL ACCOMODATION - ENT Exam ENT Exam: Mucous Membranes Moist, Normal Exam - Neck Exam Neck Exam: Normal Inspection - Respiratory Exam Respiratory Exam: Clear to Ausculation Bilateral, NORMAL BREATHING PATTERN - Cardiovascular Exam Cardiovascular Exam: REGULAR RHYTHM. absent: Tachycardia - GI/Abdominal Exam GI & Abdominal Exam: Soft, Normal Bowel Sounds. absent: Distended, Tenderness Additional comments: suprapubic catheter bandaged c/d/i. Sanguineous output - Exam Additional comments: vasquez cather draining sanguineous output. - Extremities Exam Extremities Exam: Normal Inspection. absent: Calf Tenderness, Pedal Edema - Neurological Exam Neurological Exam: Alert, Awake, Oriented x3 - Psychiatric Exam Psychiatric exam: Normal Affect, Normal Mood - Skin Skin Exam: Dry, Intact, Normal Color, Warm. absent: Pallor Assessment and Plan - Assessment and Plan (Free Text) Assessment: 78 year old male admitted for evaluation and treatment of gross hematuria, s/p suprapubic catheter placement Plan: Hematuria -worsening today -hgb 10-->8.7, consider transfusion if worsening further;f/u am labs -Dr. Ching recs requested -per nursing, continue with flushes, and may consider cysto -I/Os -AC held 2/2 hematuria A Fib -currently off AC 2/2 hematuria -irregular rhythm -Home Toprol XL 25mg qd -Cozaar 100mg QD CHF -Toprol XL 25mg QD -Cozaar 100mg QD -Aldactone 25mg PO qd - HELD at this time -I&Os Alzheimer's -Fall precautions -Aricept Case discussed w/ Dr. Fowler -Meme Torres, PGY-1 <Uziel Fowler - Last Filed: 05/28/18 07:34> Objective - Vital Signs/Intake and Output Vital Signs (last 24 hours): Temp Pulse Resp BP Pulse Ox 98.1 F 84 18 126/70 98 05/27/18 23:55 05/27/18 23:55 05/27/18 23:55 05/27/18 23:55 05/27/18 23:55 Intake and Output: 05/28/18 05/28/18 06:59 18:59 Output Total 960 Balance -960 - Medications Medications: Current Medications Acetaminophen (Tylenol 325mg Tab) 650 mg PO Q6 PRN PRN Reason: Pain, moderate (4-7) Last Admin: 05/21/18 04:25 Dose: 650 mg Allopurinol (Zyloprim) 100 mg PO DAILY [facility] Last Admin: 05/27/18 09:41 Dose: 100 mg Donepezil HCl (Aricept) 10 mg PO HS [facility] Last Admin: 05/27/18 21:44 Dose: 10 mg Famotidine (Pepcid) 20 mg PO DAILY [facility] Last Admin: 05/27/18 09:41 Dose: 20 mg Finasteride (Proscar) 5 mg PO DAILY [facility] Last Admin: 05/27/18 09:41 Dose: 5 mg Furosemide (Lasix) 20 mg PO DAILY [facility] Last Admin: 05/27/18 09:42 Dose: 20 mg Ceftriaxone Sodium 1 gm/ (Sodium Chloride) 100 mls @ 100 mls/hr IVPB DAILY [facility]; Protocol Last Admin: 05/27/18 09:41 Dose: 100 mls/hr Losartan Potassium (Cozaar) 100 mg PO DAILY [facility] Last Admin: 05/27/18 09:41 Dose: 100 mg Metoprolol Succinate (Toprol Xl) 25 mg PO DAILY [facility] Last Admin: 05/27/18 09:41 Dose: 25 mg Spironolactone (Aldactone) 25 mg PO DAILY [facility] Last Admin: 05/27/18 09:41 Dose: 25 mg Tamsulosin HCl (Flomax) 0.4 mg PO HS [facility] Last Admin: 05/27/18 21:44 Dose: 0.4 mg - Labs Labs: 05/27/18 09:00 05/27/18 09:00 PT 14.1 SECONDS (9.7-12.2) H 05/21/18 19:43 INR 1.3 05/21/18 19:43 APTT 33 SECONDS (21-34) 05/17/18 15:20 Attending/Attestation - Attestation I have personally seen and examined this patient.: Yes I have fully participated in the care of the patient.: Yes I have reviewed all pertinent clinical information, including history, physical exam and plan: Yes Notes (Text): Medical attending: Patient was seen and examined by me with the medical resid ent, reviewed the above note by the resident and agree with the above The patient unfourtunately had much darker blood appearing urine in the bags when we saw. He was not in pain. If the Hgb drops further will transfuse PRBCs. Anticoagulation for atrial fibrillation is on hold at this time From what I was informed urology is considering cytoscopy. We had considered DC patient to home however we would need to contact family with reguards to patient care Uziel Fowler
[2018-05-27 09:17] LABS: BASO % 0.5 % (0.0-2.0); EOS # 0.1 K/uL (0.0-0.7); EOS % 1.6 % (0.0-4.0); HEMOGLOBIN 8.7 g/dL (12.0-18.0); LYMPH # 0.8 K/uL (1.0-4.3); LYMPH % 11.3 % (20.0-40.0); MEAN CELL VOLUME 93.2 fL (80.0-94.0); MEAN CORPUSCULAR HEMOGLOBIN 31.9 pg (27.0-31.0); MEAN CORPUSCULAR HGB CONC 34.3 g/dL (33.0-37.0); MEAN PLATELET VOLUME 7.4 fL (7.2-11.7); MONO # 0.5 K/uL (0.0-0.8); MONO % 7.1 % (0.0-10.0); NEUT # 5.8 K/uL (1.8-7.0); NEUT % 79.5 % (50.0-75.0); NRBC % 0.1 % (0.0-2.0); RBC 2.74 Mil/uL (4.40-5.90); RED CELL DISTRIBUTION WIDTH 15.4 % (11.5-14.5); WHITE BLOOD COUNT 7.3 K/uL (4.8-10.8)
[2018-05-27 09:29] LABS: ALB/GLOB RATIO 0.9 (1.0-2.1); ALBUMIN 2.3 g/dL (3.5-5.0); ALT/SGPT 15 U/L (21-72); AST/SGOT 25 U/L (17-59); BLOOD UREA NITROGEN 21 mg/dL (9-20); CALCIUM 8.1 mg/dl (8.6-10.4); GFR NON-AFRICAN AMERICAN > 60
[2018-05-27] MEDS: Metoprolol Succinate 25 mg XL Tab PO SCH (09:41)
[2018-05-27] MEDS: Sodium Chloride 0.9% 1,000 ML IV SCH (09:48)
--- NOTE | 2018-05-27 23:03 | CP.PCM.PN ---
Subjective - Date & Time of Evaluation Date of Evaluation: 05/27/18 Time of Evaluation: 13:00 - Subjective Subjective: Patient tolerating diet per nursing staff; denies dyspnea; Objective - Vital Signs/Intake and Output Vital Signs (last 24 hours): Temp Pulse Resp BP Pulse Ox 97.9 F 80 20 122/70 99 05/27/18 16:00 05/27/18 16:00 05/27/18 16:00 05/27/18 16:00 05/27/18 16:00 Intake and Output: 05/27/18 05/28/18 18:59 06:59 Intake Total 1200 Balance 1200 - Medications Medications: Current Medications Acetaminophen (Tylenol 325mg Tab) 650 mg PO Q6 PRN PRN Reason: Pain, moderate (4-7) Last Admin: 05/21/18 04:25 Dose: 650 mg Allopurinol (Zyloprim) 100 mg PO DAILY [facility] Last Admin: 05/27/18 09:41 Dose: 100 mg Donepezil HCl (Aricept) 10 mg PO HS [facility] Last Admin: 05/27/18 21:44 Dose: 10 mg Famotidine (Pepcid) 20 mg PO DAILY [facility] Last Admin: 05/27/18 09:41 Dose: 20 mg Finasteride (Proscar) 5 mg PO DAILY [facility] Last Admin: 05/27/18 09:41 Dose: 5 mg Furosemide (Lasix) 20 mg PO DAILY [facility] Last Admin: 05/27/18 09:42 Dose: 20 mg Ceftriaxone Sodium 1 gm/ (Sodium Chloride) 100 mls @ 100 mls/hr IVPB DAILY [facility]; Protocol Last Admin: 05/27/18 09:41 Dose: 100 mls/hr Losartan Potassium (Cozaar) 100 mg PO DAILY [facility] Last Admin: 05/27/18 09:41 Dose: 100 mg Metoprolol Succinate (Toprol Xl) 25 mg PO DAILY [facility] Last Admin: 05/27/18 09:41 Dose: 25 mg Spironolactone (Aldactone) 25 mg PO DAILY [facility] Last Admin: 05/27/18 09:41 Dose: 25 mg Tamsulosin HCl (Flomax) 0.4 mg PO HS [facility] Last Admin: 05/27/18 21:44 Dose: 0.4 mg - Labs Labs: 05/27/18 09:00 05/27/18 09:00 PT 14.1 SECONDS (9.7-12.2) H 05/21/18 19:43 INR 1.3 05/21/18 19:43 APTT 33 SECONDS (21-34) 05/17/18 15:20 - Constitutional Appears: Non-toxic, No Acute Distress - Eye Exam Eye Exam: Normal appearance - Cardiovascular Exam Cardiovascular Exam: Irregular Rhythm. absent: Gallop, Rubs - GI/Abdominal Exam GI & Abdominal Exam: Distended, Soft, Tenderness - Extremities Exam Additional comments: mild lower ext edema - Neurological Exam Neurological Exam: Alert, Awake - Psychiatric Exam Psychiatric exam: absent: Agitated - Skin Skin Exam: Warm. absent: Cyanosis Assessment and Plan (1) Hyponatremia Status: Resolved (2) CHF (congestive heart failure) Assessment & Plan: With systolic dysfunction; should continue to optmize with B-bruce and ARB; k eeping on low dose lasix and aldactone; Status: Chronic (3) Hematuria Assessment & Plan: After having cleared, again worsening; should continue to flush both catheters twice per shift to prevent clots from forming; needs urology f/u; Status: Acute (4) Gout Status: Chronic (5) Hypertension Assessment & Plan: BP controlled, continue current meds; Status: Chronic (6) Proteinuria Status: Chronic
--- NOTE | 2018-05-28 08:00 | CP.PCM.PN ---
<Timo Rodriguez - Last Filed: 05/28/18 13:39> Subjective - Date & Time of Evaluation Date of Evaluation: 05/28/18 Time of Evaluation: 08:07 - Subjective Subjective: Timo Rodriguez PGY2 Nephrology Progress Note for Dr. Avalos Patient was seen and examined at bedside. The patient is feeling well, and is on ly complaining of mild abdominal pain. The patient has suprapubic and vasquez catheters, with vasquez draining pink-tinged blood similar to prior days. There was a noticeable drop in H/H yesterday though, and currently awaiting today's H/H. Otherwise, he denies n/v/d, fevers/chills, chest pain or shortness of breath and is tolerating his meals well. Objective - Vital Signs/Intake and Output Vital Signs (last 24 hours): Temp Pulse Resp BP Pulse Ox 98.1 F 84 18 126/70 98 05/27/18 23:55 05/27/18 23:55 05/27/18 23:55 05/27/18 23:55 05/27/18 23:55 Intake and Output: 05/28/18 05/28/18 06:59 18:59 Output Total 960 Balance -960 - Medications Medications: Current Medications Acetaminophen (Tylenol 325mg Tab) 650 mg PO Q6 PRN PRN Reason: Pain, moderate (4-7) Last Admin: 05/21/18 04:25 Dose: 650 mg Allopurinol (Zyloprim) 100 mg PO DAILY [facility] Last Admin: 05/27/18 09:41 Dose: 100 mg Donepezil HCl (Aricept) 10 mg PO HS [facility] Last Admin: 05/27/18 21:44 Dose: 10 mg Famotidine (Pepcid) 20 mg PO DAILY [facility] Last Admin: 05/27/18 09:41 Dose: 20 mg Finasteride (Proscar) 5 mg PO DAILY [facility] Last Admin: 05/27/18 09:41 Dose: 5 mg Furosemide (Lasix) 20 mg PO DAILY [facility] Last Admin: 05/27/18 09:42 Dose: 20 mg Ceftriaxone Sodium 1 gm/ (Sodium Chloride) 100 mls @ 100 mls/hr IVPB DAILY [facility]; Protocol Last Admin: 05/27/18 09:41 Dose: 100 mls/hr Losartan Potassium (Cozaar) 100 mg PO DAILY [facility] Last Admin: 05/27/18 09:41 Dose: 100 mg Metoprolol Succinate (Toprol Xl) 25 mg PO DAILY [facility] Last Admin: 05/27/18 09:41 Dose: 25 mg Spironolactone (Aldactone) 25 mg PO DAILY [facility] Last Admin: 05/27/18 09:41 Dose: 25 mg Tamsulosin HCl (Flomax) 0.4 mg PO HS [facility] Last Admin: 05/27/18 21:44 Dose: 0.4 mg - Labs Labs: 05/27/18 09:00 05/27/18 09:00 PT 14.1 SECONDS (9.7-12.2) H 05/21/18 19:43 INR 1.3 05/21/18 19:43 APTT 33 SECONDS (21-34) 05/17/18 15:20 - Constitutional Appears: Well, Chronically Ill - Head Exam Head Exam: ATRAUMATIC, NORMOCEPHALIC Additional comments: discoloration on right side of face - Eye Exam Eye Exam: EOMI, Normal appearance, PERRL Pupil Exam: NORMAL ACCOMODATION, PERRL - ENT Exam ENT Exam: Mucous Membranes Moist, Normal Exam - Neck Exam Neck Exam: Full ROM, Normal Inspection. absent: Lymphadenopathy - Respiratory Exam Respiratory Exam: Clear to Ausculation Bilateral, NORMAL BREATHING PATTERN - Cardiovascular Exam Cardiovascular Exam: Irregular Rhythm, +S1, +S2. absent: Murmur - GI/Abdominal Exam GI & Abdominal Exam: Soft, Normal Bowel Sounds. absent: Distended, Tenderness - Rectal Exam Rectal Exam: NORMAL INSPECTION - Exam Additional comments: suprapubic catheter and vasquez catheter in place; urine is pink tinged - Extremities Exam Extremities Exam: Full ROM, Normal Capillary Refill, Normal Inspection. absent: Joint Swelling, Pedal Edema - Back Exam Back Exam: NORMAL INSPECTION - Neurological Exam Neurological Exam: Alert, Awake - Psychiatric Exam Psychiatric exam: Normal Affect, Normal Mood - Skin Skin Exam: Dry, Intact, Normal Color, Warm Assessment and Plan - Assessment and Plan (Free Text) Assessment: 78 year old male with a PMH of AFib (on Xarelto), CHF, HTN, IgA nephropathy w/ proteinuria, and multiple myeloma (not on tx) who is admitted for gross hematuria. Nephrology is consulted for hyponatremia. Hyponatremia - improved w/ volume repletion w/ albumin - cont PO fluid restriction < 1.5L daily - IVF NS @ 50 started w/ Lasix 20 and Aldactone to avoid fluid overload CHFrEF - appears euvolemic at this time - cont Aldactone - will give NS @ 50 w/ Lasix 20 Hematuria, off AC for his AFib - improved - RN to cont flushing both suprapubic and vasquez catheters twice during shift - f/u urology for recs (possible cystoscopy) HTN - cont meds Proteinuria - may be a result of multiple myeloma - should f/u hematology as outpatient Case was reviewed and discussed with Dr. Avalos <Casey Avalos - Last Filed: 05/29/18 07:46> Objective - Vital Signs/Intake and Output Vital Signs (last 24 hours): Temp Pulse Resp BP Pulse Ox 98.2 F 70 20 128/73 100 05/29/18 00:00 05/29/18 01:00 05/29/18 00:00 05/29/18 00:00 05/29/18 00:00 Intake and Output: 05/29/18 05/29/18 06:59 18:59 Intake Total 825 Output Total 1100 Balance -275 - Medications Medications: Current Medications Acetaminophen (Tylenol 325mg Tab) 650 mg PO Q6 PRN PRN Reason: Pain, moderate (4-7) Last Admin: 05/21/18 04:25 Dose: 650 mg Allopurinol (Zyloprim) 100 mg PO DAILY [facility] Last Admin: 05/28/18 10:43 Dose: 100 mg Donepezil HCl (Aricept) 10 mg PO HS [facility] Last Admin: 05/28/18 21:31 Dose: 10 mg Famotidine (Pepcid) 20 mg PO DAILY [facility] Last Admin: 05/28/18 10:44 Dose: 20 mg Finasteride (Proscar) 5 mg PO DAILY [facility] Last Admin: 05/28/18 10:44 Dose: 5 mg Furosemide (Lasix) 20 mg PO DAILY [facility] Last Admin: 05/28/18 10:44 Dose: 20 mg Ceftriaxone Sodium 1 gm/ (Sodium Chloride) 100 mls @ 100 mls/hr IVPB DAILY [facility]; Protocol Last Admin: 05/28/18 10:45 Dose: 100 mls/hr Sodium Chloride (Sodium Chloride 0.9%) 1,000 mls @ 50 mls/hr IV .Q20H [facility] Last Admin: 05/28/18 09:30 Dose: Not Given Losartan Potassium (Cozaar) 100 mg PO DAILY [facility] Last Admin: 05/28/18 10:43 Dose: 100 mg Metoprolol Succinate (Toprol Xl) 25 mg PO DAILY [facility] Last Admin: 05/28/18 10:45 Dose: 25 mg Spironolactone (Aldactone) 25 mg PO DAILY [facility] Last Admin: 05/28/18 10:44 Dose: 25 mg Tamsulosin HCl (Flomax) 0.4 mg PO HS [facility] Last Admin: 05/28/18 21:31 Dose: 0.4 mg - Labs Labs: 05/29/18 07:03 05/29/18 07:03 PT 14.1 SECONDS (9.7-12.2) H 05/21/18 19:43 INR 1.3 05/21/18 19:43 APTT 33 SECONDS (21-34) 05/17/18 15:20 Assessment and Plan (1) Hyponatremia Status: Resolved (2) CHF (congestive heart failure) Status: Chronic (3) Hematuria Status: Acute (4) Gout Status: Chronic (5) Hypertension Status: Chronic (6) Proteinuria Status: Chronic Attending/Attestation - Attestation I have personally seen and examined this patient.: Yes I have fully participated in the care of the patient.: Yes I have reviewed all pertinent clinical information, including history, physical exam and plan: Yes Notes (Text): Patient seen and examined; I agree with the resident's note as above with the following additions/edits: Patient still with blood tinged urine from both vasquez/suprapubic catheters; otherwise stable volume and electrolyte status; keeping on gentle IVF and low dose lasix to help keep catheters flowing and prevent clots; nursing staff continuing to flush catheters twice per shift; BP controlled; stable CHF status; keeping on same BP meds and losartan/aldactone for CHF optimization as well as proteinuria control;
--- NOTE | 2018-05-28 09:10 | CP.PCM.PN ---
<Meme Torres - Last Filed: 05/28/18 16:36> Subjective - Date & Time of Evaluation Date of Evaluation: 05/28/18 Time of Evaluation: 07:45 - Subjective Subjective: Patient examined at bedside. No acute events overnight. Pt reports catheter drainage looks more dilute today. Pt reports Dr. Ching came to examine, looking at bladder drainage. Denies lightheadedness, palpitations, SOB, nausea. Pt is eager to be discharged. Objective - Vital Signs/Intake and Output Vital Signs (last 24 hours): Temp Pulse Resp BP Pulse Ox 97.8 F 66 20 119/61 98 05/28/18 08:45 05/28/18 08:45 05/28/18 08:45 05/28/18 08:45 05/28/18 08:45 Intake and Output: 05/28/18 05/28/18 06:59 18:59 Output Total 960 Balance -960 - Medications Medications: Current Medications Acetaminophen (Tylenol 325mg Tab) 650 mg PO Q6 PRN PRN Reason: Pain, moderate (4-7) Last Admin: 05/21/18 04:25 Dose: 650 mg Allopurinol (Zyloprim) 100 mg PO DAILY [facility] Last Admin: 05/27/18 09:41 Dose: 100 mg Donepezil HCl (Aricept) 10 mg PO HS [facility] Last Admin: 05/27/18 21:44 Dose: 10 mg Famotidine (Pepcid) 20 mg PO DAILY [facility] Last Admin: 05/27/18 09:41 Dose: 20 mg Finasteride (Proscar) 5 mg PO DAILY [facility] Last Admin: 05/27/18 09:41 Dose: 5 mg Furosemide (Lasix) 20 mg PO DAILY [facility] Last Admin: 05/27/18 09:42 Dose: 20 mg Ceftriaxone Sodium 1 gm/ (Sodium Chloride) 100 mls @ 100 mls/hr IVPB DAILY [facility]; Protocol Last Admin: 05/27/18 09:41 Dose: 100 mls/hr Sodium Chloride (Sodium Chloride 0.9%) 1,000 mls @ 50 mls/hr IV .Q20H [facility] Losartan Potassium (Cozaar) 100 mg PO DAILY [facility] Last Admin: 05/27/18 09:41 Dose: 100 mg Metoprolol Succinate (Toprol Xl) 25 mg PO DAILY [facility] Last Admin: 05/27/18 09:41 Dose: 25 mg Spironolactone (Aldactone) 25 mg PO DAILY [facility] Last Admin: 05/27/18 09:41 Dose: 25 mg Tamsulosin HCl (Flomax) 0.4 mg PO HS [facility] Last Admin: 05/27/18 21:44 Dose: 0.4 mg - Labs Labs: 05/27/18 09:00 05/27/18 09:00 PT 14.1 SECONDS (9.7-12.2) H 05/21/18 19:43 INR 1.3 05/21/18 19:43 APTT 33 SECONDS (21-34) 05/17/18 15:20 - Constitutional Appears: Non-toxic, No Acute Distress - Head Exam Head Exam: ATRAUMATIC, NORMAL INSPECTION, NORMOCEPHALIC Additional comments: right hemifacial port wine stain - Eye Exam Eye Exam: EOMI, Normal appearance - ENT Exam ENT Exam: Mucous Membranes Moist, Normal Exam - Neck Exam Neck Exam: Normal Inspection - Respiratory Exam Respiratory Exam: Clear to Ausculation Bilateral, NORMAL BREATHING PATTERN - Cardiovascular Exam Cardiovascular Exam: Irregular Rhythm. absent: Tachycardia - GI/Abdominal Exam GI & Abdominal Exam: Soft, Normal Bowel Sounds. absent: Distended, Tenderness Additional comments: suprapubic catheter site bandaged, c/d/i - Exam Additional comments: vasquez draining herrera urine, less sanguineous compared to yesterday - Extremities Exam Extremities Exam: Normal Inspection. absent: Calf Tenderness, Pedal Edema - Neurological Exam Neurological Exam: Alert, Awake - Psychiatric Exam Psychiatric exam: Normal Affect, Normal Mood - Skin Skin Exam: Dry, Intact, Normal Color, Warm Assessment and Plan - Assessment and Plan (Free Text) Assessment: 78 year old male admitted for evaluation and treatment of gross hematuria, s/p suprapubic catheter placement Plan: Hematuria -improving today -hgb 10-->8.7-->8.6, transfuse 1U PRBC today, consented -per nursing, continue with flushes -I/Os -finasteride, flomax -IV Abx, ceftriaxone -AC held 2/2 hematuria -Per Jeane, plan for cystoscopy on Thursday pending failure to improve A Fib -monitor on telemetry -currently off AC 2/2 hematuria -irregular rhythm -Home Toprol XL 25mg qd -Cozaar 100mg QD -Runs of Vtach, asymptomatic CHF -Toprol XL 25mg QD -Cozaar 100mg QD -Aldactone 25mg PO qd - restarted -I&Os -lasix 20mg po qd Alzheimer's -Fall precautions -Aricept Ppx: GI: Pepcid VTE: AC held 2/2 hematuria Case discussed w/ Dr. Fowler -Meme Torres, PGY-1 <Uziel Fowler - Last Filed: 05/28/18 16:40> Objective - Vital Signs/Intake and Output Vital Signs (last 24 hours): Temp Pulse Resp BP Pulse Ox 98 F 85 20 115/67 97 05/28/18 15:00 05/28/18 15:00 05/28/18 15:00 05/28/18 15:00 05/28/18 15:00 Intake and Output: 05/28/18 05/28/18 06:59 18:59 Output Total 960 Balance -960 - Medications Medications: Current Medications Acetaminophen (Tylenol 325mg Tab) 650 mg PO Q6 PRN PRN Reason: Pain, moderate (4-7) Last Admin: 05/21/18 04:25 Dose: 650 mg Allopurinol (Zyloprim) 100 mg PO DAILY [facility] Last Admin: 05/28/18 10:43 Dose: 100 mg Donepezil HCl (Aricept) 10 mg PO HS [facility] Last Admin: 05/27/18 21:44 Dose: 10 mg Famotidine (Pepcid) 20 mg PO DAILY [facility] Last Admin: 05/28/18 10:44 Dose: 20 mg Finasteride (Proscar) 5 mg PO DAILY [facility] Last Admin: 05/28/18 10:44 Dose: 5 mg Furosemide (Lasix) 20 mg PO DAILY [facility] Last Admin: 05/28/18 10:44 Dose: 20 mg Ceftriaxone Sodium 1 gm/ (Sodium Chloride) 100 mls @ 100 mls/hr IVPB DAILY [facility]; Protocol Last Admin: 05/28/18 10:45 Dose: 100 mls/hr Sodium Chloride (Sodium Chloride 0.9%) 1,000 mls @ 50 mls/hr IV .Q20H [facility] Last Admin: 05/28/18 09:30 Dose: Not Given Losartan Potassium (Cozaar) 100 mg PO DAILY [facility] Last Admin: 05/28/18 10:43 Dose: 100 mg Metoprolol Succinate (Toprol Xl) 25 mg PO DAILY [facility] Last Admin: 05/28/18 10:45 Dose: 25 mg Spironolactone (Aldactone) 25 mg PO DAILY [facility] Last Admin: 05/28/18 10:44 Dose: 25 mg Tamsulosin HCl (Flomax) 0.4 mg PO HS [facility] Last Admin: 05/27/18 21:44 Dose: 0.4 mg - Labs Labs: 05/28/18 09:44 05/28/18 09:44 PT 14.1 SECONDS (9.7-12.2) H 05/21/18 19:43 INR 1.3 05/21/18 19:43 APTT 33 SECONDS (21-34) 05/17/18 15:20 Attending/Attestation - Attestation I have personally seen and examined this patient.: Yes I have fully participated in the care of the patient.: Yes I have reviewed all pertinent clinical information, including history, physical exam and plan: Yes Notes (Text): 05/28/18 16:37 Medical attending: Patient was seen and examined by me. Reviewed the above note by the resident Hgb decreased again. Will transfuse one unit of PRBC Per urology the patient may require cytoscopy if there is continued hematuria Currently holding all anticoagulation Patient explained he did not want to be here for long. Uziel Fowler
[2018-05-28] MEDS: Sodium Chloride 0.9% 1,000 ML IV SCH (09:30)
[2018-05-28 09:48] LABS: HEMOGLOBIN 8.6 g/dL (12.0-18.0); MEAN CELL VOLUME 93.3 fL (80.0-94.0); MEAN CORPUSCULAR HEMOGLOBIN 30.8 pg (27.0-31.0); MEAN PLATELET VOLUME 7.2 fL (7.2-11.7); RBC 2.79 Mil/uL (4.40-5.90); RED CELL DISTRIBUTION WIDTH 15.6 % (11.5-14.5); WHITE BLOOD COUNT 7.7 K/uL (4.8-10.8)
[2018-05-28 09:59] LABS: BLOOD UREA NITROGEN 21 mg/dL (9-20); CALCIUM 8.2 mg/dl (8.6-10.4); GFR NON-AFRICAN AMERICAN > 60
[2018-05-28] MEDS: Metoprolol Succinate 25 mg XL Tab PO SCH (10:45)
--- NOTE | 2018-05-29 03:53 | CP.PCM.PN ---
<Carloz,Madkalli - Last Filed: 05/29/18 03:49> Subjective - Date & Time of Evaluation Date of Evaluation: 05/29/18 Time of Evaluation: 03:49 - Subjective Subjective: PGY-1 Medicine Progress Note for Dr. Fowler's service S/E at bedside. Admits to mild pain with urination. Denies fevers, chills, chest pain, sob, n/v, constipation or diarrhea, and dysuria. Objective - Vital Signs/Intake and Output Vital Signs (last 24 hours): Temp Pulse Resp BP Pulse Ox 98.2 F 70 20 128/73 100 05/29/18 00:00 05/29/18 01:00 05/29/18 00:00 05/29/18 00:00 05/29/18 00:00 Intake and Output: 05/28/18 05/29/18 18:59 06:59 Intake Total 0 825 Output Total 600 Balance 0 225 - Medications Medications: Current Medications Acetaminophen (Tylenol 325mg Tab) 650 mg PO Q6 PRN PRN Reason: Pain, moderate (4-7) Last Admin: 05/21/18 04:25 Dose: 650 mg Allopurinol (Zyloprim) 100 mg PO DAILY [facility] Last Admin: 05/28/18 10:43 Dose: 100 mg Donepezil HCl (Aricept) 10 mg PO HS [facility] Last Admin: 05/28/18 21:31 Dose: 10 mg Famotidine (Pepcid) 20 mg PO DAILY [facility] Last Admin: 05/28/18 10:44 Dose: 20 mg Finasteride (Proscar) 5 mg PO DAILY [facility] Last Admin: 05/28/18 10:44 Dose: 5 mg Furosemide (Lasix) 20 mg PO DAILY [facility] Last Admin: 05/28/18 10:44 Dose: 20 mg Ceftriaxone Sodium 1 gm/ (Sodium Chloride) 100 mls @ 100 mls/hr IVPB DAILY [facility]; Protocol Last Admin: 05/28/18 10:45 Dose: 100 mls/hr Sodium Chloride (Sodium Chloride 0.9%) 1,000 mls @ 50 mls/hr IV .Q20H [facility] Last Admin: 05/28/18 09:30 Dose: Not Given Losartan Potassium (Cozaar) 100 mg PO DAILY [facility] Last Admin: 05/28/18 10:43 Dose: 100 mg Metoprolol Succinate (Toprol Xl) 25 mg PO DAILY [facility] Last Admin: 05/28/18 10:45 Dose: 25 mg Spironolactone (Aldactone) 25 mg PO DAILY [facility] Last Admin: 05/28/18 10:44 Dose: 25 mg Tamsulosin HCl (Flomax) 0.4 mg PO HS [facility] Last Admin: 05/28/18 21:31 Dose: 0.4 mg - Labs Labs: 05/28/18 09:44 05/28/18 09:44 PT 14.1 SECONDS (9.7-12.2) H 05/21/18 19:43 INR 1.3 05/21/18 19:43 APTT 33 SECONDS (21-34) 05/17/18 15:20 - Additional Findings Additional findings: - Constitutional Appears: Non-toxic, No Acute Distress - Head Exam Head Exam: ATRAUMATIC, NORMAL INSPECTION, NORMOCEPHALIC Additional comments: right hemifacial port wine stain - Eye Exam Eye Exam: EOMI, Normal appearance - ENT Exam ENT Exam: Mucous Membranes Moist, Normal Exam - Neck Exam Neck Exam: Normal Inspection - Respiratory Exam Respiratory Exam: Clear to Ausculation Bilateral, NORMAL BREATHING PATTERN - Cardiovascular Exam Cardiovascular Exam: Irregular Rhythm. absent: Tachycardia - GI/Abdominal Exam GI & Abdominal Exam: Soft, Normal Bowel Sounds. absent: Distended, Tenderness Additional comments: suprapubic catheter site bandaged, c/d/i - Exam Additional comments: vasquez draining blood tinged urine - Extremities Exam Extremities Exam: Normal Inspection. absent: Calf Tenderness, Pedal Edema - Neurological Exam Neurological Exam: Alert, Awake - Psychiatric Exam Psychiatric exam: Normal Affect, Normal Mood - Skin Skin Exam: Dry, Intact, Normal Color, Warm Assessment and Plan - Assessment and Plan (Free Text) Assessment: 78 year old male admitted for evaluation and treatment of gross hematuria, s/p suprapubic catheter placement Hematuria -improving today 1 unit pRBC given on 05/29; cbc pending -per nursing, continue with flushes -I/Os -finasteride, flomax -IV Abx, ceftriaxone -AC held 05/22 hematuria NS@ 50mls/hr -Per Jeane, plan for cystoscopy on Thursday pending failure to improve A Fib -monitor on telemetry -currently off AC 05/22 hematuria -irregular rhythm -Home Toprol XL 25mg qd -Cozaar 100mg QD -Runs of Vtach, asymptomatic CHF -Toprol XL 25mg QD -Cozaar 100mg QD -Aldactone 25mg PO qd - restarted -I&Os -lasix 20mg po qd Alzheimer's -Fall precautions -Aricept Ppx: GI: Pepcid VTE: AC held 2/2 hematuria Case discussed w/ Dr. Janeth Carty PGY-1 <Uziel Fowler H - Last Filed: 05/29/18 09:47> Objective - Vital Signs/Intake and Output Vital Signs (last 24 hours): Temp Pulse Resp BP Pulse Ox 97.5 F L 69 20 136/73 99 05/29/18 09:00 05/29/18 09:00 05/29/18 09:00 05/29/18 09:09 05/29/18 09:00 Intake and Output: 05/29/18 05/29/18 06:59 18:59 Intake Total 825 Output Total 1100 Balance -275 - Medications Medications: Current Medications Acetaminophen (Tylenol 325mg Tab) 650 mg PO Q6 PRN PRN Reason: Pain, moderate (4-7) Last Admin: 05/21/18 04:25 Dose: 650 mg Allopurinol (Zyloprim) 100 mg PO DAILY [facility] Last Admin: 05/29/18 09:08 Dose: 100 mg Donepezil HCl (Aricept) 10 mg PO HS [facility] Last Admin: 05/28/18 21:31 Dose: 10 mg Famotidine (Pepcid) 20 mg PO DAILY [facility] Last Admin: 05/29/18 09:08 Dose: 20 mg Finasteride (Proscar) 5 mg PO DAILY [facility] Last Admin: 05/29/18 09:08 Dose: 5 mg Furosemide (Lasix) 20 mg PO DAILY [facility] Last Admin: 05/29/18 09:09 Dose: 20 mg Ceftriaxone Sodium 1 gm/ (Sodium Chloride) 100 mls @ 100 mls/hr IVPB DAILY [facility]; Protocol Last Admin: 05/29/18 09:08 Dose: 100 mls/hr Sodium Chloride (Sodium Chloride 0.9%) 1,000 mls @ 50 mls/hr IV .Q20H [facility] Last Admin: 05/29/18 09:10 Dose: 50 mls/hr Losartan Potassium (Cozaar) 100 mg PO DAILY [facility] Last Admin: 05/29/18 09:08 Dose: 100 mg Metoprolol Succinate (Toprol Xl) 25 mg PO DAILY [facility] Last Admin: 05/29/18 09:08 Dose: 25 mg Spironolactone (Aldactone) 25 mg PO DAILY [facility] Last Admin: 05/29/18 09:08 Dose: 25 mg Tamsulosin HCl (Flomax) 0.4 mg PO HS [facility] Last Admin: 05/28/18 21:31 Dose: 0.4 mg - Labs Labs: 05/29/18 07:03 05/29/18 07:03 PT 14.1 SECONDS (9.7-12.2) H 05/21/18 19:43 INR 1.3 05/21/18 19:43 APTT 33 SECONDS (21-34) 05/17/18 15:20 Attending/Attestation - Attestation I have personally seen and examined this patient.: Yes I have fully participated in the care of the patient.: Yes I have reviewed all pertinent clinical information, including history, physical exam and plan: Yes Notes (Text): 05/29/18 09:45 Medical attending: Patient was seen and examined by me. Agree with the above note by the resident The patient was seen and examined by me. Agree with the above by the resident The patient was not in any acute distress Inpsected the vasquez bag and it had a lot of dark red color urine. Per nursing the content of the bag were from this morning He had one unit of PRBC yesterday He is not on lovenox or heparin, his anticoagulation for the atrial has been on hold for sometime now Uziel Fowler
[2018-05-29 07:19] LABS: BASO % 0.4 % (0.0-2.0); EOS # 0.1 K/uL (0.0-0.7); EOS % 1.4 % (0.0-4.0); HEMOGLOBIN 10.4 g/dL (12.0-18.0); LYMPH # 0.7 K/uL (1.0-4.3); LYMPH % 7.5 % (20.0-40.0); MEAN CELL VOLUME 91.6 fL (80.0-94.0); MEAN CORPUSCULAR HEMOGLOBIN 31.8 pg (27.0-31.0); MEAN CORPUSCULAR HGB CONC 34.8 g/dL (33.0-37.0); MEAN PLATELET VOLUME 7.6 fL (7.2-11.7); MONO # 0.5 K/uL (0.0-0.8); MONO % 5.7 % (0.0-10.0); NEUT # 7.5 K/uL (1.8-7.0); PLATELET COUNT 203 K/uL (130-400); RBC 3.26 Mil/uL (4.40-5.90); RED CELL DISTRIBUTION WIDTH 15.8 % (11.5-14.5); WHITE BLOOD COUNT 8.9 K/uL (4.8-10.8)
[2018-05-29 07:42] LABS: ALB/GLOB RATIO 0.9 (1.0-2.1); ALBUMIN 2.4 g/dL (3.5-5.0); ALT/SGPT 22 U/L (21-72); AST/SGOT 26 U/L (17-59); BLOOD UREA NITROGEN 22 mg/dL (9-20); CALCIUM 8.3 mg/dl (8.6-10.4); GFR NON-AFRICAN AMERICAN > 60
[2018-05-29] MEDS: Metoprolol Succinate 25 mg XL Tab PO SCH (09:08)
[2018-05-29] MEDS: Sodium Chloride 0.9% 1,000 ML IV SCH (09:10)
[2018-05-29 09:32] LABS: ANISOCYTOSIS SLIGHT; EOSINOPHIL 1 % (0-4); LYMPHOCYTE 6 % (20-40); MONOCYTE 4 % (0-10); NEUTROPHIL 89 % (50-75); PLATELET ESTIMATE NORMAL (NORMAL); TOTAL CELLS COUNTED 100
[2018-05-29 09:33] LABS: HYPOCHROMIC SLIGHT; OVALOCYTES SLIGHT; POIKILOCYTOSIS SLIGHT; POLYCHROMIC SLIGHT
[2018-05-30] MEDS: Sodium Chloride 0.9% 1,000 ML IV SCH ×3 (00:34→16:20)
--- NOTE | 2018-05-30 00:50 | CP.PCM.PN ---
<Mejia Carty - Last Filed: 05/30/18 00:50> Subjective - Date & Time of Evaluation Date of Evaluation: 05/30/18 Time of Evaluation: 00:46 - Subjective Subjective: PGY-1 Medicine Progress Note for Dr. Fowler's service S/E at bedside. Offers no acute complaints. Denies fevers, chills, chest pain, sob, n/v, constipation or diarrhea, and dysruia. Objective - Vital Signs/Intake and Output Vital Signs (last 24 hours): Temp Pulse Resp BP Pulse Ox 98.6 F 94 H 18 146/70 100 05/29/18 19:19 05/29/18 19:19 05/29/18 19:19 05/29/18 19:19 05/29/18 16:59 Intake and Output: 05/29/18 05/30/18 18:59 06:59 Intake Total 1100 300 Output Total 850 809 Balance 250 -509 - Medications Medications: Current Medications Acetaminophen (Tylenol 325mg Tab) 650 mg PO Q6 PRN PRN Reason: Pain, moderate (4-7) Last Admin: 05/21/18 04:25 Dose: 650 mg Allopurinol (Zyloprim) 100 mg PO DAILY [facility] Last Admin: 05/29/18 09:08 Dose: 100 mg Donepezil HCl (Aricept) 10 mg PO HS [facility] Last Admin: 05/29/18 21:54 Dose: 10 mg Famotidine (Pepcid) 20 mg PO DAILY [facility] Last Admin: 05/29/18 09:08 Dose: 20 mg Finasteride (Proscar) 5 mg PO DAILY [facility] Last Admin: 05/29/18 09:08 Dose: 5 mg Furosemide (Lasix) 20 mg PO DAILY [facility] Last Admin: 05/29/18 09:09 Dose: 20 mg Ceftriaxone Sodium 1 gm/ (Sodium Chloride) 100 mls @ 100 mls/hr IVPB DAILY [facility]; Protocol Last Admin: 05/29/18 09:08 Dose: 100 mls/hr Sodium Chloride (Sodium Chloride 0.9%) 1,000 mls @ 50 mls/hr IV .Q20H [facility] Last Admin: 05/29/18 09:10 Dose: 50 mls/hr Losartan Potassium (Cozaar) 100 mg PO DAILY [facility] Last Admin: 05/29/18 09:08 Dose: 100 mg Metoprolol Succinate (Toprol Xl) 25 mg PO DAILY [facility] Last Admin: 05/29/18 09:08 Dose: 25 mg Spironolactone (Aldactone) 25 mg PO DAILY [facility] Last Admin: 05/29/18 09:08 Dose: 25 mg Tamsulosin HCl (Flomax) 0.4 mg PO HS [facility] Last Admin: 05/29/18 21:54 Dose: 0.4 mg - Labs Labs: 05/29/18 07:03 05/29/18 07:03 PT 14.1 SECONDS (9.7-12.2) H 05/21/18 19:43 INR 1.3 05/21/18 19:43 APTT 33 SECONDS (21-34) 05/17/18 15:20 - Additional Findings Additional findings: - Constitutional Appears: Non-toxic, No Acute Distress - Head Exam Head Exam: ATRAUMATIC, NORMAL INSPECTION, NORMOCEPHALIC Additional comments: right hemifacial port wine stain - Eye Exam Eye Exam: EOMI, Normal appearance - ENT Exam ENT Exam: Mucous Membranes Moist, Normal Exam - Neck Exam Neck Exam: Normal Inspection - Respiratory Exam Respiratory Exam: Clear to Ausculation Bilateral, NORMAL BREATHING PATTERN - Cardiovascular Exam Cardiovascular Exam: Irregular Rhythm. absent: Tachycardia - GI/Abdominal Exam GI & Abdominal Exam: Soft, Normal Bowel Sounds. absent: Distended, Tenderness Additional comments: suprapubic catheter site bandaged, c/d/i - Exam Additional comments: vasquez draining almost puprple tinged urine - Extremities Exam Extremities Exam: Normal Inspection. absent: Calf Tenderness, Pedal Edema - Neurological Exam Neurological Exam: Alert, Awake - Psychiatric Exam Psychiatric exam: Normal Affect, Normal Mood - Skin Skin Exam: Dry, Intact, Normal Color, Warm Assessment and Plan - Assessment and Plan (Free Text) Assessment: 78 year old male with a PMH of AFib (was on Xarelto), CHF, HTN, IgA nephropathy w/ proteinuria admitted for evaluation and treatment of gross hematuria, s/p suprapubic catheter placement Hematuria -improving today -per nursing, continue with flushes -I/Os -finasteride, flomax -IV Abx, ceftriaxone -AC held / hematuria -NS@ 50mls/hr -Per Jeane, plan for cystoscopy on Thursday pending failure to improve Anemia -repleted 1 unit of pRBC -likely 2/2 hematuria -hemodynamially stable A Fib -monitor on telemetry -currently off AC 2/2 hematuria -irregular rhythm -Home Toprol XL 25mg qd -Cozaar 100mg QD -Runs of Vtach, asymptomatic CHF -Toprol XL 25mg QD -Cozaar 100mg QD -Aldactone 25mg PO qd - restarted -I&Os -lasix 20mg po qd Alzheimer's -Fall precautions -Aricept Ppx: GI: Pepcid VTE: AC held 2/2 hematuria Case discussed w/ Dr. Janeth Carty PGY-1 <Uziel Fowler - Last Filed: 05/30/18 09:44> Objective - Vital Signs/Intake and Output Vital Signs (last 24 hours): Temp Pulse Resp BP Pulse Ox 98.9 F 82 20 126/71 97 05/30/18 08:55 05/30/18 08:55 05/30/18 08:55 05/30/18 09:36 05/30/18 08:55 Intake and Output: 05/30/18 05/30/18 06:59 18:59 Intake Total 700 Output Total 2008 Balance -1309 - Medications Medications: Current Medications Acetaminophen (Tylenol 325mg Tab) 650 mg PO Q6 PRN PRN Reason: Pain, moderate (4-7) Last Admin: 05/21/18 04:25 Dose: 650 mg Allopurinol (Zyloprim) 100 mg PO DAILY [facility] Last Admin: 05/30/18 09:36 Dose: 100 mg Donepezil HCl (Aricept) 10 mg PO HS [facility] Last Admin: 05/29/18 21:54 Dose: 10 mg Famotidine (Pepcid) 20 mg PO DAILY [facility] Last Admin: 05/30/18 09:36 Dose: 20 mg Finasteride (Proscar) 5 mg PO DAILY [facility] Last Admin: 05/30/18 09:36 Dose: 5 mg Furosemide (Lasix) 20 mg PO DAILY [facility] Last Admin: 05/30/18 09:36 Dose: 20 mg Ceftriaxone Sodium 1 gm/ (Sodium Chloride) 100 mls @ 100 mls/hr IVPB DAILY [facility]; Protocol Last Admin: 05/30/18 09:33 Dose: 100 mls/hr Sodium Chloride (Sodium Chloride 0.9%) 1,000 mls @ 50 mls/hr IV .Q20H [facility] Last Admin: 05/30/18 09:36 Dose: 50 mls/hr Losartan Potassium (Cozaar) 100 mg PO DAILY [facility] Last Admin: 05/30/18 09:36 Dose: 100 mg Metoprolol Succinate (Toprol Xl) 25 mg PO DAILY [facility] Last Admin: 05/30/18 09:36 Dose: 25 mg Spironolactone (Aldactone) 25 mg PO DAILY [facility] Last Admin: 05/30/18 09:35 Dose: 25 mg Tamsulosin HCl (Flomax) 0.4 mg PO HS [facility] Last Admin: 05/29/18 21:54 Dose: 0.4 mg - Labs Labs: 05/30/18 08:48 05/30/18 08:48 PT 14.1 SECONDS (9.7-12.2) H 05/21/18 19:43 INR 1.3 05/21/18 19:43 APTT 33 SECONDS (21-34) 05/17/18 15:20 Attending/Attestation - Attestation I have personally seen and examined this patient.: Yes I have fully participated in the care of the patient.: Yes I have reviewed all pertinent clinical information, including history, physical exam and plan: Yes Notes (Text): 05/30/18 09:42 Medical attending: Patient was seen and examined by me. Agree with the above no te by the resident The patient was not in any acute distress however the vasquez bag and suprapubic bag both have blood color appearing urine The Hgb again decreased to 9.5. The patient had previously had 1 unit of PRBC given There are plans for cytoscopy, NPO for midnight He remains in atrial fibrillation - his anticoagulation has been held for some time now Uziel Fowler
[2018-05-30 08:55] LABS: BASO # 0.1 K/uL (0.0-0.2); BASO % 0.5 % (0.0-2.0); EOS # 0.1 K/uL (0.0-0.7); HEMOGLOBIN 9.5 g/dL (12.0-18.0); LYMPH # 0.7 K/uL (1.0-4.3); LYMPH % 6.1 % (20.0-40.0); MEAN CORPUSCULAR HEMOGLOBIN 31.6 pg (27.0-31.0); MEAN CORPUSCULAR HGB CONC 33.9 g/dL (33.0-37.0); MEAN PLATELET VOLUME 7.5 fL (7.2-11.7); MONO # 0.7 K/uL (0.0-0.8); MONO % 6.1 % (0.0-10.0); NEUT # 9.3 K/uL (1.8-7.0); NEUT % 86.3 % (50.0-75.0); PLATELET COUNT 209 K/uL (130-400); RBC 3.02 Mil/uL (4.40-5.90); RED CELL DISTRIBUTION WIDTH 15.8 % (11.5-14.5); WHITE BLOOD COUNT 10.8 K/uL (4.8-10.8)
[2018-05-30 09:08] LABS: ALB/GLOB RATIO 0.8 (1.0-2.1); ALBUMIN 2.3 g/dL (3.5-5.0); ALT/SGPT 24 U/L (21-72); AST/SGOT 26 U/L (17-59); BLOOD UREA NITROGEN 25 mg/dL (9-20); CALCIUM 8.3 mg/dl (8.6-10.4); GFR NON-AFRICAN AMERICAN > 60
[2018-05-30] MEDS: Metoprolol Succinate 25 mg XL Tab PO SCH (09:36)
[2018-05-30 11:14] LABS: ANISOCYTOSIS SLIGHT; EOSINOPHIL 1 % (0-4); HYPOCHROMIC SLIGHT; LYMPHOCYTE 8 % (20-40); MONOCYTE 4 % (0-10); NEUTROPHIL 87 % (50-75); PLATELET ESTIMATE NORMAL (NORMAL); POIKILOCYTOSIS SLIGHT; TOTAL CELLS COUNTED 100
[2018-05-31] MEDS: Sodium Chloride 0.9% 1,000 ML IV SCH ×2 (01:45→11:53)
[2018-05-31 07:23] LABS: ALB/GLOB RATIO 0.8 (1.0-2.1); ALBUMIN 2.1 g/dL (3.5-5.0); ALT/SGPT 22 U/L (21-72); AST/SGOT 23 U/L (17-59); BLOOD UREA NITROGEN 29 mg/dL (9-20); CALCIUM 7.9 mg/dl (8.6-10.4); GFR NON-AFRICAN AMERICAN > 60
[2018-05-31 07:26] LABS: BASO # 0.1 K/uL (0.0-0.2); BASO % 0.6 % (0.0-2.0); EOS # 0.1 K/uL (0.0-0.7); EOS % 1.2 % (0.0-4.0); HEMOGLOBIN 8.5 g/dL (12.0-18.0); LYMPH # 0.7 K/uL (1.0-4.3); LYMPH % 8.1 % (20.0-40.0); MEAN CELL VOLUME 93.3 fL (80.0-94.0); MEAN CORPUSCULAR HEMOGLOBIN 31.8 pg (27.0-31.0); MEAN CORPUSCULAR HGB CONC 34.1 g/dL (33.0-37.0); MEAN PLATELET VOLUME 7.7 fL (7.2-11.7); MONO # 0.5 K/uL (0.0-0.8); MONO % 5.6 % (0.0-10.0); NEUT # 7.1 K/uL (1.8-7.0); NEUT % 84.5 % (50.0-75.0); NRBC % 0.1 % (0.0-2.0); PLATELET COUNT 216 K/uL (130-400); RBC 2.67 Mil/uL (4.40-5.90); RED CELL DISTRIBUTION WIDTH 15.6 % (11.5-14.5); WHITE BLOOD COUNT 8.4 K/uL (4.8-10.8)
--- NOTE | 2018-05-31 07:45 | CP.PCM.PN ---
Subjective - Date & Time of Evaluation Date of Evaluation: 05/31/18 Time of Evaluation: 07:44 - Subjective Subjective: PGY-1 Medicine Progress Note for Dr. Hernández Patient seen and examined at bedside. No acute overnight events reported. No acute somatic complaints. Denies fevers/chills, chest pain, palpitations, sob, n/v/d/c. Continues to have gross hematuria. Objective - Vital Signs/Intake and Output Vital Signs (last 24 hours): Temp Pulse Resp BP Pulse Ox 98.2 F 89 20 129/78 99 05/30/18 23:35 05/30/18 23:35 05/30/18 23:35 05/30/18 23:35 05/30/18 23:35 Intake and Output: 05/31/18 05/31/18 06:59 18:59 Intake Total 1160 Output Total 1275 Balance -115 - Medications Medications: Current Medications Acetaminophen (Tylenol 325mg Tab) 650 mg PO Q6 PRN PRN Reason: Pain, moderate (4-7) Last Admin: 05/21/18 04:25 Dose: 650 mg Allopurinol (Zyloprim) 100 mg PO DAILY [facility] Last Admin: 05/30/18 09:36 Dose: 100 mg Donepezil HCl (Aricept) 10 mg PO HS [facility] Last Admin: 05/30/18 21:40 Dose: 10 mg Famotidine (Pepcid) 20 mg PO DAILY [facility] Last Admin: 05/30/18 09:36 Dose: 20 mg Finasteride (Proscar) 5 mg PO DAILY [facility] Last Admin: 05/30/18 09:36 Dose: 5 mg Furosemide (Lasix) 20 mg PO DAILY [facility] Last Admin: 05/30/18 09:36 Dose: 20 mg Ceftriaxone Sodium 1 gm/ (Sodium Chloride) 100 mls @ 100 mls/hr IVPB DAILY [facility]; Protocol Last Admin: 05/30/18 09:33 Dose: 100 mls/hr Sodium Chloride (Sodium Chloride 0.9%) 1,000 mls @ 100 mls/hr IV .Q10H [facility] Last Admin: 05/31/18 01:45 Dose: 100 mls/hr Losartan Potassium (Cozaar) 100 mg PO DAILY [facility] Last Admin: 05/30/18 09:36 Dose: 100 mg Metoprolol Succinate (Toprol Xl) 25 mg PO DAILY [facility] Last Admin: 02/10/19 09:36 Dose: 25 mg Spironolactone (Aldactone) 25 mg PO DAILY [facility] Last Admin: 05/30/18 09:35 Dose: 25 mg Tamsulosin HCl (Flomax) 0.4 mg PO HS [facility] Last Admin: 05/30/18 21:40 Dose: 0.4 mg - Labs Labs: 05/31/18 07:00 05/31/18 07:00 PT 14.1 SECONDS (9.7-12.2) H 05/21/18 19:43 INR 1.3 05/21/18 19:43 APTT 33 SECONDS (21-34) 05/17/18 15:20 - Constitutional Appears: Non-toxic, No Acute Distress - Head Exam Head Exam: ATRAUMATIC, NORMAL INSPECTION, NORMOCEPHALIC Additional comments: R hemifacial port wine stain - Eye Exam Eye Exam: EOMI, Normal appearance, PERRL - ENT Exam ENT Exam: Mucous Membranes Moist, Normal Exam - Neck Exam Neck Exam: Full ROM, Normal Inspection. absent: Tenderness - Respiratory Exam Respiratory Exam: Clear to Ausculation Bilateral, NORMAL BREATHING PATTERN. absent: Accessory Muscle Use, Rales, Rhonchi, Wheezes, Respiratory Distress, Stridor - Cardiovascular Exam Cardiovascular Exam: Irregular Rhythm, +S1, +S2. absent: Tachycardia - GI/Abdominal Exam GI & Abdominal Exam: Soft, Normal Bowel Sounds. absent: Distended, Firm, Guarding, Rigid, Tenderness, Organomegaly, Rebound Additional comments: suprapubic catheter site bandaged, c/d/i - Exam Additional comments: vasquez cath draining sanguinous urine - Extremities Exam Extremities Exam: Normal Capillary Refill, Normal Inspection. absent: Calf Tenderness, Pedal Edema - Neurological Exam Neurological Exam: Alert, Awake - Psychiatric Exam Psychiatric exam: Normal Affect, Normal Mood - Skin Skin Exam: Dry, Intact, Normal Color, Warm Assessment and Plan - Assessment and Plan (Free Text) Assessment: 78 yo M with a PMHx of AFib (was on Xarelto), CHF, HTN, IgA nephropathy w/ proteinuria admitted for evaluation and treatment of gross hematuria, s/p suprapubic catheter placement. Plan: Gross hematuria -Urology (Dr. Ching) on case -OR this AM (05/31) for cystoscopy -f/u prostate and bladder bx -may need continuous irrigation per Dr. Ching, f/u further recs -oral AC held 2/2 hematuria -NS@ 50mls/hr -finasteride, flomax -Rocephin 1 gm daily -daily I/Os -c/w flushings Anemia -likely 2/2 hematuria -s/p 1 unit of pRBC -Hb 8.5 (05/31) -continue to monitor, replete prn Atrial fibrillation -monitor on telemetry -currently off AC 2/2 hematuria -irregular rhythm -Home Toprol XL 25mg qd -Cozaar 100mg QD -Runs of Vtach, asymptomatic CHF -Toprol XL 25mg PO daily -Cozaar 100mg PO daily -Aldactone 25mg PO daily--currently being held -Lasix 20 mg PO daily--currently being held -strict I/Os Alzheimer's Disease -Fall precautions -Aricept 10 mg PO HS Ppx, Diet, Disposition -DVT ppx: scds, oral AC held 2/2 hematuria -GI ppx: pepcid -Diet: HHD Case discussed with Dr. Betty Muñiz DO, PGY-1
[2018-05-31] MEDS ORDERED: cefTRIAXone 1 gm 1 GM/100 ML BAG IVPB ONE (09:02)
[2018-05-31] MEDS ORDERED: Iohexol 240 (50 ml) ONE (09:02)
[2018-05-31] MEDS ORDERED: ePHEDrine 50 mg/ml Inj ONE (09:40)
[2018-05-31] MEDS ORDERED: Etomidate 20 mg/10ml Inj IV ONE (09:40)
[2018-05-31] MEDS ORDERED: Iohexol 240 200 ML ONE (09:42)
[2018-05-31 09:43] LABS: BANDS 1 % (0-2); LYMPHOCYTE 9 % (20-40); NEUTROPHIL 85 % (50-75); TOTAL CELLS COUNTED 100
[2018-05-31 09:44] LABS: ANISOCYTOSIS SLIGHT; EOSINOPHIL 1 % (0-4); MONOCYTE 4 % (0-10); OVALOCYTES SLIGHT; PLATELET ESTIMATE NORMAL (NORMAL)
--- NOTE | 2018-05-31 10:30 | PCM.SURG1 ---
Surgeon's Initial Post Op Note - Surgeon's Notes Surgeon: Robbie Ching Bundle Clerk: none Type of Anesthesia: General LMA Pre-Operative Diagnosis: Hematuria. Prostate cancer Operative Findings: same. cystitis. necrotic prostate. seeds in prostatic urethra. cavity (?bladder) posterior to bladder. no extravastion Post-Operative Diagnosis: same Operation Performed: cystogram. cystoscopy. evacuation of clots. removal of prostate seeds. bladder bx and fulguration. TUR-bx of prostate. EUA Specimen/Specimens Removed: urine. bladder bx. seeds. prostatic urethral bx Estimated Blood Loss: EBL {In ML}: 10 Blood Products Given: N/A Post-Op Condition: Good Date of Surgery/Procedure: 05/31/18 Time of Surgery/Procedure: 10:25
[2018-05-31] MEDS: Metoprolol Succinate 25 mg XL Tab PO SCH (11:01)
--- NOTE | 2018-05-31 13:49 | RAD ---
Date of service: 05/31/2018 HISTORY: HEMATURIA COMPARISON: CT scan of the abdomen pelvis dated 05/23/2018. FINDINGS: BOWEL: Normal. No obstruction. No free air. BONES: Spinal degenerative changes. OTHER FINDINGS: Radiation prostate seeds. IMPRESSION: No active disease.
--- NOTE | 2018-05-31 19:02 | CP.PCM.PN ---
<Oz Baer - Last Filed: 05/31/18 19:05> Subjective - Date & Time of Evaluation Date of Evaluation: 05/31/18 Time of Evaluation: 11:00 - Subjective Subjective: Oz Baer PGY2 Nephrology Progress Note for Dr. Avalos Patient seen and examined bedside post urological procedure. Patient eating okay. Denies any pain. Objective - Vital Signs/Intake and Output Vital Signs (last 24 hours): Temp Pulse Resp BP Pulse Ox 97.8 F 87 18 129/74 100 05/31/18 15:00 05/31/18 16:00 05/31/18 15:00 05/31/18 15:00 05/31/18 15:00 Intake and Output: 05/31/18 05/31/18 06:59 18:59 Intake Total 1160 1300 Output Total 1275 Balance -115 1300 - Medications Medications: Current Medications Acetaminophen (Tylenol 325mg Tab) 650 mg PO Q6 PRN PRN Reason: Pain, moderate (4-7) Last Admin: 05/21/18 04:25 Dose: 650 mg Allopurinol (Zyloprim) 100 mg PO DAILY [facility] Last Admin: 05/31/18 11:15 Dose: Not Given Donepezil HCl (Aricept) 10 mg PO HS [facility] Last Admin: 05/30/18 21:40 Dose: 10 mg Famotidine (Pepcid) 20 mg PO DAILY [facility] Last Admin: 05/31/18 11:00 Dose: Not Given Finasteride (Proscar) 5 mg PO DAILY [facility] Last Admin: 05/31/18 11:00 Dose: Not Given Furosemide (Lasix) 20 mg PO DAILY [facility] Last Admin: 05/31/18 11:00 Dose: Not Given Ceftriaxone Sodium 1 gm/ (Sodium Chloride) 100 mls @ 100 mls/hr IVPB DAILY [facility]; Protocol Last Admin: 05/31/18 09:30 Dose: 100 mls Sodium Chloride (Sodium Chloride 0.9%) 1,000 mls @ 100 mls/hr IV .Q10H [facility] Last Admin: 05/31/18 11:53 Dose: Not Given Losartan Potassium (Cozaar) 100 mg PO DAILY [facility] Last Admin: 05/31/18 10:57 Dose: Not Given Metoprolol Succinate (Toprol Xl) 25 mg PO DAILY [facility] Last Admin: 05/31/18 11:01 Dose: Not Given Spironolactone (Aldactone) 25 mg PO DAILY [facility] Last Admin: 05/30/18 09:35 Dose: 25 mg Tamsulosin HCl (Flomax) 0.4 mg PO HS [facility] Last Admin: 05/30/18 21:40 Dose: 0.4 mg - Labs Labs: 05/31/18 07:00 05/31/18 07:00 PT 14.1 SECONDS (9.7-12.2) H 05/21/18 19:43 INR 1.3 05/21/18 19:43 APTT 33 SECONDS (21-34) 05/17/18 15:20 - Constitutional Appears: No Acute Distress - Eye Exam Eye Exam: Normal appearance - GI/Abdominal Exam GI & Abdominal Exam: Soft - Extremities Exam Extremities Exam: Pedal Edema - Neurological Exam Neurological Exam: Awake Assessment and Plan - Assessment and Plan (Free Text) Assessment: 78 year old male with a PMH of AFib (on Xarelto), CHF, HTN, IgA nephropathy w/ proteinuria, and multiple myeloma (not on tx) who is admitted for gross hematuria. Nephrology is consulted for hyponatremia. Plan: Hyponatremia - improved w/ volume repletion w/ albumin -continue IV fluids NS@100 -will hold lasix, and reevaluate CHFrEF - appears euvolemic at this time - hold Aldactone Hematuria, off AC for his AFib -cystoscopy done by urology, with bladder and urethral biopsy HTN - cont meds Proteinuria - may be a result of multiple myeloma - should f/u hematology as outpatient <Casey Avalos - Last Filed: 06/01/18 07:48> Objective - Vital Signs/Intake and Output Vital Signs (last 24 hours): Temp Pulse Resp BP Pulse Ox 98.0 F 110 H 20 123/66 100 05/31/18 23:08 05/31/18 23:30 05/31/18 23:08 05/31/18 23:08 05/31/18 23:08 Intake and Output: 06/01/18 06/01/18 06:59 18:59 Intake Total 120 Output Total 1330 Balance -1210 - Medications Medications: Current Medications Acetaminophen (Tylenol 325mg Tab) 650 mg PO Q6 PRN PRN Reason: Pain, moderate (4-7) Last Admin: 05/21/18 04:25 Dose: 650 mg Allopurinol (Zyloprim) 100 mg PO DAILY [facility] Last Admin: 05/31/18 11:15 Dose: Not Given Donepezil HCl (Aricept) 10 mg PO HS [facility] Last Admin: 05/31/18 21:51 Dose: 10 mg Famotidine (Pepcid) 20 mg PO DAILY [facility] Last Admin: 05/31/18 11:00 Dose: Not Given Finasteride (Proscar) 5 mg PO DAILY [facility] Last Admin: 05/31/18 11:00 Dose: Not Given Furosemide (Lasix) 20 mg PO DAILY [facility] Last Admin: 05/31/18 11:00 Dose: Not Given Ceftriaxone Sodium 1 gm/ (Sodium Chloride) 100 mls @ 100 mls/hr IVPB DAILY [facility]; Protocol Last Admin: 05/31/18 09:30 Dose: 100 mls Sodium Chloride (Sodium Chloride 0.9%) 1,000 mls @ 100 mls/hr IV .Q10H [facility] Last Admin: 06/01/18 03:07 Dose: 100 mls/hr Losartan Potassium (Cozaar) 100 mg PO DAILY [facility] Last Admin: 05/31/18 10:57 Dose: Not Given Metoprolol Succinate (Toprol Xl) 25 mg PO DAILY [facility] Last Admin: 05/31/18 11:01 Dose: Not Given Spironolactone (Aldactone) 25 mg PO DAILY [facility] Last Admin: 05/30/18 09:35 Dose: 25 mg Tamsulosin HCl (Flomax) 0.4 mg PO HS [facility] Last Admin: 05/31/18 21:51 Dose: 0.4 mg - Labs Labs: 05/31/18 23:57 05/31/18 07:00 PT 14.1 SECONDS (9.7-12.2) H 05/21/18 19:43 INR 1.3 05/21/18 19:43 APTT 33 SECONDS (21-34) 05/17/18 15:20 Assessment and Plan (1) Hyponatremia Status: Resolved (2) CHF (congestive heart failure) Status: Chronic (3) Hematuria Status: Acute (4) Gout Status: Chronic (5) Hypertension Status: Chronic (6) Proteinuria Status: Chronic Attending/Attestation - Attestation I have personally seen and examined this patient.: Yes I have fully participated in the care of the patient.: Yes I have reviewed all pertinent clinical information, including history, physical exam and plan: Yes Notes (Text): Patient seen and examined; I agree with the resident's note as above with the following additions/edits: Patient s/p cystoscopy with bladder biopsy and fluguration today; with gross hematuria, need to continue flushing vasquez/suprapubic catheters twice per shift; Labs and low/normal BP consistent with some degree of volume depletion; holding diuretics and continuing IVF w/ NS at 100 cc/hr; CHF w/ systolic dysfunction noted but is asymptomatic and appears euvolemic on exam; continue B-bruce and ARB; Patient only has 1 functioning kidney at this point (R kidney with severe hydro nephrosis and cortical atrophy); CrCl is likely much lower than eGFR; need to avoid nephrotoxic agents; avoid NSAIDS;
[2018-06-01] LABS: HEMOGLOBIN 7.4 g/dL (12.0-18.0); MEAN CELL VOLUME 94.5 fL (80.0-94.0); MEAN CORPUSCULAR HEMOGLOBIN 31.3 pg (27.0-31.0); MEAN CORPUSCULAR HGB CONC 33.2 g/dL (33.0-37.0); MEAN PLATELET VOLUME 8.6 fL (7.2-11.7); RBC 2.38 Mil/uL (4.40-5.90); RED CELL DISTRIBUTION WIDTH 15.9 % (11.5-14.5); WHITE BLOOD COUNT 9.1 K/uL (4.8-10.8)
[2018-06-01] MEDS: Sodium Chloride 0.9% 1,000 ML IV SCH ×3 (03:07→13:40)
--- NOTE | 2018-06-01 07:13 | CP.PCM.PN ---
Subjective - Date & Time of Evaluation Date of Evaluation: 06/01/18 Time of Evaluation: 07:13 - Subjective Subjective: PGY-1 Medicine Progress Note for Dr. Hernández Patient seen and examined at bedside this AM. No acute somatic complaints at this time. Patient continues to have gross hematuria, though appears to be less than day before. Vasquez catheter continues to be irrigated, per Urology recs. Possible OR tomorrow, per Urology, if bleeding continues. Objective - Vital Signs/Intake and Output Vital Signs (last 24 hours): Temp Pulse Resp BP Pulse Ox 98.0 F 110 H 20 123/66 100 05/31/18 23:08 05/31/18 23:30 05/31/18 23:08 05/31/18 23:08 05/31/18 23:08 Intake and Output: 06/01/18 06/01/18 06:59 18:59 Intake Total 120 Output Total 1330 Balance -1210 - Medications Medications: Current Medications Acetaminophen (Tylenol 325mg Tab) 650 mg PO Q6 PRN PRN Reason: Pain, moderate (4-7) Last Admin: 05/21/18 04:25 Dose: 650 mg Allopurinol (Zyloprim) 100 mg PO DAILY [facility] Last Admin: 05/31/18 11:15 Dose: Not Given Donepezil HCl (Aricept) 10 mg PO HS [facility] Last Admin: 05/31/18 21:51 Dose: 10 mg Famotidine (Pepcid) 20 mg PO DAILY [facility] Last Admin: 05/31/18 11:00 Dose: Not Given Finasteride (Proscar) 5 mg PO DAILY [facility] Last Admin: 05/31/18 11:00 Dose: Not Given Furosemide (Lasix) 20 mg PO DAILY [facility] Last Admin: 05/31/18 11:00 Dose: Not Given Ceftriaxone Sodium 1 gm/ (Sodium Chloride) 100 mls @ 100 mls/hr IVPB DAILY [facility]; Protocol Last Admin: 05/31/18 09:30 Dose: 100 mls Sodium Chloride (Sodium Chloride 0.9%) 1,000 mls @ 100 mls/hr IV .Q10H [facility] Last Admin: 06/01/18 03:07 Dose: 100 mls/hr Losartan Potassium (Cozaar) 100 mg PO DAILY [facility] Last Admin: 05/31/18 10:57 Dose: Not Given Metoprolol Succinate (Toprol Xl) 25 mg PO DAILY [facility] Last Admin: 05/31/18 11:01 Dose: Not Given Spironolactone (Aldactone) 25 mg PO DAILY [facility] Last Admin: 05/30/18 09:35 Dose: 25 mg Tamsulosin HCl (Flomax) 0.4 mg PO HS [facility] Last Admin: 05/31/18 21:51 Dose: 0.4 mg - Labs Labs: 05/31/18 23:57 05/31/18 07:00 PT 14.1 SECONDS (9.7-12.2) H 05/21/18 19:43 INR 1.3 05/21/18 19:43 APTT 33 SECONDS (21-34) 05/17/18 15:20 - Constitutional Appears: No Acute Distress - Head Exam Head Exam: ATRAUMATIC, NORMAL INSPECTION, NORMOCEPHALIC Additional comments: R hemifacial port wine stain - Eye Exam Eye Exam: EOMI, Normal appearance - ENT Exam ENT Exam: Mucous Membranes Moist, Normal Exam - Neck Exam Neck Exam: Full ROM, Normal Inspection - Respiratory Exam Respiratory Exam: Clear to Ausculation Bilateral, NORMAL BREATHING PATTERN. absent: Accessory Muscle Use, Rales, Rhonchi, Wheezes, Respiratory Distress - Cardiovascular Exam Cardiovascular Exam: Irregular Rhythm, +S1, +S2. absent: Tachycardia - GI/Abdominal Exam GI & Abdominal Exam: Soft, Normal Bowel Sounds. absent: Distended, Firm, Guarding, Rigid, Tenderness, Organomegaly, Rebound Additional comments: suprapubic catheter site bandage blood-soaked: changed out and flushed. - Exam Additional comments: vasquez cath continuing to drain sanguinous urine, with clots noted during flushing - Extremities Exam Extremities Exam: Full ROM, Normal Capillary Refill, Normal Inspection. absent: Calf Tenderness - Neurological Exam Neurological Exam: Alert, Awake - Psychiatric Exam Psychiatric exam: Normal Affect, Normal Mood - Skin Skin Exam: Dry, Intact, Normal Color, Warm Assessment and Plan - Assessment and Plan (Free Text) Assessment: 78 yo M with a PMHx of AFib (was on Xarelto), CHF, HTN, IgA nephropathy w/ proteinuria admitted for evaluation and treatment of gross hematuria, s/p suprapubic catheter placement. Plan: Gross hematuria -Urology (Dr. Ching) on case -f/u prostate and bladder bx -continuous irrigation per Dr. Ching -possible OR tomorrow AM if bleeding persists -may need transfer to [facility] afterwards for hyperbaric O2 consultation -NS@ 60mls/hr -finasteride, flomax -Rocephin 1 gm daily -daily I/Os -c/w flushings Anemia -likely 2/2 hematuria -s/p 1 unit of pRBC -Hb 8.5 (05/31) -continue to monitor, replete prn Atrial fibrillation -monitor on telemetry -currently off AC 2/2 hematuria -irregular rhythm -Home Toprol XL 25mg qd -Cozaar 100mg QD -Runs of Vtach, asymptomatic CHF -Toprol XL 25mg PO daily -Cozaar 100mg PO daily -Lasix 20 mg PO daily--currently being held -strict I/Os Alzheimer's Disease -Fall precautions -Aricept 10 mg PO HS Ppx, Diet, Disposition -DVT ppx: scds, oral AC held 2/2 hematuria -GI ppx: pepcid -Diet: HHD Case discussed with Dr. Betty Muñiz DO, PGY-1
[2018-06-01 07:59] LABS: MEAN CELL VOLUME 93.3 fL (80.0-94.0); MEAN CORPUSCULAR HEMOGLOBIN 31.5 pg (27.0-31.0); MEAN CORPUSCULAR HGB CONC 33.8 g/dL (33.0-37.0); MEAN PLATELET VOLUME 7.4 fL (7.2-11.7); RBC 2.22 Mil/uL (4.40-5.90); RED CELL DISTRIBUTION WIDTH 16.2 % (11.5-14.5); WHITE BLOOD COUNT 8.2 K/uL (4.8-10.8)
[2018-06-01 08:07] LABS: BLOOD UREA NITROGEN 27 mg/dL (9-20); CALCIUM 7.7 mg/dl (8.6-10.4); GFR NON-AFRICAN AMERICAN > 60
--- NOTE | 2018-06-01 10:41 | PCM.URO ---
Urology Progress Note - General General: Tolerating Diet - Subjective Abdominal Pain: No Flank Pain: No Vomiting: No Hematuria: Yes (with clots) Chest Pain: No Fever & Chills: No - Objective Lab Studies: Reviewed (anemia) Lab Results Last 24 Hours: Laboratory Results - last 24 hr 05/31/18 05/31/18 05/31/18 16:34 20:51 23:57 WBC 9.1 RBC 2.38 L Hgb 7.4 L Hct 22.4 L MCV 94.5 H MCH 31.3 H MCHC 33.2 RDW 15.9 H Plt Count 100 L D MPV 8.6 Sodium Potassium Chloride Carbon Dioxide Anion Gap BUN Creatinine Est GFR ( Amer) Est GFR (Non-Af Amer) POC Glucose (mg/dL) 121 H 185 H Random Glucose Calcium Blood Type Antibody Screen 06/01/18 06/01/18 06/01/18 06:55 07:41 07:41 WBC 8.2 RBC 2.22 L Hgb 7.0 L Hct 20.7 L MCV 93.3 MCH 31.5 H MCHC 33.8 RDW 16.2 H Plt Count 214 D MPV 7.4 Sodium 136 Potassium 4.4 Chloride 106 Carbon Dioxide 29 Anion Gap 6 L BUN 27 H Creatinine 0.9 Est GFR ( Amer) > 60 Est GFR (Non-Af Amer) > 60 POC Glucose (mg/dL) 96 Random Glucose 89 Calcium 7.7 L Blood Type Antibody Screen 06/01/18 08:21 WBC RBC Hgb Hct MCV MCH MCHC RDW Plt Count MPV Sodium Potassium Chloride Carbon Dioxide Anion Gap BUN Creatinine Est GFR ( Amer) Est GFR (Non-Af Amer) POC Glucose (mg/dL) Random Glucose Calcium Blood Type O POSITIVE Antibody Screen Negative Intake & Output: Intake & Output 05/31/18 06/01/18 06/01/18 18:59 06:59 18:59 Intake Total 1300 920 0 Output Total 1330 Balance 1300 -410 0 Intake: IV 500 Intake, IV Amount 400 800 Left Forearm 400 800 Oral 400 Blood Product 0 Red Blood Cells Cpd As1 0 Lr Unit [id number] Other 120 Output: Urine 1330 Suprapubic 100 Urethral (Ching) 1230 Vital Signs: Vital Signs - 24 hr 05/31/18 05/31/18 05/31/18 10:45 11:00 11:15 Temperature Pulse Rate 83 84 83 Respiratory 18 17 18 Rate Blood Pressure 113/67 114/68 114/58 L O2 Sat by Pulse 98 98 97 Oximetry 05/31/18 05/31/18 05/31/18 11:30 11:45 11:56 Temperature 97.2 F L 97.3 F L Pulse Rate 84 83 82 Respiratory 17 20 Rate Blood Pressure 116/84 130/82 O2 Sat by Pulse 99 97 Oximetry 05/31/18 05/31/18 05/31/18 15:00 16:00 23:08 Temperature 97.8 F 98.0 F Pulse Rate 73 87 110 H Respiratory 18 20 Rate Blood Pressure 129/74 123/66 O2 Sat by Pulse 100 100 Oximetry 05/31/18 05/31/18 06/01/18 23:10 23:30 03:45 Temperature 98.2 F Pulse Rate 101 H 110 H 104 H Respiratory 20 Rate Blood Pressure 118/76 O2 Sat by Pulse 97 Oximetry 06/01/18 10:23 Temperature 97.7 F Pulse Rate 90 Respiratory 20 Rate Blood Pressure 99/56 L O2 Sat by Pulse Oximetry - Physical Exam Abdominal Exam: Soft, Non-Tender, Non-Distended Wound: Clean, Healing Well Back: No CVA Tenderness Genitalia: Without Inflammation Urinary Catheter Draining Well: Yes (catheter irrigated. clots removed.) Urine Color: Dark Red - Male Phallus: Normal, Uncircumcised Scrotum: Normal - Plan Wound Care: Yes Catheter Care: Yes Intake & Output: Yes Additional Information: IMP: hematuria. Hx of rt for prostate ca. Radiation cystitis. prostate abnormality of necrotic, ischemic tissue and. false passage behind bladder. bleeding of prostatic and bladder origin. rec/p: transfusion in progress. CBI. catheter irrigation - Date & Time of Note Date: 06/01/18 Time: 10:30
[2018-06-01] MEDS: Metoprolol Succinate 25 mg XL Tab PO SCH (11:02)
--- NOTE | 2018-06-01 11:05 | CP.PCM.PN ---
<Oz Baer - Last Filed: 06/01/18 13:28> Subjective - Date & Time of Evaluation Date of Evaluation: 06/01/18 Time of Evaluation: 06:00 - Subjective Subjective: Patient seen and evaluated bedside. Patient denies any pain and says is doing okay. Objective - Vital Signs/Intake and Output Vital Signs (last 24 hours): Temp Pulse Resp BP Pulse Ox 98.4 F 111 H 20 101/61 97 06/01/18 10:53 06/01/18 10:53 06/01/18 10:53 06/01/18 10:53 06/01/18 03:45 Intake and Output: 06/01/18 06/01/18 06:59 18:59 Intake Total 920 0 Output Total 1330 Balance -410 0 - Medications Medications: Current Medications Acetaminophen (Tylenol 325mg Tab) 650 mg PO Q6 PRN PRN Reason: Pain, moderate (4-7) Last Admin: 05/21/18 04:25 Dose: 650 mg Allopurinol (Zyloprim) 100 mg PO DAILY [facility] Last Admin: 06/01/18 11:02 Dose: 100 mg Donepezil HCl (Aricept) 10 mg PO HS [facility] Last Admin: 05/31/18 21:51 Dose: 10 mg Famotidine (Pepcid) 20 mg PO DAILY [facility] Last Admin: 06/01/18 11:02 Dose: 20 mg Finasteride (Proscar) 5 mg PO DAILY [facility] Last Admin: 06/01/18 11:01 Dose: 5 mg Furosemide (Lasix) 20 mg PO DAILY [facility] Last Admin: 05/31/18 11:00 Dose: Not Given Ceftriaxone Sodium 1 gm/ (Sodium Chloride) 100 mls @ 100 mls/hr IVPB DAILY [facility]; Protocol Last Admin: 05/31/18 09:30 Dose: 100 mls Sodium Chloride (Sodium Chloride 0.9%) 1,000 mls @ 100 mls/hr IV .Q10H [facility] Last Admin: 06/01/18 08:02 Dose: Not Given Losartan Potassium (Cozaar) 100 mg PO DAILY [facility] Last Admin: 06/01/18 11:02 Dose: Not Given Metoprolol Succinate (Toprol Xl) 25 mg PO DAILY [facility] Last Admin: 06/01/18 11:02 Dose: Not Given Spironolactone (Aldactone) 25 mg PO DAILY [facility] Last Admin: 05/30/18 09:35 Dose: 25 mg Tamsulosin HCl (Flomax) 0.4 mg PO HS [facility] Last Admin: 05/31/18 21:51 Dose: 0.4 mg - Labs Labs: 06/01/18 07:41 06/01/18 07:41 PT 14.1 SECONDS (9.7-12.2) H 05/21/18 19:43 INR 1.3 05/21/18 19:43 APTT 33 SECONDS (21-34) 05/17/18 15:20 - Constitutional Appears: Non-toxic - Cardiovascular Exam Cardiovascular Exam: +S1, +S2 - Exam Additional comments: vasquez in place Assessment and Plan - Assessment and Plan (Free Text) Assessment: 78 year old male with a PMH of AFib (on Xarelto), CHF, HTN, IgA nephropathy w/ proteinuria, and multiple myeloma (not on tx) who is admitted for gross hematuria. Nephrology is consulted for hyponatremia. Plan: Hyponatremia - improved w/ volume repletion w/ albumin -decrease fluids to NS@60 -will hold lasix, and reevaluate CHFrEF - appears euvolemic at this time - hold Aldactone Hematuria, off AC for his AFib -cystoscopy done by urology, with bladder and urethral biopsy -patient has right hydronephrosis and atrophic kidney HTN - cont meds Proteinuria - may be a result of multiple myeloma - should f/u hematology as outpatient <Casey Avalos - Last Filed: 06/02/18 08:21> Objective - Vital Signs/Intake and Output Vital Signs (last 24 hours): Temp Pulse Resp BP Pulse Ox 98.1 F 93 H 20 147/81 100 06/01/18 23:50 06/01/18 23:50 06/01/18 23:50 06/01/18 23:50 06/01/18 23:50 Intake and Output: 06/02/18 06/02/18 06:59 18:59 Intake Total 6800 Output Total 61891 Balance -3355 - Medications Medications: Current Medications Acetaminophen (Tylenol 325mg Tab) 650 mg PO Q6 PRN PRN Reason: Pain, moderate (4-7) Last Admin: 05/21/18 04:25 Dose: 650 mg Allopurinol (Zyloprim) 100 mg PO DAILY [facility] Last Admin: 06/01/18 11:02 Dose: 100 mg Donepezil HCl (Aricept) 10 mg PO HS [facility] Last Admin: 06/01/18 21:16 Dose: 10 mg Famotidine (Pepcid) 20 mg PO DAILY [facility] Last Admin: 06/01/18 11:02 Dose: 20 mg Finasteride (Proscar) 5 mg PO DAILY [facility] Last Admin: 06/01/18 11:01 Dose: 5 mg Furosemide (Lasix) 20 mg PO DAILY [facility] Last Admin: 05/31/18 11:00 Dose: Not Given Ceftriaxone Sodium 1 gm/ (Sodium Chloride) 100 mls @ 100 mls/hr IVPB DAILY [facility]; Protocol Last Admin: 06/01/18 13:50 Dose: 100 mls/hr Sodium Chloride (Sodium Chloride 0.9%) 1,000 mls @ 60 mls/hr IV .[id number] [facility] Last Admin: 06/02/18 05:22 Dose: Not Given Losartan Potassium (Cozaar) 100 mg PO DAILY [facility] Last Admin: 06/01/18 11:02 Dose: Not Given Metoprolol Succinate (Toprol Xl) 25 mg PO DAILY [facility] Last Admin: 06/01/18 11:02 Dose: Not Given Spironolactone (Aldactone) 25 mg PO DAILY [facility] Last Admin: 05/30/18 09:35 Dose: 25 mg Tamsulosin HCl (Flomax) 0.4 mg PO HS [facility] Last Admin: 06/01/18 21:16 Dose: 0.4 mg - Labs Labs: 06/02/18 07:57 06/01/18 07:41 PT 14.1 SECONDS (9.7-12.2) H 05/21/18 19:43 INR 1.3 05/21/18 19:43 APTT 33 SECONDS (21-34) 05/17/18 15:20 Assessment and Plan (1) Hyponatremia Status: Resolved (2) CHF (congestive heart failure) Status: Chronic (3) Hematuria Status: Acute (4) Gout Status: Chronic (5) Hypertension Status: Chronic (6) Proteinuria Status: Chronic Attending/Attestation - Attestation I have personally seen and examined this patient.: Yes I have fully participated in the care of the patient.: Yes I have reviewed all pertinent clinical information, including history, physical exam and plan: Yes Notes (Text): Patient seen and examined; I agree with the resident's note as above with the following addtions/edits: Again with gross hematuria after cystoscopy; getting bladder irrigation; need to keep urine flowing and avoid buildup of blood clots to prevent hydronephrosis; already with tenuous renal function, relatively preserved by eGFR, but for the most part only has one functioning kidney; IVF were increased due to concern for volume depletion based on labs and BP being at lower end of normal; however, also with tenuous volume status given systolic CHF; decreasing NS to 60 cc/hr; holding diuretics for now; will emphasize to nursing staff that B-blockers should not be held for mildly low BP readings; will decrease losartan dose to 50 mg for now;
--- NOTE | 2018-06-01 15:49 | RAD ---
PROCEDURE: HISTORY: As above COMPARISON: None TECHNIQUE: Total fluoroscopic time utilized during the procedure: 21.7 seconds ; 0.50515 mGy cm 2 FINDINGS: Submitted images from the current procedure: 10 Please refer to the physician's notes performing the procedure. IMPRESSION: Less than 1 hour fluoroscopic time utilized during performance of the procedure
[2018-06-02 01:35] LABS: HEMOGLOBIN 8.7 g/dL (12.0-18.0); MEAN CELL VOLUME 93.3 fL (80.0-94.0); MEAN CORPUSCULAR HEMOGLOBIN 31.1 pg (27.0-31.0); MEAN CORPUSCULAR HGB CONC 33.3 g/dL (33.0-37.0); MEAN PLATELET VOLUME 7.6 fL (7.2-11.7); RBC 2.8 Mil/uL (4.40-5.90); RED CELL DISTRIBUTION WIDTH 14.9 % (11.5-14.5); WHITE BLOOD COUNT 8.2 K/uL (4.8-10.8)
[2018-06-02] MEDS: Sodium Chloride 0.9% 1,000 ML IV SCH ×2 (05:22→12:45)
--- NOTE | 2018-06-02 07:11 | CP.PCM.PN ---
Subjective - Date & Time of Evaluation Date of Evaluation: 06/02/18 Time of Evaluation: 07:05 - Subjective Subjective: PGY-1 Medicine Progress Note for Dr. Hernández Patient seen and examined at bedside this AM, resting comfortably s/p 2 unit pRBC transfusion with appropriate response. No acute somatic complaints. Suprapubic cath dressing noted to be saturated, leaking clear drainage. Per nursing, CBI performed via vasquez cath per Urology recs with multiple clots drained out. This AM, 120cc of normal saline was irrigated with ~400cc of smith colored urine output w/ clots. Patient to go back to OR this AM, per Dr. Ching. Objective - Vital Signs/Intake and Output Vital Signs (last 24 hours): Temp Pulse Resp BP Pulse Ox 98.1 F 93 H 20 147/81 100 06/01/18 23:50 06/01/18 23:50 06/01/18 23:50 06/01/18 23:50 06/01/18 23:50 Intake and Output: 06/02/18 06/02/18 06:59 18:59 Intake Total 6800 Output Total 18323 Balance -3355 - Medications Medications: Current Medications Acetaminophen (Tylenol 325mg Tab) 650 mg PO Q6 PRN PRN Reason: Pain, moderate (4-7) Last Admin: 05/21/18 04:25 Dose: 650 mg Allopurinol (Zyloprim) 100 mg PO DAILY [facility] Last Admin: 06/01/18 11:02 Dose: 100 mg Donepezil HCl (Aricept) 10 mg PO HS [facility] Last Admin: 06/01/18 21:16 Dose: 10 mg Famotidine (Pepcid) 20 mg PO DAILY [facility] Last Admin: 06/01/18 11:02 Dose: 20 mg Finasteride (Proscar) 5 mg PO DAILY [facility] Last Admin: 06/01/18 11:01 Dose: 5 mg Furosemide (Lasix) 20 mg PO DAILY [facility] Last Admin: 05/31/18 11:00 Dose: Not Given Ceftriaxone Sodium 1 gm/ (Sodium Chloride) 100 mls @ 100 mls/hr IVPB DAILY [facility]; Protocol Last Admin: 06/01/18 13:50 Dose: 100 mls/hr Sodium Chloride (Sodium Chloride 0.9%) 1,000 mls @ 60 mls/hr IV .[id number] [facility] Last Admin: 06/02/18 05:22 Dose: Not Given Losartan Potassium (Cozaar) 100 mg PO DAILY [facility] Last Admin: 06/01/18 11:02 Dose: Not Given Metoprolol Succinate (Toprol Xl) 25 mg PO DAILY [facility] Last Admin: 06/01/18 11:02 Dose: Not Given Spironolactone (Aldactone) 25 mg PO DAILY [facility] Last Admin: 05/30/18 09:35 Dose: 25 mg Tamsulosin HCl (Flomax) 0.4 mg PO HS [facility] Last Admin: 06/01/18 21:16 Dose: 0.4 mg - Labs Labs: 06/02/18 01:29 06/01/18 07:41 PT 14.1 SECONDS (9.7-12.2) H 05/21/18 19:43 INR 1.3 05/21/18 19:43 APTT 33 SECONDS (21-34) 05/17/18 15:20 - Constitutional Appears: Non-toxic, No Acute Distress - Head Exam Head Exam: ATRAUMATIC, NORMAL INSPECTION, NORMOCEPHALIC Additional comments: R hemifacial port wine stain - Eye Exam Eye Exam: EOMI, Normal appearance Pupil Exam: NORMAL ACCOMODATION - ENT Exam ENT Exam: Mucous Membranes Moist, Normal Exam - Neck Exam Neck Exam: Full ROM, Normal Inspection - Respiratory Exam Respiratory Exam: Clear to Ausculation Bilateral, NORMAL BREATHING PATTERN. absent: Accessory Muscle Use, Rales, Rhonchi, Wheezes, Respiratory Distress, Stridor - Cardiovascular Exam Cardiovascular Exam: Irregular Rhythm, +S1, +S2 - GI/Abdominal Exam GI & Abdominal Exam: Soft, Normal Bowel Sounds. absent: Distended, Firm, Guarding, Rigid, Tenderness, Rebound Additional comments: suprapubic catheter site bandage blood-soaked: changed out and flushed. - Exam Additional comments: vasquez cath draining smith colored urine, with clots noted during flushing - Extremities Exam Extremities Exam: Normal Capillary Refill, Normal Inspection. absent: Calf Tenderness, Pedal Edema - Neurological Exam Neurological Exam: Alert, Awake - Psychiatric Exam Psychiatric exam: Normal Affect, Normal Mood - Skin Skin Exam: Dry, Intact, Normal Color, Warm Assessment and Plan - Assessment and Plan (Free Text) Assessment: 78 yo M with a PMHx of AFib (was on Xarelto), CHF, HTN, IgA nephropathy w/ proteinuria admitted for evaluation and treatment of gross hematuria, s/p suprapubic catheter placement. Plan: Gross hematuria -Urology (Dr. Ching) on case -f/u prostate and bladder bx -CBI of vasquez cath per Dr. Ching -OR this AM if bleeding persists -may need transfer to [facility] afterwards for hyperbaric O2 consultation -NS@ 60mls/hr -finasteride, flomax -Rocephin 1 gm daily -daily I/Os -c/w flushings Anemia -2/2 hematuria -s/p 2 unit of pRBC -Hb 8.7 (06/02) -continue to monitor, replete prn Atrial fibrillation -monitor on telemetry -currently off AC 2/2 hematuria -irregular rhythm -Home Toprol XL 25mg qd -Cozaar 100mg QD -Runs of Vtach, asymptomatic CHF -Toprol XL 25mg PO daily -Cozaar 100mg PO daily -Lasix 20 mg PO daily--currently being held -strict I/Os Alzheimer's Disease -Fall precautions -Aricept 10 mg PO HS Ppx, Diet, Disposition -DVT ppx: scds, oral AC held 2/2 hematuria -GI ppx: pepcid -Diet: HHD Case discussed with Dr. Betty Muñiz DO, PGY-1
[2018-06-02 08:02] LABS: BASO # 0.1 K/uL (0.0-0.2); BASO % 0.6 % (0.0-2.0); EOS # 0.1 K/uL (0.0-0.7); EOS % 1.3 % (0.0-4.0); LYMPH # 0.5 K/uL (1.0-4.3); LYMPH % 6.1 % (20.0-40.0); MEAN CELL VOLUME 93.7 fL (80.0-94.0); MEAN CORPUSCULAR HEMOGLOBIN 31.7 pg (27.0-31.0); MEAN CORPUSCULAR HGB CONC 33.8 g/dL (33.0-37.0); MEAN PLATELET VOLUME 7.5 fL (7.2-11.7); MONO # 0.4 K/uL (0.0-0.8); MONO % 5.4 % (0.0-10.0); NEUT # 6.8 K/uL (1.8-7.0); NEUT % 86.6 % (50.0-75.0); PLATELET COUNT 205 K/uL (130-400); RBC 2.85 Mil/uL (4.40-5.90); RED CELL DISTRIBUTION WIDTH 14.8 % (11.5-14.5); WHITE BLOOD COUNT 7.8 K/uL (4.8-10.8)
[2018-06-02 08:26] LABS: ALB/GLOB RATIO 0.7 (1.0-2.1); ALT/SGPT 26 U/L (21-72); AST/SGOT 24 U/L (17-59); BLOOD UREA NITROGEN 20 mg/dL (9-20); CALCIUM 7.8 mg/dl (8.6-10.4); GFR NON-AFRICAN AMERICAN > 60
[2018-06-02 09:18] LABS: EOSINOPHIL 2 % (0-4); LYMPHOCYTE 6 % (20-40); MONOCYTE 4 % (0-10); NEUTROPHIL 88 % (50-75); PLATELET ESTIMATE NORMAL (NORMAL); TOTAL CELLS COUNTED 100
[2018-06-02 09:19] LABS: ANISOCYTOSIS SLIGHT; HYPOCHROMIC SLIGHT; POIKILOCYTOSIS SLIGHT
[2018-06-02] MEDS: Metoprolol Succinate 25 mg XL Tab PO SCH (09:41)
[2018-06-02] MEDS ORDERED: cefTRIAXone 1 gm 0 GM/0 ML BAG IVPB ONE (11:48)
[2018-06-02] MEDS ORDERED: Lidocaine 2% Jelly (Uro-Jet) ONE ×2 (11:48→12:38)
[2018-06-02] MEDS ORDERED: Iodixanol 320 MG/ML 200 ML BOTTLE IV ONE (11:48)
[2018-06-02] MEDS ORDERED: Iohexol 240 200 ML ONE (12:38)
[2018-06-02] MEDS ORDERED: Etomidate 20 mg/10ml Inj IV ONE (12:55)
[2018-06-02] MEDS ORDERED: HYDROmorphone 0.5 mg/0.5 ml ISec IVP PRN (14:11)
--- NOTE | 2018-06-02 14:12 | PCM.SURG1 ---
Surgeon's Initial Post Op Note - Surgeon's Notes Surgeon: Robbie Ching [employer] Demonstrator: none Type of Anesthesia: General LMA Pre-Operative Diagnosis: Hematuria. prostate ca Operative Findings: same. bleeding of prostate, bladder neck and bladder origin Post-Operative Diagnosis: same Operation Performed: cystogram. cysto. evacuation of clots. bladder bx and fulg. BN bx and fulg. fulguration of bleeding. EUA Specimen/Specimens Removed: bladder and bladder neck bx's Estimated Blood Loss: EBL {In ML}: 30 Blood Products Given: N/A Date of Surgery/Procedure: 06/02/18 Time of Surgery/Procedure: 13:50
[2018-06-02] MEDS ORDERED: Lactated Ringer's 1,000 ML IV SCH (14:15)
--- NOTE | 2018-06-02 16:42 | CP.PCM.PN ---
<Oz Baer - Last Filed: 06/02/18 16:38> Subjective - Date & Time of Evaluation Date of Evaluation: 06/02/18 Time of Evaluation: 06:00 - Subjective Subjective: Patient seen and evalauted bedside in AM. Patient scheduled to undergo cystoscopy later on today. Denies any complaints, still having clots in vasquez. Objective - Vital Signs/Intake and Output Vital Signs (last 24 hours): Temp Pulse Resp BP Pulse Ox 97.2 F L 86 15 152/94 H 99 06/02/18 15:30 06/02/18 15:30 06/02/18 15:30 06/02/18 15:30 06/02/18 15:30 Intake and Output: 06/02/18 06/02/18 06:59 18:59 Intake Total 6800 850 Output Total 98391 2450 Balance -3355 -1600 - Medications Medications: Current Medications Acetaminophen (Tylenol 325mg Tab) 650 mg PO Q6 PRN PRN Reason: Pain, moderate (4-7) Last Admin: 05/21/18 04:25 Dose: 650 mg Allopurinol (Zyloprim) 100 mg PO DAILY [facility] Last Admin: 06/02/18 09:41 Dose: 100 mg Donepezil HCl (Aricept) 10 mg PO HS [facility] Last Admin: 06/01/18 21:16 Dose: 10 mg Famotidine (Pepcid) 20 mg PO DAILY [facility] Last Admin: 06/02/18 09:41 Dose: 20 mg Finasteride (Proscar) 5 mg PO DAILY [facility] Last Admin: 06/02/18 09:41 Dose: 5 mg Furosemide (Lasix) 20 mg PO DAILY [facility] Last Admin: 05/31/18 11:00 Dose: Not Given Ceftriaxone Sodium 1 gm/ (Sodium Chloride) 100 mls @ 100 mls/hr IVPB DAILY [facility]; Protocol Last Admin: 06/02/18 09:41 Dose: 100 mls/hr Dextrose (Dextrose 5% In Water 1000 Ml) 1,000 mls @ 40 mls/hr IV .Q24H [facility] Last Admin: 06/02/18 11:41 Dose: 40 mls/hr Sodium Chloride (Sodium Chloride 0.9%) 1,000 mls @ 40 mls/hr IV .Q24H [facility] Last Admin: 06/02/18 12:45 Dose: Not Given Losartan Potassium (Cozaar) 50 mg PO DAILY [facility] Last Admin: 06/02/18 09:48 Dose: 50 mg Metoprolol Succinate (Toprol Xl) 25 mg PO DAILY [facility] Last Admin: 06/02/18 09:41 Dose: 25 mg Spironolactone (Aldactone) 25 mg PO DAILY [facility] Last Admin: 05/30/18 09:35 Dose: 25 mg Tamsulosin HCl (Flomax) 0.4 mg PO HS [facility] Last Admin: 06/01/18 21:16 Dose: 0.4 mg - Labs Labs: 06/02/18 07:57 06/02/18 07:57 PT 14.1 SECONDS (9.7-12.2) H 05/21/18 19:43 INR 1.3 05/21/18 19:43 APTT 33 SECONDS (21-34) 05/17/18 15:20 - Eye Exam Eye Exam: EOMI, Normal appearance - Respiratory Exam Respiratory Exam: Clear to Ausculation Bilateral, NORMAL BREATHING PATTERN - Cardiovascular Exam Cardiovascular Exam: +S1, +S2 Assessment and Plan - Assessment and Plan (Free Text) Assessment: 78 year old male with a PMH of AFib (on Xarelto), CHF, HTN, IgA nephropathy w/ proteinuria, and multiple myeloma (not on tx) who is admitted for gross hematuria. Nephrology is consulted for hyponatremia. Plan: Hyponatremia - improved w/ volume repletion w/ albumin -decrease fluids to NS@40 -will hold lasix, and reevaluate CHFrEF - appears euvolemic at this time - hold Aldactone Hematuria, off AC for his AFib -cystoscopy done by urology, with bladder and urethral biopsy -patient has right hydronephrosis and atrophic kidney -underwent cystoscopy, with evacuation of clots and bladder and bladder neck biopsies. HTN - cont meds Proteinuria - may be a result of multiple myeloma - should f/u hematology as outpatient <Casey Avalos - Last Filed: 06/03/18 08:09> Objective - Vital Signs/Intake and Output Vital Signs (last 24 hours): Temp Pulse Resp BP Pulse Ox 98.0 F 73 20 148/77 96 06/02/18 23:17 06/02/18 23:17 06/02/18 23:17 06/02/18 23:17 06/02/18 23:17 Intake and Output: 06/03/18 06/03/18 06:59 18:59 Intake Total 6796 6570 Output Total 61613 6894 Balance -1263 -350 - Medications Medications: Current Medications Acetaminophen (Tylenol 325mg Tab) 650 mg PO Q6 PRN PRN Reason: Pain, moderate (4-7) Last Admin: 05/21/18 04:25 Dose: 650 mg Allopurinol (Zyloprim) 100 mg PO DAILY [facility] Last Admin: 06/02/18 09:41 Dose: 100 mg Donepezil HCl (Aricept) 10 mg PO HS [facility] Last Admin: 06/02/18 22:16 Dose: Not Given Famotidine (Pepcid) 20 mg PO DAILY [facility] Last Admin: 06/02/18 09:41 Dose: 20 mg Finasteride (Proscar) 5 mg PO DAILY [facility] Last Admin: 06/02/18 09:41 Dose: 5 mg Furosemide (Lasix) 20 mg PO DAILY [facility] Last Admin: 05/31/18 11:00 Dose: Not Given Ceftriaxone Sodium 1 gm/ (Sodium Chloride) 100 mls @ 100 mls/hr IVPB DAILY [facility]; Protocol Last Admin: 06/02/18 09:41 Dose: 100 mls/hr Sodium Chloride (Sodium Chloride 0.9%) 1,000 mls @ 40 mls/hr IV .Q24H [facility] Last Admin: 06/02/18 12:45 Dose: Not Given Losartan Potassium (Cozaar) 50 mg PO DAILY [facility] Last Admin: 06/02/18 09:48 Dose: 50 mg Metoprolol Succinate (Toprol Xl) 25 mg PO DAILY [facility] Last Admin: 06/02/18 09:41 Dose: 25 mg Spironolactone (Aldactone) 25 mg PO DAILY [facility] Last Admin: 05/30/18 09:35 Dose: 25 mg Tamsulosin HCl (Flomax) 0.4 mg PO HS [facility] Last Admin: 06/02/18 21:53 Dose: 0.4 mg - Labs Labs: 06/03/18 07:05 06/03/18 07:05 PT 14.1 SECONDS (9.7-12.2) H 05/21/18 19:43 INR 1.3 05/21/18 19:43 APTT 33 SECONDS (21-34) 01/28/19 15:20 Assessment and Plan (1) Hyponatremia Status: Resolved (2) CHF (congestive heart failure) Status: Chronic (3) Hematuria Status: Acute (4) Gout Status: Chronic (5) Hypertension Status: Chronic (6) Proteinuria Status: Chronic Attending/Attestation - Attestation I have personally seen and examined this patient.: Yes I have fully participated in the care of the patient.: Yes I have reviewed all pertinent clinical information, including history, physical exam and plan: Yes Notes (Text): Patient's clinical status reviewed; I agree with the resident's note as above with the following additions/edits: Patient unable to be seen by me due to having gone to OR at time of intended encounter; went for repeat cystoscopy in the setting of persistent gross hematuria; post-op note reviewed, bladder/bladder neck biopsy done; Will keep on gentle IVF with NS at 40 cc/hr to avoid volume depletion (seen on previous labs) and to keep urinary catheters flowing, rate reduced due to elevated BP readings and concern for exacerbating systolic CHF; diuretics currently on hold; losartan dose decreased temporarily to 50 mg daily; will re- assess tomorrow.
--- NOTE | 2018-06-03 01:06 | OP ---
PROCEDURE DATE: 06/02/2018 PREOPERATIVE DIAGNOSIS: Hematuria. POSTOPERATIVE DIAGNOSES: Hematuria. Bleeding of prostatic origin. Bleeding of bladder origin. Cystitis. History of prostate carcinoma. PROCEDURE: As follows: Procedure was performed under video endoscopic control as well as under fluoroscopic control. Iodinated contrast dye was instilled via the urethral Ching catheter. The cystogram demonstrated filling of the one cavity of the bladder. The bladder contour was normal. The bladder did not distend well. There was no intrinsic or extrinsic filling defects within the bladder. There was elevation of the bladder base. There were extensive seeds within the prostate. There was no vesicoureteral reflux. Post drainage films were obtained as well. The Ching catheter was removed. The patient was placed in lithotomy position. Genitalia was prepped and draped sterilely. The patient received anesthesia. A 22-Wallisian cystoscope sheath was introduced under direct vision. Urethra, prostate, bladder were inspected. There multiple clots within the bladder which were irrigated free. Subsequent repeat irrigation was performed via the resectoscope. Findings include diffuse moderate trabeculation and cystitis. The cystoscope was withdrawn back into the prostatic urethra. The second posterior cavity opening was opened. It was not entered at this time. The cystoscope was removed. A 26-Wallisian continuous flow resectoscope sheath was introduced. There was bleeding noted to be within the bladder and prostate. TUR biopsies of the bladder neck and prostate were performed. Specimens sent for pathologic examination. Hemostasis was achieved using electrocautery and utilizing the rollerball electrode as well as the resectoscope loop. Hemostasis was complete. There was no active bleeding. There were no residual clots within the bladder. A ureteral catheter was inserted through the resectoscope into the bladder under direct vision. A 24-Wallisian three-way Ching catheter was inserted over the ureteral catheter which served as a guide into the bladder. The cystogram was again performed and demonstrated proper catheter position within the bladder. The bladder drainage was clear. Exam under anesthesia was performed. There was no abnormal pelvic mass noted. The patient was returned to supine position. The patient tolerated procedure without complication. Rosalva Ching MD
--- NOTE | 2018-06-03 06:31 | OP ---
PROCEDURE DATE: 05/31/2018 PREOPERATIVE DIAGNOSES: Hematuria. Clot retention. POSTOPERATIVE DIAGNOSES: Hematuria. Clot retention. Bleeding of bladder origin. Bleeding of prostatic origin. PROCEDURES: Cystogram. Cystoscopy. Evacuation of bladder clots. Bladder biopsy and fulguration. Exam under anesthesia. Transurethral resection, biopsy of prostate. OPERATING SURGEON: Rosalva Ching MD DESCRIPTION OF PROCEDURE: Procedure as follows: The cystogram was performed under fluoroscopic control. Iodinated contrast dye was instilled via the ureteral catheter. There was noted to be a somewhat lobulated and double appearing cavity of the cystogram. There was no extravasation. There was no vesicoureteral reflux. Oblique views were obtained as well to better define the sites that were filled with contrast. This may represent a lobulation of the bladder. The patient was placed in lithotomy position. Genitalia was prepped and draped sterilely. Anesthesia was applied by the anesthesiologist. A 22-Burkinan cystoscope sheath was introduced under direct vision. Urethra, prostate, bladder were inspected. FINDINGS: There was no stricture of the anterior urethra. There was a white pale, almost necrotic appearance to the prostate mucosa. Prostatic urethra demonstrated [id number] bleeding at its proximal portion. There are multiple areas of necrosis with extrusion of the prostatic seeds. Seeds were individually removed with grasping forceps. The cystoscope entered a cavity posterior to the bladder. This was well epithelialized and had prostatic seeds in as well. These were removed. The cystoscope was withdrawn distally into the prostatic urethra and then another more anterior cavity was entered. This cavity appeared to have moderate cystitis. Appeared more like a bladder with trabeculation. The ureteral orifice could not be identified. The cystostomy tube balloon was identified within this more anterior bladder. There was active bleeding at multiple sites within the bladder. These appeared to be cystitis, although there were some prominent papillary changes. Sweet Pickle Maker biopsy was performed. Fulguration was performed with electrocautery. The clots were evacuated using the Roshan syringe as well as the Microvasive evacuator. The resectoscope was inserted. Hemostasis was achieved using electrocautery within the prostatic urethra and the bladder. A ureteral catheter was inserted into the anterior bladder under direct cystoscopic control. The ureteral catheter served as a guide to allow the subsequent Councill catheter to be introduced. Cystoscope and sheath removed. A 22-Burkinan Councill catheter was inserted over the ureteral guidewire into the bladder. Proper catheter position was confirmed with fluoroscopy as well as with repeat cystogram performance. The bladder drainage was clear. The exam under anesthesia was performed. The prostate was firm without fixation. Prostate was small, approximately 15-20 g in size. The patient was returned to supine position. The patient tolerated procedure without complication. [facility] MD Jeane cc: Julien See M.D.
[2018-06-03 07:14] LABS: BASO # 0.1 K/uL (0.0-0.2); BASO % 0.6 % (0.0-2.0); EOS # 0.1 K/uL (0.0-0.7); EOS % 1.1 % (0.0-4.0); HEMOGLOBIN 8.9 g/dL (12.0-18.0); LYMPH # 0.6 K/uL (1.0-4.3); LYMPH % 6.6 % (20.0-40.0); MEAN CELL VOLUME 93.9 fL (80.0-94.0); MEAN CORPUSCULAR HEMOGLOBIN 31.3 pg (27.0-31.0); MEAN CORPUSCULAR HGB CONC 33.3 g/dL (33.0-37.0); MEAN PLATELET VOLUME 7.4 fL (7.2-11.7); MONO # 0.5 K/uL (0.0-0.8); MONO % 5.2 % (0.0-10.0); NEUT # 7.9 K/uL (1.8-7.0); NEUT % 86.5 % (50.0-75.0); PLATELET COUNT 244 K/uL (130-400); RBC 2.83 Mil/uL (4.40-5.90); RED CELL DISTRIBUTION WIDTH 15.2 % (11.5-14.5); WHITE BLOOD COUNT 9.2 K/uL (4.8-10.8)
[2018-06-03 07:24] LABS: ALB/GLOB RATIO 0.9 (1.0-2.1); ALBUMIN 2.4 g/dL (3.5-5.0); ALT/SGPT 26 U/L (21-72); AST/SGOT 24 U/L (17-59); BLOOD UREA NITROGEN 16 mg/dL (9-20); CALCIUM 8.2 mg/dl (8.6-10.4); GFR NON-AFRICAN AMERICAN > 60
--- NOTE | 2018-06-03 07:39 | CP.PCM.PN ---
<Hal Muñiz - Last Filed: 06/03/18 14:38> Subjective - Date & Time of Evaluation Date of Evaluation: 06/03/18 Time of Evaluation: 07:38 - Subjective Subjective: PGY-1 Medicine Progress Note for Dr. Francois Patient seen and examined at bedside this AM, s/p OR procedure for fulgaration of bleeding, bladder wall and neck bx and fulgaration. Patient denies any abdominal pain, no acute somatic complaints. 3 way vasquez cath inserted, per Urology, with NS CBI. Urine more serosanguinous today, fewer clots noted. 12 pt ROS reviewed and otherwise negative. Objective - Vital Signs/Intake and Output Vital Signs (last 24 hours): Temp Pulse Resp BP Pulse Ox 98.0 F 73 20 148/77 96 06/02/18 23:17 06/02/18 23:17 06/02/18 23:17 06/02/18 23:17 06/02/18 23:17 Intake and Output: 06/03/18 06/03/18 06:59 18:59 Intake Total 6220 Output Total 6283 Balance -63 - Medications Medications: Current Medications Acetaminophen (Tylenol 325mg Tab) 650 mg PO Q6 PRN PRN Reason: Pain, moderate (4-7) Last Admin: 05/21/18 04:25 Dose: 650 mg Allopurinol (Zyloprim) 100 mg PO DAILY [facility] Last Admin: 06/02/18 09:41 Dose: 100 mg Donepezil HCl (Aricept) 10 mg PO HS [facility] Last Admin: 06/02/18 22:16 Dose: Not Given Famotidine (Pepcid) 20 mg PO DAILY [facility] Last Admin: 06/02/18 09:41 Dose: 20 mg Finasteride (Proscar) 5 mg PO DAILY [facility] Last Admin: 06/02/18 09:41 Dose: 5 mg Furosemide (Lasix) 20 mg PO DAILY [facility] Last Admin: 05/31/18 11:00 Dose: Not Given Ceftriaxone Sodium 1 gm/ (Sodium Chloride) 100 mls @ 100 mls/hr IVPB DAILY [facility]; Protocol Last Admin: 06/02/18 09:41 Dose: 100 mls/hr Sodium Chloride (Sodium Chloride 0.9%) 1,000 mls @ 40 mls/hr IV .Q24H [facility] Last Admin: 06/02/18 12:45 Dose: Not Given Losartan Potassium (Cozaar) 50 mg PO DAILY [facility] Last Admin: 06/02/18 09:48 Dose: 50 mg Metoprolol Succinate (Toprol Xl) 25 mg PO DAILY [facility] Last Admin: 06/02/18 09:41 Dose: 25 mg Spironolactone (Aldactone) 25 mg PO DAILY [facility] Last Admin: 05/30/18 09:35 Dose: 25 mg Tamsulosin HCl (Flomax) 0.4 mg PO HS [facility] Last Admin: 06/02/18 21:53 Dose: 0.4 mg - Labs Labs: 06/03/18 07:05 06/03/18 07:05 PT 14.1 SECONDS (9.7-12.2) H 05/21/18 19:43 INR 1.3 05/21/18 19:43 APTT 33 SECONDS (21-34) 05/17/18 15:20 - Constitutional Appears: Non-toxic, No Acute Distress - Head Exam Head Exam: ATRAUMATIC, NORMAL INSPECTION, NORMOCEPHALIC Additional comments: R hemifacial port wine stain - Eye Exam Eye Exam: EOMI, Normal appearance Pupil Exam: NORMAL ACCOMODATION - ENT Exam ENT Exam: Mucous Membranes Moist, Normal Exam - Neck Exam Neck Exam: Full ROM, Normal Inspection - Respiratory Exam Respiratory Exam: Clear to Ausculation Bilateral, NORMAL BREATHING PATTERN. absent: Accessory Muscle Use, Rales, Rhonchi, Wheezes, Respiratory Distress, Stridor - Cardiovascular Exam Cardiovascular Exam: Irregular Rhythm, +S1, +S2 - GI/Abdominal Exam GI & Abdominal Exam: Soft, Normal Bowel Sounds. absent: Distended, Firm, Guarding, Rigid, Tenderness, Rebound Additional comments: suprapubic catheter bandage c/d/i - Exam Additional comments: vasquez cath draining serosanguinous urine, few clots noted during flushing - Extremities Exam Extremities Exam: Normal Capillary Refill, Normal Inspection. absent: Calf Tenderness, Pedal Edema - Neurological Exam Neurological Exam: Alert, Awake, Oriented x3 - Skin Skin Exam: Dry, Intact, Normal Color, Warm Assessment and Plan - Assessment and Plan (Free Text) Assessment: 78 yo M with a PMHx of AFib (was on Xarelto), CHF, HTN, IgA nephropathy w/ proteinuria admitted for evaluation and treatment of gross hematuria, s/p suprapubic catheter placement. Plan: Gross hematuria -Urology (Dr. Ching) on case -f/u prostate and bladder bx -CBI of vasquez cath per Dr. Ching -may need transfer to [facility] afterwards for hyperbaric O2 consultation -NS@ 40mls/hr -finasteride, flomax -Rocephin 1 gm daily -daily I/Os -c/w flushings Anemia -2/2 hematuria -s/p 2 unit of pRBC -Hb 8.9 (06/03) -continue to monitor, replete prn Atrial fibrillation -monitor on telemetry -currently off AC 2/2 hematuria -irregular rhythm -Home Toprol XL 25mg qd -Cozaar 100mg QD -Runs of Vtach, asymptomatic CHF -Toprol XL 25mg PO daily -Cozaar 100mg PO daily -Lasix 20 mg PO daily--currently being held -strict I/Os Alzheimer's Disease -Fall precautions -Aricept 10 mg PO HS Ppx, Diet, Disposition -DVT ppx: scds, oral AC held / hematuria -GI ppx: pepcid -Diet: HHD Case discussed with Dr. Priscila Muñiz DO, PGY-1 <Derick Francois - Last Filed: 06/03/18 16:25> Objective - Vital Signs/Intake and Output Vital Signs (last 24 hours): Temp Pulse Resp BP Pulse Ox 97.5 F L 88 20 114/68 99 06/03/18 15:00 06/03/18 15:00 06/03/18 15:00 06/03/18 15:00 06/03/18 15:00 Intake and Output: 06/03/18 06/03/18 06:59 18:59 Intake Total 9220 9340 Output Total 57932 98494 Balance -9083 -0328 - Medications Medications: Current Medications Acetaminophen (Tylenol 325mg Tab) 650 mg PO Q6 PRN PRN Reason: Pain, moderate (4-7) Last Admin: 05/21/18 04:25 Dose: 650 mg Allopurinol (Zyloprim) 100 mg PO DAILY [facility] Last Admin: 06/03/18 10:48 Dose: 100 mg Donepezil HCl (Aricept) 10 mg PO HS [facility] Last Admin: 06/02/18 22:16 Dose: Not Given Famotidine (Pepcid) 20 mg PO DAILY [facility] Last Admin: 06/03/18 10:48 Dose: 20 mg Finasteride (Proscar) 5 mg PO DAILY [facility] Last Admin: 06/03/18 10:48 Dose: 5 mg Furosemide (Lasix) 20 mg PO DAILY [facility] Last Admin: 05/31/18 11:00 Dose: Not Given Ceftriaxone Sodium 1 gm/ (Sodium Chloride) 100 mls @ 100 mls/hr IVPB DAILY [facility]; Protocol Last Admin: 06/03/18 10:47 Dose: 100 mls/hr Sodium Chloride (Sodium Chloride 0.9%) 1,000 mls @ 40 mls/hr IV .Q24H [facility] Last Admin: 06/02/18 12:45 Dose: Not Given Losartan Potassium (Cozaar) 50 mg PO DAILY [facility] Last Admin: 06/03/18 10:48 Dose: 50 mg Metoprolol Succinate (Toprol Xl) 25 mg PO DAILY [facility] Last Admin: 06/03/18 10:48 Dose: 25 mg Spironolactone (Aldactone) 25 mg PO DAILY [facility] Last Admin: 05/30/18 09:35 Dose: 25 mg Tamsulosin HCl (Flomax) 0.4 mg PO [facility] Last Admin: 06/02/18 21:53 Dose: 0.4 mg - Labs Labs: 06/03/18 07:05 06/03/18 07:05 PT 14.1 SECONDS (9.7-12.2) H 05/21/18 19:43 INR 1.3 05/21/18 19:43 APTT 33 SECONDS (21-34) 05/17/18 15:20 Attending/Attestation - Attestation I have personally seen and examined this patient.: Yes I have fully participated in the care of the patient.: Yes I have reviewed all pertinent clinical information, including history, physical exam and plan: Yes
[2018-06-03] MEDS: Metoprolol Succinate 25 mg XL Tab PO SCH (10:48)
[2018-06-03 10:58] LABS: ANISOCYTOSIS SLIGHT; BANDS 2 % (0-2); EOSINOPHIL 1 % (0-4); HYPOCHROMIC SLIGHT; LYMPHOCYTE 6 % (20-40); MONOCYTE 6 % (0-10); NEUTROPHIL 85 % (50-75); PLATELET ESTIMATE NORMAL (NORMAL); TOTAL CELLS COUNTED 100
--- NOTE | 2018-06-03 11:07 | RAD ---
PROCEDURE: HISTORY: As above COMPARISON: None TECHNIQUE: Total fluoroscopic time utilized during the procedure: 12.8 seconds ; 0.08671 mGy cm 2. FINDINGS: Submitted images from the current procedure: 5 Please refer to the physician's notes performing the procedure. IMPRESSION: Less than 1 hour fluoroscopic time utilized during performance of the procedure
--- NOTE | 2018-06-03 16:37 | CP.PCM.PN ---
<Oz Baer - Last Filed: 06/03/18 16:35> Subjective - Date & Time of Evaluation Date of Evaluation: 06/03/18 Time of Evaluation: 06:00 - Subjective Subjective: Patient seen and evaluated bedside. Patient denies any complaints. Vasquez is draining better, less clots. Objective - Vital Signs/Intake and Output Vital Signs (last 24 hours): Temp Pulse Resp BP Pulse Ox 97.5 F L 88 20 114/68 99 06/03/18 15:00 06/03/18 15:00 06/03/18 15:00 06/03/18 15:00 06/03/18 15:00 Intake and Output: 06/03/18 06/03/18 06:59 18:59 Intake Total 9220 9329 Output Total 81637 73507 Balance -6346 -9055 - Medications Medications: Current Medications Acetaminophen (Tylenol 325mg Tab) 650 mg PO Q6 PRN PRN Reason: Pain, moderate (4-7) Last Admin: 05/21/18 04:25 Dose: 650 mg Allopurinol (Zyloprim) 100 mg PO DAILY [facility] Last Admin: 06/03/18 10:48 Dose: 100 mg Donepezil HCl (Aricept) 10 mg PO HS [facility] Last Admin: 06/02/18 22:16 Dose: Not Given Famotidine (Pepcid) 20 mg PO DAILY [facility] Last Admin: 06/03/18 10:48 Dose: 20 mg Finasteride (Proscar) 5 mg PO DAILY [facility] Last Admin: 06/03/18 10:48 Dose: 5 mg Furosemide (Lasix) 20 mg PO DAILY [facility] Last Admin: 05/31/18 11:00 Dose: Not Given Ceftriaxone Sodium 1 gm/ (Sodium Chloride) 100 mls @ 100 mls/hr IVPB DAILY [facility]; Protocol Last Admin: 06/03/18 10:47 Dose: 100 mls/hr Sodium Chloride (Sodium Chloride 0.9%) 1,000 mls @ 40 mls/hr IV .Q24H [facility] Last Admin: 06/02/18 12:45 Dose: Not Given Losartan Potassium (Cozaar) 50 mg PO DAILY [facility] Last Admin: 06/03/18 10:48 Dose: 50 mg Metoprolol Succinate (Toprol Xl) 25 mg PO DAILY [facility] Last Admin: 06/03/18 10:48 Dose: 25 mg Spironolactone (Aldactone) 25 mg PO DAILY [facility] Last Admin: 05/30/18 09:35 Dose: 25 mg Tamsulosin HCl (Flomax) 0.4 mg PO HS [facility] Last Admin: 06/02/18 21:53 Dose: 0.4 mg - Labs Labs: 06/03/18 07:05 06/03/18 07:05 PT 14.1 SECONDS (9.7-12.2) H 05/21/18 19:43 INR 1.3 05/21/18 19:43 APTT 33 SECONDS (21-34) 05/17/18 15:20 - Constitutional Appears: No Acute Distress - Respiratory Exam Respiratory Exam: Clear to Ausculation Bilateral, NORMAL BREATHING PATTERN Assessment and Plan - Assessment and Plan (Free Text) Assessment: 78 year old male with a PMH of AFib (on Xarelto), CHF, HTN, IgA nephropathy w/ proteinuria, and multiple myeloma (not on tx) who is admitted for gross hematuria. Nephrology is consulted for hyponatremia. Plan: Hyponatremia - improved w/ volume repletion w/ albumin - NS@40 -will hold lasix, and reevaluate CHFrEF - appears euvolemic at this time - hold Aldactone Hematuria, off AC for his AFib -cystoscopy done by urology, with bladder and urethral biopsy -patient has right hydronephrosis and atrophic kidney -underwent cystoscopy, with evacuation of clots and bladder and bladder neck biopsies yesterday. vasquez with less clots. HTN - cont meds Proteinuria - may be a result of multiple myeloma - should f/u hematology as outpatient <Casey Avalos - Last Filed: 06/04/18 08:15> Objective - Vital Signs/Intake and Output Vital Signs (last 24 hours): Temp Pulse Resp BP Pulse Ox 97.9 F 73 20 126/77 99 06/03/18 23:30 06/03/18 23:30 06/03/18 23:30 06/03/18 23:30 06/03/18 23:30 Intake and Output: 06/04/18 06/04/18 06:59 18:59 Intake Total 47039 Output Total 790 87535 Balance -790 1800 - Medications Medications: Current Medications Acetaminophen (Tylenol 325mg Tab) 650 mg PO Q6 PRN PRN Reason: Pain, moderate (4-7) Last Admin: 05/21/18 04:25 Dose: 650 mg Allopurinol (Zyloprim) 100 mg PO DAILY [facility] Last Admin: 06/03/18 10:48 Dose: 100 mg Donepezil HCl (Aricept) 10 mg PO HS [facility] Last Admin: 06/03/18 22:55 Dose: 10 mg Famotidine (Pepcid) 20 mg PO DAILY [facility] Last Admin: 06/03/18 10:48 Dose: 20 mg Finasteride (Proscar) 5 mg PO DAILY [facility] Last Admin: 06/03/18 10:48 Dose: 5 mg Furosemide (Lasix) 20 mg PO DAILY [facility] Last Admin: 05/31/18 11:00 Dose: Not Given Ceftriaxone Sodium 1 gm/ (Sodium Chloride) 100 mls @ 100 mls/hr IVPB DAILY [facility]; Protocol Last Admin: 06/03/18 10:47 Dose: 100 mls/hr Sodium Chloride (Sodium Chloride 0.9%) 1,000 mls @ 40 mls/hr IV .Q24H [facility] Last Admin: 06/03/18 22:56 Dose: 40 mls/hr Losartan Potassium (Cozaar) 50 mg PO DAILY [facility] Last Admin: 06/03/18 10:48 Dose: 50 mg Metoprolol Succinate (Toprol Xl) 25 mg PO DAILY [facility] Last Admin: 06/03/18 10:48 Dose: 25 mg Spironolactone (Aldactone) 25 mg PO DAILY [facility] Last Admin: 05/30/18 09:35 Dose: 25 mg Tamsulosin HCl (Flomax) 0.4 mg PO HS [facility] Last Admin: 06/03/18 22:55 Dose: 0.4 mg - Labs Labs: 06/04/18 07:03 06/04/18 07:03 PT 14.1 SECONDS (9.7-12.2) H 05/21/18 19:43 INR 1.3 05/21/18 19:43 APTT 33 SECONDS (21-34) 05/17/18 15:20 Assessment and Plan (1) Hyponatremia Status: Resolved (2) CHF (congestive heart failure) Status: Chronic (3) Hematuria Status: Acute (4) Gout Status: Chronic (5) Hypertension Status: Chronic (6) Proteinuria Status: Chronic Attending/Attestation - Attestation I have personally seen and examined this patient.: Yes I have fully participated in the care of the patient.: Yes I have reviewed all pertinent clinical information, including history, physical exam and plan: Yes Notes (Text): Patient seen and examined; I agree with the resident's note as above with the following additions/edits: Patient with htn, CHF w/ systolic dysfunction, mild IgA nephropathy, multiple myeloma (not treated), admitted with recurrent and gross hematuria; Now s/p repeat cystoscopy yesterday with evacuation of clots and biopsies taken; gross hematuria is resolving in both urinary catheters; on bladder irrigation and gentle IVF; Stable CHF status currently though patient has tenuous status given both CHF and presence of just 1 functioning kidney; holding diuretics for now as patient has overall decreased PO intake and BP well controlled; continue current meds including lower dose of losartan (50 mg);
[2018-06-03] MEDS: Sodium Chloride 0.9% 1,000 ML IV SCH ×2 (18:25→22:56)
[2018-06-04 07:26] LABS: BASO % 0.6 % (0.0-2.0); EOS # 0.1 K/uL (0.0-0.7); EOS % 1.8 % (0.0-4.0); HEMOGLOBIN 8.3 g/dL (12.0-18.0); LYMPH # 0.5 K/uL (1.0-4.3); LYMPH % 6.3 % (20.0-40.0); MEAN CELL VOLUME 94.5 fL (80.0-94.0); MEAN CORPUSCULAR HEMOGLOBIN 31.4 pg (27.0-31.0); MEAN CORPUSCULAR HGB CONC 33.2 g/dL (33.0-37.0); MEAN PLATELET VOLUME 7.6 fL (7.2-11.7); MONO # 0.5 K/uL (0.0-0.8); MONO % 5.9 % (0.0-10.0); NEUT # 7.2 K/uL (1.8-7.0); NEUT % 85.4 % (50.0-75.0); PLATELET COUNT 252 K/uL (130-400); RBC 2.64 Mil/uL (4.40-5.90); RED CELL DISTRIBUTION WIDTH 15.4 % (11.5-14.5); WHITE BLOOD COUNT 8.4 K/uL (4.8-10.8)
[2018-06-04 07:41] LABS: ALB/GLOB RATIO 0.8 (1.0-2.1); ALBUMIN 2.2 g/dL (3.5-5.0); ALT/SGPT 25 U/L (21-72); AST/SGOT 26 U/L (17-59); BLOOD UREA NITROGEN 16 mg/dL (9-20); GFR NON-AFRICAN AMERICAN > 60
--- NOTE | 2018-06-04 07:55 | CP.PCM.PN ---
<Hal Muñiz - Last Filed: 06/04/18 15:30> Subjective - Date & Time of Evaluation Date of Evaluation: 06/04/18 Time of Evaluation: 07:55 - Subjective Subjective: PGY-1 Medicine Progress Note for Dr. Francois Patient seen and examined at bedside, watching tv and resting comfortably. Patient tolerating CBI well, fewer clots noted, urine outpt more serosanguinous. 12 pt ROS reviewed and otherwise negative. Objective - Vital Signs/Intake and Output Vital Signs (last 24 hours): Temp Pulse Resp BP Pulse Ox 97.9 F 73 20 126/77 99 06/03/18 23:30 06/03/18 23:30 06/03/18 23:30 06/03/18 23:30 06/03/18 23:30 Intake and Output: 06/04/18 06/04/18 06:59 18:59 Intake Total 55624 Output Total 790 52493 Balance -790 1800 - Medications Medications: Current Medications Acetaminophen (Tylenol 325mg Tab) 650 mg PO Q6 PRN PRN Reason: Pain, moderate (4-7) Last Admin: 05/21/18 04:25 Dose: 650 mg Allopurinol (Zyloprim) 100 mg PO DAILY [facility] Last Admin: 06/03/18 10:48 Dose: 100 mg Donepezil HCl (Aricept) 10 mg PO HS [facility] Last Admin: 06/03/18 22:55 Dose: 10 mg Famotidine (Pepcid) 20 mg PO DAILY [facility] Last Admin: 06/03/18 10:48 Dose: 20 mg Finasteride (Proscar) 5 mg PO DAILY [facility] Last Admin: 06/03/18 10:48 Dose: 5 mg Furosemide (Lasix) 20 mg PO DAILY [facility] Last Admin: 05/31/18 11:00 Dose: Not Given Ceftriaxone Sodium 1 gm/ (Sodium Chloride) 100 mls @ 100 mls/hr IVPB DAILY [facility]; Protocol Last Admin: 06/03/18 10:47 Dose: 100 mls/hr Sodium Chloride (Sodium Chloride 0.9%) 1,000 mls @ 40 mls/hr IV .Q24H [facility] Last Admin: 06/03/18 22:56 Dose: 40 mls/hr Losartan Potassium (Cozaar) 50 mg PO DAILY [facility] Last Admin: 06/03/18 10:48 Dose: 50 mg Metoprolol Succinate (Toprol Xl) 25 mg PO DAILY [facility] Last Admin: 06/03/18 10:48 Dose: 25 mg Spironolactone (Aldactone) 25 mg PO DAILY [facility] Last Admin: 05/30/18 09:35 Dose: 25 mg Tamsulosin HCl (Flomax) 0.4 mg PO HS [facility] Last Admin: 06/03/18 22:55 Dose: 0.4 mg - Labs Labs: 06/04/18 07:03 06/04/18 07:03 PT 14.1 SECONDS (9.7-12.2) H 05/21/18 19:43 INR 1.3 05/21/18 19:43 APTT 33 SECONDS (21-34) 05/17/18 15:20 - Constitutional Appears: Non-toxic, No Acute Distress - Head Exam Head Exam: ATRAUMATIC, NORMAL INSPECTION, NORMOCEPHALIC Additional comments: R hemifacial port wine stain - Eye Exam Eye Exam: EOMI, Normal appearance Pupil Exam: NORMAL ACCOMODATION - ENT Exam ENT Exam: Mucous Membranes Moist, Normal Exam - Neck Exam Neck Exam: Full ROM, Normal Inspection - Respiratory Exam Respiratory Exam: Clear to Ausculation Bilateral, NORMAL BREATHING PATTERN. absent: Accessory Muscle Use, Rales, Rhonchi, Wheezes, Respiratory Distress, Stridor - Cardiovascular Exam Cardiovascular Exam: REGULAR RHYTHM, +S1, +S2 - GI/Abdominal Exam GI & Abdominal Exam: Soft, Normal Bowel Sounds. absent: Distended, Firm, Guarding, Tenderness, Organomegaly Additional comments: suprapubic catheter bandage c/d/i - Exam Additional comments: vasquez cath draining serosanguinous urine, few clots noted during flushing - Extremities Exam Extremities Exam: Full ROM, Normal Capillary Refill, Normal Inspection. absent: Calf Tenderness, Pedal Edema - Back Exam Back Exam: NORMAL INSPECTION - Neurological Exam Neurological Exam: Alert, Awake, Oriented x3 - Psychiatric Exam Psychiatric exam: Normal Affect, Normal Mood - Skin Skin Exam: Dry, Intact, Normal Color, Warm Assessment and Plan - Assessment and Plan (Free Text) Assessment: 78 yo M with a PMHx of AFib (was on Xarelto), CHF, HTN, IgA nephropathy w/ proteinuria admitted for evaluation and treatment of gross hematuria, s/p suprapubic catheter placement. Plan: Gross hematuria -Urology (Dr. Ching) on case -f/u prostate and bladder bx -CBI of vasquez cath per Dr. Ching -may need transfer to [facility] afterwards for hyperbaric O2 consultation -NS@ 40mls/hr -finasteride, flomax -Rocephin 1 gm daily -daily I/Os -c/w flushings Anemia -2/2 hematuria -s/p 2 unit of pRBC -Hb 8.3 (06/04) -continue to monitor, replete prn Atrial fibrillation -monitor on telemetry -currently off AC 2/2 hematuria -irregular rhythm -Home Toprol XL 25mg qd -Cozaar 100mg QD -Runs of Vtach, asymptomatic CHF -Toprol XL 25mg PO daily -Cozaar 100mg PO daily -Lasix 20 mg PO daily--currently being held -strict I/Os Alzheimer's Disease -Fall precautions -Aricept 10 mg PO HS Ppx, Diet, Disposition -DVT ppx: scds, oral AC held / hematuria -GI ppx: pepcid -Diet: HHD -Disposition: Hematuria seems to be clearing. Patient toleratinc CBI well, will attempt to wean off per Urology recs (Dr. Ching). Patient may need hyperbaric O2 therapy at [place], but will hold off and continue to monitor per Urology. Continue to monitor Hb Case discussed with Dr. Priscila Muñiz DO, PGY-1 <Derick Francois - Last Filed: 06/04/18 17:07> Objective - Vital Signs/Intake and Output Vital Signs (last 24 hours): Temp Pulse Resp BP Pulse Ox 97.9 F 78 20 148/83 95 06/04/18 08:00 06/04/18 12:00 06/04/18 08:00 06/04/18 08:00 06/04/18 08:00 Intake and Output: 06/04/18 06/04/18 06:59 18:59 Intake Total 79178 Output Total 359 52700 Balance -790 -890 - Medications Medications: Current Medications Acetaminophen (Tylenol 325mg Tab) 650 mg PO Q6 PRN PRN Reason: Pain, moderate (4-7) Last Admin: 05/21/18 04:25 Dose: 650 mg Allopurinol (Zyloprim) 100 mg PO DAILY [facility] Last Admin: 06/04/18 12:13 Dose: 100 mg Donepezil HCl (Aricept) 10 mg PO HS [facility] Last Admin: 06/03/18 22:55 Dose: 10 mg Famotidine (Pepcid) 20 mg PO DAILY [facility] Last Admin: 06/04/18 12:13 Dose: 20 mg Finasteride (Proscar) 5 mg PO DAILY [facility] Last Admin: 06/04/18 12:13 Dose: 5 mg Furosemide (Lasix) 20 mg PO DAILY [facility] Last Admin: 05/31/18 11:00 Dose: Not Given Sodium Chloride (Sodium Chloride 0.9%) 1,000 mls @ 40 mls/hr IV .Q24H [facility] Last Admin: 06/04/18 12:00 Dose: Not Given Losartan Potassium (Cozaar) 50 mg PO DAILY [facility] Last Admin: 06/04/18 12:13 Dose: 50 mg Metoprolol Succinate (Toprol Xl) 25 mg PO DAILY [facility] Last Admin: 06/04/18 12:13 Dose: 25 mg Spironolactone (Aldactone) 25 mg PO DAILY [facility] Last Admin: 05/30/18 09:35 Dose: 25 mg Tamsulosin HCl (Flomax) 0.4 mg PO HS [facility] Last Admin: 06/03/18 22:55 Dose: 0.4 mg - Labs Labs: 06/04/18 07:03 06/04/18 07:03 PT 14.1 SECONDS (9.7-12.2) H 05/21/18 19:43 INR 1.3 05/21/18 19:43 APTT 33 SECONDS (21-34) 05/17/18 15:20 Attending/Attestation - Attestation I have personally seen and examined this patient.: Yes I have fully participated in the care of the patient.: Yes I have reviewed all pertinent clinical information, including history, physical exam and plan: Yes
[2018-06-04 09:49] LABS: BANDS 2 % (0-2); EOSINOPHIL 1 % (0-4); LYMPHOCYTE 6 % (20-40); MONOCYTE 5 % (0-10); NEUTROPHIL 86 % (50-75); PLATELET ESTIMATE NORMAL (NORMAL); TOTAL CELLS COUNTED 100
[2018-06-04 09:50] LABS: ANISOCYTOSIS SLIGHT; HYPOCHROMIC SLIGHT
[2018-06-04] MEDS: Sodium Chloride 0.9% 1,000 ML IV SCH (12:00)
[2018-06-04] MEDS: Metoprolol Succinate 25 mg XL Tab PO SCH (12:13)
--- NOTE | 2018-06-04 18:54 | CP.PCM.PN ---
Subjective - Date & Time of Evaluation Date of Evaluation: 06/04/18 Time of Evaluation: 15:00 - Subjective Subjective: No shortness of breath; tolerating diet but with overall decreased intake; hematuria noted to be improving; Objective - Vital Signs/Intake and Output Vital Signs (last 24 hours): Temp Pulse Resp BP Pulse Ox 97.8 F 99 H 20 126/75 98 06/04/18 16:00 06/04/18 18:00 06/04/18 16:00 06/04/18 16:00 06/04/18 16:00 Intake and Output: 06/04/18 06/04/18 06:59 18:59 Intake Total 77258 Output Total 790 45780 Balance -790 1810 - Medications Medications: Current Medications Acetaminophen (Tylenol 325mg Tab) 650 mg PO Q6 PRN PRN Reason: Pain, moderate (4-7) Last Admin: 05/21/18 04:25 Dose: 650 mg Allopurinol (Zyloprim) 100 mg PO DAILY [facility] Last Admin: 06/04/18 12:13 Dose: 100 mg Donepezil HCl (Aricept) 10 mg PO [facility] Last Admin: 06/03/18 22:55 Dose: 10 mg Famotidine (Pepcid) 20 mg PO DAILY [facility] Last Admin: 06/04/18 12:13 Dose: 20 mg Finasteride (Proscar) 5 mg PO DAILY [facility] Last Admin: 06/04/18 12:13 Dose: 5 mg Furosemide (Lasix) 20 mg PO DAILY [facility] Last Admin: 05/31/18 11:00 Dose: Not Given Sodium Chloride (Sodium Chloride 0.9%) 1,000 mls @ 40 mls/hr IV .Q24H [facility] Last Admin: 06/04/18 12:00 Dose: Not Given Losartan Potassium (Cozaar) 50 mg PO DAILY [facility] Last Admin: 06/04/18 12:13 Dose: 50 mg Metoprolol Succinate (Toprol Xl) 25 mg PO DAILY [facility] Last Admin: 06/04/18 12:13 Dose: 25 mg Spironolactone (Aldactone) 25 mg PO DAILY [facility] Last Admin: 05/30/18 09:35 Dose: 25 mg Tamsulosin HCl (Flomax) 0.4 mg PO [facility] Last Admin: 06/03/18 22:55 Dose: 0.4 mg - Labs Labs: 06/04/18 07:03 06/04/18 07:03 PT 14.1 SECONDS (9.7-12.2) H 05/21/18 19:43 INR 1.3 05/21/18 19:43 APTT 33 SECONDS (21-34) 05/17/18 15:20 - Constitutional Appears: Non-toxic, No Acute Distress - Eye Exam Eye Exam: Normal appearance - Respiratory Exam Respiratory Exam: Clear to Ausculation Bilateral. absent: Respiratory Distress - Cardiovascular Exam Cardiovascular Exam: RRR, +S1, +S2 - GI/Abdominal Exam GI & Abdominal Exam: Soft. absent: Distended, Tenderness - Extremities Exam Additional comments: no leg edema; - Neurological Exam Neurological Exam: Alert, Awake - Skin Skin Exam: Warm. absent: Cyanosis Assessment and Plan (1) Hyponatremia Status: Resolved (2) CHF (congestive heart failure) Assessment & Plan: Appears stable despite having essentially unilateral functioning kidney; holding diuretics for now given decreased PO intake; losartan at half dose, will continue same for now as BP has been on lower end at times; continue B-blockers to optimize CHF status; Status: Chronic (3) Hematuria Status: Acute (4) Gout Status: Chronic (5) Hypertension Status: Chronic (6) Proteinuria Status: Chronic
[2018-06-05] MEDS: Sodium Chloride 0.9% 1,000 ML IV SCH (00:33)
--- NOTE | 2018-06-05 05:27 | CP.PCM.PN ---
<Ladarius Choi - Last Filed: 06/05/18 05:24> Subjective - Date & Time of Evaluation Date of Evaluation: 06/05/18 Time of Evaluation: 05:25 - Subjective Subjective: HOSPITALIST SERVICE Pt s/e at bedside, complains of congestion and cough. denies cp sob fc nv. Objective - Vital Signs/Intake and Output Vital Signs (last 24 hours): Temp Pulse Resp BP Pulse Ox 98.1 F 88 20 163/90 H 99 06/04/18 23:22 06/04/18 23:22 06/04/18 23:22 06/05/18 00:31 06/04/18 23:22 Intake and Output: 06/04/18 06/05/18 18:59 06:59 Intake Total 25384 2720 Output Total 82324 1050 Balance 1810 1670 - Medications Medications: Current Medications Acetaminophen (Tylenol 325mg Tab) 650 mg PO Q6 PRN PRN Reason: Pain, moderate (4-7) Last Admin: 05/21/18 04:25 Dose: 650 mg Allopurinol (Zyloprim) 100 mg PO DAILY [facility] Last Admin: 06/04/18 12:13 Dose: 100 mg Donepezil HCl (Aricept) 10 mg PO HS [facility] Last Admin: 06/04/18 21:56 Dose: 10 mg Famotidine (Pepcid) 20 mg PO DAILY [facility] Last Admin: 06/04/18 12:13 Dose: 20 mg Finasteride (Proscar) 5 mg PO DAILY [facility] Last Admin: 06/04/18 12:13 Dose: 5 mg Furosemide (Lasix) 20 mg PO DAILY [facility] Last Admin: 05/31/18 11:00 Dose: Not Given Sodium Chloride (Sodium Chloride 0.9%) 1,000 mls @ 40 mls/hr IV .Q24H [facility] Last Admin: 06/05/18 00:33 Dose: 40 mls/hr Losartan Potassium (Cozaar) 50 mg PO DAILY [facility] Last Admin: 06/04/18 12:13 Dose: 50 mg Metoprolol Succinate (Toprol Xl) 25 mg PO DAILY [facility] Last Admin: 06/04/18 12:13 Dose: 25 mg Spironolactone (Aldactone) 25 mg PO DAILY [facility] Last Admin: 05/30/18 09:35 Dose: 25 mg Tamsulosin HCl (Flomax) 0.4 mg PO HS [facility] Last Admin: 06/04/18 21:56 Dose: 0.4 mg - Labs Labs: 06/04/18 07:03 06/04/18 07:03 PT 14.1 SECONDS (9.7-12.2) H 05/21/18 19:43 INR 1.3 05/21/18 19:43 APTT 33 SECONDS (21-34) 05/17/18 15:20 - Additional Findings Additional findings: - Constitutional Appears: Non-toxic, No Acute Distress - Head Exam Head Exam: ATRAUMATIC, NORMAL INSPECTION, NORMOCEPHALIC Additional comments: R hemifacial port wine stain - Eye Exam Eye Exam: EOMI, Normal appearance Pupil Exam: NORMAL ACCOMODATION - ENT Exam ENT Exam: Mucous Membranes Moist, Normal Exam - Neck Exam Neck Exam: Full ROM, Normal Inspection - Respiratory Exam Respiratory Exam: Clear to Ausculation Bilateral, NORMAL BREATHING PATTERN. absent: Accessory Muscle Use, Rales, Rhonchi, Wheezes, Respiratory Distress, Stridor - Cardiovascular Exam Cardiovascular Exam: REGULAR RHYTHM, +S1, +S2 - GI/Abdominal Exam GI & Abdominal Exam: Soft, Normal Bowel Sounds. absent: Distended, Firm, Guarding, Tenderness, Organomegaly Additional comments: suprapubic catheter bandage c/d/i - Exam Additional comments: vasquez cath draining serosanguinous urine, few clots noted during flushing - Extremities Exam Extremities Exam: Full ROM, Normal Capillary Refill, Normal Inspection. absent: Calf Tenderness, Pedal Edema - Back Exam Back Exam: NORMAL INSPECTION - Neurological Exam Neurological Exam: Alert, Awake, Oriented x3 - Psychiatric Exam Psychiatric exam: Normal Affect, Normal Mood - Skin Skin Exam: Dry, Intact, Normal Color, Warm Assessment and Plan - Assessment and Plan (Free Text) Assessment: 78 yo M with a PMHx of AFib (was on Xarelto), CHF, HTN, IgA nephropathy w/ proteinuria admitted for evaluation and treatment of gross hematuria, s/p suprapubic catheter placement. Plan: Gross hematuria -Urology (Dr. Ching) on case -f/u prostate and bladder bx -CBI of vasquez cath per Dr. Ching -may need transfer to [facility] afterwards for hyperbaric O2 consultation -NS@ 40mls/hr -finasteride, flomax -Rocephin 1 gm daily -daily I/Os -c/w flushings Anemia -2/2 hematuria -s/p 2 unit of pRBC -Hb 8.3 (06/04) -continue to monitor, replete prn Atrial fibrillation -monitor on telemetry -currently off AC 2/2 hematuria -irregular rhythm -Home Toprol XL 25mg qd -Cozaar 100mg QD -Runs of Vtach, asymptomatic CHF -Toprol XL 25mg PO daily -Cozaar 100mg PO daily -Lasix 20 mg PO daily--currently being held -strict I/Os -Repeat CXR order @ 3am, leyla congestion seen, given lasix 20 ivp stat Alzheimer's Disease -Fall precautions -Aricept 10 mg PO HS Ppx, Diet, Disposition -DVT ppx: scds, oral AC held 2/2 hematuria -GI ppx: pepcid -Diet: HHD -Disposition: Hematuria seems to be clearing. Patient toleratinc CBI well, will attempt to wean off per Urology recs (Dr. Ching). Patient may need hyperbaric O2 therapy at [place], but will hold off and continue to monitor per Urology. Continue to monitor Hb <Fowler,Peter H - Last Filed: 06/05/18 11:25> Objective - Vital Signs/Intake and Output Vital Signs (last 24 hours): Temp Pulse Resp BP Pulse Ox 97.8 F 75 20 145/72 95 06/05/18 07:30 06/05/18 07:30 06/05/18 07:30 06/05/18 07:30 06/05/18 07:30 Intake and Output: 06/05/18 06/05/18 06:59 18:59 Intake Total 82586 Output Total 21439 Balance 370 - Medications Medications: Current Medications Acetaminophen (Tylenol 325mg Tab) 650 mg PO Q6 PRN PRN Reason: Pain, moderate (4-7) Last Admin: 05/21/18 04:25 Dose: 650 mg Allopurinol (Zyloprim) 100 mg PO DAILY [facility] Last Admin: 06/05/18 09:52 Dose: 100 mg Donepezil HCl (Aricept) 10 mg PO HS [facility] Last Admin: 06/04/18 21:56 Dose: 10 mg Famotidine (Pepcid) 20 mg PO DAILY [facility] Last Admin: 06/05/18 09:52 Dose: 20 mg Finasteride (Proscar) 5 mg PO DAILY [facility] Last Admin: 06/05/18 09:52 Dose: 5 mg Furosemide (Lasix) 20 mg PO DAILY [facility] Last Admin: 05/31/18 11:00 Dose: Not Given Losartan Potassium (Cozaar) 100 mg PO DAILY [facility] Last Admin: 06/05/18 09:52 Dose: 100 mg Metoprolol Succinate (Toprol Xl) 25 mg PO DAILY [facility] Last Admin: 06/05/18 09:52 Dose: 25 mg Spironolactone (Aldactone) 25 mg PO DAILY [facility] Last Admin: 05/30/18 09:35 Dose: 25 mg Tamsulosin HCl (Flomax) 0.4 mg PO HS [facility] Last Admin: 06/04/18 21:56 Dose: 0.4 mg - Labs Labs: 06/05/18 08:32 06/05/18 08:32 PT 14.1 SECONDS (9.7-12.2) H 05/21/18 19:43 INR 1.3 05/21/18 19:43 APTT 33 SECONDS (21-34) 05/17/18 15:20 Attending/Attestation - Attestation I have personally seen and examined this patient.: Yes I have fully participated in the care of the patient.: Yes I have reviewed all pertinent clinical information, including history, physical exam and plan: Yes
[2018-06-05 08:47] LABS: BASO % 0.5 % (0.0-2.0); EOS # 0.1 K/uL (0.0-0.7); EOS % 1.5 % (0.0-4.0); HEMOGLOBIN 8.8 g/dL (12.0-18.0); LYMPH # 0.8 K/uL (1.0-4.3); LYMPH % 9.9 % (20.0-40.0); MEAN CELL VOLUME 95.3 fL (80.0-94.0); MEAN CORPUSCULAR HEMOGLOBIN 30.8 pg (27.0-31.0); MEAN CORPUSCULAR HGB CONC 32.3 g/dL (33.0-37.0); MEAN PLATELET VOLUME 7.7 fL (7.2-11.7); MONO # 0.4 K/uL (0.0-0.8); MONO % 5.4 % (0.0-10.0); NEUT # 6.4 K/uL (1.8-7.0); NEUT % 82.7 % (50.0-75.0); PLATELET COUNT 278 K/uL (130-400); RBC 2.85 Mil/uL (4.40-5.90); RED CELL DISTRIBUTION WIDTH 15.4 % (11.5-14.5); WHITE BLOOD COUNT 7.7 K/uL (4.8-10.8)
[2018-06-05 09:45] LABS: ALB/GLOB RATIO 0.8 (1.0-2.1); ALBUMIN 2.4 g/dL (3.5-5.0)
[2018-06-05] MEDS: Metoprolol Succinate 25 mg XL Tab PO SCH (09:52)
[2018-06-05 10:42] LABS: ALT/SGPT 22 U/L (21-72); AST/SGOT 28 U/L (17-59); BLOOD UREA NITROGEN 16 mg/dL (9-20); CALCIUM 8.2 mg/dl (8.6-10.4); GFR NON-AFRICAN AMERICAN > 60
[2018-06-05 11:00] LABS: BANDS 2 % (0-2); EOSINOPHIL 1 % (0-4); LYMPHOCYTE 5 % (20-40); MONOCYTE 6 % (0-10); NEUTROPHIL 85 % (50-75); REACTIVE LYMPHOCYTES 1 % (0-0); TOTAL CELLS COUNTED 100
[2018-06-05 11:01] LABS: ANISOCYTOSIS SLIGHT; HYPOCHROMIC SLIGHT; PLATELET ESTIMATE NORMAL (NORMAL)
--- NOTE | 2018-06-05 13:59 | RAD ---
Date of service: 06/04/2018 HISTORY: wheezes COMPARISON: Comparison is made with 05/22/2018 FINDINGS: LUNGS: Patchy hazy opacities in both lungs more prominent on the right are noted. PLEURA: Blunting of the left costophrenic angle noted. CARDIOVASCULAR: No aortic atherosclerotic calcification present. The cardiac silhouette is enlarged. Mild pulmonary vascular congestion is noted. OSSEOUS STRUCTURES: No significant abnormalities. VISUALIZED UPPER ABDOMEN: Normal. OTHER FINDINGS: None. IMPRESSION: Suspicious for [id number] pulmonary vascular congestion. Nonspecific hazy opacities in both lungs.
--- NOTE | 2018-06-06 01:11 | CP.PCM.PN ---
<Ladarius Choi - Last Filed: 06/06/18 01:07> Subjective - Date & Time of Evaluation Date of Evaluation: 06/06/18 Time of Evaluation: 01:07 - Subjective Subjective: HOSPITALIST SERVICE Pt s/e at bedside, limited ROS obtained, memory and cognitive deficits noted. denies C SOB FC NV, no acute events overnight per nursing Objective - Vital Signs/Intake and Output Vital Signs (last 24 hours): Temp Pulse Resp BP Pulse Ox 98.9 F 80 20 131/69 96 06/05/18 15:00 06/05/18 15:00 06/05/18 15:00 06/05/18 15:00 06/05/18 15:00 Intake and Output: 06/05/18 06/06/18 18:59 06:59 Intake Total 6900 Output Total 7700 Balance -800 - Medications Medications: Current Medications Acetaminophen (Tylenol 325mg Tab) 650 mg PO Q6 PRN PRN Reason: Pain, moderate (4-7) Last Admin: 05/21/18 04:25 Dose: 650 mg Allopurinol (Zyloprim) 100 mg PO DAILY [facility] Last Admin: 06/05/18 09:52 Dose: 100 mg Donepezil HCl (Aricept) 10 mg PO HS [facility] Last Admin: 06/05/18 21:48 Dose: 10 mg Famotidine (Pepcid) 20 mg PO DAILY [facility] Last Admin: 06/05/18 09:52 Dose: 20 mg Finasteride (Proscar) 5 mg PO DAILY [facility] Last Admin: 06/05/18 09:52 Dose: 5 mg Furosemide (Lasix) 20 mg PO DAILY [facility] Last Admin: 05/31/18 11:00 Dose: Not Given Losartan Potassium (Cozaar) 100 mg PO DAILY [facility] Last Admin: 06/05/18 09:52 Dose: 100 mg Metoprolol Succinate (Toprol Xl) 25 mg PO DAILY [facility] Last Admin: 06/05/18 09:52 Dose: 25 mg Spironolactone (Aldactone) 25 mg PO DAILY [facility] Last Admin: 05/30/18 09:35 Dose: 25 mg Tamsulosin HCl (Flomax) 0.4 mg PO HS [facility] Last Admin: 06/05/18 21:48 Dose: 0.4 mg - Labs Labs: 06/05/18 08:32 06/05/18 08:32 PT 14.1 SECONDS (9.7-12.2) H 05/21/18 19:43 INR 1.3 05/21/18 19:43 APTT 33 SECONDS (21-34) 05/17/18 15:20 - Additional Findings Additional findings: - Constitutional Appears: Non-toxic, No Acute Distress - Head Exam Head Exam: ATRAUMATIC, NORMAL INSPECTION, NORMOCEPHALIC Additional comments: R hemifacial port wine stain - Eye Exam Eye Exam: EOMI, Normal appearance Pupil Exam: NORMAL ACCOMODATION - ENT Exam ENT Exam: Mucous Membranes Moist, Normal Exam - Neck Exam Neck Exam: Full ROM, Normal Inspection - Respiratory Exam Respiratory Exam: Clear to Ausculation Bilateral, NORMAL BREATHING PATTERN. absent: Accessory Muscle Use, Rales, Rhonchi, Wheezes, Respiratory Distress, Stridor - Cardiovascular Exam Cardiovascular Exam: REGULAR RHYTHM, +S1, +S2 - GI/Abdominal Exam GI & Abdominal Exam: Soft, Normal Bowel Sounds. absent: Distended, Firm, Guarding, Tenderness, Organomegaly Additional comments: suprapubic catheter bandage c/d/i - Exam Additional comments: vasquez cath draining serosanguinous urine, few clots noted during flushing - Extremities Exam Extremities Exam: Full ROM, Normal Capillary Refill, Normal Inspection. absent: Calf Tenderness, Pedal Edema - Back Exam Back Exam: NORMAL INSPECTION - Neurological Exam Neurological Exam: Alert, Awake, Oriented x3 - Psychiatric Exam Psychiatric exam: Normal Affect, Normal Mood - Skin Skin Exam: Dry, Intact, Normal Color, Warm Assessment and Plan - Assessment and Plan (Free Text) Assessment: 78 yo M with a PMHx of AFib (was on Xarelto), CHF, HTN, IgA nephropathy w/ proteinuria admitted for evaluation and treatment of gross hematuria, s/p suprapubic catheter placement. Plan: Gross hematuria -Urology (Dr. Ching) on case -f/u prostate and bladder bx -CBI of vasquez cath per Dr. Ching -may need transfer to [facility] afterwards for hyperbaric O2 consultation -finasteride, flomax, aldactone -daily I/Os -c/w flushings Anemia -2/2 hematuria -s/p 2 unit of pRBC -Hb 8.8 -continue to monitor, replete prn Atrial fibrillation -monitor on telemetry -currently off AC 2/2 hematuria -irregular rhythm -Home Toprol XL 25mg qd -aldactone 25 -Cozaar 100mg QD -Runs of Vtach, asymptomatic CHF -Toprol XL 25mg PO daily -Cozaar 100mg PO daily -Lasix 20 mg PO daily--currently being held aldactone 25 -strict I/Os Alzheimer's Disease -Fall precautions -Aricept 10 mg PO HS Ppx, Diet, Disposition -DVT ppx: scds, oral AC held 2/2 hematuria -GI ppx: pepcid -Diet: HHD -Disposition: Hematuria seems to be clearing. Patient toleratinc CBI well, will attempt to wean off per Urology recs (Dr. Ching). Patient may need hyperbaric O2 therapy at [place], but will hold off and continue to monitor per Urology. Continue to monitor Hb <Fowler,Peter H - Last Filed: 06/06/18 10:18> Objective - Vital Signs/Intake and Output Vital Signs (last 24 hours): Temp Pulse Resp BP Pulse Ox 97.8 F 79 18 123/72 100 06/06/18 07:00 06/06/18 08:23 06/06/18 07:00 06/06/18 07:00 06/06/18 07:00 Intake and Output: 06/06/18 06/06/18 06:59 18:59 Intake Total 400 Output Total 1595 Balance -1195 - Medications Medications: Current Medications Acetaminophen (Tylenol 325mg Tab) 650 mg PO Q6 PRN PRN Reason: Pain, moderate (4-7) Last Admin: 05/21/18 04:25 Dose: 650 mg Allopurinol (Zyloprim) 100 mg PO DAILY [facility] Last Admin: 06/06/18 09:38 Dose: 100 mg Donepezil HCl (Aricept) 10 mg PO HS [facility] Last Admin: 06/05/18 21:48 Dose: 10 mg Famotidine (Pepcid) 20 mg PO DAILY [facility] Last Admin: 06/06/18 09:38 Dose: 20 mg Finasteride (Proscar) 5 mg PO DAILY [facility] Last Admin: 06/06/18 09:38 Dose: 5 mg Furosemide (Lasix) 20 mg PO DAILY [facility] Last Admin: 05/31/18 11:00 Dose: Not Given Losartan Potassium (Cozaar) 100 mg PO DAILY [facility] Last Admin: 06/06/18 09:38 Dose: 100 mg Metoprolol Succinate (Toprol Xl) 25 mg PO DAILY [facility] Last Admin: 06/06/18 09:38 Dose: 25 mg Spironolactone (Aldactone) 25 mg PO DAILY [facility] Last Admin: 05/30/18 09:35 Dose: 25 mg Tamsulosin HCl (Flomax) 0.4 mg PO HS [facility] Last Admin: 06/05/18 21:48 Dose: 0.4 mg - Labs Labs: 06/06/18 07:18 06/06/18 07:18 PT 14.1 SECONDS (9.7-12.2) H 05/21/18 19:43 INR 1.3 05/21/18 19:43 APTT 33 SECONDS (21-34) 05/17/18 15:20 Attending/Attestation - Attestation I have personally seen and examined this patient.: Yes I have fully participated in the care of the patient.: Yes I have reviewed all pertinent clinical information, including history, physical exam and plan: Yes Notes (Text): 06/06/18 10:15 Medical attending: Patient was seen and examined by me. Agree with the above note by the resident The patient was not in any acute distress. We looked at the bags and today they were very clear with tiny clots noted. Yesterday the bags were a clear pink color. His Hgb was decreased again today to 8.1 He is still off of the anticoguation and off of lovenox/heparin Will transfuse one unit of PRBC Patient denied having pain From what I understand the patient was comming from home and considering the patient's condition he may need to got to [facility] or [facility]. Uziel Fowler
[2018-06-06 07:27] LABS: BASO % 0.6 % (0.0-2.0); EOS # 0.1 K/uL (0.0-0.7); EOS % 1.6 % (0.0-4.0); HEMOGLOBIN 8.1 g/dL (12.0-18.0); LYMPH # 0.6 K/uL (1.0-4.3); MEAN CELL VOLUME 95.8 fL (80.0-94.0); MEAN CORPUSCULAR HEMOGLOBIN 31.4 pg (27.0-31.0); MEAN CORPUSCULAR HGB CONC 32.8 g/dL (33.0-37.0); MEAN PLATELET VOLUME 7.3 fL (7.2-11.7); MONO # 0.5 K/uL (0.0-0.8); MONO % 6.9 % (0.0-10.0); NEUT # 5.4 K/uL (1.8-7.0); NEUT % 81.9 % (50.0-75.0); PLATELET COUNT 247 K/uL (130-400); RBC 2.57 Mil/uL (4.40-5.90); RED CELL DISTRIBUTION WIDTH 15.6 % (11.5-14.5); WHITE BLOOD COUNT 6.6 K/uL (4.8-10.8)
[2018-06-06 08:07] LABS: ALB/GLOB RATIO 0.8 (1.0-2.1); ALBUMIN 2.2 g/dL (3.5-5.0); ALT/SGPT 21 U/L (21-72); AST/SGOT 28 U/L (17-59); BLOOD UREA NITROGEN 18 mg/dL (9-20); GFR NON-AFRICAN AMERICAN > 60
[2018-06-06 08:37] LABS: BANDS 2 % (0-2); EOSINOPHIL 4 % (0-4); LYMPHOCYTE 10 % (20-40); MONOCYTE 4 % (0-10); NEUTROPHIL 79 % (50-75); PLATELET ESTIMATE NORMAL (NORMAL); REACTIVE LYMPHOCYTES 1 % (0-0); TOTAL CELLS COUNTED 100
[2018-06-06 08:38] LABS: ANISOCYTOSIS SLIGHT; POLYCHROMIC SLIGHT
[2018-06-06 08:39] LABS: GIANT PLATELETS PRESENT; LARGE PLATELETS PRESENT; OVALOCYTES SLIGHT; POIKILOCYTOSIS SLIGHT
[2018-06-06] MEDS: Metoprolol Succinate 25 mg XL Tab PO SCH (09:38)
[2018-06-07 00:28] VITALS: RESP 20
[2018-06-07 07:10] LABS: BASO # 0.1 K/uL (0.0-0.2); BASO % 0.9 % (0.0-2.0); EOS # 0.1 K/uL (0.0-0.7); EOS % 1.6 % (0.0-4.0); HEMOGLOBIN 9.9 g/dL (12.0-18.0); LYMPH # 0.7 K/uL (1.0-4.3); LYMPH % 7.5 % (20.0-40.0); MEAN CELL VOLUME 94.1 fL (80.0-94.0); MEAN CORPUSCULAR HEMOGLOBIN 31.2 pg (27.0-31.0); MEAN CORPUSCULAR HGB CONC 33.1 g/dL (33.0-37.0); MEAN PLATELET VOLUME 7.3 fL (7.2-11.7); MONO # 0.5 K/uL (0.0-0.8); MONO % 5.8 % (0.0-10.0); NEUT # 7.5 K/uL (1.8-7.0); NEUT % 84.2 % (50.0-75.0); PLATELET COUNT 293 K/uL (130-400); RBC 3.17 Mil/uL (4.40-5.90); RED CELL DISTRIBUTION WIDTH 15.6 % (11.5-14.5)
--- NOTE | 2018-06-07 07:31 | CP.PCM.PN ---
<Hal Muñiz - Last Filed: 06/07/18 15:31> Subjective - Date & Time of Evaluation Date of Evaluation: 06/07/18 Time of Evaluation: 07:31 - Subjective Subjective: PGY-1 Medicine Progress Note for Dr. Fowler Patient seen and examined at bedside this AM. Resting comfortably, in no acute distress. Received 1 additional unit pRBC yesterday. No acute somatic complaints at this time. Per Urology recs, will d/c CBI and continue flushes q4h. Awaiting word on need for possible hyperbaric O2 treatment. Objective - Vital Signs/Intake and Output Vital Signs (last 24 hours): Temp Pulse Resp BP Pulse Ox 98.4 F 77 20 162/80 H 99 06/06/18 23:27 06/06/18 23:27 06/06/18 23:27 06/06/18 23:27 06/06/18 23:27 Intake and Output: 06/07/18 06/07/18 06:59 18:59 Output Total 50 Balance -50 - Medications Medications: Current Medications Acetaminophen (Tylenol 325mg Tab) 650 mg PO Q6 PRN PRN Reason: Pain, moderate (4-7) Last Admin: 05/21/18 04:25 Dose: 650 mg Allopurinol (Zyloprim) 100 mg PO DAILY [facility] Last Admin: 06/06/18 09:38 Dose: 100 mg Donepezil HCl (Aricept) 10 mg PO HS [facility] Last Admin: 06/06/18 21:45 Dose: 10 mg Famotidine (Pepcid) 20 mg PO DAILY [facility] Last Admin: 06/06/18 09:38 Dose: 20 mg Finasteride (Proscar) 5 mg PO DAILY [facility] Last Admin: 06/06/18 09:38 Dose: 5 mg Furosemide (Lasix) 20 mg PO DAILY [facility] Last Admin: 05/31/18 11:00 Dose: Not Given Losartan Potassium (Cozaar) 100 mg PO DAILY [facility] Last Admin: 06/06/18 09:38 Dose: 100 mg Metoprolol Succinate (Toprol Xl) 25 mg PO DAILY [facility] Last Admin: 06/06/18 09:38 Dose: 25 mg Spironolactone (Aldactone) 25 mg PO DAILY [facility] Last Admin: 05/30/18 09:35 Dose: 25 mg Tamsulosin HCl (Flomax) 0.4 mg PO HS [facility] Last Admin: 06/06/18 21:45 Dose: 0.4 mg - Labs Labs: 06/07/18 07:05 06/06/18 07:18 PT 14.1 SECONDS (9.7-12.2) H 05/21/18 19:43 INR 1.3 05/21/18 19:43 APTT 33 SECONDS (21-34) 05/17/18 15:20 - Constitutional Appears: Non-toxic, No Acute Distress - Head Exam Head Exam: ATRAUMATIC, NORMAL INSPECTION, NORMOCEPHALIC Additional comments: R hemifacial port wine stain - Eye Exam Eye Exam: EOMI, Normal appearance Pupil Exam: NORMAL ACCOMODATION - ENT Exam ENT Exam: Mucous Membranes Moist, Normal Exam - Neck Exam Neck Exam: Full ROM, Normal Inspection - Respiratory Exam Respiratory Exam: Clear to Ausculation Bilateral, NORMAL BREATHING PATTERN. absent: Accessory Muscle Use, Rales, Rhonchi, Wheezes, Respiratory Distress, Stridor - Cardiovascular Exam Cardiovascular Exam: REGULAR RHYTHM, +S1, +S2 - GI/Abdominal Exam GI & Abdominal Exam: Soft, Normal Bowel Sounds. absent: Distended, Firm, Guarding, Rigid, Tenderness, Rebound Additional comments: suprapubic catheter bandage c/d/i - Exam Additional comments: vasquez cath draining serosanguinous urine - Neurological Exam Neurological Exam: Alert, Awake, Oriented x3 - Psychiatric Exam Psychiatric exam: Normal Affect, Normal Mood - Skin Skin Exam: Dry, Intact, Normal Color, Warm Assessment and Plan - Assessment and Plan (Free Text) Assessment: 78 yo M with a PMHx of AFib (was on Xarelto), CHF, HTN, IgA nephropathy w/ proteinuria admitted for evaluation and treatment of gross hematuria, s/p suprapubic catheter placement. Plan: Gross hematuria -Urology (Dr. Ching) on case -f/u prostate and bladder bx -CBI may be d/c'd per Dr. Ching, continue with flushes q4h -may need transfer to [facility] afterwards for hyperbaric O2 consultation -finasteride, flomax, aldactone -daily I/Os -c/w flushings Anemia -2/2 hematuria -s/p 1 additional unit pRBC over weekend -Hb 9.9 (2.18) -continue to monitor, replete prn Atrial fibrillation -monitor on telemetry -currently off AC 2/2 hematuria -irregular rhythm -Home Toprol XL 25mg qd -aldactone 25 -Cozaar 100mg QD -Runs of Vtach, asymptomatic CHF -Toprol XL 25mg PO daily -Cozaar 100mg PO daily -Lasix 20 mg PO daily--currently being held -Aldactone 25 -strict I/Os Alzheimer's Disease -Fall precautions -Aricept 10 mg PO HS Ppx, Diet, Disposition -DVT ppx: scds, oral AC held 2/2 hematuria -GI ppx: pepcid -Diet: HHD -Disposition: Hematuria seems to be clearing. Discontinue CBI, continue with flushes q4h per Urology recs (Dr. Ching). Patient may need hyperbaric O2 therapy at [place]. Continue to monitor Hb. Case discussed with Dr. Janeth Muñiz DO, PGY-1 <Uziel Fowler H - Last Filed: 06/07/18 17:23> Objective - Vital Signs/Intake and Output Vital Signs (last 24 hours): Temp Pulse Resp BP Pulse Ox 98.1 F 61 20 148/81 97 06/07/18 16:30 06/07/18 16:30 06/07/18 16:30 06/07/18 16:30 06/07/18 16:30 Intake and Output: 06/07/18 06/07/18 06:59 18:59 Intake Total 300 240 Output Total 1085 9925 Balance -188 -0222 - Medications Medications: Current Medications Acetaminophen (Tylenol 325mg Tab) 650 mg PO Q6 PRN PRN Reason: Pain, moderate (4-7) Last Admin: 05/21/18 04:25 Dose: 650 mg Allopurinol (Zyloprim) 100 mg PO DAILY [facility] Last Admin: 06/07/18 10:03 Dose: 100 mg Donepezil HCl (Aricept) 10 mg PO HS [facility] Last Admin: 06/06/18 21:45 Dose: 10 mg Famotidine (Pepcid) 20 mg PO DAILY [facility] Last Admin: 06/07/18 10:03 Dose: 20 mg Finasteride (Proscar) 5 mg PO DAILY [facility] Last Admin: 06/07/18 10:02 Dose: 5 mg Furosemide (Lasix) 20 mg PO DAILY [facility] Last Admin: 05/31/18 11:00 Dose: Not Given Losartan Potassium (Cozaar) 100 mg PO DAILY [facility] Last Admin: 06/07/18 10:02 Dose: 100 mg Metoprolol Succinate (Toprol Xl) 25 mg PO DAILY [facility] Last Admin: 06/07/18 10:02 Dose: 25 mg Spironolactone (Aldactone) 25 mg PO DAILY [facility] Last Admin: 05/30/18 09:35 Dose: 25 mg Tamsulosin HCl (Flomax) 0.4 mg PO HS [facility] Last Admin: 06/06/18 21:45 Dose: 0.4 mg - Labs Labs: 06/07/18 07:05 06/07/18 07:05 PT 14.1 SECONDS (9.7-12.2) H 05/21/18 19:43 INR 1.3 05/21/18 19:43 APTT 33 SECONDS (21-34) 05/17/18 15:20 Attending/Attestation - Attestation I have personally seen and examined this patient.: Yes I have fully participated in the care of the patient.: Yes I have reviewed all pertinent clinical information, including history, physical exam and plan: Yes Notes (Text): 06/07/18 17:21 Medical attending: Patient was seen and examined by me. Agree with the above note by the resident The patient was not in any acute distress when I came and saw the patient The patient yesterday had PRBC given and today is higher Hgb. Per urology will stop the CBI at this time and continue with irrigation q4hrs At some point the patient may benefit from hyperbaric oxygen treatment however this is something done at [facility] Uziel Fowler
[2018-06-07 07:45] LABS: ALB/GLOB RATIO 0.8 (1.0-2.1); ALBUMIN 2.5 g/dL (3.5-5.0); ALT/SGPT 17 U/L (21-72); AST/SGOT 28 U/L (17-59); BLOOD UREA NITROGEN 21 mg/dL (9-20); CALCIUM 8.3 mg/dl (8.6-10.4); GFR NON-AFRICAN AMERICAN > 60
[2018-06-07 08:39] LABS: ANISOCYTOSIS SLIGHT; EOSINOPHIL 5 % (0-4); HYPOCHROMIC SLIGHT; LYMPHOCYTE 8 % (20-40); MONOCYTE 2 % (0-10); NEUTROPHIL 85 % (50-75); PLATELET ESTIMATE NORMAL (NORMAL); POIKILOCYTOSIS SLIGHT; TARGET CELLS SLIGHT; TOTAL CELLS COUNTED 100
[2018-06-07 08:40] LABS: MICROCYTOSIS SLIGHT
[2018-06-07] MEDS: Metoprolol Succinate 25 mg XL Tab PO SCH (10:02)
--- NOTE | 2018-06-07 22:24 | CP.PCM.PN ---
Objective - Vital Signs/Intake and Output Vital Signs (last 24 hours): Temp Pulse Resp BP Pulse Ox 98.1 F 61 20 148/81 97 06/07/18 16:30 06/07/18 16:30 06/07/18 16:30 06/07/18 16:30 06/07/18 16:30 Intake and Output: 06/07/18 06/08/18 18:59 06:59 Intake Total 240 Output Total 3925 Balance -3685 - Medications Medications: Current Medications Acetaminophen (Tylenol 325mg Tab) 650 mg PO Q6 PRN PRN Reason: Pain, moderate (4-7) Last Admin: 05/21/18 04:25 Dose: 650 mg Allopurinol (Zyloprim) 100 mg PO DAILY [facility] Last Admin: 06/07/18 10:03 Dose: 100 mg Donepezil HCl (Aricept) 10 mg PO HS [facility] Last Admin: 06/07/18 21:49 Dose: 10 mg Famotidine (Pepcid) 20 mg PO DAILY [facility] Last Admin: 06/07/18 10:03 Dose: 20 mg Finasteride (Proscar) 5 mg PO DAILY [facility] Last Admin: 06/07/18 10:02 Dose: 5 mg Furosemide (Lasix) 20 mg PO DAILY [facility] Last Admin: 05/31/18 11:00 Dose: Not Given Losartan Potassium (Cozaar) 100 mg PO DAILY [facility] Last Admin: 06/07/18 10:02 Dose: 100 mg Metoprolol Succinate (Toprol Xl) 25 mg PO DAILY [facility] Last Admin: 06/07/18 10:02 Dose: 25 mg Spironolactone (Aldactone) 25 mg PO DAILY [facility] Last Admin: 05/30/18 09:35 Dose: 25 mg Spironolactone (Aldactone) 25 mg PO ONCE ONE Stop: 06/07/18 22:24 Tamsulosin HCl (Flomax) 0.4 mg PO HS [facility] Last Admin: 06/07/18 21:49 Dose: 0.4 mg - Labs Labs: 06/07/18 07:05 06/07/18 07:05 PT 14.1 SECONDS (9.7-12.2) H 05/21/18 19:43 INR 1.3 05/21/18 19:43 APTT 33 SECONDS (21-34) 05/17/18 15:20 Assessment and Plan (1) Hyponatremia Status: Resolved (2) CHF (congestive heart failure) Status: Chronic (3) Hematuria Status: Acute (4) Gout Status: Chronic (5) Hypertension Status: Chronic (6) Proteinuria Status: Chronic
--- NOTE | 2018-06-07 22:52 | PCM.URO ---
Urology Progress Note - General General: No Complaints, Tolerating Diet - Subjective Abdominal Pain: No Flank Pain: No Nausea: No Vomiting: No Voiding Well: No Dysuria: No Hematuria: No (CLEAR TODAY) Chest Pain: No Fever & Chills: No - Objective Lab Studies: Reviewed Lab Results Last 24 Hours: Laboratory Results - last 24 hr 06/07/18 06/07/18 06/07/18 06:25 07:05 07:05 WBC 9.0 RBC 3.17 L Hgb 9.9 L Hct 29.8 L MCV 94.1 H MCH 31.2 H MCHC 33.1 RDW 15.6 H Plt Count 293 MPV 7.3 Neut % (Auto) 84.2 H Lymph % (Auto) 7.5 L Milam % (Auto) 5.8 Eos % (Auto) 1.6 Baso % (Auto) 0.9 Neut # (Auto) 7.5 H Lymph # (Auto) 0.7 L Milam # (Auto) 0.5 Eos # (Auto) 0.1 Baso # (Auto) 0.1 Neutrophils % (Manual) 85 H Lymphocytes % (Manual) 8 L Monocytes % (Manual) 2 Eosinophils % (Manual) 5 H Platelet Estimate Normal Hypochromasia (manual) Slight Poikilocytosis (manual Slight Anisocytosis (manual) Slight Microcytosis (manual) Slight Macrocytosis (manual) Slight Target Cells Slight Sodium 138 Potassium 4.0 Chloride 104 Carbon Dioxide 31 H Anion Gap 8 L BUN 21 H Creatinine 0.8 Est GFR ( Amer) > 60 Est GFR (Non-Af Amer) > 60 POC Glucose (mg/dL) 99 Random Glucose 97 Calcium 8.3 L Phosphorus 3.3 Magnesium 2.0 Total Bilirubin 0.7 AST 28 ALT 17 L Alkaline Phosphatase 101 Total Protein 5.6 L Albumin 2.5 L Globulin 3.1 Albumin/Globulin Ratio 0.8 L Intake & Output: Intake & Output 06/07/18 06/07/18 06/08/18 06:59 18:59 06:59 Intake Total 300 240 Output Total 1085 3925 Balance -981 -7868 Intake: Oral 300 240 Output: Urine 1085 3925 3-way Urethral 3900 Suprapubic 85 25 Urethral (Ching) 1000 Other: # Bowel Movements 1 Vital Signs: Vital Signs - 24 hr 06/06/18 06/07/1806/07/19 23:27 01:00 07:00 Temperature 98.4 F 98.1 F Pulse Rate 77 79 82 Respiratory 20 20 Rate Blood Pressure 162/80 H 138/78 O2 Sat by Pulse 99 100 Oximetry 06/07/18 06/07/18 06/07/18 07:40 10:00 15:45 Temperature Pulse Rate 82 87 80 Respiratory 20 Rate Blood Pressure O2 Sat by Pulse Oximetry 06/07/18 16:30 Temperature 98.1 F Pulse Rate 61 Respiratory 20 Rate Blood Pressure 148/81 O2 Sat by Pulse 97 Oximetry - Physical Exam Abdominal Exam: Soft, Non-Tender, Non-Distended Dressing: Dry, Intact Back: No CVA Tenderness Genitalia: Without Inflammation Urinary Catheter Draining Well: Yes Urine Color: Clear (on slow cbi) - Male Phallus: Normal Scrotum: Normal - Plan Wound Care: Yes Catheter Care: Yes Intake & Output: Yes Additional Information: IMP: Improved re hematuria. Bleeding from prostate and bladder. Verbal report for bladder Bx: inflamation, possible neoplasia. Further stains for dx are pending. Rec/p: STOP CBI. Ching and cystostomy tubes in place. Path pending. Poss hyberbaric oxygen therapy t/f. Discussed w attending staff. YS - Date & Time of Note Date: 06/07/18 Time: 10:45
--- NOTE | 2018-06-08 07:05 | CP.PCM.PN ---
<Hal Muñiz - Last Filed: 06/08/18 13:50> Subjective - Date & Time of Evaluation Date of Evaluation: 06/08/18 Time of Evaluation: 07:05 - Subjective Subjective: PGY-1 Medicine Progress Note for Dr. See Patient seen and examined at bedside this AM. No acute overnight events reported. Patient denies any somatic complaints at this time. 12 pt ROS reviewed and otherwise negative. CBI stopped, flushes carried out q 4 per Urology recs. Objective - Vital Signs/Intake and Output Vital Signs (last 24 hours): Temp Pulse Resp BP Pulse Ox 97.7 F 82 20 161/97 H 100 06/07/18 23:33 06/07/18 23:33 06/07/18 23:33 06/07/18 23:33 06/07/18 23:33 Intake and Output: 06/08/18 06/08/18 06:59 18:59 Output Total 575 Balance -575 - Medications Medications: Current Medications Acetaminophen (Tylenol 325mg Tab) 650 mg PO Q6 PRN PRN Reason: Pain, moderate (4-7) Last Admin: 05/21/18 04:25 Dose: 650 mg Allopurinol (Zyloprim) 100 mg PO DAILY [facility] Last Admin: 06/07/18 10:03 Dose: 100 mg Donepezil HCl (Aricept) 10 mg PO HS [facility] Last Admin: 06/07/18 21:49 Dose: 10 mg Famotidine (Pepcid) 20 mg PO DAILY [facility] Last Admin: 06/07/18 10:03 Dose: 20 mg Finasteride (Proscar) 5 mg PO DAILY [facility] Last Admin: 06/07/18 10:02 Dose: 5 mg Furosemide (Lasix) 20 mg PO DAILY [facility] Last Admin: 05/31/18 11:00 Dose: Not Given Losartan Potassium (Cozaar) 100 mg PO DAILY [facility] Last Admin: 06/07/18 10:02 Dose: 100 mg Metoprolol Succinate (Toprol Xl) 25 mg PO DAILY [facility] Last Admin: 06/07/18 10:02 Dose: 25 mg Spironolactone (Aldactone) 25 mg PO DAILY [facility] Last Admin: 05/30/18 09:35 Dose: 25 mg Tamsulosin HCl (Flomax) 0.4 mg PO [facility] Last Admin: 06/07/18 21:49 Dose: 0.4 mg - Labs Labs: 06/07/18 07:05 06/07/18 07:05 PT 14.1 SECONDS (9.7-12.2) H 05/21/18 19:43 INR 1.3 05/21/18 19:43 APTT 33 SECONDS (21-34) 05/17/18 15:20 - Constitutional Appears: Non-toxic, No Acute Distress - Head Exam Head Exam: ATRAUMATIC, NORMAL INSPECTION, NORMOCEPHALIC Additional comments: R hemifacial port wine stain - Eye Exam Eye Exam: EOMI, Normal appearance Pupil Exam: NORMAL ACCOMODATION - ENT Exam ENT Exam: Mucous Membranes Moist, Normal Exam - Neck Exam Neck Exam: Full ROM, Normal Inspection - Respiratory Exam Respiratory Exam: Clear to Ausculation Bilateral, NORMAL BREATHING PATTERN. absent: Accessory Muscle Use, Rales, Rhonchi, Wheezes, Respiratory Distress, Stridor - Cardiovascular Exam Cardiovascular Exam: REGULAR RHYTHM, +S1, +S2 - GI/Abdominal Exam GI & Abdominal Exam: Soft, Normal Bowel Sounds. absent: Distended, Firm, Guarding, Rigid, Tenderness, Organomegaly, Rebound Additional comments: suprapubic catheter bandage c/d/i - Exam Additional comments: vasquez cath draining serosanguinous urine - Neurological Exam Neurological Exam: Alert, Awake - Psychiatric Exam Psychiatric exam: Normal Affect, Normal Mood - Skin Skin Exam: Dry, Intact, Normal Color, Warm Assessment and Plan - Assessment and Plan (Free Text) Assessment: 78 yo M with a PMHx of AFib (was on Xarelto), CHF, HTN, IgA nephropathy w/ proteinuria admitted for evaluation and treatment of gross hematuria, s/p sup rapubic catheter placement. Plan: Gross hematuria -Urology (Dr. Ching) on case -f/u prostate and bladder bx -CBI d/c'd per Dr. Ching, continue with flushes q4h -possible hyperbaric O2 treatment(?) -finasteride, flomax, aldactone -daily I/Os -c/w flushings q4h Anemia -2/2 hematuria -s/p 1 additional unit pRBC over weekend -Hb 9.7 (2.19) -continue to monitor, replete prn Atrial fibrillation -monitor on telemetry -currently off AC 2/2 hematuria -irregular rhythm -Home Toprol XL 25mg qd -aldactone 25 -Cozaar 100mg QD -Runs of Vtach, asymptomatic CHF -Toprol XL 25mg PO daily -Cozaar 100mg PO daily -Lasix 20 mg PO daily--currently being held -Aldactone 25 -strict I/Os Alzheimer's Disease -Fall precautions -Aricept 10 mg PO HS Ppx, Diet, Disposition -DVT ppx: scds, oral AC held 2/2 hematuria -GI ppx: pepcid -Diet: HHD -PT on board -Disposition: Hematuria seems to be clearing. CBI d/c'd, continue with flushes q4h per Urology recs (Dr. Ching). Patient may need hyperbaric O2 therapy per Dr. Ching. Awaiting PT re-evaluation/dispo planning. Case discussed with Dr. Janeth Muñiz DO, PGY-1 <Bahman See - Last Filed: 06/08/18 18:22> Objective - Vital Signs/Intake and Output Vital Signs (last 24 hours): Temp Pulse Resp BP Pulse Ox 97.9 F 87 20 153/91 H 99 06/08/18 16:00 06/08/18 16:00 06/08/18 16:00 06/08/18 16:00 06/08/18 16:00 Intake and Output: 06/08/18 06/08/18 06:59 18:59 Intake Total 400 Output Total 575 400 Balance -575 0 - Medications Medications: Current Medications Acetaminophen (Tylenol 325mg Tab) 650 mg PO Q6 PRN PRN Reason: Pain, moderate (4-7) Last Admin: 05/21/18 04:25 Dose: 650 mg Allopurinol (Zyloprim) 100 mg PO DAILY [facility] Last Admin: 06/08/18 10:08 Dose: 100 mg Donepezil HCl (Aricept) 10 mg PO HS [facility] Last Admin: 06/07/18 21:49 Dose: 10 mg Famotidine (Pepcid) 20 mg PO DAILY [facility] Last Admin: 06/08/18 10:08 Dose: 20 mg Finasteride (Proscar) 5 mg PO DAILY [facility] Last Admin: 06/08/18 10:08 Dose: 5 mg Furosemide (Lasix) 20 mg PO DAILY [facility] Last Admin: 06/08/18 15:44 Dose: 20 mg Losartan Potassium (Cozaar) 100 mg PO DAILY [facility] Last Admin: 06/08/18 10:08 Dose: 100 mg Metoprolol Succinate (Toprol Xl) 25 mg PO DAILY [facility] Last Admin: 06/08/18 10:08 Dose: 25 mg Spironolactone (Aldactone) 25 mg PO DAILY [facility] Last Admin: 06/08/18 15:44 Dose: 25 mg Tamsulosin HCl (Flomax) 0.4 mg PO HS [facility] Last Admin: 06/07/18 21:49 Dose: 0.4 mg - Labs Labs: 06/08/18 07:06 06/08/18 07:06 PT 14.1 SECONDS (9.7-12.2) H 05/21/18 19:43 INR 1.3 05/21/18 19:43 APTT 33 SECONDS (21-34) 05/17/18 15:20 Attending/Attestation - Attestation I have personally seen and examined this patient.: Yes I have fully participated in the care of the patient.: Yes I have reviewed all pertinent clinical information, including history, physical exam and plan: Yes Notes (Text): seen and examined by me. Patient's urine is clearing. Off CBI,getting flush q4h as per Dr Robbie Frias Had 12 beats of VT. patient was asymptomatic.Mag level is 2.0. has afib rate controlled,History of CHF,continue lasix and aldactone .not on anticoagulant due to active bleeding /hematuria. s/p blood transfusion. Hb is 9.7. no fever,no leukocytosis spoke to Dr Robbie Frias. 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 Home with visiting RN or rehab. Follow PT recommendation. Discussed about hyperbaric treatment.patient may go for out pt hyperbaric amelia tment.
[2018-06-08 07:25] LABS: BASO % 0.6 % (0.0-2.0); EOS # 0.1 K/uL (0.0-0.7); EOS % 0.9 % (0.0-4.0); HEMOGLOBIN 9.7 g/dL (12.0-18.0); LYMPH # 0.4 K/uL (1.0-4.3); LYMPH % 5.3 % (20.0-40.0); MEAN CELL VOLUME 94.5 fL (80.0-94.0); MEAN CORPUSCULAR HEMOGLOBIN 31.3 pg (27.0-31.0); MEAN CORPUSCULAR HGB CONC 33.1 g/dL (33.0-37.0); MEAN PLATELET VOLUME 7.7 fL (7.2-11.7); MONO # 0.3 K/uL (0.0-0.8); MONO % 4.5 % (0.0-10.0); NEUT # 6.6 K/uL (1.8-7.0); NEUT % 88.7 % (50.0-75.0); PLATELET COUNT 304 K/uL (130-400); RBC 3.11 Mil/uL (4.40-5.90); RED CELL DISTRIBUTION WIDTH 15.8 % (11.5-14.5); WHITE BLOOD COUNT 7.5 K/uL (4.8-10.8)
[2018-06-08 07:44] LABS: ALB/GLOB RATIO 0.8 (1.0-2.1); ALBUMIN 2.5 g/dL (3.5-5.0); ALT/SGPT 16 U/L (21-72); AST/SGOT 25 U/L (17-59); BLOOD UREA NITROGEN 18 mg/dL (9-20); CALCIUM 8.3 mg/dl (8.6-10.4); GFR NON-AFRICAN AMERICAN > 60
[2018-06-08 08:42] LABS: LYMPHOCYTE 4 % (20-40); MONOCYTE 5 % (0-10); NEUTROPHIL 91 % (50-75); TOTAL CELLS COUNTED 100
[2018-06-08 08:45] LABS: ANISOCYTOSIS SLIGHT; HYPOCHROMIC SLIGHT; PLATELET ESTIMATE NORMAL (NORMAL); POLYCHROMIC SLIGHT
[2018-06-08] MEDS: Metoprolol Succinate 25 mg XL Tab PO SCH (10:08)
[2018-06-09 07:09] LABS: BASO % 0.6 % (0.0-2.0); EOS # 0.1 K/uL (0.0-0.7); EOS % 1.8 % (0.0-4.0); HEMOGLOBIN 9.9 g/dL (12.0-18.0); LYMPH # 0.6 K/uL (1.0-4.3); LYMPH % 8.4 % (20.0-40.0); MEAN CELL VOLUME 93.6 fL (80.0-94.0); MEAN CORPUSCULAR HEMOGLOBIN 31.6 pg (27.0-31.0); MEAN CORPUSCULAR HGB CONC 33.7 g/dL (33.0-37.0); MEAN PLATELET VOLUME 7.6 fL (7.2-11.7); MONO # 0.5 K/uL (0.0-0.8); MONO % 7.1 % (0.0-10.0); NEUT # 5.9 K/uL (1.8-7.0); NEUT % 82.1 % (50.0-75.0); PLATELET COUNT 300 K/uL (130-400); RBC 3.12 Mil/uL (4.40-5.90); RED CELL DISTRIBUTION WIDTH 15.3 % (11.5-14.5); WHITE BLOOD COUNT 7.2 K/uL (4.8-10.8)
--- NOTE | 2018-06-09 07:12 | CP.PCM.DIS ---
<Mary KayHal - Last Filed: 06/09/18 14:51> Provider - Provider Date of Admission: 05/17/18 17:23 Attending physician: Bahman See MD Consults: 05/17/18 17:00 Physician Consult Stat Comment: hematuria Consulting Provider: Charlie Ching Consulting Physician: Charlie Ching Reason for Consult: urology Additional Comments: spoken with 05/18/18 13:25 Inpatient B[employer]KE RE[employer] Core Measures Referral Routine Comment: Physician Instructions: Reason For Exam: chf 05/18/18 13:28 Nursing Referral for Palliative Care Routine Comment: Physician Instructions: Reason For Exam: CHF, dementia 05/21/18 14:26 Physician Consult Routine Comment: Consulting Provider: Casey vAalos Consulting Physician: Casey Avalos Reason for Consult: hyponatremia Time Spent in preparation of Discharge (in minutes): 40 Hospital Course - Lab Results Lab Results: Micro Results 05/31/18 15:19 Urine,Vasquez Urine Culture - Final Yeast Species 05/24/18 10:35 Blood-Venous Blood Culture - Final NO GROWTH AFTER 5 DAYS 05/24/18 10:35 Blood-Venous Gram Stain - Final TEST NOT PERFORMED 05/23/18 10:20 Blood-Venous Blood Culture - Final NO GROWTH AFTER 5 DAYS 05/23/18 10:20 Blood-Venous Gram Stain - Final TEST NOT PERFORMED 05/27/18 14:39 Urine,Vasquez Urine Culture - Final No Growth (<1,000 CFU/ML) 05/23/18 10:52 Urine,Vasquez Urine Culture - Final Yeast Species Most Recent Lab Values WBC 7.5 K/uL (4.8-10.8) 06/08/18 07:06 RBC 3.11 Mil/uL (4.40-5.90) L 06/08/18 07:06 Hgb 9.7 g/dL (12.0-18.0) L 06/08/18 07:06 Hct 29.4 % (35.0-51.0) L 06/08/18 07:06 MCV 94.5 fL (80.0-94.0) H 06/08/18 07:06 MCH 31.3 pg (27.0-31.0) H 06/08/18 07:06 MCHC 33.1 g/dL (33.0-37.0) 06/08/18 07:06 RDW 15.8 % (11.5-14.5) H 06/08/18 07:06 Plt Count 304 K/uL (130-400) 06/08/18 07:06 MPV 7.7 fL (7.2-11.7) 06/08/18 07:06 Neut % (Auto) 88.7 % (50.0-75.0) H 06/08/18 07:06 Lymph % (Auto) 5.3 % (20.0-40.0) L 06/08/18 07:06 [place] % (Auto) 4.5 % (0.0-10.0) 06/08/18 07:06 Eos % (Auto) 0.9 % (0.0-4.0) 06/08/18 07:06 Baso % (Auto) 0.6 % (0.0-2.0) 06/08/18 07:06 Neut # (Auto) 6.6 K/uL (1.8-7.0) 06/08/18 07:06 Lymph # (Auto) 0.4 K/uL (1.0-4.3) L 06/08/18 07:06 [place] # (Auto) 0.3 K/uL (0.0-0.8) 06/08/18 07:06 Eos # (Auto) 0.1 K/uL (0.0-0.7) 06/08/18 07:06 Baso # (Auto) 0.0 K/uL (0.0-0.2) 06/08/18 07:06 Neutrophils % (Manual) 91 % (50-75) H 06/08/18 07:06 Band Neutrophils % 2 % (0-2) 06/06/18 07:18 Lymphocytes % (Manual) 4 % (20-40) L 06/08/18 07:06 Reactive Lymphs % 1 % (0-0) H 06/06/18 07:18 Monocytes % (Manual) 5 % (0-10) 06/08/18 07:06 Eosinophils % (Manual) 5 % (0-4) H 06/07/18 07:05 Platelet Estimate Normal (NORMAL) 06/08/18 07:06 Large Platelets Present 06/06/18 07:18 Giant Platelets Present 06/06/18 07:18 RBC Morphology Normal 05/21/18 08:28 Polychromasia Slight 06/08/18 07:06 Hypochromasia (manual) Slight 06/08/18 07:06 Poikilocytosis (manual Slight 06/07/18 07:05 Anisocytosis (manual) Slight 06/08/18 07:06 Microcytosis (manual) Slight 06/07/18 07:05 Macrocytosis (manual) Slight 06/07/18 07:05 Target Cells Slight 06/07/18 07:05 Tear Drop Cells Slight 05/22/18 07:09 Ovalocytes Slight 06/06/18 07:18 Schistocytes Slight 05/21/18 19:43 PT 14.1 SECONDS (9.7-12.2) H 05/21/18 19:43 INR 1.3 05/21/18 19:43 APTT 33 SECONDS (21-34) 05/17/18 15:20 Sodium 138 mmol/L (132-148) 06/08/18 07:06 Potassium 4.7 mmol/L (3.6-5.2) 06/08/18 07:06 Chloride 104 mmol/L (98-107) 06/08/18 07:06 Carbon Dioxide 30 mmol/L (22-30) 06/08/18 07:06 Anion Gap 8 (10-20) L 06/08/18 07:06 BUN 18 mg/dL (9-20) 06/08/18 07:06 Creatinine 0.8 mg/dL (0.8-1.5) 06/08/18 07:06 Est GFR ( Amer) > 60 06/08/18 07:06 Est GFR (Non-Af Amer) > 60 06/08/18 07:06 POC Glucose (mg/dL) 99 mg/dL (65-110) 06/07/18 06:25 Random Glucose 92 mg/dL (75-110) 06/08/18 07:06 Serum Osmolality 278 mosm/kg (272-300) 05/21/18 19:43 Calcium 8.3 mg/dl (8.6-10.4) L 06/08/18 07:06 Phosphorus 4.0 mg/dL (2.5-4.5) 06/08/18 07:06 Magnesium 2.0 mg/dL (1.6-2.3) 06/08/18 07:06 Total Bilirubin 0.9 mg/dL (0.2-1.3) 06/08/18 07:06 AST 25 U/L (17-59) 06/08/18 07:06 ALT 16 U/L (21-72) L 06/08/18 07:06 Alkaline Phosphatase 89 U/L (38-126) 06/08/18 07:06 Total Protein 5.7 g/dL (6.3-8.3) L 06/08/18 07:06 Albumin 2.5 g/dL (3.5-5.0) L 06/08/18 07:06 Globulin 3.1 gm/dL (2.2-3.9) 06/08/18 07:06 Albumin/Globulin Ratio 0.8 (1.0-2.1) L 06/08/18 07:06 Triglycerides 66 mg/dL (0-149) 05/22/18 07:09 Cholesterol 102 mg/dL (0-199) 05/22/18 07:09 LDL Cholesterol Direct 75 mg/dL (0-129) 05/22/18 07:09 HDL Cholesterol 23 mg/dL (30-70) L 05/22/18 07:09 TSH 3rd Generation 0.69 mIU/L (0.46-4.68) 05/22/18 07:09 Cortisol AM Sample 16.2 ug/dL (4.46-22.7) 05/22/18 07:09 Urine Color Red (YELLOW) 05/17/18 15:20 Urine Clarity Hazy (Clear) 05/17/18 15:20 Urine pH 6.0 (5.0-8.0) 05/17/18 15:20 Ur Specific [place] 1.018 (1.003-1.030) 05/17/18 15:20 Urine Protein 2+ mg/dL (NEGATIVE) H 05/17/18 15:20 Urine Glucose (UA) 1+ mg/dL (Normal) H 05/17/18 15:20 Urine Ketones Negative mg/dL (NEGATIVE) 05/17/18 15:20 Urine Blood 3+ (NEGATIVE) H 05/17/18 15:20 Urine Nitrate Negative (NEGATIVE) 05/17/18 15:20 Urine Bilirubin Negative (NEGATIVE) 05/17/18 15:20 Urine Urobilinogen Normal mg/dL (0.2-1.0) 05/17/18 15:20 Ur Leukocyte Esterase Neg Edvin/uL (Negative) 05/17/18 15:20 Urine WBC (Auto) 16 /hpf (0-5) H 05/17/18 15:20 Urine RBC (Auto) 55541 /hpf (0-3) H 05/17/18 15:20 Urine Osmolality 178 mosm/kg (300-1000) L 05/21/18 19:43 Ur Random Sodium 20 mmol/L 05/21/18 19:43 Blood Type O POSITIVE 06/06/18 10:10 Antibody Screen Negative 06/06/18 10:10 Crossmatch See Detail 05/28/18 15:46 - Hospital Course Hospital Course: HPI: Patient is an 78 year old male with past medical history of prostate cancer, IgA nephropathy, COPD, atrial fibrillation who presents to [facility] with hematuria and dysuria for 3 days. Patient has had an indwelling vasquez catheter in since 2 months ago and has followed up with Dr. Ching in office. Of note, patient was recently admitted to [facility] for staph urinary tract infection and was discharged home on 05/02 with a 5 day course of Dicloxacillin. Patient saw Dr. Ching in his office 3 days prior and began to have baldev hematuria and pain in the urethra. Patient has limited memory and is unable to recall distant events. During course of admission: Patient was monitored on telemetry given history of atrial fibrillation. He was restarted on home meds and placed off of oral anticoagulation due to gross hematuria. Urology (Dr. Rosalva Ching) was consulted and patient underwent cystoscopy which revealed bleeding of prostate, bladder neck and wall. Per Urology, procedure included evacuation of clots, bladder neck/wall biopsy and fulgaration, fulgaration of bleeding. Patient received 3 total units of pRBC during hospital course due to anemia secondary to bleed. Patient returned to OR for second time during course of admission for re-cauterization of bleeding. Hemoglobin stabilized afterwards and began to improve. Continuous bladder irrigation was carried out per Urology, which patient tolerated well. Urine output cleared up with fewer clots noted. Continuous irrigation was then discontinued and flushings were resumed every 4 hours per further recommendations. Urinary vasquez catheter was removed by Urology, with suprapubic catheter kept in place. Patient was re-evaluated by physical therapy with recommendations for TCU rehab. Patient remained hemodynamically stable during course of admission. Hemoglobin levels stabilized post-operation and began to improve. Patient is medically stable for discharge to home with home services as per Dr. Francois. Script has been provided for home PT/OT as well as visiting nurse services for suprapubic catheter. He is instructed to continue all home medications as prescribed. He is also instructed to follow up with Urology (Dr. Ching) within 3-5 days of discharge for further monitoring and care. If symptoms worsen or persist, please return to ED immediately. The following is a summary of hospital course. For further detail, please refer to EMR. - Date & Time of H&P Date of H&P: 06/09/18 Time of H&P: 13:12 Discharge Exam - Head Exam Head Exam: ATRAUMATIC, NORMAL INSPECTION, NORMOCEPHALIC Additional comments: R hemifacial port wine stain - Eye Exam Eye Exam: EOMI, Normal appearance - ENT Exam ENT Exam: Mucous Membranes Moist, Normal Exam - Neck Exam Neck exam: Normal Inspection - Respiratory Exam Respiratory Exam: Clear to PA & Lateral, NORMAL BREATHING PATTERN, UNREMARKABLE. absent: Accessory Muscle Use, Rales, Rhonchi, Wheezes, Respiratory Distress, Stridor - Cardiovascular Exam Cardiovascular Exam: REGULAR RHYTHM, +S1, +S2 - GI/Abdominal Exam GI & Abdominal Exam: Normal Bowel Sounds, Soft, Unremarkable Additional comments: suprapubic catheter bandage c/d/i - Extremities Exam Extremities exam: normal capillary refill, normal inspection, pedal pulses present - Back Exam Back exam: NORMAL INSPECTION - Neurological Exam Neurological exam: Alert, CN II-XII Intact, Oriented x3 - Psychiatric Exam Psychiatric exam: Normal Affect, Normal Mood - Skin Skin Exam: Dry, Intact, Normal Color, Warm Discharge Plan - Discharge Medications Prescriptions: RX: Aspirin [Adult Aspirin] 81 mg PO DAILY #30 tablet. RX: Donepezil [Aricept] 10 mg PO HS #30 tab RX: Finasteride [Proscar] 5 mg PO DAILY #30 tab RX: Furosemide [Lasix] 20 mg PO DAILY #30 tab RX: Losartan [Cozaar] 100 mg PO DAILY #30 tab RX: Metoprolol Succinate XL [Toprol XL] 25 mg PO DAILY #30 tab RX: Spironolactone [Aldactone] 25 mg PO DAILY #30 tablet RX: Tamsulosin [Flomax] 0.4 mg PO HS #30 cap - Follow Up Plan Condition: STABLE Disposition: HOME/ ROUTINE Instructions: Heart Failure, Adult (DC), How to Care for Your Suprapubic Urinary Catheter, Blood in the Urine (Hematuria), Adult (DC) Additional Instructions: Patient remained hemodynamically stable during course of admission. Hemoglobin levels stabilized post-operation and began to improve. Patient is medically stable for discharge to home with home services as per Dr. Francois. Script has been provided for home PT/OT as well as visiting nurse services for suprapubic catheter. He is instructed to continue all home medications as prescribed. He is also instructed to follow up with Urology (Dr. Ching) within 3-5 days of discharge for further monitoring and care. If symptoms worsen or persist, please return to ED immediately. Referrals: Casey Avalos MD [Staff Provider] - Charlie Ching MD [Staff Provider] - <Derick Francois - Last Filed: 06/09/18 16:54> Provider - Provider Date of Admission: 05/17/18 17:23 Attending physician: Bahman See MD Consults: 05/17/18 17:00 Physician Consult Stat Comment: hematuria Consulting Provider: Charlie Ching Consulting Physician: Charlie Ching Reason for Consult: urology Additional Comments: spoken with 05/18/18 13:25 Inpatient B[employer]KE RE[employer] Core Measures Referral Routine Comment: Physician Instructions: Reason For Exam: chf 05/18/18 13:28 Nursing Referral for Palliative Care Routine Comment: Physician Instructions: Reason For Exam: CHF, dementia 05/21/18 14:26 Physician Consult Routine Comment: Consulting Provider: Casey Avalos Consulting Physician: Casey Avalos Reason for Consult: hyponatremia Hospital Course - Lab Results Lab Results: Micro Results 05/31/18 15:19 Urine,Vasquez Urine Culture - Final Yeast Species 05/24/18 10:35 Blood-Venous Blood Culture - Final NO GROWTH AFTER 5 DAYS 05/24/18 10:35 Blood-Venous Gram Stain - Final TEST NOT PERFORMED 05/23/18 10:20 Blood-Venous Blood Culture - Final NO GROWTH AFTER 5 DAYS 05/23/18 10:20 Blood-Venous Gram Stain - Final TEST NOT PERFORMED 05/27/18 14:39 Urine,Vasquez Urine Culture - Final No Growth (<1,000 CFU/ML) 05/23/18 10:52 Urine,Vasquez Urine Culture - Final Yeast Species Most Recent Lab Values WBC 7.2 K/uL (4.8-10.8) 06/09/18 06:54 RBC 3.12 Mil/uL (4.40-5.90) L 06/09/18 06:54 Hgb 9.9 g/dL (12.0-18.0) L 06/09/18 06:54 Hct 29.2 % (35.0-51.0) L 06/09/18 06:54 MCV 93.6 fL (80.0-94.0) 06/09/18 06:54 MCH 31.6 pg (27.0-31.0) H 06/09/18 06:54 MCHC 33.7 g/dL (33.0-37.0) 06/09/18 06:54 RDW 15.3 % (11.5-14.5) H 06/09/18 06:54 Plt Count 300 K/uL (130-400) 06/09/18 06:54 MPV 7.6 fL (7.2-11.7) 06/09/18 06:54 Neut % (Auto) 82.1 % (50.0-75.0) H 06/09/18 06:54 Lymph % (Auto) 8.4 % (20.0-40.0) L 06/09/18 06:54 [place] % (Auto) 7.1 % (0.0-10.0) 06/09/18 06:54 Eos % (Auto) 1.8 % (0.0-4.0) 06/09/18 06:54 Baso % (Auto) 0.6 % (0.0-2.0) 06/09/18 06:54 Neut # (Auto) 5.9 K/uL (1.8-7.0) 06/09/18 06:54 Lymph # (Auto) 0.6 K/uL (1.0-4.3) L 06/09/18 06:54 [place] # (Auto) 0.5 K/uL (0.0-0.8) 06/09/18 06:54 Eos # (Auto) 0.1 K/uL (0.0-0.7) 06/09/18 06:54 Baso # (Auto) 0.0 K/uL (0.0-0.2) 06/09/18 06:54 Neutrophils % (Manual) 87 % (50-75) H 06/09/18 06:54 Band Neutrophils % 2 % (0-2) 06/06/18 07:18 Lymphocytes % (Manual) 5 % (20-40) L 06/09/18 06:54 Reactive Lymphs % 1 % (0-0) H 06/06/18 07:18 Monocytes % (Manual) 7 % (0-10) 06/09/18 06:54 Eosinophils % (Manual) 1 % (0-4) 06/09/18 06:54 Platelet Estimate Normal (NORMAL) 06/09/18 06:54 Large Platelets Present 06/06/18 07:18 Giant Platelets Present 06/06/18 07:18 RBC Morphology Normal 05/21/18 08:28 Polychromasia Slight 06/09/18 06:54 Hypochromasia (manual) Slight 06/09/18 06:54 Poikilocytosis (manual Slight 06/07/18 07:05 Anisocytosis (manual) Slight 06/09/18 06:54 Microcytosis (manual) Slight 06/07/18 07:05 Macrocytosis (manual) Slight 06/07/18 07:05 Target Cells Slight 06/07/18 07:05 Tear Drop Cells Slight 05/22/18 07:09 Ovalocytes Slight 06/06/18 07:18 Schistocytes Slight 05/21/18 19:43 PT 14.1 SECONDS (9.7-12.2) H 05/21/18 19:43 INR 1.3 05/21/18 19:43 APTT 33 SECONDS (21-34) 05/17/18 15:20 Sodium 140 mmol/L (132-148) 06/09/18 06:54 Potassium 3.9 mmol/L (3.6-5.2) 06/09/18 06:54 Chloride 106 mmol/L (98-107) 06/09/18 06:54 Carbon Dioxide 31 mmol/L (22-30) H 06/09/18 06:54 Anion Gap 7 (10-20) L 06/09/18 06:54 BUN 18 mg/dL (9-20) 06/09/18 06:54 Creatinine 0.8 mg/dL (0.8-1.5) 06/09/18 06:54 Est GFR ( Amer) > 60 06/09/18 06:54 Est GFR (Non-Af Amer) > 60 06/09/18 06:54 POC Glucose (mg/dL) 99 mg/dL (65-110) 06/07/18 06:25 Random Glucose 92 mg/dL (75-110) 06/09/18 06:54 Serum Osmolality 278 mosm/kg (272-300) 05/21/18 19:43 Calcium 8.5 mg/dl (8.6-10.4) L 06/09/18 06:54 Phosphorus 3.3 mg/dL (2.5-4.5) 06/09/18 06:54 Magnesium 1.9 mg/dL (1.6-2.3) 06/09/18 06:54 Total Bilirubin 0.9 mg/dL (0.2-1.3) 06/09/18 06:54 AST 30 U/L (17-59) 06/09/18 06:54 ALT 26 U/L (21-72) 06/09/18 06:54 Alkaline Phosphatase 94 U/L (38-126) 06/09/18 06:54 Total Protein 5.6 g/dL (6.3-8.3) L 06/09/18 06:54 Albumin 2.5 g/dL (3.5-5.0) L 06/09/18 06:54 Globulin 3.0 gm/dL (2.2-3.9) 06/09/18 06:54 Albumin/Globulin Ratio 0.8 (1.0-2.1) L 06/09/18 06:54 Triglycerides 66 mg/dL (0-149) 05/22/18 07:09 Cholesterol 102 mg/dL (0-199) 05/22/18 07:09 LDL Cholesterol Direct 75 mg/dL (0-129) 05/22/18 07:09 HDL Cholesterol 23 mg/dL (30-70) L 05/22/18 07:09 TSH 3rd Generation 0.69 mIU/L (0.46-4.68) 05/22/18 07:09 Cortisol AM Sample 16.2 ug/dL (4.46-22.7) 05/22/18 07:09 Urine Color Red (YELLOW) 05/17/18 15:20 Urine Clarity Hazy (Clear) 05/17/18 15:20 Urine pH 6.0 (5.0-8.0) 05/17/18 15:20 Ur Specific [place] 1.018 (1.003-1.030) 05/17/18 15:20 Urine Protein 2+ mg/dL (NEGATIVE) H 05/17/18 15:20 Urine Glucose (UA) 1+ mg/dL (Normal) H 05/17/18 15:20 Urine Ketones Negative mg/dL (NEGATIVE) 05/17/18 15:20 Urine Blood 3+ (NEGATIVE) H 05/17/18 15:20 Urine Nitrate Negative (NEGATIVE) 05/17/18 15:20 Urine Bilirubin Negative (NEGATIVE) 05/17/18 15:20 Urine Urobilinogen Normal mg/dL (0.2-1.0) 05/17/18 15:20 Ur Leukocyte Esterase Neg Edvin/uL (Negative) 05/17/18 15:20 Urine WBC (Auto) 16 /hpf (0-5) H 05/17/18 15:20 Urine RBC (Auto) 13356 /hpf (0-3) H 05/17/18 15:20 Urine Osmolality 178 mosm/kg (300-1000) L 05/21/18 19:43 Ur Random Sodium 20 mmol/L 05/21/18 19:43 Blood Type O POSITIVE 06/06/18 10:10 Antibody Screen Negative 06/06/18 10:10 Crossmatch See Detail 05/28/18 15:46 Attending/Attestation - Attestation I have personally seen and examined this patient.: Yes I have fully participated in the care of the patient.: Yes I have reviewed all pertinent clinical information, including history, physical exam and plan: Yes
[2018-06-09 07:37] LABS: ALB/GLOB RATIO 0.8 (1.0-2.1); ALBUMIN 2.5 g/dL (3.5-5.0); ALT/SGPT 26 U/L (21-72); AST/SGOT 30 U/L (17-59); BLOOD UREA NITROGEN 18 mg/dL (9-20); CALCIUM 8.5 mg/dl (8.6-10.4); GFR NON-AFRICAN AMERICAN > 60
[2018-06-09 08:58] LABS: ANISOCYTOSIS SLIGHT; EOSINOPHIL 1 % (0-4); HYPOCHROMIC SLIGHT; LYMPHOCYTE 5 % (20-40); MONOCYTE 7 % (0-10); NEUTROPHIL 87 % (50-75); PLATELET ESTIMATE NORMAL (NORMAL); TOTAL CELLS COUNTED 100
[2018-06-09 08:59] LABS: POLYCHROMIC SLIGHT
[2018-06-09] MEDS: Metoprolol Succinate 25 mg XL Tab PO SCH (10:32)
--- NOTE | 2018-06-09 23:35 | PCM.URO ---
Urology Progress Note - General General: No Complaints, Tolerating Diet - Subjective Flank Pain: No Nausea: No Vomiting: No Voiding Well: No Hematuria: No Chest Pain: No Fever & Chills: No - Objective Lab Studies: Reviewed Lab Results Last 24 Hours: Laboratory Results - last 24 hr 06/09/18 06/09/18 06:54 06:54 WBC 7.2 RBC 3.12 L Hgb 9.9 L Hct 29.2 L MCV 93.6 MCH 31.6 H MCHC 33.7 RDW 15.3 H Plt Count 300 MPV 7.6 Neut % (Auto) 82.1 H Lymph % (Auto) 8.4 L [place] % (Auto) 7.1 Eos % (Auto) 1.8 Baso % (Auto) 0.6 Neut # (Auto) 5.9 Lymph # (Auto) 0.6 L [place] # (Auto) 0.5 Eos # (Auto) 0.1 Baso # (Auto) 0.0 Neutrophils % (Manual) 87 H Lymphocytes % (Manual) 5 L Monocytes % (Manual) 7 Eosinophils % (Manual) 1 Platelet Estimate Normal Polychromasia Slight Hypochromasia (manual) Slight Anisocytosis (manual) Slight Sodium 140 Potassium 3.9 Chloride 106 Carbon Dioxide 31 H Anion Gap 7 L BUN 18 Creatinine 0.8 Est GFR ( Amer) > 60 Est GFR (Non-Af Amer) > 60 Random Glucose 92 Calcium 8.5 L Phosphorus 3.3 Magnesium 1.9 Total Bilirubin 0.9 AST 30 ALT 26 Alkaline Phosphatase 94 Total Protein 5.6 L Albumin 2.5 L Globulin 3.0 Albumin/Globulin Ratio 0.8 L Intake & Output: Intake & Output 06/09/18 06/09/18 06/10/18 06:59 18:59 06:59 Output Total 1550 550 Balance -1550 -550 Output: Urine 1550 550 3-way Urethral 300 Suprapubic 850 250 Urethral (Vasquez) 400 300 Vital Signs: Vital Signs - 24 hr 06/08/18 06/09/18 06/09/18 23:59 08:00 08:08 Temperature 98.1 F 98.2 F Pulse Rate 82 83 79 Respiratory 20 20 Rate Blood Pressure 150/87 154/94 H O2 Sat by Pulse 99 100 Oximetry 06/09/18 06/09/18 06/09/18 10:31 12:00 13:22 Temperature Pulse Rate 87 83 Respiratory Rate Blood Pressure 151/85 H O2 Sat by Pulse 96 Oximetry 06/09/18 06/09/18 06/09/18 16:00 16:39 19:00 Temperature 97.6 F Pulse Rate 80 87 Respiratory 20 Rate Blood Pressure 175/94 H 160/90 H O2 Sat by Pulse 99 Oximetry - Physical Exam Abdominal Exam: Soft, Non-Tender, Non-Distended Wound: Healing Well Back: No CVA Tenderness Genitalia: Without Inflammation Urinary Catheter Draining Well: Yes Urine Color: Clear (clear via vasquez and cystostomy) - Male Phallus: Normal Scrotum: Normal - Plan Discontinue Urinary Catheter: Yes (remove urethral vasquez catheter) Wound Care: Yes Catheter Care: Yes (cystostomy tube in place) See Orders: Yes Additional Information: Pathology pending re Bladder bx. Discussed with nursing staff and med staff - Date & Time of Note Date: 06/09/18 Time: 11:15
[2018-06-10 08:27] VITALS: PULSE 88; TEMP 97.9; O2SAT 96
[2018-06-10] MEDS: Metoprolol Succinate 25 mg XL Tab PO SCH (09:13)
[2018-06-10 09:15] VITALS: BP 145/76
[2018-06-10 11:43] LABS: BASO % 0.5 % (0.0-2.0); EOS # 0.1 K/uL (0.0-0.7); EOS % 0.9 % (0.0-4.0); HEMOGLOBIN 9.9 g/dL (12.0-18.0); LYMPH # 0.4 K/uL (1.0-4.3); LYMPH % 4.4 % (20.0-40.0); MEAN CORPUSCULAR HEMOGLOBIN 31.3 pg (27.0-31.0); MEAN PLATELET VOLUME 7.7 fL (7.2-11.7); MONO # 0.5 K/uL (0.0-0.8); MONO % 5.3 % (0.0-10.0); NEUT # 8.7 K/uL (1.8-7.0); NEUT % 88.9 % (50.0-75.0); PLATELET COUNT 256 K/uL (130-400); RBC 3.16 Mil/uL (4.40-5.90); RED CELL DISTRIBUTION WIDTH 15.8 % (11.5-14.5); WHITE BLOOD COUNT 9.8 K/uL (4.8-10.8)
[2018-06-10 12:31] LABS: EOSINOPHIL 1 % (0-4); LYMPHOCYTE 4 % (20-40); TOTAL CELLS COUNTED 100
[2018-06-10 12:32] LABS: ANISOCYTOSIS SLIGHT; MONOCYTE 2 % (0-10); NEUTROPHIL 93 % (50-75); PLATELET ESTIMATE NORMAL (NORMAL)
[2018-06-10 12:33] LABS: HYPOCHROMIC SLIGHT; POLYCHROMIC SLIGHT
[2018-06-10 12:41] LABS: ALB/GLOB RATIO 0.8 (1.0-2.1); ALBUMIN 2.5 g/dL (3.5-5.0); ALT/SGPT 18 U/L (21-72); AST/SGOT 29 U/L (17-59); BLOOD UREA NITROGEN 24 mg/dL (9-20); CALCIUM 8.4 mg/dl (8.6-10.4); GFR NON-AFRICAN AMERICAN > 60
--- NOTE | 2018-06-11 09:55 | PN ---
DATE: 06/10/2018 See many dictated notes in the chart and the operative notes. The patient is currently resting comfortably, suprapubic catheter is draining well, clear urine, no blood is noted. The pathology from the biopsies from Dr. 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 So, the diagnosis is gross hematuria, urinary retention, voiding dysfunction. The plan is as follows. The patient has a history of prostate cancer, he is radiated. The radiation seeds are seen on all the films. Initially, we were hoping for this to be hemorrhagic cystitis. There is definitely not any one specific lesion that looks like a definite transitional cell carcinoma. In fact, it is the biopsy that is showing the pathology that I looked. So, from Urology standpoint as follows: We cleared up the bleeding problem. In summary, this is an 78-year-old gentleman who has gross hematuria, voiding dysfunction, urinary retention. He now has an indwelling suprapubic catheter I initiated to assist him for the drainage of his bladder. Regarding the fact that he was bleeding on and off, we were arranging even for the thought of the possibility for hyperbaric oxygen. With the possibility that it was hemorrhagic pathology that shows it seemed to be malignancy. Without a specific one area of concern, it is just a generalized diffuse area. This will affect our recommendations. PLAN: So our plan will be as follows: 1. Will go home with the suprapubic. 2. Will come back for a repeat resection of any abnormal mucosa and then random biopsies. 3. Perhaps, at that point, we will offer him treatment with a BCG or mitomycin. I do not think he is a candidate given his general medical, mental, and physical health status. He would not be a great candidate for radical cystectomy even if we . But he may be a good candidate for some local topical intravesical treatment with the BCG or mitomycin depending on the findings. So, the next plan will be to bring him back and do if there is any specific lesions, resect that, but if there is not just to do random biopsies. To cauterize anything and then afterwards offer intravesical therapy. I explained this to the somewhat by telephone gently that we will discuss further in the office. I also explained to the gently that for now, most likely the patient will have followup with Dr. Charlie Ching and then further plans will follow. We will continue to follow the patient closely, that there is a growth. That we have now cleared up the bleeding in the urine and that he needs very close followup and we will make those arrangements. Talha Ching MD
== END 2018-06-10 13:58 | disposition home or self-care (01) | DRG 717 ==
LOC: C.ER 13:52 → C.9E 17:23 → C.5S 05-18 06:24
PROVIDERS: ADMIT Internal Medicine; ATTEND Internal Medicine
PROC: 0T5B8ZZ Destruction of Bladder, Via Natural or Artificial Opening Endoscopic (ICD-10-PCS; 2018-05-31)
PROC: 0TCB8ZZ Extirpation of Matter from Bladder, Via Natural or Artificial Opening Endoscopic (ICD-10-PCS; 2018-05-31)
PROC: 0VB08ZX Excision of Prostate, Via Natural or Artificial Opening Endoscopic, Diagnostic (ICD-10-PCS; 2018-05-31)
PROC: BT1B1ZZ Fluoroscopy of Bladder and Urethra using Low Osmolar Contrast (ICD-10-PCS; 2018-05-31)
PROC: 30233N1 Transfusion of Nonautologous Red Blood Cells into Peripheral Vein, Percutaneous Approach (ICD-10-PCS; 2018-06-01)
PROC: 0VB08ZX Excision of Prostate, Via Natural or Artificial Opening Endoscopic, Diagnostic (ICD-10-PCS; 2018-06-02)
PROC: BT101ZZ Fluoroscopy of Bladder using Low Osmolar Contrast (ICD-10-PCS; 2018-06-02)
PROC: 0TBC8ZZ Excision of Bladder Neck, Via Natural or Artificial Opening Endoscopic (ICD-10-PCS; principal; 2018-06-02 12:00)
DX: N40.1 Benign prostatic hyperplasia with lower urinary tract symptoms (principal); I13.0 Hypertensive heart and chronic kidney disease with heart failure and stage 1 through stage 4 chronic kidney disease, or unspecified chronic kidney disease; I50.42 Chronic combined systolic (congestive) and diastolic (congestive) heart failure; C90.00 Multiple myeloma not having achieved remission; E46 Unspecified protein-calorie malnutrition; E87.1 Hypo-osmolality and hyponatremia; N13.30 Unspecified hydronephrosis; Z85.46 Personal history of malignant neoplasm of prostate; N30.91 Cystitis, unspecified with hematuria; F02.80 Dementia in other diseases classified elsewhere, unspecified severity, without behavioral disturbance, psychotic disturbance, mood disturbance, and anxiety; G30.9 Alzheimer's disease, unspecified; I48.91 Unspecified atrial fibrillation; J44.9 Chronic obstructive pulmonary disease, unspecified; N18.9 Chronic kidney disease, unspecified; R33.8 Other retention of urine; R80.9 Proteinuria, unspecified; D63.1 Anemia in chronic kidney disease; N32.89 Other specified disorders of bladder

== ENCOUNTER 2018-06-12 11:57 | Inpatient (IN) | payer MEDICARE ==
[2018-06-12 11:58] VITALS: BMI 25.9
--- NOTE | 2018-06-12 13:52 | C.PDOC ---
History Of Present Illness 78 y/o male with history of Prostate CA and recently diagnosed with High grade urothelial CA s/p suprapubic catheter insertion by Dr. Ching, presents to the ED now complaining of leaking from the catheter since yesterday. at bedside states each time she changes the dressing, she notes it is soaked with urine. This morning she noted a foul smell to the urine but denies any dark or bloody urine. Otherwise denies fever, chills, nausea, vomiting, abdominal pain, chest pain, or SOB. Time Seen by Provider: 06/12/18 12:18 Chief Complaint (Nursing): Male Genitourinary History Per: Family () History/Exam Limitations: no limitations Onset/Duration Of Symptoms: Days Current Symptoms Are (Timing): Still Present Additional History Per: Patient Past Medical History Reviewed: Historical Data, Nursing Documentation, Vital Signs Vital Signs: Last Vital Signs Temp 98.2 F 06/12/18 12:04 Pulse 90 06/12/18 12:04 Resp 18 06/12/18 12:04 BP 153/93 H 06/12/18 12:04 Pulse Ox 100 06/12/18 12:04 - Medical History PMH: Alzheimer's Disease, Anemia, Asthma, Atrial Fibrillation, Cardia Arrhythmia (A-FIB), CHF, COPD, Dementia, HTN, Kidney Stones, Chronic Kidney Disease Surgical History: Appendectomy, Endoscopy - [facility] Procedures DESTRUCTION OF BLADDER, ENDO (05/17/18) EXCISION OF BLADDER NECK, ENDO (05/17/18) EXCISION OF PROSTATE, ENDO, DIAGN (05/17/18) EXTIRPATION OF MATTER FROM BLADDER, ENDO (05/17/18) FLUOROSCOPY OF BLADDER AND URETHRA USING L OSM CONTRAST (05/17/18) FLUOROSCOPY OF BLADDER USING LOW OSMOLAR CONTRAST (05/17/18) MEASURE OF CARDIAC SAMPL & PRESSURE, L HEART, PERC APPROACH (06/07/15) PLAIN RADIOGRAPHY OF MULT COR ART USING OTH CONTRAST (06/07/15) TRANSFUSE NONAUT RED BLOOD CELLS IN PERIPH VEIN, PERC (05/17/18) Family History: States: Unknown Family Hx - Social History Hx Alcohol Use: No Hx Substance Use: No - Immunization History Hx Tetanus Toxoid Vaccination: No Hx Influenza Vaccination: Yes Hx Pneumococcal Vaccination: Yes Review Of Systems Constitutional: Negative for: Fever, Chills Cardiovascular: Negative for: Chest Pain Respiratory: Negative for: Shortness of Breath Gastrointestinal: Negative for: Abdominal Pain Genitourinary: Positive for: Other (Catheter leaking). Negative for: Hematuria Musculoskeletal: Negative for: Back Pain Neurological: Negative for: Weakness, Numbness Physical Exam - Physical Exam Appears: Well, Non-toxic, No Acute Distress Skin: Warm, Dry, No Rash Head: Atraumatic, Normacephalic Eye(s): bilateral: Normal Inspection, PERRL Neck: Normal ROM, Supple Chest: Symmetrical Cardiovascular: Rhythm Regular, No Murmur Respiratory: Normal Breath Sounds, No Rales, No Rhonchi, No Wheezing Gastrointestinal/Abdominal: Soft, No Tenderness, No Distention, Other (Suprapubic catheter stitched, with mild erythema around the site and scant drainage, +slight odor) Extremity: Bilateral: Atraumatic, Normal Color And Temperature Neurological/Psych: Other (Awake, Alert, Answering questions ) ED Course And Treatment - Laboratory Results Result Diagrams: 06/12/18 16:09 06/12/18 16:09 O2 Sat by Pulse Oximetry: 100 (RA) Pulse Ox Interpretation: Normal Medical Decision Making Medical Decision Making: Impression: Catheter dysfunction Plan: - Urinalysis - Urine culture 10cc flushed in and out without any obvious leaking. Dressing Placed. Reassessed and dressing mildly soaked with urine UA -elevated WBCs, + protein + RBCs + blood + leukocytes Spoke with Dr. Blackwell and Charlie Ching and advised admission for possible replacement of catheter and further testing labs including blood culture ordered and Rocephin started Patient admitted under Dr. Fowler Disposition Discussed With : Uziel Fowler Doctor Will See Patient In The: Hospital Counseled Patient/Family Regarding: Studies Performed, Diagnosis - Disposition Disposition: HOSPITALIZED Disposition Time: 16:25 Condition: STABLE - Clinical Impression Clinical Impression: UTI (urinary tract infection), Hematuria, Suprapubic catheter dysfunction - PA / REAM CUTTER / Resident Statement MD/DO has reviewed & agrees with the documentation as recorded. - Scribe Statement The provider has reviewed the documentation as recorded by the Scribe Nicolette Simons All medical record entries made by the Scribe were at my direction and personally dictated by me. I have reviewed the chart and agree that the record accurately reflects my personal performance of the history, physical exam, medical decision making, and the department course for this patient. I have also personally directed, reviewed, and agree with the discharge instructions and disposition. Decision To Admit - Pt Status Changed To: Hospital Disposition Of: Observation - . Bed Request Type: Regular Admitting Physician: Uziel Fowler Patient Diagnosis: UTI (urinary tract infection), Hematuria, Suprapubic catheter dysfunction
[2018-06-12 15:18] LABS: URINE BACTERIA MOD (<OCC); URINE BILIRUBIN NEGATIVE (NEGATIVE); URINE BLOOD 3+ (NEGATIVE); URINE CLARITY Hazy (Clear); URINE COLOR Yellow (YELLOW); URINE GLUCOSE (UA) NORMAL (Normal); URINE LEUKOCYTE ESTERASE 3+ Leu/uL (Negative); URINE PROTEIN 1+ mg/dL (NEGATIVE)
[2018-06-12] MEDS ORDERED: Sodium Chloride 0.9% 1,000 ML IV ONE (15:53)
[2018-06-12] MEDS ORDERED: cefTRIAXone 1 gm in Water For Injection 2.1 ML IVPB ONE (16:03)
[2018-06-12] MEDS ORDERED: Sodium Chloride 0.9% 1,000 ML IV STA (16:11)
[2018-06-12 16:24] LABS: BASO # 0.1 K/uL (0.0-0.2); BASO % 1.7 % (0.0-2.0); EOS # 0.1 K/uL (0.0-0.7); EOS % 1.6 % (0.0-4.0); HEMOGLOBIN 9.7 g/dL (12.0-18.0); LYMPH # 0.4 K/uL (1.0-4.3); LYMPH % 4.8 % (20.0-40.0); MEAN CELL VOLUME 94.3 fL (80.0-94.0); MEAN CORPUSCULAR HEMOGLOBIN 31.1 pg (27.0-31.0); MEAN PLATELET VOLUME 8.5 fL (7.2-11.7); MONO # 0.5 K/uL (0.0-0.8); MONO % 6.1 % (0.0-10.0); NEUT # 6.8 K/uL (1.8-7.0); NEUT % 85.8 % (50.0-75.0); PLATELET COUNT 249 K/uL (130-400); RBC 3.13 Mil/uL (4.40-5.90); RED CELL DISTRIBUTION WIDTH 15.3 % (11.5-14.5); WHITE BLOOD COUNT 7.9 K/uL (4.8-10.8)
[2018-06-12 16:31] LABS: ALB/GLOB RATIO 0.8 (1.0-2.1); ALBUMIN 2.6 g/dL (3.5-5.0); ALT/SGPT 16 U/L (21-72); AST/SGOT 37 U/L (17-59); BLOOD UREA NITROGEN 28 mg/dL (9-20); CALCIUM 8.3 mg/dl (8.6-10.4); GFR NON-AFRICAN AMERICAN > 60
[2018-06-12 16:45] LABS: LYMPHOCYTE 3 % (20-40); MONOCYTE 6 % (0-10); NEUTROPHIL 91 % (50-75); PLATELET ESTIMATE NORMAL (NORMAL); TOTAL CELLS COUNTED 100
[2018-06-12 16:46] LABS: ANISOCYTOSIS SLIGHT; HYPOCHROMIC SLIGHT; POLYCHROMIC SLIGHT
[2018-06-12] MEDS ORDERED: cefTRIAXone IV 1 gm in Dextros 50 ML IVPB ONE (16:47)
--- NOTE | 2018-06-12 17:08 | CP.PCM.HP ---
<Terry Flores - Last Filed: 06/12/18 18:25> History of Present Illness - History of Present Illness History of Present Illness: History and physical for Hospitalist service HPI: Patient is a 78 year old male with history of prostate cancer s/p radiation, IgA nephropathy, COPD, CHF, Atrial fibrillation, Alzheimers who presents for leakage and foul odor from the suprapubic catheter placed earlier this week by Dr. Ching. Patient was discharged earlier this week after patient had dysuria and hematuria from indwelling vasquez and suprapubic catheter. During his last admission, he had a cystoscopy which revealed bleeding of prostate, bladder neck and wall. Per Urology, procedure included evacuation of clots, bladder neck/wall biopsy and fulgaration, fulgaration of bleeding. Patient received 3 total units of pRBC during hospital course due to anemia secondary to bleed. Patient returned to OR for second time during course of admission for re-cauterization of bleeding. Continuous bladder irrigation was carried out per Urology, which patient tolerated well. Urine output cleared up with fewer clots noted. Continuous irrigation was then discontinued and flushings were resumed every 4 hours per further recommendations. Urinary vasquez catheter was removed by Urology, with suprapubic catheter kept in place. states that she has not had any visiting nurse come to flush the suprapubic catheter since patient was discharged home. states that he has had clear output until today, when it looked pink. As per , patient has not had any fevers, chills, headache, dizziness, chest pain, abdominal pain, nausea, vomiting, diarrhea, constipation, leg pain. As per , patient has been walking short distances with walker. states that patient is confused at baseline due to his Alzheimer's. PMH: Prostate cancer s/p radiation, IgA nephropathy, COPD, Atrial fibrillation, CHF, Alzheimer's PSH: appendectomy, nasal surgery Home meds: see chart Allergies: NKDA Social hx: denies history of tobacco use, history of heavy alcohol use, denies drug use. used to work in [employer]. Family hx: Maternal side: HTN, Paternal side: prostate cancer PMD: Dr. Mariano Urologist Dr. Danni Ching Present on Admission - Present on Admission Any Indicators Present on Admission: No Review of Systems - Constitutional Constitutional: absent: Chills, Fever - EENT Eyes: absent: Change in Vision Ears: absent: Decreased Hearing - Cardiovascular Cardiovascular: absent: Chest Pain, Dyspnea - Respiratory Respiratory: absent: Cough, Dyspnea - Gastrointestinal Gastrointestinal: absent: Abdominal Pain, Diarrhea, Nausea, Vomiting - Genitourinary Genitourinary: Hematuria - Musculoskeletal Musculoskeletal: absent: Back Pain, Numbness - Neurological Neurological: Confusion. absent: Dizziness, Numbness, Focal Weakness Past Patient History - Infectious Disease Hx of Infectious Diseases: None - Past Medical History & Family History Past Medical History?: Yes - Past Social History Smoking Status: Never Smoked - CARDIAC Hx Atrial Fibrillation: Yes Hx Cardia Arrhythmia: Yes (A-FIB) Hx Congestive Heart Failure: Yes Hx Hypertension: Yes - PULMONARY Hx Asthma: Yes Hx Chronic Obstructive Pulmonary Disease (COPD): Yes - NEUROLOGICAL Hx Alzheimer's Disease: Yes Hx Dementia: Yes - HEENT Hx HEENT Problems: Yes Other/Comment: Wears eyeglasses - RENAL Hx Chronic Kidney Disease: Yes Hx Kidney Stones: Yes - ENDOCRINE/METABOLIC Hx Endocrine Disorders: No - HEMATOLOGICAL/ONCOLOGICAL Hx Anemia: Yes - INTEGUMENTARY Hx Dermatological Problems: No - MUSCULOSKELETAL/RHEUMATOLOGICAL Hx Musculoskeletal Disorders: No Hx Falls: No - GASTROINTESTINAL Hx Gastrointestinal Disorders: No - GENITOURINARY/GYNECOLOGICAL Hx Genitourinary Disorders: Yes Hx Prostate Cancer: Yes Hx Prostate Problems: Yes Other/Comment: SUPRAPUBIC CATH - PSYCHIATRIC Hx Substance Use: No - SURGICAL HISTORY Hx Appendectomy: Yes - ANESTHESIA Hx Anesthesia: Yes Hx Anesthesia Reactions: No Hx Malignant Hyperthermia: No Meds Allergies/Adverse Reactions: Allergies Allergy/AdvReac Type Severity Reaction Status Date / Time No Known Allergies Allergy Verified 06/12/18 12:08 Physical Exam - Constitutional Appears: Confused - Head Exam Head Exam: ATRAUMATIC, NORMOCEPHALIC Additional comments: Birthmark on left side of face - Eye Exam Eye Exam: EOMI, PERRL - ENT Exam ENT Exam: Mucous Membranes Dry - Neck Exam Neck exam: Positive for: Full Rom - Respiratory Exam Respiratory Exam: Clear to Auscultation Bilateral, NORMAL BREATHING PATTERN - Cardiovascular Exam Cardiovascular Exam: Irregular Rhythm, +S1, +S2 - GI/Abdominal Exam GI & Abdominal Exam: Normal Bowel Sounds, Soft Additional comments: Suprapubic catheter in place, mild erythema no purulent drainage, draining orange-pink urine. - Extremities Exam Extremities exam: Negative for: calf tenderness, pedal edema Additional comments: Right hand edematous compared to left - Back Exam Back exam: absent: CVA tenderness (L), CVA tenderness (R) - Neurological Exam Neurological exam: Alert, Oriented x3 - Psychiatric Exam Additional comments: Confused - Skin Skin Exam: Dry, Intact, Warm Results - Vital Signs Recent Vital Signs: Last Vital Signs Temp 98.2 F 06/12/18 12:04 Pulse 90 06/12/18 12:04 Resp 18 06/12/18 12:04 BP 153/93 H 06/12/18 12:04 Pulse Ox 100 06/12/18 16:47 - Labs Result Diagrams: 06/12/18 16:09 06/12/18 16:09 Labs: Laboratory Results - last 24 hr 06/12/18 06/12/18 06/12/18 14:59 16:09 16:09 WBC 7.9 RBC 3.13 L Hgb 9.7 L Hct 29.5 L MCV 94.3 H MCH 31.1 H MCHC 33.0 RDW 15.3 H Plt Count 249 MPV 8.5 Neut % (Auto) 85.8 H Lymph % (Auto) 4.8 L [place] % (Auto) 6.1 Eos % (Auto) 1.6 Baso % (Auto) 1.7 Neut # (Auto) 6.8 Lymph # (Auto) 0.4 L [place] # (Auto) 0.5 Eos # (Auto) 0.1 Baso # (Auto) 0.1 Neutrophils % (Manual) 91 H Lymphocytes % (Manual) 3 L Monocytes % (Manual) 6 Platelet Estimate Normal Polychromasia Slight Hypochromasia (manual) Slight Anisocytosis (manual) Slight Sodium 136 Potassium 4.2 Chloride 100 Carbon Dioxide 34 H Anion Gap 7 L BUN 28 H Creatinine 1.1 Est GFR ( Amer) > 60 Est GFR (Non-Af Amer) > 60 Random Glucose 145 H Calcium 8.3 L Total Bilirubin 1.0 AST 37 ALT 16 L Alkaline Phosphatase 77 Total Protein 5.7 L Albumin 2.6 L Globulin 3.1 Albumin/Globulin Ratio 0.8 L Urine Color Yellow Urine Clarity Hazy Urine pH 7.0 Ur Specific [place] 1.006 Urine Protein 1+ H Urine Glucose (UA) Normal Urine Ketones Negative Urine Blood 3+ H Urine Nitrate Negative Urine Bilirubin Negative Urine Urobilinogen 2.0 Ur Leukocyte Esterase 3+ H Urine WBC (Auto) 256 H Urine RBC (Auto) 30 H Urine Bacteria Mod H Assessment & Plan - Assessment and Plan (Free Text) Assessment: 78 year old male with history of prostate cancer status post radiation, IgA nephropathy, COPD, Atrial fibrillation, Alzheimer's CHF who presents with for leakage and foul odor from suprapubic catheter. Plan: Hematuria, likely secondary newly diagnosed urothelial carcinoma Suprapubic catheter leakage History of prostate cancer status post radiation Blood tinged urine in bag. Pathology report from prior admission revealed biopsy of bladder neck is indicative of invasive high grade urothelial carcinoma Urologist Dr. Roberto Ching consulted blood cultures, urine cultures, wound culture pending. Rocephin 1g IV Q12 Proscar 5mg PO daily Flomax 0.4mg PO HS Edema of right hand RUE doppler ordered. History of Atrial fibrillation ASA held currently History of CHF ASA held Toprol XL 25mg PO Aldactone 25mg PO Lasix 20mg PO Losartan 100mg PO daily History COPD Duonebs PRN History of gout Allopurinol 100mg PO daily Alzheimer's dementia Mildly confused at baseline as per . Aricept 10mg PO HS Prophylaxis Heart healthy diet SCDs Pepcid 20mg PO daily Case discussed with Dr. Janeth Flores, PGY1 <Uziel Fowler H - Last Filed: 06/12/18 18:46> Results - Vital Signs Recent Vital Signs: Last Vital Signs Temp 98.5 F 06/12/18 17:38 Pulse 88 06/12/18 17:38 Resp 20 06/12/18 17:38 BP 148/86 06/12/18 17:38 Pulse Ox 100 06/12/18 17:38 - Labs Result Diagrams: 06/12/18 16:09 06/12/18 16:09 Labs: Laboratory Results - last 24 hr 06/12/18 06/12/18 06/12/18 14:59 16:09 16:09 WBC 7.9 RBC 3.13 L Hgb 9.7 L Hct 29.5 L MCV 94.3 H MCH 31.1 H MCHC 33.0 RDW 15.3 H Plt Count 249 MPV 8.5 Neut % (Auto) 85.8 H Lymph % (Auto) 4.8 L [place] % (Auto) 6.1 Eos % (Auto) 1.6 Baso % (Auto) 1.7 Neut # (Auto) 6.8 Lymph # (Auto) 0.4 L [place] # (Auto) 0.5 Eos # (Auto) 0.1 Baso # (Auto) 0.1 Neutrophils % (Manual) 91 H Lymphocytes % (Manual) 3 L Monocytes % (Manual) 6 Platelet Estimate Normal Polychromasia Slight Hypochromasia (manual) Slight Anisocytosis (manual) Slight Sodium 136 Potassium 4.2 Chloride 100 Carbon Dioxide 34 H Anion Gap 7 L BUN 28 H Creatinine 1.1 Est GFR ( Amer) > 60 Est GFR (Non-Af Amer) > 60 Random Glucose 145 H Calcium 8.3 L Total Bilirubin 1.0 AST 37 ALT 16 L Alkaline Phosphatase 77 Total Protein 5.7 L Albumin 2.6 L Globulin 3.1 Albumin/Globulin Ratio 0.8 L Urine Color Yellow Urine Clarity Hazy Urine pH 7.0 Ur Specific [place] 1.006 Urine Protein 1+ H Urine Glucose (UA) Normal Urine Ketones Negative Urine Blood 3+ H Urine Nitrate Negative Urine Bilirubin Negative Urine Urobilinogen 2.0 Ur Leukocyte Esterase 3+ H Urine WBC (Auto) 256 H Urine RBC (Auto) 30 H Urine Bacteria Mod H Attending/Attestation - Attestation I have personally seen and examined this patient.: Yes I have fully participated in the care of the patient.: Yes I have reviewed all pertinent clinical information: Yes Notes (Text): 06/12/18 18:43 Medical attending: Patient was seen and examined by me with family member present at bedside in the ER. The patient reported no pain or discomfort The family member, his , brought the patient in as she noticed leakage from the area around the suprapubic site as well as erythema noticed as well. She explains to us that she has not flushed anything and that nobody (visiting nurse service) has come to help and she does not know what to do. As mentioned previously he had a cystoscopy as well as CBI for sometime due to hematuria. A biopsy recently return showing bladder CA Urology has been notified as well Will have to clarify with case workers/social workers this Thursday and Thursday as to what home visiting nurse service can come Uziel Fowler
[2018-06-12] MEDS ORDERED: Albuterol-Ipratrop 3 mg / 0.5 (3 ml) UD INH PRN (18:25)
--- NOTE | 2018-06-13 08:08 | CP.PCM.PN ---
<Terry Flores - Last Filed: 06/13/18 14:48> Subjective - Date & Time of Evaluation Date of Evaluation: 06/13/18 Time of Evaluation: 08:08 - Subjective Subjective: Progress Note for Hospitalist service Patient seen and examined at bedside. He currently states he has no pain, but as per nursing, patient has had clear urine leaking from the site overnight with minimal urine in the bag. Patient denies fevers, chills, headache, dizziness, chest pain, shortness of breath, abdominal pain, nausea, vomiting, diarrhea. Objective - Vital Signs/Intake and Output Vital Signs (last 24 hours): Temp Pulse Resp BP Pulse Ox 98 F 59 L 20 145/78 98 06/13/18 00:00 06/13/18 00:00 06/13/18 00:00 06/13/18 00:00 06/13/18 00:09 Intake and Output: 06/13/18 06/13/18 06:59 18:59 Intake Total 360 Output Total 1200 Balance -840 - Medications Medications: Current Medications Albuterol/Ipratropium (Duoneb 3 Mg/0.5 Mg (3 Ml) Ud) 3 ml INH RQ4 PRN PRN Reason: Shortness of Breath Allopurinol (Zyloprim) 100 mg PO DAILY [facility] Donepezil HCl (Aricept) 10 mg PO [facility] Last Admin: 06/12/18 21:29 Dose: 10 mg Famotidine (Pepcid) 20 mg PO DAILY [facility] Finasteride (Proscar) 5 mg PO DAILY [facility] Furosemide (Lasix) 20 mg PO DAILY [facility] Ceftriaxone Sodium 1 gm/ (Sodium Chloride) 100 mls @ 100 mls/hr IVPB Q12H [facility]; Protocol Losartan Potassium (Cozaar) 100 mg PO DAILY [facility] Metoprolol Succinate (Toprol Xl) 25 mg PO DAILY [facility] Spironolactone (Aldactone) 25 mg PO DAILY [facility] Tamsulosin HCl (Flomax) 0.4 mg PO [facility] Last Admin: 06/12/18 21:30 Dose: 0.4 mg - Labs Labs: 06/12/18 16:09 06/12/18 16:09 - Constitutional Appears: No Acute Distress, Confused, Chronically Ill - Head Exam Head Exam: ATRAUMATIC, NORMOCEPHALIC - Eye Exam Eye Exam: EOMI, PERRL - ENT Exam ENT Exam: Mucous Membranes Moist - Neck Exam Neck Exam: Full ROM - Respiratory Exam Respiratory Exam: Clear to Ausculation Bilateral. absent: Rales, Rhonchi, Wheezes, Respiratory Distress, Stridor - Cardiovascular Exam Cardiovascular Exam: REGULAR RHYTHM, +S1, +S2. absent: Gallop, Rubs, Murmur - GI/Abdominal Exam GI & Abdominal Exam: Soft, Normal Bowel Sounds. absent: Tenderness Additional comments: Suprapubic catheter in place, with clear urine leaking from around site. no purulent drainage around site. Bag empty of urine. - Extremities Exam Extremities Exam: Normal Capillary Refill. absent: Calf Tenderness, Pedal Edema - Back Exam Back Exam: absent: CVA tenderness (L), CVA tenderness (R) - Neurological Exam Neurological Exam: Awake Assessment and Plan - Assessment and Plan (Free Text) Assessment: 78 year old male with history of prostate cancer status post radiation, IgA nephropathy, COPD, Atrial fibrillation, Alzheimer's CHF who presents with for leakage and foul odor from suprapubic catheter. Plan: Hematuria, likely secondary newly diagnosed urothelial carcinoma - Suprapubic catheter leakage History of prostate cancer status post radiation Minimal urine output in bag, now clear urine noted near suprapubic cath site. Pathology report from prior admission revealed biopsy of bladder neck is indicative of invasive high grade urothelial carcinoma Urologist Dr. Roberto Ching consulted Dr. Roberto Ching alerted regarding urine leak from suprapubic cath site, requested stat CT abdomen/pelvis without oral/IV contrast. Stated that he might go for possible cystocopy with Dr. Robbie Ching tomorrow or day after tomorrow. CT abdomen/pelvis without contrast: Fluid collection in the prevesical space. Suprapubic catheter traverses this collection. There is no fluid seen within the anterior abdominal wall. Hepatic cirrhosis. Mild ascites. Bilateral pleural effusion. Bilateral hydronephrosis, right greater than left. 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 Cholelithiasis with mural thickening of the gallbladder common nonspecific. Correlate clinically. blood cultures pending. Wound culture: GP cocci Urine culture: GP cocci Rocephin 1g IV Q12 Proscar 5mg PO daily Flomax 0.4mg PO HS Edema of right hand RUE doppler ordered. History of Atrial fibrillation ASA held currently History of CHF ASA held Toprol XL 25mg PO Aldactone 25mg PO Lasix 20mg PO Losartan 100mg PO daily History COPD Duonebs PRN History of gout Allopurinol 100mg PO daily Alzheimer's dementia Mildly confused at baseline as per . Aricept 10mg PO HS Prophylaxis Heart healthy diet SCDs Pepcid 20mg PO daily Case discussed with Dr. Janeth Flores, PGY1 <Uziel Fowler H - Last Filed: 06/13/18 15:42> Objective - Vital Signs/Intake and Output Vital Signs (last 24 hours): Temp Pulse Resp BP Pulse Ox 97.4 F L 78 20 144/79 95 06/13/18 08:28 06/13/18 08:28 06/13/18 08:28 06/13/18 11:31 06/13/18 08:28 Intake and Output: 06/13/18 06/13/18 06:59 18:59 Intake Total 360 Output Total 1200 Balance -840 - Medications Medications: Current Medications Albuterol/Ipratropium (Duoneb 3 Mg/0.5 Mg (3 Ml) Ud) 3 ml INH RQ4 PRN PRN Reason: Shortness of Breath Allopurinol (Zyloprim) 100 mg PO DAILY [facility] Last Admin: 06/13/18 11:32 Dose: 100 mg Donepezil HCl (Aricept) 10 mg PO HS [facility] Last Admin: 06/12/18 21:29 Dose: 10 mg Famotidine (Pepcid) 20 mg PO DAILY [facility] Last Admin: 06/13/18 11:31 Dose: 20 mg Finasteride (Proscar) 5 mg PO DAILY [facility] Last Admin: 06/13/18 11:30 Dose: 5 mg Furosemide (Lasix) 20 mg PO DAILY [facility] Last Admin: 06/13/18 11:31 Dose: 20 mg Ceftriaxone Sodium 1 gm/ (Sodium Chloride) 100 mls @ 100 mls/hr IVPB Q12H [facility]; Protocol Last Admin: 06/13/18 11:32 Dose: 100 mls/hr Losartan Potassium (Cozaar) 100 mg PO DAILY [facility] Last Admin: 06/13/18 11:31 Dose: 100 mg Metoprolol Succinate (Toprol Xl) 25 mg PO DAILY [facility] Last Admin: 06/13/18 11:31 Dose: 25 mg Spironolactone (Aldactone) 25 mg PO DAILY [facility] Last Admin: 06/13/18 11:31 Dose: 25 mg Tamsulosin HCl (Flomax) 0.4 mg PO HS [facility] Last Admin: 06/12/18 21:30 Dose: 0.4 mg - Labs Labs: 06/12/18 16:09 06/12/18 16:09 PT 14.3 SECONDS (9.7-12.2) H 06/13/18 13:44 INR 1.3 06/13/18 13:44 APTT 31 SECONDS (21-34) 06/13/18 13:44 Attending/Attestation - Attestation I have personally seen and examined this patient.: Yes I have fully participated in the care of the patient.: Yes I have reviewed all pertinent clinical information, including history, physical exam and plan: Yes Notes (Text): 06/13/18 15:37 Medical attending: Patient was seen and examined by me with the medical library assistant The patient was not in distress There is leakage of urine from around the site of the suprapubic catheter. The gauze well as matress are soaked There is minimal urine collected in the bag
[2018-06-13] MEDS: Metoprolol Succinate 25 mg XL Tab PO SCH (11:31)
--- NOTE | 2018-06-13 12:48 | CT ---
Date of service: 06/13/2018 PROCEDURE: CT Abdomen and Pelvis without intravenous contrast HISTORY: suprapubic cath leakage COMPARISON: 05/23/2018 TECHNIQUE: Without contrast.. Contrast dose: 0 Radiation dose: Total exam DLP = 670.61 mGy-cm. This CT exam was performed using one or more of the following dose reduction techniques: Automated exposure control, adjustment of the mA and/or kV according to patient size, and/or use of iterative reconstruction technique. FINDINGS: LOWER THORAX: Small right and moderate left pleural effusion. No infiltrate. Cardiomegaly. LIVER: Nodular hepatic contour consistent with cirrhosis. No mass. No biliary dilatation. GALLBLADDER AND BILE DUCTS: Cholelithiasis. There is mild mural thickening. Nonspecific. Correlate for clinical concern regarding cholecystitis. PANCREAS: Unremarkable. No gross lesion or ductal dilatation. SPLEEN: Unremarkable. ADRENALS: Unremarkable. No mass. KIDNEYS AND URETERS: Mild left hydronephrosis. Severe right hydronephrosis. Mild bilateral hydroureter. There is marked difference in caliber from the right renal pelvis to the right ureter. Possible congenital UPJ obstruction. Nonobstructing calculus lower pole right kidney. No left renal calculus. No renal mass. VASCULATURE: Unremarkable. No aortic aneurysm. There is atherosclerotic calcification of the abdominal aorta. BOWEL: Unremarkable. No obstruction. No gross mural thickening. APPENDIX: Not identified. PERITONEUM: Minimal ascites. LYMPH NODES: Unremarkable. No enlarged lymph nodes. BLADDER: The bladder is significant for mild mural thickening. There is greater thickening seen at the bladder base. A suprapubic catheter is seen entering the bladder lumen. There is a collection of fluid in the prevesical space measuring approximately 1.7 x 3.9 x 5.0 cm. This contains fluid but no gas. Previously, there was gas and fluid seen within this collection on 05/23/2018. The suprapubic catheter traverses the right lateral aspect of this collection. There is no fluid seen within the anterior abdominal wall. REPRODUCTIVE: Radiation seed implants are seen in the prostate bed. BONES: No acute fracture. OTHER FINDINGS: None. IMPRESSION: Fluid collection in the prevesical space. Suprapubic catheter traverses this collection. There is no fluid seen within the anterior abdominal wall. Hepatic cirrhosis. Mild ascites. Bilateral pleural effusion. Bilateral hydronephrosis, right greater than left. 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 Cholelithiasis with mural thickening of the gallbladder common nonspecific. Correlate clinically.
[2018-06-13 13:55] LABS: INR 1.3; PROTHROMBIN TIME 14.3 SECONDS (9.7-12.2)
[2018-06-13 23:02] LABS: BASO % 0.7 % (0.0-2.0); EOS % 0.7 % (0.0-4.0); LYMPH # 0.4 K/uL (1.0-4.3); LYMPH % 4.9 % (20.0-40.0); MEAN CELL VOLUME 93.5 fL (80.0-94.0); MEAN CORPUSCULAR HEMOGLOBIN 30.4 pg (27.0-31.0); MEAN CORPUSCULAR HGB CONC 32.5 g/dL (33.0-37.0); MEAN PLATELET VOLUME 7.1 fL (7.2-11.7); MONO # 0.5 K/uL (0.0-0.8); NEUT # 6.3 K/uL (1.8-7.0); NEUT % 86.7 % (50.0-75.0); PLATELET COUNT 184 K/uL (130-400); RBC 2.39 Mil/uL (4.40-5.90); RED CELL DISTRIBUTION WIDTH 15.3 % (11.5-14.5); WHITE BLOOD COUNT 7.3 K/uL (4.8-10.8)
[2018-06-13 23:06] LABS: HEMOGLOBIN 7.3 g/dL (12.0-18.0)
[2018-06-13 23:17] LABS: ALB/GLOB RATIO 0.6 (1.0-2.1); ALBUMIN 1.8 g/dL (3.5-5.0); ALT/SGPT 25 U/L (21-72); AST/SGOT 14 U/L (17-59); BLOOD UREA NITROGEN 22 mg/dL (9-20); CALCIUM 5.8 mg/dl (8.6-10.4); GFR NON-AFRICAN AMERICAN > 60
[2018-06-13 23:44] LABS: BANDS 2 % (0-2); LYMPHOCYTE 10 % (20-40); MONOCYTE 8 % (0-10); NEUTROPHIL 80 % (50-75); PLATELET ESTIMATE NORMAL (NORMAL); TOTAL CELLS COUNTED 100
[2018-06-14] MEDS ORDERED: Potassium Chloride 20 mEq ER Tab PO ONE ×2 (00:28→23:33)
[2018-06-14 08:07] LABS: BASO # 0.1 K/uL (0.0-0.2); BASO % 0.8 % (0.0-2.0); EOS # 0.1 K/uL (0.0-0.7); EOS % 0.9 % (0.0-4.0); LYMPH # 0.5 K/uL (1.0-4.3); LYMPH % 6.9 % (20.0-40.0); MEAN CELL VOLUME 93.5 fL (80.0-94.0); MEAN CORPUSCULAR HEMOGLOBIN 30.7 pg (27.0-31.0); MEAN CORPUSCULAR HGB CONC 32.8 g/dL (33.0-37.0); MEAN PLATELET VOLUME 7.7 fL (7.2-11.7); MONO # 0.5 K/uL (0.0-0.8); MONO % 7.1 % (0.0-10.0); NEUT # 6.4 K/uL (1.8-7.0); NEUT % 84.3 % (50.0-75.0); PLATELET COUNT 242 K/uL (130-400); RBC 3.12 Mil/uL (4.40-5.90); WHITE BLOOD COUNT 7.6 K/uL (4.8-10.8)
[2018-06-14 08:17] LABS: HEMOGLOBIN 9.6 g/dL (12.0-18.0)
--- NOTE | 2018-06-14 08:20 | CP.PCM.PN ---
<Hal Muñiz - Last Filed: 06/14/18 14:59> Subjective - Date & Time of Evaluation Date of Evaluation: 06/14/18 Time of Evaluation: 08:20 - Subjective Subjective: PGY-1 Medicine Progress Note for Dr. See Patient seen and examined at bedside, resting comfortably. No acute overnight events, no active bleeding. Minimal urinary output noted in bag with suprapubic cath dressing soaked. 12 pt ROS reviewed and negative. Pt to go to OR for cystoscopy, likely tomorrow per Urology. Objective - Vital Signs/Intake and Output Vital Signs (last 24 hours): Temp Pulse Resp BP Pulse Ox 99.3 F 78 20 138/71 95 06/13/18 23:19 06/13/18 23:19 06/13/18 23:19 06/13/18 23:19 06/14/18 00:00 Intake and Output: 06/14/18 06/14/18 06:59 18:59 Intake Total 550 Balance 550 - Medications Medications: Current Medications Albuterol/Ipratropium (Duoneb 3 Mg/0.5 Mg (3 Ml) Ud) 3 ml INH RQ4 PRN PRN Reason: Shortness of Breath Allopurinol (Zyloprim) 100 mg PO DAILY [facility] Last Admin: 06/13/18 11:32 Dose: 100 mg Donepezil HCl (Aricept) 10 mg PO HS [facility] Last Admin: 06/13/18 21:42 Dose: 10 mg Famotidine (Pepcid) 20 mg PO DAILY [facility] Last Admin: 06/13/18 11:31 Dose: 20 mg Finasteride (Proscar) 5 mg PO DAILY [facility] Last Admin: 06/13/18 11:30 Dose: 5 mg Furosemide (Lasix) 20 mg PO DAILY [facility] Last Admin: 06/13/18 11:31 Dose: 20 mg Ceftriaxone Sodium 1 gm/ (Sodium Chloride) 100 mls @ 100 mls/hr IVPB Q12H [facility]; Protocol Last Admin: 06/13/18 21:42 Dose: 100 mls/hr Losartan Potassium (Cozaar) 100 mg PO DAILY [facility] Last Admin: 06/13/18 11:31 Dose: 100 mg Metoprolol Succinate (Toprol Xl) 25 mg PO DAILY [facility] Last Admin: 06/13/18 11:31 Dose: 25 mg Spironolactone (Aldactone) 25 mg PO DAILY [facility] Last Admin: 06/13/18 11:31 Dose: 25 mg Tamsulosin HCl (Flomax) 0.4 mg PO HS [facility] Last Admin: 06/13/18 21:42 Dose: 0.4 mg - Labs Labs: 06/14/18 07:51 06/13/18 22:58 PT 14.3 SECONDS (9.7-12.2) H 06/13/18 13:44 INR 1.3 06/13/18 13:44 APTT 31 SECONDS (21-34) 06/13/18 13:44 - Constitutional Appears: Non-toxic, No Acute Distress, Chronically Ill - Head Exam Head Exam: ATRAUMATIC, NORMAL INSPECTION, NORMOCEPHALIC Additional comments: hemifacial port wine stain - Eye Exam Eye Exam: EOMI, Normal appearance, PERRL Pupil Exam: NORMAL ACCOMODATION - ENT Exam ENT Exam: Mucous Membranes Moist, Normal Exam - Neck Exam Neck Exam: Full ROM, Normal Inspection - Respiratory Exam Respiratory Exam: Clear to Ausculation Bilateral, NORMAL BREATHING PATTERN. absent: Accessory Muscle Use, Rales, Rhonchi, Wheezes, Respiratory Distress, Str idor - Cardiovascular Exam Cardiovascular Exam: REGULAR RHYTHM, +S1, +S2 - GI/Abdominal Exam GI & Abdominal Exam: Soft, Normal Bowel Sounds. absent: Distended, Firm, Guarding, Rigid, Tenderness Additional comments: Suprapubic catheter in place, with dressing somewhat soaked. No purulent drainag e around site. Urinary output in bag minimal. - Extremities Exam Extremities Exam: Full ROM, Normal Capillary Refill, Normal Inspection. absent: Calf Tenderness, Pedal Edema - Back Exam Back Exam: NORMAL INSPECTION - Neurological Exam Neurological Exam: Alert, Awake - Skin Skin Exam: Dry, Intact, Normal Color, Warm Assessment and Plan - Assessment and Plan (Free Text) Assessment: 78 year old male with history of prostate cancer status post radiation, IgA nephropathy, COPD, Atrial fibrillation, Alzheimer's CHF who presents with for leakage and foul odor from suprapubic catheter. Plan: Hematuria, likely secondary newly diagnosed urothelial carcinoma - Suprapubic catheter leakage History of prostate cancer status post radiation -Minimal urine output in bag, now clear urine noted near suprapubic cath site. -Pathology report from prior admission revealed biopsy of bladder neck is indicative of invasive high grade urothelial carcinoma -Urologist Dr. Roberto Ching consulted -Dr. Roberto Ching alerted regarding urine leak from suprapubic cath site, requested stat CT abdomen/pelvis without oral/IV contrast. -NPO after MN for cystoscopy tomorrow with Dr. Robbie Ching -CT abdomen/pelvis without contrast: Fluid collection in the prevesical space. Suprapubic catheter traverses this collection. There is no fluid seen within the anterior abdominal wall. Hepatic cirrhosis. Mild ascites. Bilateral pleural effusion. Bilateral hydronephrosis, right greater than left. 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 Cholelithiasis with mural thickening of the gallbladder common nonspecific. Correlate clinically. -BCx: negative after 24 hrs -Wound culture: GP cocci -Urine culture: Enterococcus faecalis, yeast spp. -Rocephin 1g IV Q12 -Vancomycin 1 gm IV daily -Proscar 5mg PO daily -Flomax 0.4mg PO HS Hx of Atrial fibrillation ASA held currently Hx of CHF -ASA held -Toprol XL 25mg PO daily -Aldactone 25mg PO daily -Lasix 20mg PO daily -Losartan 100mg PO daily Hx of COPD Duonebs PRN Hx of gout Allopurinol 100mg PO daily Alzheimer's dementia Mildly confused at baseline as per . Aricept 10mg PO HS PPx, Diet, Disposition -DVT ppx: scds -GI ppx: pepcid 20 PO daily -Diet: HHD, NPO after MN for cystoscopy likely tomorrow Case discussed with Dr. Esa Muñiz DO, PGY-1 <Bahman See - Last Filed: 06/23/18 10:37> Objective - Vital Signs/Intake and Output Vital Signs (last 24 hours): Temp Pulse Resp BP Pulse Ox 98.1 F 67 20 165/88 H 98 06/15/18 15:00 06/15/18 15:00 06/15/18 15:00 06/15/18 16:43 06/15/18 15:00 Intake and Output: 06/15/18 06/15/18 06:59 18:59 Intake Total 0 900 Output Total 600 Balance 0 300 - Medications Medications: Current Medications Albuterol/Ipratropium (Duoneb 3 Mg/0.5 Mg (3 Ml) Ud) 3 ml INH RQ4 PRN PRN Reason: Shortness of Breath Last Admin: 06/15/18 05:05 Dose: 3 ml Allopurinol (Zyloprim) 100 mg PO DAILY [facility] Last Admin: 06/15/18 10:33 Dose: Not Given Donepezil HCl (Aricept) 10 mg PO HS [facility] Last Admin: 06/14/18 21:07 Dose: 10 mg Famotidine (Pepcid) 20 mg PO DAILY [facility] Last Admin: 06/15/18 10:32 Dose: Not Given Finasteride (Proscar) 5 mg PO DAILY [facility] Last Admin: 06/15/18 10:32 Dose: Not Given Furosemide (Lasix) 20 mg PO DAILY [facility] Last Admin: 06/15/18 10:31 Dose: Not Given Vancomycin HCl 1 gm/ Sodium (Chloride) 250 mls @ 166.7 mls/hr IVPB Q24H [facility]; Protocol Last Admin: 06/15/18 17:13 Dose: Not Given Losartan Potassium (Cozaar) 100 mg PO DAILY [facility] Last Admin: 06/15/18 10:00 Dose: Not Given Metoprolol Succinate (Toprol Xl) 25 mg PO DAILY [facility] Last Admin: 06/15/18 10:32 Dose: Not Given Spironolactone (Aldactone) 25 mg PO DAILY [facility] Last Admin: 06/15/18 10:30 Dose: Not Given Tamsulosin HCl (Flomax) 0.4 mg PO HS [facility] Last Admin: 06/14/18 21:07 Dose: 0.4 mg - Labs Labs: 06/15/18 04:30 06/15/18 04:30 PT 14.3 SECONDS (9.7-12.2) H 06/13/18 13:44 INR 1.3 06/13/18 13:44 APTT 31 SECONDS (21-34) 06/13/18 13:44 Attending/Attestation - Attestation I have personally seen and examined this patient.: Yes I have fully participated in the care of the patient.: Yes I have reviewed all pertinent clinical information, including history, physical exam and plan: Yes Notes (Text): seen and examined . assessment and the plan discussed with the resident and I agree with the discharge plan
[2018-06-14 08:23] LABS: ALB/GLOB RATIO 0.8 (1.0-2.1); ALBUMIN 2.4 g/dL (3.5-5.0); ALT/SGPT 16 U/L (21-72); AST/SGOT 21 U/L (17-59); BLOOD UREA NITROGEN 28 mg/dL (9-20); CALCIUM 8.2 mg/dl (8.6-10.4); GFR NON-AFRICAN AMERICAN 53
[2018-06-14 09:11] LABS: ANISOCYTOSIS SLIGHT; HYPOCHROMIC SLIGHT; LYMPHOCYTE 5 % (20-40); MONOCYTE 6 % (0-10); NEUTROPHIL 89 % (50-75); PLATELET ESTIMATE NORMAL (NORMAL); POIKILOCYTOSIS SLIGHT; TOTAL CELLS COUNTED 100
[2018-06-14] MEDS: Metoprolol Succinate 25 mg XL Tab PO SCH (09:49)
[2018-06-15 04:34] LABS: BASO # 0.1 K/uL (0.0-0.2); BASO % 0.6 % (0.0-2.0); EOS # 0.1 K/uL (0.0-0.7); EOS % 1.2 % (0.0-4.0); HEMOGLOBIN 9.6 g/dL (12.0-18.0); LYMPH # 0.5 K/uL (1.0-4.3); LYMPH % 5.3 % (20.0-40.0); MEAN CELL VOLUME 93.3 fL (80.0-94.0); MEAN CORPUSCULAR HEMOGLOBIN 30.2 pg (27.0-31.0); MEAN CORPUSCULAR HGB CONC 32.4 g/dL (33.0-37.0); MEAN PLATELET VOLUME 7.6 fL (7.2-11.7); MONO # 0.5 K/uL (0.0-0.8); MONO % 5.8 % (0.0-10.0); NEUT # 8.2 K/uL (1.8-7.0); NEUT % 87.1 % (50.0-75.0); PLATELET COUNT 220 K/uL (130-400); RBC 3.19 Mil/uL (4.40-5.90); RED CELL DISTRIBUTION WIDTH 15.4 % (11.5-14.5); WHITE BLOOD COUNT 9.4 K/uL (4.8-10.8)
[2018-06-15 05:19] LABS: ALB/GLOB RATIO 0.8 (1.0-2.1); ALBUMIN 2.6 g/dL (3.5-5.0); CALCIUM 8.3 mg/dl (8.6-10.4)
[2018-06-15 05:48] LABS: EOSINOPHIL 2 % (0-4); LYMPHOCYTE 6 % (20-40); MONOCYTE 9 % (0-10); NEUTROPHIL 83 % (50-75); PLATELET ESTIMATE NORMAL (NORMAL); TOTAL CELLS COUNTED 100
[2018-06-15] MEDS ORDERED: Iohexol 240 (50 ml) ONE (07:40)
[2018-06-15] MEDS: Metoprolol Succinate 25 mg XL Tab PO SCH ×2 (07:40→10:32)
[2018-06-15] MEDS ORDERED: Lidocaine 2% Jelly (Uro-Jet) ONE (07:40)
[2018-06-15] MEDS: cefTRIAXone 1 gm 1 GM/100 ML BAG IVPB ONE ×2 (08:55→09:12)
[2018-06-15] MEDS ORDERED: Iohexol 240 200 ML ONE (09:01)
--- NOTE | 2018-06-15 09:11 | CP.PCM.PN ---
<Hal Muñiz - Last Filed: 06/15/18 13:21> Subjective - Date & Time of Evaluation Date of Evaluation: 06/15/18 Time of Evaluation: 09:08 - Subjective Subjective: PGY-1 Medicine Progress Note for Dr. See Patient seen and examined at bedside this AM, resting comfortably. Slightly confused at baseline, no acute somatic complaints. Patient to undergo cystoscopy per Urology recs, will follow up further recs. Objective - Vital Signs/Intake and Output Vital Signs (last 24 hours): Temp Pulse Resp BP Pulse Ox 97.7 F 89 20 150/86 100 06/15/18 07:23 06/15/18 07:23 06/15/18 07:23 06/15/18 07:23 06/15/18 08:14 Intake and Output: 06/15/18 06/15/18 06:59 18:59 Intake Total 0 Balance 0 - Medications Medications: Current Medications Albuterol/Ipratropium (Duoneb 3 Mg/0.5 Mg (3 Ml) Ud) 3 ml INH RQ4 PRN PRN Reason: Shortness of Breath Last Admin: 06/15/18 05:05 Dose: 3 ml Allopurinol (Zyloprim) 100 mg PO DAILY [facility] Last Admin: 06/14/18 09:49 Dose: 100 mg Donepezil HCl (Aricept) 10 mg PO HS [facility] Last Admin: 06/14/18 21:07 Dose: 10 mg Famotidine (Pepcid) 20 mg PO DAILY [facility] Last Admin: 06/14/18 09:49 Dose: 20 mg Finasteride (Proscar) 5 mg PO DAILY [facility] Last Admin: 06/14/18 09:49 Dose: 5 mg Furosemide (Lasix) 20 mg PO DAILY [facility] Last Admin: 06/14/18 09:50 Dose: 20 mg Ceftriaxone Sodium 1 gm/ (Sodium Chloride) 100 mls @ 100 mls/hr IVPB Q12H [facility]; Protocol Last Admin: 06/14/18 21:17 Dose: 100 mls/hr Vancomycin HCl 1 gm/ Sodium (Chloride) 250 mls @ 166.7 mls/hr IVPB Q24H [facility]; Protocol Last Admin: 06/14/18 17:00 Dose: 166.7 mls/hr Losartan Potassium (Cozaar) 100 mg PO DAILY [facility] Last Admin: 06/15/18 07:40 Dose: 100 mg Metoprolol Succinate (Toprol Xl) 25 mg PO DAILY [facility] Last Admin: 06/15/18 07:40 Dose: 25 mg Spironolactone (Aldactone) 25 mg PO DAILY [facility] Last Admin: 06/14/18 09:49 Dose: 25 mg Tamsulosin HCl (Flomax) 0.4 mg PO HS [facility] Last Admin: 06/14/18 21:07 Dose: 0.4 mg - Labs Labs: 06/15/18 04:30 06/15/18 04:30 PT 14.3 SECONDS (9.7-12.2) H 06/13/18 13:44 INR 1.3 06/13/18 13:44 APTT 31 SECONDS (21-34) 06/13/18 13:44 - Constitutional Appears: Non-toxic, No Acute Distress, Confused, Chronically Ill - Head Exam Head Exam: ATRAUMATIC, NORMAL INSPECTION, NORMOCEPHALIC Additional comments: hemifacial port wine stain - Eye Exam Eye Exam: EOMI, Normal appearance, PERRL Pupil Exam: NORMAL ACCOMODATION - ENT Exam ENT Exam: Mucous Membranes Moist, Normal Exam - Neck Exam Neck Exam: Full ROM, Normal Inspection. absent: Tenderness - Respiratory Exam Respiratory Exam: Clear to Ausculation Bilateral, NORMAL BREATHING PATTERN. absent: Accessory Muscle Use, Rales, Rhonchi, Wheezes, Respiratory Distress, Stridor - Cardiovascular Exam Cardiovascular Exam: REGULAR RHYTHM, +S1, +S2 - GI/Abdominal Exam GI & Abdominal Exam: Soft, Normal Bowel Sounds. absent: Distended, Firm, Guarding, Rigid, Tenderness, Rebound Additional comments: suprapubic cath dressing c/d/i. - Extremities Exam Extremities Exam: Full ROM, Normal Capillary Refill, Normal Inspection. absent: Calf Tenderness, Pedal Edema - Back Exam Back Exam: NORMAL INSPECTION - Neurological Exam Neurological Exam: Alert, Awake - Skin Skin Exam: Dry, Intact, Normal Color, Warm Assessment and Plan - Assessment and Plan (Free Text) Assessment: 78 year old male with history of prostate cancer status post radiation, IgA nephropathy, COPD, Atrial fibrillation, Alzheimer's CHF who presents with for leakage and foul odor from suprapubic catheter. Plan: Hematuria, likely secondary newly diagnosed urothelial carcinoma - Suprapubic catheter leakage History of prostate cancer status post radiation -Minimal urine output in bag, now clear urine noted near suprapubic cath site. -Pathology report from prior admission revealed biopsy of bladder neck is indicative of invasive high grade urothelial carcinoma -CT abdomen/pelvis (06/13): Fluid collection in the prevesical space. Suprapubic catheter traverses this collection. No fluid seen within the anterior abdominal wall. Mild ascites. Bilateral pleural effusion. Bilateral hydronephrosis, R> L. 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 Cholelithiasis with mural thickening of the gallbladder. -Urology recs (Dr. Ching) consulted -Dr. Roberto Ching alerted regarding urine leak from suprapubic cath site, requested stat CT abdomen/pelvis without oral/IV contrast. -pt to undergo cystoscopy today, will f/u further recs -BCx: negative after 48 hrs -Wound culture: Enterococcus faecalis, yeast spp. -Urine culture: Enterococcus faecalis, yeast spp. -Rocephin 1g IV Q12 -Vancomycin 1 gm IV daily -Proscar 5mg PO daily -Flomax 0.4mg PO HS Hx of Atrial fibrillation ASA held currently Hx of CHF -ASA held -Toprol XL 25mg PO daily -Aldactone 25mg PO daily -Lasix 20mg PO daily -Losartan 100mg PO daily Hx of COPD Duonebs PRN Hx of Gout Allopurinol 100mg PO daily Alzheimer's dementia Mildly confused at baseline as per . Aricept 10mg PO HS PPx, Diet, Disposition -DVT ppx: scds -GI ppx: pepcid 20 PO daily -Diet: NPO -Dispo: f/u further recs as per Urology s/p cystoscopy Case discussed with Dr. Esa Muñiz DO, PGY-1 <Bahman See - Last Filed: 06/23/18 11:16> Objective - Vital Signs/Intake and Output Vital Signs (last 24 hours): Temp Pulse Resp BP Pulse Ox 98.1 F 67 20 165/88 H 98 06/15/18 15:00 06/15/18 15:00 06/15/18 15:00 06/15/18 16:43 06/15/18 15:00 Intake and Output: 06/15/18 06/15/18 06:59 18:59 Intake Total 0 900 Output Total 600 Balance 0 300 - Medications Medications: Current Medications Albuterol/Ipratropium (Duoneb 3 Mg/0.5 Mg (3 Ml) Ud) 3 ml INH RQ4 PRN PRN Reason: Shortness of Breath Last Admin: 06/15/18 05:05 Dose: 3 ml Allopurinol (Zyloprim) 100 mg PO DAILY [facility] Last Admin: 06/15/18 10:33 Dose: Not Given Donepezil HCl (Aricept) 10 mg PO HS [facility] Last Admin: 06/14/18 21:07 Dose: 10 mg Famotidine (Pepcid) 20 mg PO DAILY [facility] Last Admin: 06/15/18 10:32 Dose: Not Given Finasteride (Proscar) 5 mg PO DAILY [facility] Last Admin: 06/15/18 10:32 Dose: Not Given Furosemide (Lasix) 20 mg PO DAILY [facility] Last Admin: 06/15/18 10:31 Dose: Not Given Vancomycin HCl 1 gm/ Sodium (Chloride) 250 mls @ 166.7 mls/hr IVPB Q24H [facility]; Protocol Last Admin: 06/15/18 17:13 Dose: Not Given Losartan Potassium (Cozaar) 100 mg PO DAILY [facility] Last Admin: 06/15/18 10:00 Dose: Not Given Metoprolol Succinate (Toprol Xl) 25 mg PO DAILY [facility] Last Admin: 06/15/18 10:32 Dose: Not Given Spironolactone (Aldactone) 25 mg PO DAILY [facility] Last Admin: 06/15/18 10:30 Dose: Not Given Tamsulosin HCl (Flomax) 0.4 mg PO [facility] Last Admin: 06/14/18 21:07 Dose: 0.4 mg - Labs Labs: 06/15/18 04:30 06/15/18 04:30 PT 14.3 SECONDS (9.7-12.2) H 06/13/18 13:44 INR 1.3 06/13/18 13:44 APTT 31 SECONDS (21-34) 06/13/18 13:44 Attending/Attestation - Attestation I have personally seen and examined this patient.: Yes I have fully participated in the care of the patient.: Yes I have reviewed all pertinent clinical information, including history, physical exam and plan: Yes Notes (Text): seen and examined,patient is lying down with no discomfort,no signs of pain,s/p cystoscopy spoke to Dr Jeane barkley about the procedure. Abnormal tissues removed from his bladder,suprapubic cath changed,has a faley ctah now Dr Ching recommend to flush and monitor for two days. recommend to keep antibiotics brittnee op He will follow him tomorrow discussed about creatinine and UTI.Creatinine could be dehydration vs obstruction. we will hold lasix urine grew enteroccocus. no fever,no leukocytosis. we will hold vanco,follow creatinine Dr Ching spoke to pt's I agree with the resident's documentation
[2018-06-15] MEDS ORDERED: HYDROmorphone 0.5 mg/0.5 ml ISec IVP PRN (09:58)
--- NOTE | 2018-06-15 10:17 | CP.PCM.CON ---
Past Patient History - Infectious Disease Hx of Infectious Diseases: None - Past Medical History & Family History Past Medical History?: Yes - Past Social History Smoking Status: Never Smoked - CARDIAC Hx Atrial Fibrillation: Yes Hx Cardia Arrhythmia: Yes (A-FIB) Hx Congestive Heart Failure: Yes Hx Hypertension: Yes - PULMONARY Hx Asthma: Yes Hx Chronic Obstructive Pulmonary Disease (COPD): Yes - NEUROLOGICAL Hx Alzheimer's Disease: Yes Hx Dementia: Yes - HEENT Hx HEENT Problems: Yes Other/Comment: Wears eyeglasses - RENAL Hx Chronic Kidney Disease: Yes Hx Kidney Stones: Yes - ENDOCRINE/METABOLIC Hx Endocrine Disorders: No - HEMATOLOGICAL/ONCOLOGICAL Hx Anemia: Yes - INTEGUMENTARY Hx Dermatological Problems: No - MUSCULOSKELETAL/RHEUMATOLOGICAL Hx Musculoskeletal Disorders: No Hx Falls: No - GASTROINTESTINAL Hx Gastrointestinal Disorders: No - GENITOURINARY/GYNECOLOGICAL Hx Genitourinary Disorders: Yes Hx Prostate Cancer: Yes Hx Prostate Problems: Yes Other/Comment: SUPRAPUBIC CATH - PSYCHIATRIC Hx Substance Use: No - SURGICAL HISTORY Hx Appendectomy: Yes - ANESTHESIA Hx Anesthesia: Yes Hx Anesthesia Reactions: No Hx Malignant Hyperthermia: No Meds Allergies/Adverse Reactions: Allergies Allergy/AdvReac Type Severity Reaction Status Date / Time No Known Allergies Allergy Verified 06/12/18 12:08 - Medications Medications: Current Medications Albuterol/Ipratropium (Duoneb 3 Mg/0.5 Mg (3 Ml) Ud) 3 ml INH RQ4 PRN PRN Reason: Shortness of Breath Last Admin: 06/15/18 05:05 Dose: 3 ml Allopurinol (Zyloprim) 100 mg PO DAILY [facility] Last Admin: 06/14/18 09:49 Dose: 100 mg Donepezil HCl (Aricept) 10 mg PO HS [facility] Last Admin: 06/14/18 21:07 Dose: 10 mg Famotidine (Pepcid) 20 mg PO DAILY [facility] Last Admin: 06/14/18 09:49 Dose: 20 mg Finasteride (Proscar) 5 mg PO DAILY [facility] Last Admin: 06/14/18 09:49 Dose: 5 mg Furosemide (Lasix) 20 mg PO DAILY [facility] Last Admin: 06/14/18 09:50 Dose: 20 mg Hydromorphone HCl (Dilaudid) 0.5 mg IVP Q5M PRN PRN Reason: Pain, severe (8-10) Stop: 06/15/18 11:58 Ceftriaxone Sodium 1 gm/ (Sodium Chloride) 100 mls @ 100 mls/hr IVPB Q12H [facility]; Protocol Last Admin: 06/14/18 21:17 Dose: 100 mls/hr Vancomycin HCl 1 gm/ Sodium (Chloride) 250 mls @ 166.7 mls/hr IVPB Q24H [facility]; Protocol Last Admin: 06/14/18 17:00 Dose: 166.7 mls/hr Losartan Potassium (Cozaar) 100 mg PO DAILY [facility] Last Admin: 06/15/18 07:40 Dose: 100 mg Metoprolol Succinate (Toprol Xl) 25 mg PO DAILY [facility] Last Admin: 06/15/18 07:40 Dose: 25 mg Spironolactone (Aldactone) 25 mg PO DAILY [facility] Last Admin: 06/14/18 09:49 Dose: 25 mg Tamsulosin HCl (Flomax) 0.4 mg PO HS [facility] Last Admin: 06/14/18 21:07 Dose: 0.4 mg Results - Vital Signs Recent Vital Signs: Last Vital Signs Temp 97.7 F 06/15/18 07:23 Pulse 89 06/15/18 07:23 Resp 20 06/15/18 07:23 BP 150/86 06/15/18 07:23 Pulse Ox 100 06/15/18 08:14 - Labs Result Diagrams: 06/15/18 04:30 06/15/18 04:30 Labs: Laboratory Results - last 24 hr 06/15/18 06/15/18 04:30 04:30 WBC 9.4 RBC 3.19 L Hgb 9.6 L Hct 29.7 L MCV 93.3 MCH 30.2 MCHC 32.4 L RDW 15.4 H Plt Count 220 MPV 7.6 Neut % (Auto) 87.1 H Lymph % (Auto) 5.3 L [place] % (Auto) 5.8 Eos % (Auto) 1.2 Baso % (Auto) 0.6 Neut # (Auto) 8.2 H Lymph # (Auto) 0.5 L [place] # (Auto) 0.5 Eos # (Auto) 0.1 Baso # (Auto) 0.1 Neutrophils % (Manual) 83 H Lymphocytes % (Manual) 6 L Monocytes % (Manual) 9 Eosinophils % (Manual) 2 Platelet Estimate Normal Sodium 145 Potassium 3.9 Chloride 111 H Carbon Dioxide 30 Anion Gap 8 L BUN 30 H Creatinine 1.6 H Est GFR ( Amer) 51 Est GFR (Non-Af Amer) 42 Random Glucose 113 H Calcium 8.3 L Phosphorus 3.8 Magnesium 1.9 Total Bilirubin 0.4 AST 25 ALT 22 Alkaline Phosphatase 97 Total Protein 5.9 L Albumin 2.6 L Globulin 3.3 Albumin/Globulin Ratio 0.8 L Assessment & Plan - Assessment and Plan (Free Text) Assessment: IMP: cystostomy tube in place Bladder ca Prostate ca, p RT Hematuria Dementia YS - Date & Time Date: 06/14/18 Time: 11:35
--- NOTE | 2018-06-15 10:20 | PCM.SURG1 ---
Surgeon's Initial Post Op Note - Surgeon's Notes Surgeon: Robbie Ching Staff Anesthesiologist: none Type of Anesthesia: General LMA Pre-Operative Diagnosis: bladder cancer. cystostomy tube malfunction Operative Findings: same Post-Operative Diagnosis: same. abnormal bladder and prostate tissue. seeds in bladder. pelvic induration, poss mass Operation Performed: cystogram. change of cystostomy tube. TUR-BT - L lateral and R lateral. TURP. TUR-BN. Removal of prostate seeds from bladder. EUA Specimen/Specimens Removed: urine. bladder, prostate, BN. Foreign body seeds Estimated Blood Loss: EBL {In ML}: 10 Post-Op Condition: Good Date of Surgery/Procedure: 06/15/18 Time of Surgery/Procedure: 10:05
--- NOTE | 2018-06-15 13:17 | RAD ---
PROCEDURE: HISTORY: As above COMPARISON: None TECHNIQUE: Total fluoroscopic time utilized during the procedure: 13.5 seconds ; 0.98202 mGy cm 2 FINDINGS: Submitted images from the current procedure: 6 Please refer to the physician's notes performing the procedure. IMPRESSION: Less than 1 hour fluoroscopic time utilized during performance of the procedure
[2018-06-16 07:02] LABS: BASO # 0.1 K/uL (0.0-0.2); BASO % 0.7 % (0.0-2.0); EOS # 0.1 K/uL (0.0-0.7); EOS % 0.7 % (0.0-4.0); HEMOGLOBIN 9.7 g/dL (12.0-18.0); LYMPH # 0.5 K/uL (1.0-4.3); LYMPH % 5.2 % (20.0-40.0); MEAN CELL VOLUME 93.9 fL (80.0-94.0); MEAN CORPUSCULAR HEMOGLOBIN 29.5 pg (27.0-31.0); MEAN CORPUSCULAR HGB CONC 31.4 g/dL (33.0-37.0); MEAN PLATELET VOLUME 7.8 fL (7.2-11.7); MONO # 0.5 K/uL (0.0-0.8); MONO % 5.5 % (0.0-10.0); NEUT # 8.8 K/uL (1.8-7.0); NEUT % 87.9 % (50.0-75.0); NRBC % 0.1 % (0.0-2.0); PLATELET COUNT 237 K/uL (130-400); RED CELL DISTRIBUTION WIDTH 15.4 % (11.5-14.5)
[2018-06-16 07:06] LABS: ALB/GLOB RATIO 0.8 (1.0-2.1); ALBUMIN 2.4 g/dL (3.5-5.0); ALT/SGPT 20 U/L (21-72); AST/SGOT 23 U/L (17-59); BLOOD UREA NITROGEN 28 mg/dL (9-20); CALCIUM 8.2 mg/dl (8.6-10.4); GFR NON-AFRICAN AMERICAN 53
--- NOTE | 2018-06-16 07:27 | CP.PCM.PN ---
<Hal Muñiz - Last Filed: 06/16/18 16:13> Subjective - Date & Time of Evaluation Date of Evaluation: 06/16/18 Time of Evaluation: 07:27 - Subjective Subjective: PGY-1 Medicine Progress Note for Dr. See Patient seen and examined at bedside this AM. No acute somatic complaints, no overnight events. 200cc serosanguinous fluid collected from suprapubic cath, 380 cc from coude cath per nursing. Flushings being carried out per Urology recs, will continue to monitor and follow up with Urology. Objective - Vital Signs/Intake and Output Vital Signs (last 24 hours): Temp Pulse Resp BP Pulse Ox 98.7 F 92 H 20 146/77 97 06/16/18 00:00 06/16/18 00:00 06/16/18 00:00 06/16/18 00:00 06/16/18 00:00 Intake and Output: 06/16/18 06/16/18 06:59 18:59 Intake Total 640 Output Total 1050 Balance -410 - Medications Medications: Current Medications Albuterol/Ipratropium (Duoneb 3 Mg/0.5 Mg (3 Ml) Ud) 3 ml INH RQ4 PRN PRN Reason: Shortness of Breath Last Admin: 06/15/18 05:05 Dose: 3 ml Allopurinol (Zyloprim) 100 mg PO DAILY [facility] Last Admin: 06/15/18 10:33 Dose: Not Given Donepezil HCl (Aricept) 10 mg PO HS [facility] Last Admin: 06/15/18 21:29 Dose: 10 mg Famotidine (Pepcid) 20 mg PO DAILY [facility] Last Admin: 06/15/18 10:32 Dose: Not Given Finasteride (Proscar) 5 mg PO DAILY [facility] Last Admin: 06/15/18 10:32 Dose: Not Given Furosemide (Lasix) 20 mg PO DAILY [facility] Last Admin: 06/15/18 10:31 Dose: Not Given Vancomycin HCl 1 gm/ Sodium (Chloride) 250 mls @ 166.7 mls/hr IVPB Q24H [facility]; Protocol Last Admin: 06/15/18 17:13 Dose: Not Given Losartan Potassium (Cozaar) 100 mg PO DAILY [facility] Last Admin: 06/15/18 10:00 Dose: Not Given Metoprolol Succinate (Toprol Xl) 25 mg PO DAILY [facility] Last Admin: 06/15/18 10:32 Dose: Not Given Spironolactone (Aldactone) 25 mg PO DAILY [facility] Last Admin: 06/15/18 10:30 Dose: Not Given Tamsulosin HCl (Flomax) 0.4 mg PO HS [facility] Last Admin: 06/15/18 21:29 Dose: 0.4 mg - Labs Labs: 06/16/18 06:46 06/16/18 06:46 PT 14.3 SECONDS (9.7-12.2) H 06/13/18 13:44 INR 1.3 06/13/18 13:44 APTT 31 SECONDS (21-34) 06/13/18 13:44 - Constitutional Appears: Non-toxic, No Acute Distress, Confused, Chronically Ill - Head Exam Head Exam: ATRAUMATIC, NORMAL INSPECTION, NORMOCEPHALIC Additional comments: hemifacial port wine stain - Eye Exam Eye Exam: EOMI, Normal appearance Pupil Exam: NORMAL ACCOMODATION - ENT Exam ENT Exam: Mucous Membranes Moist, Normal Exam - Neck Exam Neck Exam: Normal Inspection - Respiratory Exam Respiratory Exam: Clear to Ausculation Bilateral, NORMAL BREATHING PATTERN. absent: Accessory Muscle Use, Rales, Rhonchi, Wheezes, Respiratory Distress, Stridor - Cardiovascular Exam Cardiovascular Exam: REGULAR RHYTHM, +S1, +S2 - GI/Abdominal Exam GI & Abdominal Exam: Soft, Normal Bowel Sounds. absent: Distended, Firm, Guarding, Rigid, Tenderness, Rebound Additional comments: suprapubic cath site intact. no purulent discharge. - Exam Additional comments: vasquez cath intact, no purulent discharge. - Extremities Exam Extremities Exam: Normal Capillary Refill, Normal Inspection. absent: Calf Tenderness, Pedal Edema - Back Exam Back Exam: NORMAL INSPECTION - Neurological Exam Neurological Exam: Alert, Awake - Skin Skin Exam: Dry, Intact, Normal Color, Warm Assessment and Plan - Assessment and Plan (Free Text) Assessment: 78 year old male with history of prostate cancer status post radiation, IgA nephropathy, COPD, Atrial fibrillation, Alzheimer's CHF who presents with for leakage and foul odor from suprapubic catheter. Plan: Hematuria, likely secondary newly diagnosed urothelial carcinoma - Suprapubic catheter leakage History of prostate cancer status post radiation -Minimal urine output in bag, now clear urine noted near suprapubic cath site. -Pathology report from prior admission revealed biopsy of bladder neck is indicative of invasive high grade urothelial carcinoma -CT abdomen/pelvis (06/13): Fluid collection in the prevesical space. Suprapubic catheter traverses this collection. No fluid seen within the anterior abdominal wall. Mild ascites. Bilateral pleural effusion. Bilateral hydronephrosis, R> L. 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 Cholelithiasis with mural thickening of the gallbladder. -Urology recs (Dr. hCing) consulted -s/p cystoscopy -c/w flushing, monitor for 1-2 days -BCx: negative after 48 hrs -Wound culture: Enterococcus faecalis, yeast spp. -Urine culture: Enterococcus faecalis, yeast spp. -Rocephin 1g IV Q12 -Vancomycin 1 gm IV daily--held as per Urology, can likely resume tomorrow (06/17) -Proscar 5mg PO daily -Flomax 0.4mg PO HS Hx of Atrial fibrillation ASA held currently Hx of CHF -ASA held -Toprol XL 25mg PO daily -Aldactone 25mg PO daily -Lasix 20mg PO daily: held as per Urology -Losartan 100mg PO daily Hx of COPD Duonebs PRN Hx of Gout Allopurinol 100mg PO daily Alzheimer's dementia Mildly confused at baseline as per . Aricept 10mg PO HS PPx, Diet, Disposition -DVT ppx: scds, lovenox -GI ppx: pepcid 20 PO daily -Diet: HHD -Dispo: f/u further recs as per Urology Case discussed with Dr. Esa Muñiz DO, PGY-1 <Bahman See - Last Filed: 06/16/18 18:40> Objective - Vital Signs/Intake and Output Vital Signs (last 24 hours): Temp Pulse Resp BP Pulse Ox 98.3 F 78 20 153/81 H 98 06/16/18 15:55 06/16/18 15:55 06/16/18 15:55 06/16/18 15:55 06/16/18 15:55 Intake and Output: 06/16/18 06/16/18 06:59 18:59 Intake Total 640 Output Total 1050 580 Balance -410 -580 - Medications Medications: Current Medications Albuterol/Ipratropium (Duoneb 3 Mg/0.5 Mg (3 Ml) Ud) 3 ml INH RQ4 PRN PRN Reason: Shortness of Breath Last Admin: 06/15/18 05:05 Dose: 3 ml Allopurinol (Zyloprim) 100 mg PO DAILY [facility] Last Admin: 06/16/18 10:58 Dose: 100 mg Donepezil HCl (Aricept) 10 mg PO HS [facility] Last Admin: 06/15/18 21:29 Dose: 10 mg Enoxaparin Sodium (Lovenox) 40 mg SC DAILY [facility] Famotidine (Pepcid) 20 mg PO DAILY [facility] Last Admin: 06/16/18 10:58 Dose: 20 mg Finasteride (Proscar) 5 mg PO DAILY [facility] Last Admin: 06/16/18 10:58 Dose: 5 mg Furosemide (Lasix) 20 mg PO DAILY [facility] Last Admin: 06/15/18 10:31 Dose: Not Given Vancomycin HCl 1 gm/ Sodium (Chloride) 250 mls @ 166.7 mls/hr IVPB Q24H [facility]; Protocol Last Admin: 06/15/18 17:13 Dose: Not Given Ceftriaxone Sodium 1 gm/ (Sodium Chloride) 100 mls @ 100 mls/hr IVPB DAILY [facility]; Protocol Losartan Potassium (Cozaar) 100 mg PO DAILY [facility] Last Admin: 06/16/18 10:58 Dose: 100 mg Metoprolol Succinate (Toprol Xl) 25 mg PO DAILY [facility] Last Admin: 06/16/18 10:58 Dose: 25 mg Spironolactone (Aldactone) 25 mg PO DAILY [facility] Last Admin: 06/16/18 10:59 Dose: 25 mg Tamsulosin HCl (Flomax) 0.4 mg PO HS [facility] Last Admin: 06/15/18 21:29 Dose: 0.4 mg - Labs Labs: 06/16/18 06:46 06/16/18 06:46 PT 14.3 SECONDS (9.7-12.2) H 06/13/18 13:44 INR 1.3 06/13/18 13:44 APTT 31 SECONDS (21-34) 06/13/18 13:44 Attending/Attestation - Attestation I have personally seen and examined this patient.: Yes I have fully participated in the care of the patient.: Yes I have reviewed all pertinent clinical information, including history, physical exam and plan: Yes Notes (Text): seen and examined,spoke to Dr ching . recommending to discharge with faley cath and suprapubic cath. Both noted with pink urine,off anticoagulation c\no fever,no leukocytosis,continue ceftriaxone /s/p intrumentation with positive urine cultures. we will d/c on oral amoxicillin d/w CW about discharge plan. patient will get benefit from rehab.lives with his . Pt assessment noted
[2018-06-16 08:33] LABS: ANISOCYTOSIS SLIGHT; HYPOCHROMIC SLIGHT; LYMPHOCYTE 5 % (20-40); MONOCYTE 4 % (0-10); NEUTROPHIL 91 % (50-75); PLATELET ESTIMATE NORMAL (NORMAL); POIKILOCYTOSIS SLIGHT; TOTAL CELLS COUNTED 100
[2018-06-16 08:34] LABS: TARGET CELLS SLIGHT
[2018-06-16] MEDS: Metoprolol Succinate 25 mg XL Tab PO SCH (10:58)
[2018-06-16] MEDS ORDERED: Potassium Chloride 20 mEq ER Tab PO ONE (11:30)
--- NOTE | 2018-06-16 18:04 | PCM.URO ---
Urology Progress Note - General General: No Complaints, Tolerating Diet - Subjective Abdominal Pain: No Flank Pain: No Nausea: No Vomiting: No Hematuria: Yes (mild, clears promptly) Stone Passed: No Dsypnea: No Chest Pain: No Fever & Chills: No - Objective Lab Studies: Reviewed Lab Results Last 24 Hours: Laboratory Results - last 24 hr 06/16/18 06/16/18 06/16/18 06:46 06:46 06:46 WBC 10.0 RBC 3.30 L Hgb 9.7 L Hct 31.0 L MCV 93.9 MCH 29.5 MCHC 31.4 L RDW 15.4 H Plt Count 237 MPV 7.8 Neut % (Auto) 87.9 H Lymph % (Auto) 5.2 L Sullivan % (Auto) 5.5 Eos % (Auto) 0.7 Baso % (Auto) 0.7 Neut # (Auto) 8.8 H Lymph # (Auto) 0.5 L Sullivan # (Auto) 0.5 Eos # (Auto) 0.1 Baso # (Auto) 0.1 Neutrophils % (Manual) 91 H Lymphocytes % (Manual) 5 L Monocytes % (Manual) 4 Platelet Estimate Normal Hypochromasia (manual) Slight Poikilocytosis (manual Slight Anisocytosis (manual) Slight Target Cells Slight Sodium 142 Potassium 3.5 L Chloride 107 Carbon Dioxide 32 H Anion Gap 6 L BUN 28 H Creatinine 1.3 Est GFR ( Amer) > 60 Est GFR (Non-Af Amer) 53 Random Glucose 95 Calcium 8.2 L Phosphorus 3.6 Magnesium 1.9 Total Bilirubin 0.4 AST 23 ALT 20 L Alkaline Phosphatase 80 Total Protein 5.4 L Albumin 2.4 L Globulin 3.0 Albumin/Globulin Ratio 0.8 L Random Vancomycin 7.0 Intake & Output: Intake & Output 06/15/18 06/16/18 06/16/18 18:59 06:59 18:59 Intake Total 1200 640 Output Total 900 1050 580 Balance 300 -410 -580 Intake: IV 600 Intake, IV Amount 100 Left Hand 100 Oral 500 640 Output: Urine 900 1050 580 Suprapubic 850 400 200 Urethral (Ching) 50 650 380 Other: # Bowel Movements 0 0 0 Vital Signs: Vital Signs - 24 hr 06/16/18 06/16/18 06/16/18 00:00 08:12 15:55 Temperature 98.7 F 97.7 F 98.3 F Pulse Rate 92 H 79 78 Respiratory 20 20 20 Rate Blood Pressure 146/77 158/85 H 153/81 H O2 Sat by Pulse 97 98 98 Oximetry - Physical Exam Abdominal Exam: Soft, Non-Tender, Non-Distended Bowel Sounds: Normal Wound: Clean Dressing: Intact Back: No CVA Tenderness Genitalia: Without Inflammation Urinary Catheter Draining Well: Yes Urine Color: Light Brandy - Male Phallus: Normal Scrotum: Normal Testes: Normal: Bilateral - Plan Wound Care: Yes Catheter Care: Yes Intake & Output: Yes Additional Information: IMP: stable p cysto. prostate ca. bladder ca. P/rec: path pending. poss further rx tf - Date & Time of Note Date: 06/16/18 Time: 11:30
--- NOTE | 2018-06-17 07:55 | CP.PCM.PN ---
<Hal Muñiz - Last Filed: 06/17/18 16:39> Subjective - Date & Time of Evaluation Date of Evaluation: 06/17/18 Time of Evaluation: 07:55 - Subjective Subjective: PGY-1 Medicine Progress Note for Dr. See Patient seen and examined at bedside this AM, resting comfortably and in no acute distress. No overnight events reported. Patient remains clinically same, with urine output slightly clearer today. 12 pt ROS reviewed and otherwise negative. Awaiting authorization for discharge to [facility]. Objective - Vital Signs/Intake and Output Vital Signs (last 24 hours): Temp Pulse Resp BP Pulse Ox 97.5 F L 68 20 152/97 H 100 06/17/18 00:00 06/17/18 00:00 06/17/18 00:00 06/17/18 00:00 06/17/18 00:00 Intake and Output: 06/17/18 06/17/18 06:59 18:59 Intake Total 810 Output Total 800 Balance 10 - Medications Medications: Current Medications Albuterol/Ipratropium (Duoneb 3 Mg/0.5 Mg (3 Ml) Ud) 3 ml INH RQ4 PRN PRN Reason: Shortness of Breath Last Admin: 06/15/18 05:05 Dose: 3 ml Allopurinol (Zyloprim) 100 mg PO DAILY [facility] Last Admin: 06/16/18 10:58 Dose: 100 mg Donepezil HCl (Aricept) 10 mg PO HS [facility] Last Admin: 06/16/18 21:24 Dose: 10 mg Enoxaparin Sodium (Lovenox) 40 mg SC DAILY [facility] Famotidine (Pepcid) 20 mg PO DAILY [facility] Last Admin: 06/16/18 10:58 Dose: 20 mg Finasteride (Proscar) 5 mg PO DAILY [facility] Last Admin: 06/16/18 10:58 Dose: 5 mg Furosemide (Lasix) 20 mg PO DAILY [facility] Last Admin: 06/15/18 10:31 Dose: Not Given Vancomycin HCl 1 gm/ Sodium (Chloride) 250 mls @ 166.7 mls/hr IVPB Q24H [facility]; Protocol Last Admin: 06/15/18 17:13 Dose: Not Given Ceftriaxone Sodium 1 gm/ (Sodium Chloride) 100 mls @ 100 mls/hr IVPB DAILY [facility]; Protocol Losartan Potassium (Cozaar) 100 mg PO DAILY [facility] Last Admin: 06/16/18 10:58 Dose: 100 mg Metoprolol Succinate (Toprol Xl) 25 mg PO DAILY [facility] Last Admin: 06/16/18 10:58 Dose: 25 mg Spironolactone (Aldactone) 25 mg PO DAILY [facility] Last Admin: 06/16/18 10:59 Dose: 25 mg Tamsulosin HCl (Flomax) 0.4 mg PO HS [facility] Last Admin: 06/16/18 21:25 Dose: 0.4 mg - Labs Labs: 06/16/18 06:46 06/16/18 06:46 PT 14.3 SECONDS (9.7-12.2) H 06/13/18 13:44 INR 1.3 06/13/18 13:44 APTT 31 SECONDS (21-34) 06/13/18 13:44 - Constitutional Appears: No Acute Distress, Confused, Chronically Ill - Head Exam Head Exam: ATRAUMATIC, NORMAL INSPECTION, NORMOCEPHALIC Additional comments: hemifacial port wine stain - ENT Exam ENT Exam: Mucous Membranes Moist, Normal Exam - Neck Exam Neck Exam: Full ROM, Normal Inspection. absent: Tenderness - Respiratory Exam Respiratory Exam: Clear to Ausculation Bilateral, NORMAL BREATHING PATTERN. absent: Accessory Muscle Use, Rales, Rhonchi, Wheezes, Respiratory Distress, Stridor - Cardiovascular Exam Cardiovascular Exam: REGULAR RHYTHM, +S1, +S2 - GI/Abdominal Exam GI & Abdominal Exam: Soft, Normal Bowel Sounds. absent: Distended, Firm, Guarding, Rigid, Tenderness, Rebound Additional comments: suprapubic cath site intact. no purulent discharge. - Exam Additional comments: vasquez cath intact, no purulent discharge. - Neurological Exam Neurological Exam: Alert, Awake - Skin Skin Exam: Dry, Intact, Normal Color, Warm Assessment and Plan - Assessment and Plan (Free Text) Assessment: 78 year old male with history of prostate cancer status post radiation, IgA nephropathy, COPD, Atrial fibrillation, Alzheimer's CHF who presents with for leakage and foul odor from suprapubic catheter. Plan: Hematuria, likely secondary newly diagnosed urothelial carcinoma - Suprapubic catheter leakage History of prostate cancer status post radiation -Minimal urine output in bag, now clear urine noted near suprapubic cath site. -Pathology report from prior admission revealed biopsy of bladder neck is indicative of invasive high grade urothelial carcinoma -Urology recs (Dr. Ching) appreciated -BCx: negative -Wound culture: Enterococcus faecalis, yeast spp. -Urine culture: Enterococcus faecalis, yeast spp. -CT abdomen/pelvis (06/13): Fluid collection in the prevesical space. Suprapubic catheter traverses this collection. No fluid seen within the anterior abdominal wall. Mild ascites. Bilateral pleural effusion. Bilateral hydronephrosis, R> L. 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 Cholelithiasis with mural thickening of the gall bladder. -c/w rocephin 1g IV Q12 -vancomycin d/c'd as culture growth likely due to instrumentation. Pt afebrile, no leukocytosis. -Proscar 5mg PO daily -Flomax 0.4mg PO HS Hx of Atrial fibrillation -ASA held currently Hx of CHF -ASA held -Toprol XL 25mg PO daily -Aldactone 25mg PO daily -Lasix 20mg PO daily: held as per Urology -Losartan 100mg PO daily Hx of COPD Duonebs PRN Hx of Gout Allopurinol 100mg PO daily Alzheimer's dementia Mildly confused at baseline as per . Aricept 10mg PO HS PPx, Diet, Disposition -DVT ppx: scds, lovenox -GI ppx: pepcid 20 PO daily -Diet: HHD -Dispo: Per Urology recs, pt to be d/c'd with vasquez and suprapubic cath intact. Will d/c on oral amoxicillin and lactobacillus x 5days. Discussed with CW about d/c plan, awaiting for [facility] authorization. Patient's family instructed to f/u with Dr. Ching in 2 weeks. Case discussed with Dr. Esa Muñiz DO, PGY-1 <Bahman See - Last Filed: 06/23/18 12:01> Objective - Vital Signs/Intake and Output Vital Signs (last 24 hours): Temp Pulse Resp BP Pulse Ox 98.3 F 119 H 32 H 92/58 L 89 L 06/21/18 15:00 06/22/18 01:00 06/22/18 00:00 06/22/18 00:00 06/22/18 00:00 - Labs Labs: 06/20/18 08:12 06/21/18 06:47 PT 14.3 SECONDS (9.7-12.2) H 06/13/18 13:44 INR 1.3 06/13/18 13:44 APTT 31 SECONDS (21-34) 06/13/18 13:44 Attending/Attestation - Attestation I have personally seen and examined this patient.: Yes I have fully participated in the care of the patient.: Yes I have reviewed all pertinent clinical information, including history, physical exam and plan: Yes Notes (Text): seen and examined by me.assessment and plan discussed with the resident and I agreree with the documentation
[2018-06-17 08:11] LABS: BASO % 0.5 % (0.0-2.0); EOS # 0.2 K/uL (0.0-0.7); EOS % 1.6 % (0.0-4.0); HEMOGLOBIN 9.8 g/dL (12.0-18.0); LYMPH # 0.6 K/uL (1.0-4.3); LYMPH % 6.1 % (20.0-40.0); MEAN CELL VOLUME 93.4 fL (80.0-94.0); MEAN CORPUSCULAR HEMOGLOBIN 30.1 pg (27.0-31.0); MEAN CORPUSCULAR HGB CONC 32.2 g/dL (33.0-37.0); MEAN PLATELET VOLUME 8.4 fL (7.2-11.7); MONO # 0.5 K/uL (0.0-0.8); MONO % 5.4 % (0.0-10.0); NEUT % 86.4 % (50.0-75.0); NRBC % 0.1 % (0.0-2.0); PLATELET COUNT 207 K/uL (130-400); RBC 3.24 Mil/uL (4.40-5.90); RED CELL DISTRIBUTION WIDTH 15.2 % (11.5-14.5); WHITE BLOOD COUNT 9.2 K/uL (4.8-10.8)
[2018-06-17 08:16] LABS: ALB/GLOB RATIO 0.8 (1.0-2.1); ALBUMIN 2.5 g/dL (3.5-5.0); CALCIUM 8.2 mg/dl (8.6-10.4)
[2018-06-17 09:18] LABS: ANISOCYTOSIS SLIGHT; HYPOCHROMIC SLIGHT; LYMPHOCYTE 6 % (20-40); MONOCYTE 5 % (0-10); NEUTROPHIL 89 % (50-75); PLATELET ESTIMATE NORMAL (NORMAL); POIKILOCYTOSIS SLIGHT; TOTAL CELLS COUNTED 100
[2018-06-17 09:19] LABS: LARGE PLATELETS PRESENT; TARGET CELLS SLIGHT
[2018-06-17] MEDS: Metoprolol Succinate 25 mg XL Tab PO SCH (09:29)
[2018-06-17] MEDS: Enoxaparin 40 mg Syringe SC SCH (09:29)
[2018-06-17] MEDS ORDERED: Potassium Chloride 20 mEq ER Tab PO ONE (10:15)
--- NOTE | 2018-06-17 21:17 | VASCLAB ---
Date of service: 06/14/2018 PROCEDURE: Right Upper Extremity Venous Duplex Exam HISTORY: Right hand swelling PRIORS: None. TECHNIQUE: Right upper extremity, internal jugular, subclavian, axillary, brachial, ulnar, radial, basilic and upper cephalic veins were evaluated. Flow was assessed with color Doppler, compressibility, assessment of phasic flow and augmentation response. Report prepared by Freeman Moscoso, ALLISON, RVT FINDINGS: RIGHT: 1. Internal Jugular: 1.1. Compressibility - Fully compressible: Thrombus - None : Flow - Phasic: Augmentation -Normal: Reflux - None. 2. Subclavian: 2.1. Compressibility - Fully compressible: Thrombus - None : Flow - Phasic: Augmentation -Normal: Reflux - None. 3. Axillary: 3.1. Compressibility - Fully compressible: Thrombus - None : Flow - Phasic: Augmentation -Normal: Reflux - None. 4. Brachial: 4.1. Compressibility - Fully compressible: Thrombus - None: Flow - Phasic: Augmentation -Normal: Reflux - None. 5. Ulnar: 5.1. Compressibility - Fully compressible: Thrombus - None: Flow - Phasic: Augmentation -Normal: Reflux - None. 6. Radial: 6.1. Compressibility - Fully compressible: Thrombus - None: Flow - Phasic: Augmentation - Normal: Reflux - None. 7. Cephalic: 7.1. Compressibility - Fully compressible: Thrombus - None: Flow - Phasic: Augmentation -Normal: Reflux - None. 8. Basilic: 8.1. Compressibility - Fully compressible: Thrombus - None: Flow - Phasic: Augmentation -Normal: Reflux - None. OTHER FINDINGS: Normal venous flow noted in the left internal jugular and LEFT subclavian veins. IMPRESSION: Right: No evidence of vein thrombosis of the right upper extremity with excellent venous flow. Normal valve function noted of the right side.
--- NOTE | 2018-06-17 22:01 | OP ---
PROCEDURE DATE: 06/15/2018 PREOPERATIVE DIAGNOSES: History of hematuria. History of prostate carcinoma. Bladder carcinoma. PROCEDURES: Cystogram. Change of cystostomy tube. Cystoscopy. Transurethral resection of bladder tumor. Transurethral resection of bladder neck. Transurethral resection of prostate. Exam under anesthesia. OPERATING SURGEON: Rosalva Ching MD DESCRIPTION OF PROCEDURE: The patient was in the supine position. The indwelling 12-Hungarian cystostomy tube was removed after prepping the cystostomy tube site in a sterile fashion. A 12-Hungarian catheter was removed. An 18-Hungarian Ching catheter was inserted through the cystostomy tube track into the bladder without difficulty. The urine was sent for bacteriologic examination. Iodinated contrast dye was instilled and confirmed proper position of the cystostomy tube. The patient was then placed in lithotomy position. Genitalia prepped and draped sterilely. Anesthesia was provided by the anesthesiologist. Procedure was performed under fluoroscopic control as well as video endoscopic control. A 26-Hungarian continuous flow resectoscope sheath was introduced under direct vision using the visual obturator. The anterior urethra was normal. The prostatic urethra demonstrated moderate amount of debris and necrotic white tissue within the prostatic urethra. There was a false passage posteriorly at the bladder neck entering into a cavity behind the bladder. Under direct vision, the anterior proper passage into the bladder was traversed. The bladder was inspected. There were multiple seeds within the bladder which were removed using the rigid grasping forceps and the cystoscope attachments. The resectoscope was inserted. The abnormal tissue located on the right and left sides of the bladder were resected. Hemostasis was achieved using electrocautery. Tissue was resected also at the bladder neck and the prostatic urethra. The specimens were sent separately for pathologic examination. The cystoscope attachments and bridge were then used with the resectoscope. A 5-Hungarian ureteral catheter was placed under direct vision into the bladder. The cystostomy tube was identified within the bladder as well. The resectoscope and sheath were removed. A Councill tip catheter was inserted over the ureteral catheter into the bladder. Bladder drainage was clear. Cystogram was again performed via the Ching catheter this time and demonstrated proper position of the catheter within the bladder. The bladder drainage was clear. Exam under anesthesia was performed. There was moderate induration of the bladder on both sides with mild fixation noted. The patient was returned to the supine position. The patient tolerated the procedure without complication. Nellis MD Jeane cc: DO Julien Quintana MD
[2018-06-18] MEDS: Enoxaparin 40 mg Syringe SC SCH (10:26)
[2018-06-18] MEDS: Metoprolol Succinate 25 mg XL Tab PO SCH (10:27)
--- NOTE | 2018-06-18 16:10 | PCM.URO ---
Urology Progress Note - Objective Lab Studies: Reviewed (no gu changes) Intake & Output: Intake & Output 06/17/18 06/18/18 06/18/18 18:59 06:59 18:59 Intake Total 360 150 580 Output Total 170 400 70 Balance 190 -250 510 Intake: Intake, IV Amount 100 Left Hand 100 Oral 360 150 480 Output: Urine 170 400 70 Suprapubic 20 150 20 Urethral (Ching) 150 250 50 Other: # Bowel Movements 1 0 Vital Signs: Vital Signs - 24 hr 06/18/18 06/18/18 00:00 08:00 Temperature 98.7 F 97.5 F L Pulse Rate 90 75 Respiratory 20 20 Rate Blood Pressure 168/84 H 156/95 H O2 Sat by Pulse 100 100 Oximetry
--- NOTE | 2018-06-18 19:30 | CP.PCM.PN ---
<Hal Muñiz - Last Filed: 06/18/18 19:27> Subjective - Date & Time of Evaluation Date of Evaluation: 06/18/18 Time of Evaluation: 19:27 - Subjective Subjective: PGY-1 Medicine Progress Note for Dr. See Patient seen and examined at bedside, resting comfortably. No acute overnight events, no acute somatic complaints. No acute bleeding noted. Patient remains clinically same. Awaiting [facility] authorization. Objective - Vital Signs/Intake and Output Vital Signs (last 24 hours): Temp Pulse Resp BP Pulse Ox 98.7 F 79 20 151/84 H 98 06/18/18 16:00 06/18/18 16:00 06/18/18 16:00 06/18/18 16:00 06/18/18 16:00 Intake and Output: 06/18/18 06/19/18 18:59 06:59 Intake Total 580 Output Total 70 Balance 510 - Medications Medications: Current Medications Albuterol/Ipratropium (Duoneb 3 Mg/0.5 Mg (3 Ml) Ud) 3 ml INH RQ4 PRN PRN Reason: Shortness of Breath Last Admin: 06/15/18 05:05 Dose: 3 ml Allopurinol (Zyloprim) 100 mg PO DAILY [facility] Last Admin: 06/18/18 10:27 Dose: 100 mg Donepezil HCl (Aricept) 10 mg PO HS [facility] Last Admin: 06/17/18 21:53 Dose: 10 mg Enoxaparin Sodium (Lovenox) 40 mg SC DAILY [facility] Last Admin: 06/18/18 10:26 Dose: 40 mg Famotidine (Pepcid) 20 mg PO DAILY [facility] Last Admin: 06/18/18 10:26 Dose: 20 mg Finasteride (Proscar) 5 mg PO DAILY [facility] Last Admin: 06/18/18 10:26 Dose: 5 mg Furosemide (Lasix) 20 mg PO DAILY [facility] Last Admin: 06/15/18 10:31 Dose: Not Given Ceftriaxone Sodium 1 gm/ (Sodium Chloride) 100 mls @ 100 mls/hr IVPB DAILY [facility]; Protocol Last Admin: 06/18/18 10:25 Dose: 100 mls/hr Losartan Potassium (Cozaar) 100 mg PO DAILY [facility] Last Admin: 06/18/18 10:27 Dose: 100 mg Metoprolol Succinate (Toprol Xl) 25 mg PO DAILY [facility] Last Admin: 06/18/18 10:27 Dose: 25 mg Spironolactone (Aldactone) 25 mg PO DAILY [facility] Last Admin: 06/18/18 10:27 Dose: 25 mg Tamsulosin HCl (Flomax) 0.4 mg PO HS [facility] Last Admin: 06/17/18 21:53 Dose: 0.4 mg - Labs Labs: 06/17/18 07:50 06/17/18 07:50 PT 14.3 SECONDS (9.7-12.2) H 06/13/18 13:44 INR 1.3 06/13/18 13:44 APTT 31 SECONDS (21-34) 06/13/18 13:44 - Constitutional Appears: Non-toxic, No Acute Distress, Confused, Chronically Ill - Head Exam Head Exam: ATRAUMATIC, NORMAL INSPECTION, NORMOCEPHALIC Additional comments: hemifacial port wine stain - Eye Exam Eye Exam: EOMI, Normal appearance Pupil Exam: NORMAL ACCOMODATION - ENT Exam ENT Exam: Mucous Membranes Moist, Normal Exam - Neck Exam Neck Exam: Full ROM, Normal Inspection - Respiratory Exam Respiratory Exam: Clear to Ausculation Bilateral, NORMAL BREATHING PATTERN. absent: Accessory Muscle Use, Rales, Rhonchi, Wheezes, Respiratory Distress, Stridor - Cardiovascular Exam Cardiovascular Exam: REGULAR RHYTHM, +S1, +S2 - GI/Abdominal Exam GI & Abdominal Exam: Soft, Normal Bowel Sounds. absent: Distended, Firm, Guarding, Rigid, Tenderness Additional comments: suprapubic cath site intact. no purulent discharge. - Exam Additional comments: vasquez cath intact, no purulent discharge. - Neurological Exam Neurological Exam: Alert, Awake - Skin Skin Exam: Dry, Intact, Normal Color, Warm Assessment and Plan - Assessment and Plan (Free Text) Assessment: 78 year old male with history of prostate cancer status post radiation, IgA nephropathy, COPD, Atrial fibrillation, Alzheimer's CHF who presents with for leakage and foul odor from suprapubic catheter. Plan: Hematuria, likely secondary newly diagnosed urothelial carcinoma - Suprapubic catheter leakage History of prostate cancer status post radiation -Minimal urine output in bag, now clear urine noted near suprapubic cath site. -Pathology report from prior admission revealed biopsy of bladder neck is indicative of invasive high grade urothelial carcinoma -Urology recs (Dr. Ching) appreciated -BCx: negative -Wound culture: Enterococcus faecalis, yeast spp. -Urine culture: Enterococcus faecalis, yeast spp. -CT abdomen/pelvis (06/13): Fluid collection in the prevesical space. Suprapubic catheter traverses this collection. No fluid seen within the anterior abdominal wall. Mild ascites. Bilateral pleural effusion. Bilateral hydronephrosis, R> L. 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 Cholelithiasis with mural thickening of the gallbladder. -c/w rocephin 1g IV Q12 -vancomycin d/c'd as culture growth likely due to instrumentation. Pt afebrile, no leukocytosis. -Proscar 5mg PO daily -Flomax 0.4mg PO HS Hx of Atrial fibrillation -ASA held currently Hx of CHF -ASA held -Toprol XL 25mg PO daily -Aldactone 25mg PO daily -Lasix 20mg PO daily: held as per Urology -Losartan 100mg PO daily Hx of COPD -Duonebs PRN Hx of Gout -Allopurinol 100mg PO daily Alzheimer's dementia -Mildly confused at baseline as per . -Aricept 10mg PO HS PPx, Diet, Disposition -DVT ppx: scds, lovenox -GI ppx: pepcid 20 PO daily -Diet: HHD -Dispo: Per Urology recs, pt to be d/c'd with vasquez and suprapubic cath intact. Will d/c on oral amoxicillin and lactobacillus x 5days. Discussed with CW about d/c plan, awaiting for [facility] authorization. Patient's family instructed to f/u with Dr. Ching in 2 weeks. Case discussed with Dr. Esa Muñiz DO, PGY-1 <Bahman See - Last Filed: 06/19/18 20:03> Objective - Vital Signs/Intake and Output Vital Signs (last 24 hours): Temp Pulse Resp BP Pulse Ox 97.1 F L 90 20 148/90 100 06/19/18 15:30 06/19/18 15:30 06/19/18 15:30 06/19/18 15:30 06/19/18 15:30 Intake and Output: 06/19/18 06/19/18 06:59 18:59 Intake Total 240 150 Output Total 200 150 Balance 40 0 - Medications Medications: Current Medications Acetylcysteine (Acetylcysteine 20%) 4 ml INH RQ6 [facility] Last Admin: 06/19/18 13:22 Dose: 4 ml Albuterol/Ipratropium (Duoneb 3 Mg/0.5 Mg (3 Ml) Ud) 3 ml INH RQ6 [facility] Last Admin: 06/19/18 13:22 Dose: 3 ml Allopurinol (Zyloprim) 100 mg PO DAILY [facility] Last Admin: 06/19/18 09:32 Dose: 100 mg Donepezil HCl (Aricept) 10 mg PO HS [facility] Last Admin: 06/18/18 21:52 Dose: 10 mg Famotidine (Pepcid) 20 mg PO DAILY [facility] Last Admin: 06/19/18 09:30 Dose: 20 mg Finasteride (Proscar) 5 mg PO DAILY [facility] Last Admin: 06/19/18 09:30 Dose: 5 mg Furosemide (Lasix) 20 mg PO DAILY [facility] Last Admin: 06/15/18 10:31 Dose: Not Given Heparin Sodium (Porcine) (Heparin) 5,000 units SC Q8 [facility] Last Admin: 06/19/18 15:00 Dose: Not Given Ceftriaxone Sodium 1 gm/ (Sodium Chloride) 100 mls @ 100 mls/hr IVPB DAILY [facility]; Protocol Last Admin: 06/19/18 11:00 Dose: 100 mls/hr Sodium Chloride (Sodium Chloride 0.9%) 1,000 mls @ 100 mls/hr IV .Q10H [facility] Last Admin: 06/19/18 12:55 Dose: 100 mls/hr Losartan Potassium (Cozaar) 100 mg PO DAILY [facility] Last Admin: 06/19/18 09:31 Dose: 100 mg Metoprolol Succinate (Toprol Xl) 25 mg PO DAILY [facility] Last Admin: 06/19/18 11:00 Dose: 25 mg Spironolactone (Aldactone) 25 mg PO DAILY [facility] Last Admin: 06/19/18 09:31 Dose: 25 mg Tamsulosin HCl (Flomax) 0.4 mg PO HS [facility] Last Admin: 06/18/18 21:52 Dose: 0.4 mg - Labs Labs: 06/19/18 06:30 06/19/18 11:37 PT 14.3 SECONDS (9.7-12.2) H 06/13/18 13:44 INR 1.3 06/13/18 13:44 APTT 31 SECONDS (21-34) 06/13/18 13:44 Attending/Attestation - Attestation I have personally seen and examined this patient.: Yes I have fully participated in the care of the patient.: Yes I have reviewed all pertinent clinical information, including history, physical exam and plan: Yes Notes (Text): Patient was seen and examined with the resident.Patient is lying down,no complain,Lasix on hold,patient's urine is not bloody,draining less urine. Dr Frias was called. Flushed with RN,monitor out put.we will monitor urine out put,follow up with urologist.Monitor creatinine
--- NOTE | 2018-06-18 23:42 | CP.PCM.PN ---
<Ronn Franco - Last Filed: 06/19/18 01:03> Subjective - Date & Time of Evaluation Date of Evaluation: 06/19/18 Time of Evaluation: :03 - Subjective Subjective: PGY-1 Medicine Progress Note for Dr. See Patient seen and examined at bedside, resting comfortably. No acute overnight events, no acute somatic complaints. No acute bleeding noted. Patient remains clinically same. Awaiting [facility] authorization. Pt is noted be congested, will add mucomyst with duoneb treatments. Denies chest pain, sob, headache, numbness or tingling. Objective - Vital Signs/Intake and Output Vital Signs (last 24 hours): Temp Pulse Resp BP Pulse Ox 98.7 F 79 20 151/84 H 98 06/18/18 16:00 06/18/18 16:00 06/18/18 16:00 06/18/18 16:00 06/18/18 16:00 Intake and Output: 06/18/18 06/19/18 18:59 06:59 Intake Total 580 240 Output Total 70 200 Balance 510 40 - Medications Medications: Current Medications Albuterol/Ipratropium (Duoneb 3 Mg/0.5 Mg (3 Ml) Ud) 3 ml INH RQ4 PRN PRN Reason: Shortness of Breath Last Admin: 06/15/18 05:05 Dose: 3 ml Allopurinol (Zyloprim) 100 mg PO DAILY [facility] Last Admin: 06/18/18 10:27 Dose: 100 mg Donepezil HCl (Aricept) 10 mg PO HS [facility] Last Admin: 06/18/18 21:52 Dose: 10 mg Enoxaparin Sodium (Lovenox) 40 mg SC DAILY [facility] Last Admin: 06/18/18 10:26 Dose: 40 mg Famotidine (Pepcid) 20 mg PO DAILY [facility] Last Admin: 06/18/18 10:26 Dose: 20 mg Finasteride (Proscar) 5 mg PO DAILY [facility] Last Admin: 06/18/18 10:26 Dose: 5 mg Furosemide (Lasix) 20 mg PO DAILY [facility] Last Admin: 06/15/18 10:31 Dose: Not Given Ceftriaxone Sodium 1 gm/ (Sodium Chloride) 100 mls @ 100 mls/hr IVPB DAILY [facility]; Protocol Last Admin: 06/18/18 10:25 Dose: 100 mls/hr Losartan Potassium (Cozaar) 100 mg PO DAILY [facility] Last Admin: 06/18/18 10:27 Dose: 100 mg Metoprolol Succinate (Toprol Xl) 25 mg PO DAILY [facility] Last Admin: 06/18/18 10:27 Dose: 25 mg Spironolactone (Aldactone) 25 mg PO DAILY [facility] Last Admin: 06/18/18 10:27 Dose: 25 mg Tamsulosin HCl (Flomax) 0.4 mg PO HS [facility] Last Admin: 06/18/18 21:52 Dose: 0.4 mg - Labs Labs: 06/17/18 07:50 06/17/18 07:50 PT 14.3 SECONDS (9.7-12.2) H 06/13/18 13:44 INR 1.3 06/13/18 13:44 APTT 31 SECONDS (21-34) 06/13/18 13:44 - Additional Findings Additional findings: - Constitutional Appears: Non-toxic, No Acute Distress, Confused, Chronically Ill - Head Exam Head Exam: ATRAUMATIC, NORMAL INSPECTION, NORMOCEPHALIC Additional comments: hemifacial port wine stain - Eye Exam Eye Exam: EOMI, Normal appearance Pupil Exam: NORMAL ACCOMODATION - ENT Exam ENT Exam: Mucous Membranes Moist, Normal Exam - Neck Exam Neck Exam: Full ROM, Normal Inspection - Respiratory Exam Respiratory Exam: Rhonchi bilaterally, NORMAL BREATHING PATTERN. absent: Accessory Muscle Use, Rales, Rhonchi, Wheezes, Respiratory Distress, Stridor - Cardiovascular Exam Cardiovascular Exam: REGULAR RHYTHM, +S1, +S2 - GI/Abdominal Exam GI & Abdominal Exam: Soft, Normal Bowel Sounds. absent: Distended, Firm, Guarding, Rigid, Tenderness Additional comments: suprapubic cath site intact. no purulent discharge. - Exam Additional comments: vasquez cath intact, no purulent discharge. - Neurological Exam Neurological Exam: Alert, Awake - Skin Skin Exam: Dry, Intact, Normal Color, Warm Assessment and Plan - Assessment and Plan (Free Text) Assessment: 78 year old male with history of prostate cancer status post radiation, IgA nephropathy, COPD, Atrial fibrillation, Alzheimer's CHF who presents with for leakage and foul odor from suprapubic catheter. Plan: Hematuria, likely secondary newly diagnosed urothelial carcinoma - Suprapubic catheter leakage History of prostate cancer status post radiation -Minimal urine output in bag, now clear urine noted near suprapubic cath site. -Pathology report from prior admission revealed biopsy of bladder neck is indicative of invasive high grade urothelial carcinoma -Urology recs (Dr. Ching) appreciated -BCx: negative -Wound culture: Enterococcus faecalis, yeast spp. -Urine culture: Enterococcus faecalis, yeast spp. -CT abdomen/pelvis (06/13): Fluid collection in the prevesical space. Suprapubic catheter traverses this collection. No fluid seen within the anterior abdominal wall. Mild ascites. Bilateral pleural effusion. Bilateral hydronephrosis, R> L. 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 Cholelithiasis with mural thickening of the gallbladder. -c/w rocephin 1g IV Q12 -vancomycin d/c'd as culture growth likely due to instrumentation. Pt afebrile, no leukocytosis. -Proscar 5mg PO daily -Flomax 0.4mg PO HS Hx of Atrial fibrillation -ASA held currently Hx of CHF -ASA held -Toprol XL 25mg PO daily -Aldactone 25mg PO daily -Lasix 20mg PO daily: held as per Urology -Losartan 100mg PO daily Hx of COPD -Duonebs q6 -added mucomyst q6 Hx of Gout -Allopurinol 100mg PO daily Alzheimer's dementia -Mildly confused at baseline as per . -Aricept 10mg PO HS PPx, Diet, Disposition -DVT ppx: scds, lovenox -GI ppx: pepcid 20 PO daily -Diet: HHD -Dispo: Per Urology recs, pt to be d/c'd with vasquez and suprapubic cath intact. Will d/c on oral amoxicillin and lactobacillus x 5days. [facility] authorization pending. Patient's family instructed to f/u with Dr. Ching in 2 weeks. <Bahman See - Last Filed: 06/19/18 20:02> Objective - Vital Signs/Intake and Output Vital Signs (last 24 hours): Temp Pulse Resp BP Pulse Ox 97.1 F L 90 20 148/90 100 06/19/18 15:30 06/19/18 15:30 06/19/18 15:30 06/19/18 15:30 06/19/18 15:30 Intake and Output: 06/19/18 06/20/18 18:59 06:59 Intake Total 150 Output Total 150 Balance 0 - Medications Medications: Current Medications Acetylcysteine (Acetylcysteine 20%) 4 ml INH RQ6 [facility] Last Admin: 06/19/18 19:22 Dose: Not Given Albuterol/Ipratropium (Duoneb 3 Mg/0.5 Mg (3 Ml) Ud) 3 ml INH RQ6 [facility] Last Admin: 06/19/18 19:22 Dose: Not Given Allopurinol (Zyloprim) 100 mg PO DAILY [facility] Last Admin: 06/19/18 09:32 Dose: 100 mg Donepezil HCl (Aricept) 10 mg PO HS [facility] Last Admin: 06/18/18 21:52 Dose: 10 mg Famotidine (Pepcid) 20 mg PO DAILY [facility] Last Admin: 06/19/18 09:30 Dose: 20 mg Finasteride (Proscar) 5 mg PO DAILY [facility] Last Admin: 06/19/18 09:30 Dose: 5 mg Furosemide (Lasix) 20 mg PO DAILY [facility] Last Admin: 06/15/18 10:31 Dose: Not Given Furosemide (Lasix) 100 mg IVP ONCE ONE Stop: 06/19/18 19:46 Heparin Sodium (Porcine) (Heparin) 5,000 units SC Q8 [facility] Last Admin: 06/19/18 15:00 Dose: Not Given Ceftriaxone Sodium 1 gm/ (Sodium Chloride) 100 mls @ 100 mls/hr IVPB DAILY [facility]; Protocol Last Admin: 06/19/18 11:00 Dose: 100 mls/hr Losartan Potassium (Cozaar) 100 mg PO DAILY [facility] Last Admin: 06/19/18 09:31 Dose: 100 mg Metoprolol Succinate (Toprol Xl) 25 mg PO DAILY [facility] Last Admin: 06/19/18 11:00 Dose: 25 mg Oxycodone HCl (Oxycodone Immediate Release Tab) 5 mg PO Q6 PRN PRN Reason: Pain, moderate (4-7) Spironolactone (Aldactone) 25 mg PO DAILY [facility] Last Admin: 06/19/18 09:31 Dose: 25 mg Tamsulosin HCl (Flomax) 0.4 mg PO HS [facility] Last Admin: 06/18/18 21:52 Dose: 0.4 mg - Labs Labs: 06/19/18 06:30 06/19/18 11:37 PT 14.3 SECONDS (9.7-12.2) H 06/13/18 13:44 INR 1.3 06/13/18 13:44 APTT 31 SECONDS (21-34) 06/13/18 13:44 Attending/Attestation - Attestation I have personally seen and examined this patient.: Yes I have fully participated in the care of the patient.: Yes I have reviewed all pertinent clinical information, including history, physical exam and plan: Yes Notes (Text): Patient was seen and examined this morning. Patient was lying on the bed with mild dyspnea. He denies any pain, no nausea vomiting diarrhea, no abdominal pain, patient was eating poorly as per RN at bedside. When I went to see him patient was sleeping. On examination patient was awake, follows simple commands , lungs with diminished breath sounds at bases, abdomen soft nontender, bladder done with distended Vasquez cath suprapubic cath in place, no suprapubic leak noted. Has pink urine draining from cath. No focal weakness. No fever. Discussed with acoustics teacher Dr. Avalos about patient's elevated creatinine. recommended to repeat stat BMP. Repeat BMP shows elevated creatinine. Spoke to Dr. Robbie Frias about low urine output and elevated creatinine. CT abdomen pelvis and chest without contrast. Chest x-ray shows pleural effusion and patient was mildly short of breath chest CT was added. Due to mental status changes CT brain was done to rule out any acute pathology. CT brain shows no acute stroke. Blood culture done. CT chest was reviewed by Dr. Frias. He will discuss about possible nephrostomy after see has tomorrow's creatinine. Spoke to Dr. Avalos. Decided to give clear liquids stop IV fluids and follow tomorrow's creatinine. Patient's bladder biopsy pathology report final diagnosis shows high-grade urothelial carcinoma. As per Dr. Frias he is not a candidate for radiation and cystectomy. Patient's prognosis is not that great due to his dementia heart failure and multiple medical problems. Dr. Frias recommended to get oncologist opinion for possible chemo therapy. Spoke to patient's at bedside with Portuguese speaking president. She was explained about acute renal failure and possibility of nephrostomy tube place ment. We also discussed about his cancer treatment. As per his he is more confused lately. Discussed about having a family meeting and get palliative care on board. wants to discuss with her family.Not decided about code status. Full code at this time
[2018-06-19] MEDS: Albuterol-Ipratrop 3 mg / 0.5 (3 ml) UD INH SCH ×4 (03:10→19:22)
[2018-06-19] MEDS: Acetylcysteine 20% Inhal Soln (4ml) INH SCH ×4 (03:10→19:22)
[2018-06-19 06:53] LABS: BASO % 0.5 % (0.0-2.0); EOS % 0.2 % (0.0-4.0); HEMOGLOBIN 9.8 g/dL (12.0-18.0); LYMPH # 0.4 K/uL (1.0-4.3); LYMPH % 4.1 % (20.0-40.0); MEAN CORPUSCULAR HEMOGLOBIN 30.1 pg (27.0-31.0); MEAN CORPUSCULAR HGB CONC 32.3 g/dL (33.0-37.0); MEAN PLATELET VOLUME 8.4 fL (7.2-11.7); MONO # 0.3 K/uL (0.0-0.8); NEUT # 7.9 K/uL (1.8-7.0); NEUT % 91.2 % (50.0-75.0); PLATELET COUNT 191 K/uL (130-400); RBC 3.25 Mil/uL (4.40-5.90); RED CELL DISTRIBUTION WIDTH 15.1 % (11.5-14.5); WHITE BLOOD COUNT 8.6 K/uL (4.8-10.8)
[2018-06-19 06:54] LABS: ALB/GLOB RATIO 0.8 (1.0-2.1); ALBUMIN 2.6 g/dL (3.5-5.0); CALCIUM 8.4 mg/dl (8.6-10.4)
[2018-06-19 08:57] LABS: BANDS 1 % (0-2); LYMPHOCYTE 5 % (20-40); MONOCYTE 4 % (0-10); NEUTROPHIL 90 % (50-75); PLATELET ESTIMATE NORMAL (NORMAL); TOTAL CELLS COUNTED 100
[2018-06-19 08:58] LABS: ANISOCYTOSIS SLIGHT; OVALOCYTES SLIGHT; POIKILOCYTOSIS SLIGHT
[2018-06-19 08:59] LABS: TEARDROP CELLS SLIGHT
[2018-06-19] MEDS: Enoxaparin 40 mg Syringe SC SCH (09:30)
[2018-06-19] MEDS: Metoprolol Succinate 25 mg XL Tab PO SCH (11:00)
[2018-06-19 12:03] LABS: CALCIUM 8.4 mg/dl (8.6-10.4)
[2018-06-19] MEDS ORDERED: Sodium Chloride 0.9% 1,000 ML IV SCH (12:30)
--- NOTE | 2018-06-19 15:01 | CT ---
Date of service: 06/19/2018 PROCEDURE: CT HEAD WITHOUT CONTRAST. HISTORY: AMS COMPARISON: None available. TECHNIQUE: Axial computed tomography images were obtained through the head/brain without intravenous contrast. Radiation dose: Total exam DLP = 1134.39 mGy-cm. This CT exam was performed using one or more of the following dose reduction techniques: Automated exposure control, adjustment of the mA and/or kV according to patient size, and/or use of iterative reconstruction technique. FINDINGS: Study is limited by motion artifact HEMORRHAGE: No acute parenchymal, subarachnoid or extra-axial hemorrhage. BRAIN: Suspect minor chronic periventricular white matter ischemic changes.. There are also small chronic bilateral basal nuclei lacunar type infarcts. Moderate generalized volume loss. VENTRICLES: No obstructive hydrocephalus. CALVARIUM: Unremarkable. PARANASAL SINUSES: Unremarkable as visualized. No significant inflammatory changes. MASTOID AIR CELLS: Right mastoid air complex is sclerotic and underpneumatized. OTHER FINDINGS: None. IMPRESSION: No acute intracranial hemorrhage. Mild chronic white matter ischemic changes. Chronic bilateral basal nuclei lacunar type infarcts. Moderate generalized volume loss.
--- NOTE | 2018-06-19 16:10 | RAD ---
Date of service: 06/19/2018 HISTORY: dyspnea COMPARISON: Comparison chest dated 07/02/2018.. Correlation also made with concurrent CT scan chest FINDINGS: LUNGS: Redemonstrated are large of left and moderate-sized right-sided effusions with mild bibasilar atelectasis. Central pulmonary vasculature appears slightly congested as well. PLEURA: As above. No pneumothorax apparent. CARDIOVASCULAR: . Mild aortic atherosclerotic calcification present. Normal. Heart remains enlarged OSSEOUS STRUCTURES: No significant abnormalities. VISUALIZED UPPER ABDOMEN: Normal. OTHER FINDINGS: None. IMPRESSION: Redemonstrated are large of left and moderate-sized right-sided effusions with mild bibasilar atelectasis. Central pulmonary vasculature appears slightly congested as well.
--- NOTE | 2018-06-19 16:53 | CT ---
Date of service: 06/19/2018 PROCEDURE: CT Chest, Abdomen and Pelvis without intravenous contrast HISTORY: ARF, rule out obstruction, bladder and prostate carcinoma COMPARISON: None available. TECHNIQUE: Contiguous helical/transaxial sections of the chest abdomen pelvis performed without oral or intravenous contrast material. Additional 2D sagittal and coronal reformats generated. Comparison made with CT chest 03/24/2017. Radiation dose: Total exam DLP = 1796.14 mGy-cm. This CT exam was performed using one or more of the following dose reduction techniques: Automated exposure control, adjustment of the mA and/or kV according to patient size, and/or use of iterative reconstruction technique. FINDINGS: CT CHEST WITHOUT CONTRAST: LUNGS: Large left-sided effusion and mild atelectasis in the left lower as well as left upper lobes.. Small to medium size right-sided effusion and minor right basilar atelectasis. There is also a linear area of fibrosis/scarring in the left anterolateral upper lobe as well. MEDIASTINUM: Heart is enlarged. No significant pericardial effusion. There is mild aortic calcified atherosclerotic or mural plaque. Ascending thoracic aorta measures approximately 3.3 cm and descending thoracic aorta measures approximately 2.9 cm. Pulmonary trunk is mildly dilated measuring approximately 3.7 cm. Rule out underlying pulmonary arterial hypertension. Trachea midline and patent with no large central endoluminal lesions. Small hiatal hernia with slight wall thickening of the distal esophagus likely due to protrusion gastric mucosa. Esophagitis not excluded. LYMPH NODES: There are few small nonspecific mediastinal lymph nodes. Evaluation for hilar adenopathy is limited due to the lack of circulating intravenous contrast material as well as aforementioned bilateral effusions and atelectatic changes. PLEURA: As above. No evidence of pneumothorax BONES: Multilevel degenerative spondylosis of the thoracic spine. There are no acute compression fractures no retropulsed fragments. No suspicious lytic or blastic lesions are identified. OTHER FINDINGS: None. CT ABDOMEN AND PELVIS: LIVER: Liver exhibits normal size however there does appear to be a nodular surface contour consistent with underlying cirrhosis. Clinical correlation recommended.. No obvious hepatic mass collection or calcification. GALLBLADDER AND BILE DUCTS: Cholelithiasis. Gallbladder wall is slightly thickened; rule out cholecystitis. PANCREAS: Pancreas appears slightly atrophic. No obvious pancreatic mass collection or calcification. SPLEEN: Exhibits normal size and attenuation pattern. ADRENALS: No adrenal lesions are identified. KIDNEYS AND URETERS: Large cystic appearing right kidney with thin rim of residual cortex. Findings probably represent sequela of chronic longstanding hydronephrosis. There is a small calcifications seen along the anterior margin of the right kidney. There is moderate left-sided hydronephrosis. Small calcific density in the region of the left posterolateral collapsed urinary bladder is present. This could represent a calcification within the intramural portion of the distal left ureter. VASCULATURE: Mild aortic atherosclerotic calcification or mural plaque present. Unremarkable. No aortic aneurysm. BOWEL: Evaluation of the bowel is somewhat limited due to the lack of oral contrast material. The stomach is incompletely distended with thick-walled appearance. Visualized loops of small bowel exhibit normal contour and caliber. No evidence of acute mechanical small bowel obstruction. Stool and air seen throughout the large bowel. Numerous colonic diverticula are present the bulk of which arise from the distal descending/sigmoid colon junction. APPENDIX: Normal appendix. PERITONEUM: Note is made of an elliptical shaped on slightly hyperdense structure within the pelvis dorsal to the bladder and just anterior but adjacent to the prostate gland and rectum. This could represent a loculated proteinaceous collection or old hematoma. Clinical correlation recommended. Mild diffuse infiltration changes are seen within the mesentery.. Mild infiltration changes are also seen in the presacral soft tissues. There are also a central infiltration changes seen in the anterior subcutaneous tissues of the pelvis likely related to suprapubic cystostomy tube. Small bilateral fat containing inguinal hernias right larger than left. Mild diffuse anasarca. LYMPH NODES: Unremarkable. No enlarged lymph nodes. BLADDER: The urinary bladder is collapsed about an in situ unclamped suprapubic cystostomy. Urinary bladder wall is thickened in part due to incomplete distension; muscular hypertrophy presumably contributes. Possibility of cystitis or other intrinsic/invasive wall lesion cannot be excluded.. REPRODUCTIVE: Multiple opaque radiation implant seeds are seen distributed throughout the prostate gland. BONES: Multilevel degenerative spondylosis of the lumbar spine. No suspicious lytic or blastic lesions identified. OTHER FINDINGS: None. IMPRESSION: Large left-sided effusion with mild atelectasis in the left lower and upper lobes of. Small to medium size right-sided effusion and mild right basilar atelectasis. Cardiomegaly. Findings consistent with hepatic cirrhosis. Cholelithiasis with slight wall thickening of the gallbladder wall; rule out cholecystitis Cystic appearing left kidney presumably secondary to chronic longstanding left-sided hydronephrosis. Mild left-sided hydronephrosis with questionable calcification in the intramural portion of the distal left UVJ. In situ unclamped suprapubic cystostomy tube with marked bladder wall thickening in part due to collapse and muscular hypertrophy however cystitis or other intrinsic/invasive wall lesion not excluded. Multiple opaque radiation implant seeds distributed throughout the prostate gland.. Suspect small proteinaceous collection in the pelvis adjacent to the posterior bladder wall and rectum. Infiltration changes are seen throughout the mesentery Diverticulosis without definitive radiographic evidence of acute diverticulitis. Mild anasarca.
[2018-06-19] MEDS ORDERED: oxyCODONE 5 mg Immediate Release Tab PO PRN (17:08)
[2018-06-20] MEDS: Acetylcysteine 20% Inhal Soln (4ml) INH SCH ×4 (01:38→20:32)
[2018-06-20] MEDS: Albuterol-Ipratrop 3 mg / 0.5 (3 ml) UD INH SCH ×4 (01:38→20:32)
--- NOTE | 2018-06-20 05:47 | CON ---
DATE: 06/19/2018 HISTORY OF PRESENT ILLNESS: The patient is an 78-year-old male with past medical history of hypertension, AFib, CHF with systolic dysfunction, COPD, mild IgA nephropathy, nephrolithiasis, gout, prostate cancer, multiple myeloma (not on treatment) and recently diagnosed bladder cancer, presented with leakage and foul odor from suprapubic catheter. Nephrology now being consulted for acute renal failure. History is obtained mainly from the patient record. This patient has dementia. The patient underwent cystoscopy with cystogram along with change of suprapubic catheter and multiple bladder biopsies; procedure done in the setting of cystostomy tube malfunction; the patient has also been receiving antibiotics with ceftriaxone for UTI; the patient has been noted to have poor p.o. intake; today found to have pocketing of food in his mouth; also noted to be less verbally responsive and more lethargic. PAST MEDICAL HISTORY: As above. Diagnosed with multiple myeloma last year on bone marrow biopsy, not yet being treated with the patient/family having opted out of treatment previously; also history of progressive dementia with the patient wandering out of his home and getting lost. SOCIAL HISTORY: No smoking history. FAMILY HISTORY: Hypertension and prostate cancer. REVIEW OF SYSTEMS: Limited due to the patient's underlying dementia. PHYSICAL EXAMINATION: VITAL SIGNS: This afternoon blood pressure 145/89, heart rate 91, respirations 20, temperature 97.9, O2 saturations 98% on O2 via nasal cannula. GENERAL: No distress. Opens eyes to verbal stimuli and able to follow some commands. HEENT: No cervical lymphadenopathy. No elevated JVD. RESPIRATORY: Bronchial breath sounds at bilateral bases. Some rales presented. No rhonchi. No wheezes. CARDIOVASCULAR: Irregular rhythm. Systolic murmur at apex. GASTROINTESTINAL: Abdomen soft, mildly distended, somewhat tender. GENITOURINARY: No significant bladder distention. EXTREMITIES: No lower leg edema. SKIN: Warm. No cyanosis. NEURO: Follows commands. No resting tremor. PSYCHIATRIC: Not agitated. LABORATORY DATA: CBC: WBC 8.6, hemoglobin 9.8, hematocrit 30.2, platelets 191. Chemistry panel: Sodium 138, potassium 5.3, chloride 103, bicarb 29, BUN 64, creatinine 4.5, glucose 82, calcium 8.4, albumin 2.6. CT chest, abdomen and pelvis images reviewed showing bilateral pleural effusion; has severe right-sided hydronephrosis that is unchanged, left hydronephrosis present. ASSESSMENT AND PLAN: 1. Acute renal failure, acute kidney injury on chronic kidney disease; etiology is not entirely clear; has had solitary functional kidney with right-sided severe hydronephrosis and thinning of associated renal cortex present for some time, although serum creatinine had been relatively stable at 1.0; left hydronephrosis was present on CT done earlier this week though overall renal function was still relatively preserved; the patient did have cystogram, but unclear if contrast was given systemically; no other overt nephrotoxic agents found in medication summary;. At this point, it does not appear that left hydronephrosis is the sole cause of precipitous drop in renal function; however, we will review the images with Urology. Relatively stable volume status; however, has tenuous CHF status; also has mild hyperkalemia. -Discussed with the patient's that if renal function does not improve by tomorrow, we will likely need to initiate hemodialysis. -No need for additional IV fluids as this is not a prerenal state. -Avoid nephrotoxic agents. -Hold diuretics, especially Aldactone. -Holding angiotensin receptor blockers. 2. Congestive heart failure with systolic dysfunction. Currently appears euvolemic; however, the patient does have bilateral pleural effusions; should continue beta-blockers to optimize congestive heart failure status. 3. Hypertensive chronic kidney disease. Blood pressure currently controlled. Has responded well previously to losartan, but should hold for now in the setting of acute renal failure. Continue rest of medications, add hydralazine p.o. if needed. 4. Bladder carcinoma. Multiple biopsies showing high-grade urothelial carcinoma; need to have discussion with Oncology, Urology and Palliative Care as the patient's overall health is declining and utility of aggressive treatment is questionable. Thank you for this referral. We will be following up closely. Casey Avalos MD [facility]
[2018-06-20 08:23] LABS: BASO % 0.6 % (0.0-2.0); EOS # 0.1 K/uL (0.0-0.7); EOS % 0.7 % (0.0-4.0); HEMOGLOBIN 9.7 g/dL (12.0-18.0); LYMPH # 0.4 K/uL (1.0-4.3); LYMPH % 5.3 % (20.0-40.0); MEAN CELL VOLUME 93.7 fL (80.0-94.0); MEAN CORPUSCULAR HEMOGLOBIN 30.1 pg (27.0-31.0); MEAN CORPUSCULAR HGB CONC 32.1 g/dL (33.0-37.0); MEAN PLATELET VOLUME 8.6 fL (7.2-11.7); MONO # 0.4 K/uL (0.0-0.8); MONO % 5.1 % (0.0-10.0); NEUT # 6.5 K/uL (1.8-7.0); NEUT % 88.3 % (50.0-75.0); PLATELET COUNT 181 K/uL (130-400); RBC 3.21 Mil/uL (4.40-5.90); RED CELL DISTRIBUTION WIDTH 15.1 % (11.5-14.5); WHITE BLOOD COUNT 7.4 K/uL (4.8-10.8)
[2018-06-20 08:43] LABS: ALB/GLOB RATIO 0.8 (1.0-2.1); ALBUMIN 2.7 g/dL (3.5-5.0); CALCIUM 8.3 mg/dl (8.6-10.4)
[2018-06-20 09:40] LABS: ANISOCYTOSIS SLIGHT; BANDS 1 % (0-2); LYMPHOCYTE 8 % (20-40); MONOCYTE 5 % (0-10); NEUTROPHIL 86 % (50-75); PLATELET ESTIMATE NORMAL (NORMAL); TOTAL CELLS COUNTED 100
[2018-06-20 09:41] LABS: OVALOCYTES SLIGHT
[2018-06-20] MEDS: Metoprolol Succinate 25 mg XL Tab PO SCH (10:16)
--- NOTE | 2018-06-20 10:28 | CP.PCM.PN ---
Subjective - Date & Time of Evaluation Date of Evaluation: 06/20/18 Time of Evaluation: 10:18 - Subjective Subjective: Maria D Choi PGY1 Progress Note for Dr. See Pt was examined at bedside this morning. Pt can respond to some questions. He reports pain but is not able to say where. He does not know where he is at this time. Objective - Vital Signs/Intake and Output Vital Signs (last 24 hours): Temp Pulse Resp BP Pulse Ox 97.4 F L 80 20 166/100 H 96 06/20/18 07:30 06/20/18 07:30 06/20/18 07:30 06/20/18 07:30 06/20/18 07:30 Intake and Output: 06/20/18 06/20/18 06:59 18:59 Intake Total 1040 Output Total 180 Balance 860 - Medications Medications: Current Medications Acetylcysteine (Acetylcysteine 20%) 4 ml INH RQ6 MANPREET Last Admin: 06/20/18 01:38 Dose: Not Given Albuterol/Ipratropium (Duoneb 3 Mg/0.5 Mg (3 Ml) Ud) 3 ml INH RQ6 MANPREET Last Admin: 06/20/18 01:38 Dose: Not Given Allopurinol (Zyloprim) 100 mg PO DAILY [facility] Last Admin: 06/20/18 10:16 Dose: 100 mg Donepezil HCl (Aricept) 10 mg PO HS [facility] Last Admin: 06/19/18 21:24 Dose: 10 mg Famotidine (Pepcid) 20 mg PO DAILY [facility] Last Admin: 06/20/18 10:17 Dose: 20 mg Finasteride (Proscar) 5 mg PO DAILY [facility] Last Admin: 06/20/18 10:16 Dose: 5 mg Furosemide (Lasix) 20 mg PO DAILY [facility] Last Admin: 06/15/18 10:31 Dose: Not Given Heparin Sodium (Porcine) (Heparin) 5,000 units SC Q8 [facility]PRE[facility] Last Admin: 06/20/18 05:22 Dose: 5,000 units Hydralazine HCl (Apresoline) 25 mg PO Q8H [facility] Last Admin: 06/20/18 08:09 Dose: 25 mg Ceftriaxone Sodium 1 gm/ (Sodium Chloride) 100 mls @ 100 mls/hr IVPB DAILY [facility]PRE[facility]; Protocol Last Admin: 06/20/18 10:17 Dose: 100 mls/hr Losartan Potassium (Cozaar) 100 mg PO DAILY [facility] Last Admin: 06/19/18 09:31 Dose: 100 mg Metoprolol Succinate (Toprol Xl) 25 mg PO DAILY [facility] Last Admin: 06/20/18 10:16 Dose: 25 mg Oxycodone HCl (Oxycodone Immediate Release Tab) 5 mg PO Q6 PRN PRN Reason: Pain, moderate (4-7) Sodium Polystyrene Sulfonate (Kayexalate) 15 gm PO ONCE ONE Stop: 06/20/18 09:42 Spironolactone (Aldactone) 25 mg PO DAILY [facility] Last Admin: 06/19/18 09:31 Dose: 25 mg Tamsulosin HCl (Flomax) 0.4 mg PO HS [facility] Last Admin: 06/19/18 21:24 Dose: 0.4 mg - Labs Labs: 06/20/18 08:12 06/20/18 08:12 PT 14.3 SECONDS (9.7-12.2) H 06/13/18 13:44 INR 1.3 06/13/18 13:44 APTT 31 SECONDS (21-34) 06/13/18 13:44 - Additional Findings Additional findings: - Constitutional Appears: Non-toxic, No Acute Distress, Confused, Chronically Ill - Head Exam Head Exam: ATRAUMATIC, NORMAL INSPECTION, NORMOCEPHALIC Additional comments: hemifacial port wine stain - Eye Exam Eye Exam: EOMI, Normal appearance Pupil Exam: NORMAL ACCOMODATION - ENT Exam ENT Exam: Mucous Membranes Moist, Normal Exam - Neck Exam Neck Exam: Full ROM, Normal Inspection - Respiratory Exam Respiratory Exam: Rhonchi bilaterally, NORMAL BREATHING PATTERN. absent: Accessory Muscle Use, Rales, Rhonchi, Wheezes, Respiratory Distress, Stridor - Cardiovascular Exam Cardiovascular Exam: REGULAR RHYTHM, +S1, +S2 - GI/Abdominal Exam GI & Abdominal Exam: Soft, Normal Bowel Sounds. absent: Distended, Firm, Guarding, Rigid, Tenderness Additional comments: suprapubic cath site intact. bloody drainage. - Exam Additional comments: vasquez cath intact, bloody drainage. - Neurological Exam Neurological Exam: Alert, Awake - Skin Skin Exam: Dry, Intact, Normal Color, Warm Assessment and Plan - Assessment and Plan (Free Text) Assessment: 78 year old male with history of prostate cancer status post radiation, IgA nephropathy, COPD, Atrial fibrillation, Alzheimer's CHF who presents with for leakage and foul odor from suprapubic catheter. Plan: Hematuria, likely secondary newly diagnosed urothelial carcinoma - Suprapubic catheter leakage History of prostate cancer status post radiation -Minimal urine output in bag, now hematuria present -Pathology report from prior admission revealed biopsy of bladder neck is indicative of invasive high grade urothelial carcinoma -Urology recs (Dr. Ching) appreciated -Heme/onc consulted, Dr. Francois - f/u recs -BCx: negative -Wound culture: Enterococcus faecalis, yeast spp. -Urine culture: Enterococcus faecalis, yeast spp. -CT abd/pel 06/19: cholelithiasis with slight wall thickening of the gallbladder w all. cystic L kidney secondary to chronic hydronephrosis. mild L hydronephrosis with questionable calcification in the intramural portion of distal left UVJ. In situ unclamped suprapubic cystostomy tube iwth marked bladder wall thickening. multiple opaque radiation implant seeds distributed throughout the prostate gland. inflitrations throughout mesentary. diverticulosis without diverticulitis. mild anasarca. -CT abdomen/pelvis (06/13): Fluid collection in the prevesical space. Suprapubic catheter traverses this collection. No fluid seen within the anterior abdominal wall. Mild ascites. Bilateral pleural effusion. Bilateral hydronephrosis, R> L. 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 Cholelithiasis with mural thickening of the gallbladder. -rocephin 1g IV Q12 -vancomycin d/c'd as culture growth likely due to instrumentation. Pt afebrile, no leukocytosis. -Proscar 5mg PO daily -Flomax 0.4mg PO HS BROWN/ARF in setting of hydronephrosis etiology unclear -CT abd/pel 06/19: cholelithiasis with slight wall thickening of the gallbladder wall. cystic L kidney secondary to chronic hydronephrosis. mild L hydronephrosis with questionable calcification in the intramural portion of distal left UVJ. In situ unclamped suprapubic cystostomy tube iwth marked bladder wall thickening. multiple opaque radiation implant seeds distributed throughout the prostate gland. inflitrations throughout mesentary. diverticulosis without diverticulitis. mild anasarca. -consider HD -hold diuretics, ARBS -hydralazine 25mg PO q8h -Nephro consulted, Dr. Avalos - recs appreciated Pleural Effusions -CT chest 32: large left sided and effusion and mild atelectasis in left lower an dupper lobs. small to medium right sided effusion and basilar atelectasis. -CXR 3/2: redemonstrated are large left and moderate right effusions with mild bibasilar atelectasis. central pulmonary vasculature congested as well. -f/u rpt CXR today Hx of Atrial fibrillation -ASA held currently due to hematuria Hx of CHF worsening breathing -CT chest 06/19: large left sided and effusion and mild atelectasis in left lower an dupper lobs. small to medium right sided effusion and basilar atelectasis. -CXR 06/19: redemonstrated are large left and moderate right effusions with mild bibasilar atelectasis. central pulmonary vasculature congested as well. -ASA held due to hematuria -Toprol XL 25mg PO daily -Aldactone 25mg PO daily: held as [er Nephro -Lasix 20mg PO daily: held as per Urology -Losartan 100mg PO daily: held as per Nephro - f/u CXR today Hx of COPD -Duonebs q6 -added mucomyst q6 Hx of Gout -Allopurinol 100mg PO daily Alzheimer's dementia -CT head 06/19: no acute intracranial hemorrhage. mild chronic white matter ischemic changes. chronic b/l basal nuclei lacunar type infarcts. modeate generalized volume loss. -Mildly confused at baseline as per . -Aricept 10mg PO HS PPx, Diet, Disposition -DVT ppx: scds, lovenox -GI ppx: pepcid 20 PO daily -Diet: HHD -Dispo: Pending heme/onc recs. consider palliative care consult to discuss goals of care with worsening of patient's condition Pt seen and case discussed with Dr. See
--- NOTE | 2018-06-20 16:36 | RAD ---
Date of service: 06/20/2018 HISTORY: Pleural effusions, abdominal breathing COMPARISON: Comparison made with chest and CT chest both dated 06/19/[address] chest FINDINGS: LUNGS: Large left-sided effusion with atelectatic changes in the left upper and lower lobes.. Small right-sided effusion and mild right basilar atelectasis PLEURA: As above. No pneumothorax apparent. CARDIOVASCULAR: No aortic atherosclerotic calcification present. Cardiomegaly again noted. No pulmonary vascular congestion. OSSEOUS STRUCTURES: No significant abnormalities. VISUALIZED UPPER ABDOMEN: Normal. OTHER FINDINGS: None. IMPRESSION: Large left-sided effusion with atelectatic changes in the left upper and lower lobes.. Small right-sided effusion and mild right basilar atelectasis
--- NOTE | 2018-06-20 16:45 | PCM.URO ---
Urology Progress Note - General General: Tolerating Diet (poor po intake) - Subjective Abdominal Pain: No Flank Pain: No Nausea: No Vomiting: No Voiding Well: No Hematuria: No Dsypnea: No Chest Pain: No Fever & Chills: No Other: Decrased urine output noted - Objective Lab Results Last 24 Hours: Laboratory Results - last 24 hr 06/19/18 06/19/18 06/20/18 16:23 21:44 08:12 WBC 7.4 RBC 3.21 L Hgb 9.7 L Hct 30.1 L MCV 93.7 MCH 30.1 MCHC 32.1 L RDW 15.1 H Plt Count 181 MPV 8.6 Neut % (Auto) 88.3 H Lymph % (Auto) 5.3 L Dickinson % (Auto) 5.1 Eos % (Auto) 0.7 Baso % (Auto) 0.6 Neut # (Auto) 6.5 Lymph # (Auto) 0.4 L Dickinson # (Auto) 0.4 Eos # (Auto) 0.1 Baso # (Auto) 0.0 Neutrophils % (Manual) 86 H Band Neutrophils % 1 Lymphocytes % (Manual) 8 L Monocytes % (Manual) 5 Platelet Estimate Normal Anisocytosis (manual) Slight Ovalocytes Slight Sodium Potassium Chloride Carbon Dioxide Anion Gap BUN Creatinine Est GFR ( Amer) Est GFR (Non-Af Amer) POC Glucose (mg/dL) 153 H 101 Random Glucose Calcium Phosphorus Magnesium Total Bilirubin AST ALT Alkaline Phosphatase Total Protein Albumin Globulin Albumin/Globulin Ratio 06/20/18 08:12 WBC RBC Hgb Hct MCV MCH MCHC RDW Plt Count MPV Neut % (Auto) Lymph % (Auto) Dickinson % (Auto) Eos % (Auto) Baso % (Auto) Neut # (Auto) Lymph # (Auto) Dickinson # (Auto) Eos # (Auto) Baso # (Auto) Neutrophils % (Manual) Band Neutrophils % Lymphocytes % (Manual) Monocytes % (Manual) Platelet Estimate Anisocytosis (manual) Ovalocytes Sodium 140 Potassium 5.0 Chloride 104 Carbon Dioxide 29 Anion Gap 11 BUN 69 H Creatinine 5.9 H Est GFR ( Amer) 11 Est GFR (Non-Af Amer) 9 POC Glucose (mg/dL) Random Glucose 83 Calcium 8.3 L Phosphorus 5.4 H Magnesium 2.4 H Total Bilirubin 0.7 AST 27 ALT 26 Alkaline Phosphatase 99 Total Protein 6.2 L Albumin 2.7 L Globulin 3.5 Albumin/Globulin Ratio 0.8 L Intake & Output: Intake & Output 06/19/18 06/20/18 06/20/18 18:59 06:59 18:59 Intake Total 150 1040 400 Output Total 150 180 150 Balance 0 860 250 Intake: Intake, IV Amount 800 Left Hand 800 Oral 150 240 400 Output: Urine 150 180 150 Suprapubic 100 100 100 Urethral (Vasquez) 50 80 50 Other: # Bowel Movements 0 0 Vital Signs: Vital Signs - 24 hr 06/19/18 06/20/18 06/20/18 20:10 00:25 07:30 Temperature 98 F 97.4 F L Pulse Rate 106 H 80 Respiratory 20 20 Rate Blood Pressure 126/78 155/92 H 166/100 H O2 Sat by Pulse 98 96 Oximetry Imaging Studies: Reviewed (stable L hydronephrosis on CT R hydronephrotic atrophy) - Physical Exam Abdominal Exam: Soft, Non-Tender, Non-Distended Wound: Clean, Healing Well Back: No CVA Tenderness Genitalia: Without Inflammation Urinary Catheter Draining Well: Yes Urine Color: Clear, Yellow (Urethral vasquez and cystostomy tubes are draining well and irrigate well) - Male Phallus: Normal Scrotum: Normal - Plan Wound Care: Yes Catheter Care: Yes Intake & Output: Yes Additional Information: IMP: Bladder ca, invasive and high grade. BROWN. Discussed at length re findings and options. Poss PCN tube insertion. Monitor output. Monitor renal function. Oncology consultation. Palliative care consultation. Nephrology consultation - Date & Time of Note Date: 06/20/18 Time: 08:25
[2018-06-20] MEDS ORDERED: Morphine 50 MG in Sodium Chloride 0.9% 45 ML IV PRN (19:49)
--- NOTE | 2018-06-20 19:50 | CP.PCM.PCO ---
<[email or web address] - Last Filed: 06/20/18 19:48> Assessment & Plan - Assessment and Plan (Free Text) Assessment: Spoke with and Daughter, Quinn regarding plans of care. They agreed as a family that the patient had previously stated he wanted to pass comfortably. They wish to proceed with comfort care at this time. They are electing for DNR/DNI status. <Bahman See - Last Filed: 06/20/18 19:59> Assessment & Plan - Assessment and Plan (Free Text) Plan: spoke to patient's over the phone about his medical problem in detail . Burkinan speaking resident explained about acute renal failure,bladder ca and pleural effusion. Discussed about the plan of care. wanted us to talk to her daughter Quinn and make decision . I spoke to his daughter in length. She called me back after talk to her brother. His family and daughter Quinn asked to give him comfort care only. They don't want him to suffer.Discussed about procedures ,medical treatment and dialysis. she choosed DNR/DNI and morphine drip.No procedures
--- NOTE | 2018-06-20 21:54 | CP.PCM.PN ---
Subjective - Date & Time of Evaluation Date of Evaluation: 06/20/18 Time of Evaluation: 17:30 - Subjective Subjective: 78 yo M w/ pmh of htn, CHF w/ systolic dysfunction, prostate CA s/p radiation, multiple myeloma, mild IgA nephropathy, severe R hydronephrosis with solitary functional L kidney, and newly diagnosed bladder CA s/p suprapubic catheter marcelo cement, initially admitted with suprapubic catheter malfunction, nephrology following for acute renal failure; Patient more tachypneic today; not eating much; with no output from suprapubic/vasquez catheters; Objective - Vital Signs/Intake and Output Vital Signs (last 24 hours): Temp Pulse Resp BP Pulse Ox 97.9 F 93 H 22 167/89 H 99 06/20/18 15:00 06/20/18 16:30 06/20/18 16:30 06/20/18 16:30 06/20/18 16:30 Intake and Output: 06/20/18 06/21/18 18:59 06:59 Intake Total 400 Output Total 150 Balance 250 - Medications Medications: Current Medications Acetylcysteine (Acetylcysteine 20%) 4 ml INH RQ6 MANPREET Last Admin: 06/20/18 20:32 Dose: 4 ml Albuterol/Ipratropium (Duoneb 3 Mg/0.5 Mg (3 Ml) Ud) 3 ml INH RQ6 MANPREET Last Admin: 06/20/18 20:32 Dose: 3 ml Morphine Sulfate 50 mg/ Sodium (Chloride) 50 mls @ 2 mls/hr IV .Q24H PRN; Protocol Last Admin: 06/20/18 21:07 Dose: 2 mls/hr Scopolamine (Transderm-Scop) 1 patch TD Q3D MANPREET Last Admin: 06/20/18 21:07 Dose: 1 patch - Labs Labs: 06/20/18 08:12 06/20/18 08:12 PT 14.3 SECONDS (9.7-12.2) H 06/13/18 13:44 INR 1.3 06/13/18 13:44 APTT 31 SECONDS (21-34) 06/13/18 13:44 - Constitutional Appears: Non-toxic, No Acute Distress - Eye Exam Eye Exam: absent: Scleral icterus - Respiratory Exam Additional comments: minimal rales; mildly tachypneic; some decreased breath sounds at bases; - Cardiovascular Exam Cardiovascular Exam: Irregular Rhythm Additional comments: systolic murmur at apex - GI/Abdominal Exam GI & Abdominal Exam: Soft, Tenderness - Extremities Exam Additional comments: no leg edema - Neurological Exam Neurological Exam: Alert, Awake - Psychiatric Exam Psychiatric exam: absent: Agitated - Skin Skin Exam: Warm. absent: Cyanosis Assessment and Plan (1) Acute renal failure Assessment & Plan: Progressive oilgo-anuric renal failure in the setting of unilateral functioning L kidney now with hydronephrosis; discusses with urology today; agrees that hydronephrosis of L kidney not significantly changed on CT from last week at which time renal function was relatively preserved; nevertheless, need to attempt percutaneous nephrostomy to remove any component of obstruction that is causing acute renal failure; Otherwise, borderline hyperkalemia being controlled with kayexalate; rest of lytes stable; tenuous volume status given CHF but doesn't appear volume overloaded; pleural effusions noted and will need thoracentesis; no urgent indication for HD at this time but may need HD; will f/u closely; -nursing staff instructed to flush subapubic and vasquez catheters; -avoid nephrotoxic agents; -IR for percutaneous nephrostomy and thoracentesis tomorrow; possible need for HD catheter; Status: Acute (2) Hyperkalemia Status: Acute (3) CHF (congestive heart failure) Status: Chronic (4) Hypertension Assessment & Plan: Losartan being held; continue B-blockers, hydralazine 25 mg PO q8h added; Status: Acute
[2018-06-21] MEDS: Albuterol-Ipratrop 3 mg / 0.5 (3 ml) UD INH SCH ×4 (01:09→20:05)
[2018-06-21] MEDS: Acetylcysteine 20% Inhal Soln (4ml) INH SCH ×4 (01:09→20:05)
--- NOTE | 2018-06-21 07:17 | CP.PCM.PN ---
<Hal Muñiz - Last Filed: 06/21/18 13:25> Subjective - Date & Time of Evaluation Date of Evaluation: 06/21/18 Time of Evaluation: 07:17 - Subjective Subjective: PGY-1 Medicine Progress Note for Dr. Fowler Patient seen and examined at bedside this AM. No acute overnight events reported. Family meeting held over weekend with on-call resident and attending present. Family made wishes known to medical team, refusing any further procedures, asking for comfort care alone. Code status is DNR/DNI at this time, family is aware of poor prognosis. No acute somatic complaints at this time, minimal urine output noted. Objective - Vital Signs/Intake and Output Vital Signs (last 24 hours): Temp Pulse Resp BP Pulse Ox 97.9 F 113 H 20 169/89 H 98 06/21/18 01:30 06/21/18 04:00 06/21/18 01:30 06/21/18 01:30 06/21/18 01:30 Intake and Output: 06/21/18 06/21/18 06:59 18:59 Output Total 50 Balance -50 - Medications Medications: Current Medications Acetylcysteine (Acetylcysteine 20%) 4 ml INH RQ6 MANPREET Last Admin: 06/21/18 01:09 Dose: Not Given Albuterol/Ipratropium (Duoneb 3 Mg/0.5 Mg (3 Ml) Ud) 3 ml INH RQ6 MANPREET Last Admin: 06/21/18 01:09 Dose: Not Given Morphine Sulfate 50 mg/ Sodium (Chloride) 50 mls @ 2 mls/hr IV .Q24H PRN; Protocol Last Admin: 06/20/18 21:07 Dose: 2 mls/hr Scopolamine (Transderm-Scop) 1 patch TD Q3D MANPREET Last Admin: 06/20/18 21:07 Dose: 1 patch - Labs Labs: 06/20/18 08:12 06/20/18 08:12 PT 14.3 SECONDS (9.7-12.2) H 06/13/18 13:44 INR 1.3 06/13/18 13:44 APTT 31 SECONDS (21-34) 06/13/18 13:44 - Constitutional Appears: No Acute Distress, Confused, Chronically Ill - Head Exam Head Exam: ATRAUMATIC, NORMAL INSPECTION, NORMOCEPHALIC Additional comments: hemifacial port wine stain - Eye Exam Eye Exam: EOMI, Normal appearance Pupil Exam: NORMAL ACCOMODATION - ENT Exam ENT Exam: Mucous Membranes Moist, Normal Exam - Neck Exam Neck Exam: Full ROM, Normal Inspection. absent: Tenderness - Respiratory Exam Respiratory Exam: Decreased Breath Sounds, Rhonchi. absent: Accessory Muscle Use, Respiratory Distress - Cardiovascular Exam Cardiovascular Exam: Tachycardia, +S1, +S2 - GI/Abdominal Exam GI & Abdominal Exam: Soft, Normal Bowel Sounds. absent: Distended, Firm, Guarding, Rigid, Tenderness, Rebound Additional comments: suprapubic cath site c/d/i - Exam Additional comments: vasquez cath intact, minimal urine output - Extremities Exam Extremities Exam: Normal Capillary Refill, Normal Inspection. absent: Pedal Edema - Back Exam Back Exam: NORMAL INSPECTION - Neurological Exam Neurological Exam: Alert, Awake - Skin Skin Exam: Dry, Intact, Normal Color, Warm Assessment and Plan - Assessment and Plan (Free Text) Plan: Acute Renal Failure -Progressive oligo-anuric renal failure in the setting of unilateral functioning L kidney now with hydronephrosis. -patient is now DNR/DNI and comfort are measures, no interventions -nursing staff instructed to flush subapubic and vasquez catheters -avoid nephrotoxic agents Hematuria, likely secondary newly diagnosed urothelial carcinoma - Suprapubic catheter leakage History of prostate cancer status post radiation -Minimal urine output in bag, now clear urine noted near suprapubic cath site. -Pathology report from prior admission revealed biopsy of bladder neck is indicative of invasive high grade urothelial carcinoma -Urology recs (Dr. Ching) appreciated -BCx: negative -Wound culture: Enterococcus faecalis, yeast spp. -Urine culture: Enterococcus faecalis, yeast spp. -CT abdomen/pelvis (06/13): Fluid collection in the prevesical space. Suprapubic catheter traverses this collection. No fluid seen within the anterior abdominal wall. Mild ascites. Bilateral pleural effusion. Bilateral hydronephrosis, R> L. 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 Cholelithiasis with mural thickening of the gallbladder. PPx, Diet, Disposition -DVT ppx: scds, lovenox -GI ppx: pepcid 20 PO daily -Diet: pureed -Hospice eval pending -Dispo: Meeting held with pt's , daughter, son over weekend with on-call resident and medical attending. Pt on comfort care, code status DNR/DNI. No fu rther interventions Case discussed with Dr. Janeth Muñiz DO, PGY-1 <Uziel Fowler H - Last Filed: 06/21/18 13:53> Objective - Vital Signs/Intake and Output Vital Signs (last 24 hours): Temp Pulse Resp BP Pulse Ox 98.5 F 108 H 18 156/95 H 96 06/21/18 09:07 06/21/18 09:07 06/21/18 09:07 06/21/18 09:07 06/21/18 09:07 Intake and Output: 06/21/18 06/21/18 06:59 18:59 Output Total 50 Balance -50 - Medications Medications: Current Medications Acetylcysteine (Acetylcysteine 20%) 4 ml INH RQ6 MANPREET Last Admin: 06/21/18 10:05 Dose: 4 ml Albuterol/Ipratropium (Duoneb 3 Mg/0.5 Mg (3 Ml) Ud) 3 ml INH RQ6 MANPREET Last Admin: 06/21/18 10:05 Dose: 3 ml Morphine Sulfate 50 mg/ Sodium (Chloride) 50 mls @ 2 mls/hr IV .Q24H PRN; Protocol Last Admin: 06/20/18 21:07 Dose: 2 mls/hr Scopolamine (Transderm-Scop) 1 patch TD Q3D MANPREET Last Admin: 06/20/18 21:07 Dose: 1 patch - Labs Labs: 06/20/18 08:12 06/21/18 06:47 PT 14.3 SECONDS (9.7-12.2) H 06/13/18 13:44 INR 1.3 06/13/18 13:44 APTT 31 SECONDS (21-34) 06/13/18 13:44 Attending/Attestation - Attestation I have personally seen and examined this patient.: Yes I have fully participated in the care of the patient.: Yes I have reviewed all pertinent clinical information, including history, physical exam and plan: Yes Notes (Text): 06/21/18 13:48 Medical attending: Patient was seen and examined by me. Agree with the above note by the resident The patient was made yesterday DNR and DNI. He currently is on a morphine ggt at this time. He was awake and verbal, he reported to us that he was not in any pain or discomfort at this time The patient over the weekend had sudden worsening of the renal function. This morning urine output had decreased substantially At this time our goals are to keep patient as comfortable as possible Uziel Fowler
[2018-06-21 07:31] LABS: ALB/GLOB RATIO 0.8 (1.0-2.1); ALBUMIN 2.7 g/dL (3.5-5.0); CALCIUM 8.5 mg/dl (8.6-10.4)
--- NOTE | 2018-06-21 08:08 | CP.PCM.PN ---
Subjective - Date & Time of Evaluation Date of Evaluation: 06/21/18 Time of Evaluation: 06:00 - Subjective Subjective: Patient seen and examined bedside. No acute issues overnight. Patient is now DNR/DNI. Patient not verbalizing much. Minimal output from suprapubic/vasquez catheters. Patient is now hospice patient with comfort control. Objective - Vital Signs/Intake and Output Vital Signs (last 24 hours): Temp Pulse Resp BP Pulse Ox 97.9 F 113 H 20 156/95 H 98 06/21/18 01:30 06/21/18 04:00 06/21/18 01:30 06/21/18 07:00 06/21/18 01:30 Intake and Output: 06/21/18 06/21/18 06:59 18:59 Output Total 50 Balance -50 - Medications Medications: Current Medications Acetylcysteine (Acetylcysteine 20%) 4 ml INH RQ6 MANPREET Last Admin: 06/21/18 01:09 Dose: Not Given Albuterol/Ipratropium (Duoneb 3 Mg/0.5 Mg (3 Ml) Ud) 3 ml INH RQ6 MANPREET Last Admin: 06/21/18 01:09 Dose: Not Given Morphine Sulfate 50 mg/ Sodium (Chloride) 50 mls @ 2 mls/hr IV .Q24H PRN; Protocol Last Admin: 06/20/18 21:07 Dose: 2 mls/hr Scopolamine (Transderm-Scop) 1 patch TD Q3D MANPREET Last Admin: 06/20/18 21:07 Dose: 1 patch - Labs Labs: 06/20/18 08:12 06/21/18 06:47 PT 14.3 SECONDS (9.7-12.2) H 06/13/18 13:44 INR 1.3 06/13/18 13:44 APTT 31 SECONDS (21-34) 06/13/18 13:44 - Constitutional Appears: No Acute Distress - Eye Exam Eye Exam: Normal appearance - ENT Exam ENT Exam: Mucous Membranes Moist - Respiratory Exam Respiratory Exam: Decreased Breath Sounds - Cardiovascular Exam Cardiovascular Exam: Murmur - GI/Abdominal Exam GI & Abdominal Exam: Soft. absent: Tenderness - Extremities Exam Extremities Exam: absent: Pedal Edema - Neurological Exam Neurological Exam: Alert, Awake Assessment and Plan - Assessment and Plan (Free Text) Plan: (1) Acute renal failure Progressive oilgo-anuric renal failure in the setting of unilateral functioning L kidney now with hydronephrosis. -patient is now DNR/DNI and comfort are measures, no interventions -avoid nephrotoxic agents; Status: Acute (2) Hyperkalemia Status: Acute (3) CHF (congestive heart failure) Status: Chronic (4) Hypertensio Status: Acute
[2018-06-21 17:33] VITALS: TEMP 98.3
[2018-06-22 00:58] VITALS: BP 92/58; RESP 32; O2SAT 89
[2018-06-22] MEDS: Acetylcysteine 20% Inhal Soln (4ml) INH SCH (01:24)
[2018-06-22] MEDS: Albuterol-Ipratrop 3 mg / 0.5 (3 ml) UD INH SCH (01:24)
[2018-06-22 02:42] VITALS: PULSE 119
--- NOTE | 2018-06-23 00:19 | PCM.URO ---
Urology Progress Note - General General: No Complaints - Subjective Abdominal Pain: No Flank Pain: No Voiding Well: No Hematuria: No Dsypnea: No Other: Lethargic - Objective Lab Studies: Reviewed Intake & Output: scant urine output noted Vital Signs: Vital Signs - 24 hr 06/22/18 01:00 Pulse Rate 119 H - Physical Exam Abdominal Exam: Soft, Non-Tender, Non-Distended Wound: Clean Dressing: Intact Back: No CVA Tenderness Genitalia: Without Inflammation - Male Phallus: Normal Scrotum: Normal - Plan Wound Care: Yes Catheter Care: Yes Intake & Output: Yes Additional Information: IMP: renal failure. High grade, multi-focal, muscle- invasive bladder cancer. Case discussed at length with primary MD and w robotics testing technician. Family is aware of multiple medical problems and prefers not to procede with nephrostomy tube insertion or dialysis. Thus, palliative care is requested. - Date & Time of Note Date: 06/21/18 Time: 11:30
== END 2018-06-22 04:55 | DRG 654 ==
LOC: C.ER 11:57 → C.9E 16:22 → C.3T 17:36 → OBSVTOIN 06-15 13:10 → C.6T 06-19 13:31
PROVIDERS: ADMIT Hospitalist; ATTEND Hospitalist
PROC: 0TCB8ZZ Extirpation of Matter from Bladder, Via Natural or Artificial Opening Endoscopic (ICD-10-PCS; 2018-06-15)
PROC: 0T2BX0Z Change Drainage Device in Bladder, External Approach (ICD-10-PCS; 2018-06-15)
PROC: BT1B1ZZ Fluoroscopy of Bladder and Urethra using Low Osmolar Contrast (ICD-10-PCS; 2018-06-15)
PROC: 0TTB8ZZ Resection of Bladder, Via Natural or Artificial Opening Endoscopic (ICD-10-PCS; principal; 2018-06-15 08:00)
PROC: 0VT08ZZ Resection of Prostate, Via Natural or Artificial Opening Endoscopic (ICD-10-PCS; 2018-06-15 08:00)
PROC: 0TTC8ZZ Resection of Bladder Neck, Via Natural or Artificial Opening Endoscopic (ICD-10-PCS; 2018-06-15 08:00)
DX: C67.8 Malignant neoplasm of overlapping sites of bladder (principal); T83.090A Other mechanical complication of cystostomy catheter, initial encounter; N13.6 Pyonephrosis; N17.9 Acute kidney failure, unspecified; N30.01 Acute cystitis with hematuria; N02.8 Recurrent and persistent hematuria with other morphologic changes; I50.22 Chronic systolic (congestive) heart failure; C90.00 Multiple myeloma not having achieved remission; I13.0 Hypertensive heart and chronic kidney disease with heart failure and stage 1 through stage 4 chronic kidney disease, or unspecified chronic kidney disease; B37.49 Other urogenital candidiasis; C61 Malignant neoplasm of prostate; J44.9 Chronic obstructive pulmonary disease, unspecified; N18.9 Chronic kidney disease, unspecified; E87.5 Hyperkalemia; B95.2 Enterococcus as the cause of diseases classified elsewhere; I48.91 Unspecified atrial fibrillation; N28.9 Disorder of kidney and ureter, unspecified; D50.0 Iron deficiency anemia secondary to blood loss (chronic); G30.9 Alzheimer's disease, unspecified; F02.80 Dementia in other diseases classified elsewhere, unspecified severity, without behavioral disturbance, psychotic disturbance, mood disturbance, and anxiety; Y73.8 Miscellaneous gastroenterology and urology devices associated with adverse incidents, not elsewhere classified; Z66 Do not resuscitate; Z51.5 Encounter for palliative care; M10.9 Gout, unspecified; Z92.3 Personal history of irradiation; Z90.49 Acquired absence of other specified parts of digestive tract; Z87.442 Personal history of urinary calculi